=== PATIENT | female | born 1975 | race Caucasian/White ===

== ENCOUNTER 2020-05-23 08:23 | Outpatient (REF) | payer OTHER, SELFPAY ==
[2020-05-23 09:24] LABS: Alanine Aminotransferase 55 U/L (0-31); Alkaline Phosphatase 83 U/L (39-117); Anion Gap 11 (12-20); Aspartate Amino Transferase 35 U/L (5-31); Bilirubin Total 0.9 mg/dL (0.0-1.0); Blood Urea Nitrogen 16 mg/dL (9-16); Calcium 8.7 mg/dL (8.4-10.2); Carbon Dioxide 28 mmol/L (22-29); Chloride 103 mmol/L (96-108); Cholesterol 160 mg/dL; Estimated Glomerular Filt Rate > 60; Glucose Fasting 135 mg/dL (60-99); HDL Cholesterol 38 mg/dL; LDL Cholesterol Calculated 58 mg/dl; Potassium 4.8 mmol/l (3.3-5.1); Sodium 137 mmol/L (135-145); Total Protein 6.7 g/dL (6.5-8.0); Triglycerides 320 mg/dL
[2020-05-23 09:47] LABS: TSH reflex Free T4 1.92 mIU/mL (0.32-4.0)
[2020-05-23 09:58] LABS: Creatinine Urine 109.71 mg/dL; Microalbum/Creatinine Ratio Ur 4.5 ug/mg cr
== END 2020-05-23 08:24 | disposition home or self-care (01) ==
LOC: HO.LAB 08:23
PROVIDERS: PCP Internal Medicine; Visit Provider Internal Medicine
DX: E78.00 Pure hypercholesterolemia, unspecified (principal); E03.9 Hypothyroidism, unspecified; E11.9 Type 2 diabetes mellitus without complications
CPT/HCPCS: 80053; 80061; 82043; 84443

== ENCOUNTER → 2020-07-03 09:28 | Outpatient (BNVA) | payer OTHER, SELFPAY | PROVIDERS: PCP Internal Medicine; Visit Provider Advanced Practice Midwife | DX: Z76.89 Persons encountering health services in other specified circumstances (principal) ==

== ENCOUNTER 2020-08-26 09:48 | Outpatient (REF) | payer OTHER, SELFPAY ==
[2020-08-26 10:34] LABS: Alanine Aminotransferase 32 U/L (0-31); Albumin Level 4.2 g/dL (3.5-5.0); Alkaline Phosphatase 77 U/L (39-117); Anion Gap 15 (12-20); Aspartate Amino Transferase 16 U/L (5-31); Bilirubin Total 0.6 mg/dL (0.0-1.0); Blood Urea Nitrogen 13 mg/dL (9-16); Calcium 9.2 mg/dL (8.4-10.2); Carbon Dioxide 24 mmol/L (22-29); Chloride 104 mmol/L (96-108); Cholesterol 172 mg/dL; Estimated Glomerular Filt Rate > 60; Glucose Fasting 124 mg/dL (60-99); HDL Cholesterol 40 mg/dL; LDL Cholesterol Calculated 89 mg/dl; Potassium 4.6 mmol/l (3.3-5.1); Sodium 138 mmol/L (135-145); Total Protein 6.9 g/dL (6.5-8.0); Triglycerides 217 mg/dL
[2020-08-26 10:54] LABS: TSH reflex Free T4 2.34 mIU/mL (0.32-4.0)
== END 2020-08-26 09:49 | disposition home or self-care (01) ==
LOC: HO.LAB 09:48
PROVIDERS: Visit Provider Internal Medicine
DX: E11.9 Type 2 diabetes mellitus without complications (principal); E78.1 Pure hyperglyceridemia; E03.9 Hypothyroidism, unspecified
CPT/HCPCS: 36415; 80053; 80061; 84443

== ENCOUNTER 2020-08-30 16:15 | Outpatient (REF) | payer OTHER, SELFPAY ==
--- NOTE | 2020-08-30 16:19 | MM_ITS ---
EXAMINATION: MM SCREENING DIGITAL BREAST TOMOSYNTHESIS, BILATERAL CLINICAL INFORMATION: Screening. Asymptomatic. The lifetime risk of breast cancer based on the Tyrer-Cuzick Model is 12.1%. COMPARISON: Mammography: August 25, 2019 and studies dating back to August 17, 2017 TECHNIQUE: Digital breast tomosynthesis is performed in both the craniocaudal and mediolateral oblique views along with computer-aided detection (CAD). Synthesized 2D images are generated from the tomosynthesis. FINDINGS: The breasts are almost entirely fatty (ACR BI-RADS breast composition Category a). There are no significant masses, abnormal calcifications, or other abnormalities. MM/MM tomosynthesis screening BI IMPRESSION: There are no significant changes from prior study. ASSESSMENT: BI-RADS 1: Negative RECOMMENDATION: Routine annual mammography screening. This patient's information was entered into a reminder system with a target due date for their next mammogram.
== END 2020-08-30 16:16 | disposition home or self-care (01) ==
LOC: HO.MAMMO 16:15
PROVIDERS: PCP Internal Medicine; Visit Provider Internal Medicine
DX: Z12.31 Encounter for screening mammogram for malignant neoplasm of breast (principal)
CPT/HCPCS: 77063; 77067

== ENCOUNTER 2020-12-26 08:58 | Outpatient (REF) | payer OTHER, SELFPAY ==
[2020-12-26 10:00] LABS: Estimated Average Glucose 137 mg/dL; Hemoglobin A1c % 6.4 %
[2020-12-26 10:18] LABS: Alanine Aminotransferase 25 U/L (0-31); Alkaline Phosphatase 79 U/L (39-117); Anion Gap 14 (12-20); Aspartate Amino Transferase 16 U/L (5-31); Bilirubin Total 1.1 mg/dL (0.0-1.0); Blood Urea Nitrogen 16 mg/dL (9-16); Calcium 9.1 mg/dL (8.4-10.2); Carbon Dioxide 26 mmol/L (22-29); Chloride 103 mmol/L (96-108); Cholesterol 159 mg/dL; Estimated Glomerular Filt Rate > 60; Glucose Fasting 141 mg/dL (60-99); HDL Cholesterol 39 mg/dL; LDL Cholesterol Calculated 66 mg/dl; Potassium 4.6 mmol/L (3.3-5.1); Sodium 138 mmol/L (135-145); Total Protein 6.5 g/dL (6.5-8.0); Triglycerides 271 mg/dL
[2020-12-26 10:38] LABS: TSH reflex Free T4 2.05 uIU/mL (0.32-4.0)
[2020-12-26 11:22] LABS: Creatinine Urine 159.12 mg/dL; Microalbum/Creatinine Ratio Ur 12.5 ug/mg cr
== END 2020-12-26 08:59 | disposition home or self-care (01) ==
LOC: HO.LAB 08:58
PROVIDERS: PCP Internal Medicine; Visit Provider Internal Medicine
DX: E11.9 Type 2 diabetes mellitus without complications (principal); E78.5 Hyperlipidemia, unspecified; E03.9 Hypothyroidism, unspecified
CPT/HCPCS: 36415; 80053; 80061; 82043; 83036; 84443

== ENCOUNTER 2021-01-24 06:43 | Emergency (ER) | payer OTHER, SELFPAY ==
--- NOTE | ~2021-01-24 | XR_ITS ---
EXAMINATION: XR FOOT, LEFT CLINICAL INFORMATION: Pain COMPARISON: None TECHNIQUE: AP, lateral, and oblique views of the left foot. FINDINGS: There is a small retrocalcaneal enthesophyte. The ankle mortise and subtalar joints are normal. No acute fracture or dislocation. No soft tissue abnormality seen XR/XR foot LT min 3V IMPRESSION: No acute fracture or dislocation. Small retrocalcaneal enthesophyte.
[2021-01-24 07:09] VITALS: BP 153/88; PULSE 83; RESP 18; TEMP 36.7; O2SAT 99; BMI 43.9
--- NOTE | 2021-01-24 07:09 | ED_ITS ---
HPI - Extremity Problem General Chief complaint: Extremity Problem Stated complaint: left leg pain, can barely walk Time Seen by Provider: 01/24/21 07:08 Source: patient and certified court interpreter Mode of arrival: ambulatory Limitations: no limitations History of Present Illness HPI Narrative: 45 yo female with hx of HTN, HLD, DM not on AC therapy here with 5 days of L buttock pain into leg since Father's Day no numbness weakness, no trauma, has had sciatica in the past MD Complaint: other (L buttock pain into left leg) Onset (ago): day(s) (5) Pain Consistency: constant Location: left and lower extremity Quality: stabbing Radiation: distal Relieving factors: nothing Exacerbating factors: weight bearing, walking and palpation Associated symptoms: other (dropped a heavy box on her left toe at work) Context: other (started after swimming) Related Data Home Medications Medication Instructions Recorded Confirmed albuterol sulfate mg INHALATION PRN 05/27/20 12/31/20 buspirone 5 mg tablet mg PO 05/27/20 12/31/20 escitalopram oxalate 20 mg tablet 20 mg PO DAILY 05/27/20 12/31/20 lancets 28 gauge #100 ea 05/27/20 12/31/20 trazodone 100 mg tablet mg PO 05/27/20 12/31/20 Previous Rx's Medication Instructions Recorded fenofibrate 54 mg tablet 54 mg PO DAILY 90 Days #90 tab 05/27/20 losartan 25 mg tablet 25 mg PO DAILY 90 Days #90 tab 05/27/20 albuterol sulfate 90 mcg/actuation 2 puff INHALATION Q6H PRN 30 Days 08/29/20 aerosol inhaler #8.5 g fluticasone propionate 110 2 puff INHALATION BID 30 Days #12 g 08/29/20 mcg/actuation HFA aerosol inhaler levothyroxine 25 mcg tablet 25 mcg PO QAM #90 tab 09/18/20 metformin 500 mg tablet 500 mg PO BID #180 tab 09/18/20 ibuprofen 600 mg tablet 600 mg PO Q8H PRN 10 Days #20 tab 10/04/20 blood sugar diagnostic #10 ea 10/14/20 lactulose 10 gram/15 mL oral 10 g PO BEDTIME PRN 30 Days #237 ml 12/31/20 solution cyclobenzaprine 10 mg PO TID PRN #14 tab 01/24/21 hydrocodone-acetaminophen 1 tab PO Q6H PRN #12 tab 01/24/21 lidocaine 1 patch TOPICAL DAILY PRN #10 ea 01/24/21 Allergies Allergy/AdvReac Type Severity Reaction Status Date / Time morphine [MORPHINE] Allergy Severe facial Verified 12/31/20 15:09 droop, numbness, lip deviation Review of Systems Review of Systems: Constitutional : No Weight loss, No Fever, No Chills, ENT/Mouth : No Hearing loss, No Ear Pain, No Nasal Congestion, No Sinus Pain, No Hoarseness, No sore throat, No Rhinorrhea, No Swallowing Difficulty Cardiovascular : No Chest Pain, No SOB Respiratory : No Cough, No Dyspnea Gastrointestinal : No Nausea, No Vomiting, No Diarrhea, No abdominal Pain, No Hematochezia, No Melena Genitourinary : No Dysuria, No Urinary Frequency, No Hematuria, No Urinary Incontinence, Musculoskeletal : positive back pain, pos buttock pain Skin : No Skin Lesions, No rash Neuro : No Weakness, No Numbness, No Paresthesias, no loss of bowel or bladder incontinence, no saddle anesthesia PMFSH Past Medical History Attestation statement: The following information was validated with the patient. Medical History Depression with anxiety Diabetes mellitus Essential hypertension Hypertriglyceridemia Hypothyroidism Insomnia Otitis externa Surgical History History of section History of foot surgery Family History Family History Father Emphysema lung Mother Myocardial infarction Sister Chronic mental illness Family/Other FH: mental illness Social History Social History Alcohol intake: never Patient Tobacco Use Status: Former Tobacco user Tobacco use type: Cigarette Second Hand Smoke Exposure: No Use of substances other than those prescribed or required for medical reasons: No Physical Exam Vital Signs: Vital Signs: Last Vital Signs Temp 98.1 F 01/24/21 07:09 Pulse 83 01/24/21 07:09 Resp 18 01/24/21 07:09 BP 153/88 H 01/24/21 07:09 Pulse Ox 99 01/24/21 07:09 Body Mass Index 43.9 Appearance: Alert. Oriented X3. No acute distress. Eyes: Pupils equal, round and reactive to light. ENT: Pharynx normal. Neck: Normal inspection. Neck supple. CVS: Normal heart rate and rhythm. Pulses normal. Respiratory: No respiratory distress. Breath sounds normal. Abdomen: Soft and nontender. Back: ttp in left buttock reproduces pain distal NV intact Skin: Skin warm and dry. Normal skin color. Normal skin turgor. Extremities: No lower extremity edema. No calf ttp L great toe ecchymosis at tip Neuro: Oriented X 3. No motor deficit. No sensory deficit. SILT inner thigh, L5 5/5 bilaterally, 2+ L patella reflex MDM - Extremity (Nontraumatic) MDM Narrative Medical decision making narrative: 45 yo female with hx of HTN, HLD, DM not on AC therapy here with 5 days of L buttock pain into leg since Father's Day no numbness weakness, no trauma, has had sciatica in the past the patient has no CE symptoms, no red flags, exam and hx consistent with sciatica will start on pain medications and refer to PCP, xray of L great toe for fracture ordered Discharge Plan Discharge Clinical Impression: Sciatica Patient Disposition: Home, Self-Care Instructions: Sciatica (ED), Lumbar Radiculopathy (ED) Additional Instructions: return to ED for any worsening symptoms or concerns Prescriptions: New lidocaine 4 % adhesive patch,medicated 1 patch topical DAILY PRN (Reason: pain) Qty: 10 RF: 0 cyclobenzaprine 10 mg tablet 10 mg PO TID PRN (Reason: muscle spasm) Qty: 14 RF: 0 hydrocodone-acetaminophen 5-325 mg tablet 1 tab PO Q6H PRN (Reason: pain) Qty: 12 RF: 0 No Action albuterol sulfate 90 mcg/actuation HFA aerosol inhaler 2 puff inhalation Q6H PRN (Reason: bronchospasm) 30 Days Qty: 8.5 RF: 6 fluticasone propionate 110 mcg/actuation HFA aerosol inhaler 2 puff inhalation BID 30 Days Qty: 12 RF: 11 metformin 500 mg tablet 500 mg PO BID Qty: 180 RF: 3 levothyroxine 25 mcg tablet 25 mcg PO QAM Qty: 90 RF: 0 (DME) blood sugar diagnostic Strip See Rx Instructions strip Not Applicable BID Qty: 10 RF: 11 trazodone 100 mg tablet PO RF: 0 escitalopram oxalate 20 mg tablet 20 mg PO DAILY RF: 0 buspirone 5 mg tablet PO RF: 0 albuterol sulfate 2.5 mg /3 mL (0.083 %) solution for nebulization inhalation PRNRF: 0 (DME) lancets [FreeStyle Lancets] 28 gauge misc See Rx Instructions .ROUTE .MEDSUPPLY Qty: 100 RF: 0 losartan 25 mg tablet 25 mg PO DAILY 90 Days Qty: 90 RF: 3 fenofibrate 54 mg tablet 54 mg PO DAILY 90 Days Qty: 90 RF: 3 lactulose 10 gram/15 mL solution 10 g PO BEDTIME PRN (Reason: constipation) 30 Days Qty: 237 RF: 1 ibuprofen 600 mg tablet 600 mg PO Q8H PRN (Reason: pain) 10 Days Qty: 20 RF: 0 Referrals: Rupal Duke MD [Primary Care Provider] - 5 days (if not better) Stand Alone Forms: Work/School Release Print Language: Luxembourgish
[2021-01-24] MEDS: HYDROcodone Bit/Acetam 5/325 TABLET 1 TAB PO (08:06)
[2021-01-24] MEDS: Cyclobenzaprine HCl 10 MG TABLET PO (08:06)
== END 2021-01-24 08:37 | disposition home or self-care (01) ==
LOC: HO.ED 07:42
PROVIDERS: Emergency Provider Emergency Medicine; PCP Internal Medicine
DX: M54.30 Sciatica, unspecified side (principal); I10 Essential (primary) hypertension; E11.9 Type 2 diabetes mellitus without complications; Z79.84 Long term (current) use of oral hypoglycemic drugs; Z79.899 Other long term (current) drug therapy
CPT/HCPCS: 73630; 99283; 99284

== ENCOUNTER 2021-01-26 08:14 | Emergency (ER) | payer OTHER, SELFPAY ==
--- NOTE | ~2021-01-26 | CT_ITS ---
EXAMINATION: CT ABDOMEN AND PELVIS WITHOUT CONTRAST CLINICAL INFORMATION: Left flank pain with hematuria. COMPARISON: Ultrasound abdomen 06/09/2019. TECHNIQUE: Multidetector volumetric imaging was performed from the superior aspect of the liver through the pubic symphysis. Sagittal and coronal reformatted images were obtained on the technologist's workstation. This CT examination was performed using dose optimization techniques as appropriate, variously including the following: *Automated exposure control *Adjustment of mA and/or kV according to patient size (this includes techniques or standardized protocols for targeted exams where dose is matched to indication/reason for exam; i.e. extremities or head) *Use of iterative reconstruction technique DLP: 1241 mGy-cm FINDINGS: LUNG BASES: The visualized lung bases are unremarkable. LIVER, GALLBLADDER, AND BILIARY TREE: The liver is normal in size, shape, and attenuation. No focal hepatic lesion or biliary ductal dilatation is present. The gallbladder is unremarkable with no evidence of radiopaque gallstones, gallbladder wall thickening, or obvious pericholecystic inflammatory changes. PANCREAS: Unremarkable. SPLEEN: Unremarkable. ADRENAL GLANDS: Unremarkable. KIDNEYS AND URETERS: The kidneys are normal in size, shape, and attenuation. No hydronephrosis, hydroureter, or calculi seen. No perinephric stranding. BLADDER: Unremarkable. GASTROINTESTINAL TRACT: There is scattered stool and gas seen throughout the colon without significant distention. The small bowel loops are normal caliber. Appendix is normal caliber with a 2 mm appendicolith. No inflammatory process in the abdomen. ABDOMINAL WALL: No significant hernia is appreciated. LYMPH NODES: Small shotty lymph nodes are seen in the retroperitoneum measuring less than 5 mm. No retroperitoneal mass. VASCULAR: Unremarkable. PELVIC VISCERA: The uterus is anteverted with a slightly bulky appearing fundus. No free fluid. No abnormal pelvic lymph nodes. OSSEOUS STRUCTURES: There are degenerative disc changes L3-L4, L4-L5 and L5-S1 disc levels with ventral spondylosis. Hypodensity and calcification in the left gluteus medius muscle likely old injury or injection granuloma. CT/CT abdomen pelvis wo con IMPRESSION: No radiopaque urolith or hydroureteronephrosis. Slightly bulky fundus in anteverted uterus. No free fluid. Linear calcification the left gluteus medius muscle likely old injury or injection granuloma. Correlate clinically. Mild constipation.
[2021-01-26 08:23] VITALS: BP 132/63; PULSE 92; RESP 20; TEMP 36.8; O2SAT 99; BMI 40.3
--- NOTE | 2021-01-26 08:52 | ED_ITS ---
HPI - Abdominal Pain General Chief Complaint: Abdominal Pain Stated Complaint: hip pain Time Seen by Provider: 01/26/21 08:41 Source: patient and old records reviewed Mode of arrival: ambulatory Limitations: no limitations History of Present Illness HPI narrative: 45 yo female hx of HTN, HLD, depression, DM, hypothyroidism came in 01/24 with L buttock pain dx with sciatica returns today and c/o L flank pain abdominal pain and noted blood in her urine and she states her pain is still there MD elicited complaint: other (L lower abdomen, L buttock pain, hematuria) Pertinent past history: none Onset (ago): week(s) (1 but her hematuria started today and abdominal pain last couple of days) Pain Consistency: constant Location: LLQ and groin Severity: severe Quality: stabbing Radiation: LLQ and other (left leg) Migration to: no migration Exacerbating factors: movement Relieving factors: nothing Associated symptoms: hematuria Treatments prior to arrival: prescription analgesics Related Data Home Medications Medication Instructions Recorded Confirmed albuterol sulfate mg INHALATION PRN 05/27/20 12/31/20 buspirone 5 mg tablet mg PO 05/27/20 12/31/20 escitalopram oxalate 20 mg tablet 20 mg PO DAILY 05/27/20 12/31/20 lancets 28 gauge #100 ea 05/27/20 12/31/20 trazodone 100 mg tablet mg PO 05/27/20 12/31/20 Previous Rx's Medication Instructions Recorded fenofibrate 54 mg tablet 54 mg PO DAILY 90 Days #90 tab 05/27/20 losartan 25 mg tablet 25 mg PO DAILY 90 Days #90 tab 05/27/20 albuterol sulfate 90 mcg/actuation 2 puff INHALATION Q6H PRN 30 Days 08/29/20 aerosol inhaler #8.5 g fluticasone propionate 110 2 puff INHALATION BID 30 Days #12 g 08/29/20 mcg/actuation HFA aerosol inhaler levothyroxine 25 mcg tablet 25 mcg PO QAM #90 tab 09/18/20 metformin 500 mg tablet 500 mg PO BID #180 tab 09/18/20 ibuprofen 600 mg tablet 600 mg PO Q8H PRN 10 Days #20 tab 10/04/20 blood sugar diagnostic #10 ea 10/14/20 lactulose 10 gram/15 mL oral 10 g PO BEDTIME PRN 30 Days #237 ml 12/31/20 solution cyclobenzaprine 10 mg PO TID PRN #14 tab 01/24/21 hydrocodone-acetaminophen 1 tab PO Q6H PRN #12 tab 01/24/21 lidocaine 1 patch TOPICAL DAILY PRN #10 ea 01/24/21 diazepam [Valium] 5 mg PO TID PRN #10 tab 01/26/21 nitrofurantoin monohyd/m-cryst 100 mg PO BID 7 Days #14 cap 01/26/21 [Macrobid] Allergies Allergy/AdvReac Type Severity Reaction Status Date / Time morphine [MORPHINE] Allergy Severe facial Verified 12/31/20 15:09 droop, numbness, lip deviation Review of Systems Review of Systems Constitutional : No Weight loss, No Fever, No Chills ENT/Mouth : No sore throat, No Rhinorrhea Eyes: No Swelling, No Redness Cardiovascular : No Chest Pain, No SOB, NoEdema Respiratory : No Cough, No Sputum, No Wheezing Gastrointestinal : no Nausea, no Vomiting, no Diarrhea, positive abdominal Pain, No Hematochezia, No Melena Genitourinary : No Dysuria, No Urinary Frequency, pos Hematuria, No Urgency Musculoskeletal : No joint pain, No Myalgias, No Joint Swelling, pos back pain Skin : No Skin Lesions, No rash Neuro : No Weakness, No Numbness, No Dizziness, No Headache Psych : No Anxiety/Panic, No Depression Heme/Lymph: No Bruising, No Lymphadenopathy Endocrine : No Polyuria, No Polydipsia All other systems reviewed and are negative. Physical Exam Vital Signs: Vital Signs: Last Vital Signs Temp 98.2 F 01/26/21 08:23 Pulse 85 01/26/21 10:12 Resp 18 01/26/21 10:12 BP 131/71 01/26/21 10:12 Pulse Ox 100 01/26/21 10:12 Body Mass Index 40.3 Appearance: Alert. Oriented X3. No acute distress. Eyes: Pupils equal, round and reactive to light. ENT: Pharynx normal. Neck: Normal inspection. Neck supple. CVS: Normal heart rate and rhythm. Pulses normal. Respiratory: No respiratory distress. Breath sounds normal. Abdomen: Soft and ttp along L hip area and LLQ , pain in left buttock Skin: Skin warm and dry. Normal skin color. Normal skin turgor. Extremities: No lower extremity edema. No calf ttp Neuro: Oriented X 3. No motor deficit. No sensory deficit. Course Course Course Narrative: feels better, will start on macrobid and valium refer to PCP for PT MDM - Abdominal Pain MDM Narrative Medical decision making narrative: 45 yo female hx of HTN, HLD, depression, DM, hypothyroidism came in 01/24 with L buttock pain dx with sciatica returns today and c/o L flank pain abdominal pain and noted blood in her urine, at this time basic labs, UA and CT scan for renal colic ordered, PO valium, I did attempt to release her piriformis with some stretching and that did alleviate some of her pain Lab Data Result diagrams: 01/26/21 10:11 01/26/21 10:11 Labs: Lab Results 01/26/21 01/26/21 01/26/21 Range/Units 09:17 09:17 10:11 WBC 11.3 H (4.8-10.8) X10*3/uL RBC 4.34 (4.20-5.50) X10*6/uL Hgb 12.4 (12.0-16.0) g/dl Hct 38.6 (37-47) % MCV 88.9 (80-98) fL MCH 28.6 (27.0-33.0) pg MCHC 32.1 (31.0-35.0) g/dl RDW 12.5 (11.0-16.0) % Plt Count 345 (160-400) X10*3/uL MPV 9.7 (9.4-12.3) fL Immature Gran % (Auto) 0.4 (0.0-0.4) % Neut % (Auto) 70.7 (45-73) % Lymph % (Auto) 18.1 L (20-40) % [place] % (Auto) 8.8 (2-11) % Eos % (Auto) 1.6 (0-4) % Baso % (Auto) 0.4 (0-2) % Lymph # (Auto) 2.0 (1.2-4.9) X10*3/uL [place] # (Auto) 1.0 (0.1-1.2) X10*3/uL Eos # (Auto) 0.2 (0.0-0.4) X10*3/uL Baso # (Auto) 0.1 (0.0-0.2) X10*3/uL Abs Immat Gran (auto) 0.04 H (0.00-0.03) X10*3/uL Absolute Neuts (auto) 8.0 (2.0-8.3) X10*3/uL Absolute Nucleated RBC 0.000 (0.0-0.012) X10*3/uL Nucleated RBC % (auto) 0.0 (0.0-0.2) /100WBC Sodium (135-145) mmol/L Potassium (3.3-5.1) mmol/L Chloride (96-108) mmol/L Carbon Dioxide (22-29) mmol/L Anion Gap (12-20) BUN (9-16) mg/dL Creatinine (0.5-1.4) mg/dL Estim Creat Clear Calc Estimated GFR Random Glucose (60-115) mg/dL Calcium (8.4-10.2) mg/dL Urine Color YELLOW Urine Appearance HAZY Urine pH 5.5 (5.0-8.0) Ur Specific [place] 1.025 (1.005-1.025) Urine Protein NEG (NEG-TRACE) MG/DL Urine Glucose (UA) NEG (NEG) MG/DL Urine Ketones NEG (NEG) MG/DL Urine Blood 3+ H (NEG) Urine Nitrite NEG (NEG) Ur Leukocyte Esterase 1+ H (NEG) Urine RBC 0-2 (0) /HPF Urine WBC 5-9 H (0-4) /HPF Ur Squamous Epith Cells 2+ /LPF Urine Bacteria 1+ /LPF Urine Test NEGATIVE (NEGATIVE) 01/26/21 Range/Units 10:11 WBC (4.8-10.8) X10*3/uL RBC (4.20-5.50) X10*6/uL Hgb (12.0-16.0) g/dl Hct (37-47) % MCV (80-98) fL MCH (27.0-33.0) pg MCHC (31.0-35.0) g/dl RDW (11.0-16.0) % Plt Count (160-400) X10*3/uL MPV (9.4-12.3) fL Immature Gran % (Auto) (0.0-0.4) % Neut % (Auto) (45-73) % Lymph % (Auto) (20-40) % [place] % (Auto) (2-11) % Eos % (Auto) (0-4) % Baso % (Auto) (0-2) % Lymph # (Auto) (1.2-4.9) X10*3/uL [place] # (Auto) (0.1-1.2) X10*3/uL Eos # (Auto) (0.0-0.4) X10*3/uL Baso # (Auto) (0.0-0.2) X10*3/uL Abs Immat Gran (auto) (0.00-0.03) X10*3/uL Absolute Neuts (auto) (2.0-8.3) X10*3/uL Absolute Nucleated RBC (0.0-0.012) X10*3/uL Nucleated RBC % (auto) (0.0-0.2) /100WBC Sodium 139 (135-145) mmol/L Potassium 4.7 (3.3-5.1) mmol/L Chloride 104 (96-108) mmol/L Carbon Dioxide 29 (22-29) mmol/L Anion Gap 11 L (12-20) BUN 10 (9-16) mg/dL Creatinine 0.79 (0.5-1.4) mg/dL Estim Creat Clear Calc 109.3 Estimated GFR > 60 Random Glucose 122 H (60-115) mg/dL Calcium 8.7 (8.4-10.2) mg/dL Urine Color Urine Appearance Urine pH (5.0-8.0) Ur Specific [place] (1.005-1.025) Urine Protein (NEG-TRACE) MG/DL Urine Glucose (UA) (NEG) MG/DL Urine Ketones (NEG) MG/DL Urine Blood (NEG) Urine Nitrite (NEG) Ur Leukocyte Esterase (NEG) Urine RBC (0) /HPF Urine WBC (0-4) /HPF Ur Squamous Epith Cells /LPF Urine Bacteria /LPF Urine Test (NEGATIVE) Discharge Plan Discharge Clinical Impression: UTI (urinary tract infection), Sciatica Patient Disposition: Home, Self-Care Instructions: Urinary Tract Infection in Women (ED), Sciatica (ED) Additional Instructions: return to ED for any worsening symptoms or concerns Prescriptions: New diazepam [Valium] 5 mg tablet 5 mg PO TID PRN (Reason: muscle spasm) Qty: 10 RF: 0 nitrofurantoin monohyd/m-cryst [Macrobid] 100 mg capsule 100 mg PO BID 7 Days Qty: 14 RF: 0 No Action albuterol sulfate 90 mcg/actuation HFA aerosol inhaler 2 puff inhalation Q6H PRN (Reason: bronchospasm) 30 Days Qty: 8.5 RF: 6 fluticasone propionate 110 mcg/actuation HFA aerosol inhaler 2 puff inhalation BID 30 Days Qty: 12 RF: 11 metformin 500 mg tablet 500 mg PO BID Qty: 180 RF: 3 levothyroxine 25 mcg tablet 25 mcg PO QAM Qty: 90 RF: 0 (DME) blood sugar diagnostic Strip See Rx Instructions strip Not Applicable BID Qty: 10 RF: 11 lidocaine 4 % adhesive patch,medicated 1 patch topical DAILY PRN (Reason: pain) Qty: 10 RF: 0 cyclobenzaprine 10 mg tablet 10 mg PO TID PRN (Reason: muscle spasm) Qty: 14 RF: 0 hydrocodone-acetaminophen 5-325 mg tablet 1 tab PO Q6H PRN (Reason: pain) Qty: 12 RF: 0 trazodone 100 mg tablet PO RF: 0 escitalopram oxalate 20 mg tablet 20 mg PO DAILY RF: 0 buspirone 5 mg tablet PO RF: 0 albuterol sulfate 2.5 mg /3 mL (0.083 %) solution for nebulization inhalation PRNRF: 0 (DME) lancets [FreeStyle Lancets] 28 gauge misc See Rx Instructions .ROUTE .MEDSUPPLY Qty: 100 RF: 0 losartan 25 mg tablet 25 mg PO DAILY 90 Days Qty: 90 RF: 3 fenofibrate 54 mg tablet 54 mg PO DAILY 90 Days Qty: 90 RF: 3 lactulose 10 gram/15 mL solution 10 g PO BEDTIME PRN (Reason: constipation) 30 Days Qty: 237 RF: 1 ibuprofen 600 mg tablet 600 mg PO Q8H PRN (Reason: pain) 10 Days Qty: 20 RF: 0 Referrals: Rupal Duke MD [Primary Care Provider] - 2 days Stand Alone Forms: Work/School Release [facility] Past Medical History Attestation statement: The following information was validated with the patient. Medical History Depression with anxiety Diabetes mellitus Essential hypertension Hypertriglyceridemia Hypothyroidism Insomnia Otitis externa Surgical History History of section History of foot surgery Family History Family History Father Emphysema lung Mother Myocardial infarction Sister Chronic mental illness Family/Other FH: mental illness Social History Social History Alcohol intake: never Patient Tobacco Use Status: Former Tobacco user Tobacco use type: Cigarette Second Hand Smoke Exposure: No Advance Directives: Yes Advance Directives Information Provided: Yes Advance Directives on File: No Patient : No
[2021-01-26 09:10] VITALS: BP 138/97; PULSE 89; RESP 16; O2SAT 98
[2021-01-26 09:26] LABS: Glucose Urine UA NEG (NEG); Leukocyte Esterase Urine 1+ (NEG); Nitrite Urine NEG (NEG); PH 5.5 (5.0-8.0); Specific Gravity - Urine 1.025 (1.005-1.025); UACC Culture Trigger YES; Urine Blood 3+ (NEG); Urine Ketones NEG (NEG); Urine Protein NEG (NEG-TRACE)
[2021-01-26 09:36] LABS: Appearance Urine HAZY; Color Urine YELLOW
[2021-01-26 09:38] LABS: UPreg QC Valid YES; Urine Pregnancy NEGATIVE (NEGATIVE)
[2021-01-26 09:39] LABS: Bacteria Urine 1+ /LPF; RBC Urine 0-2 /HPF (0); Squamous Epithelial Cell Urine 2+ /LPF
[2021-01-26] MEDS: diazePAM 5 MG TABLET PO (10:06)
[2021-01-26 10:12] VITALS: BP 131/71; PULSE 85; RESP 18; O2SAT 100
[2021-01-26 10:17] LABS: MANUAL DIFF FLAG NO
[2021-01-26 10:18] LABS: Basophils Absolute Auto 0.1 X10*3/uL (0.0-0.2); Basophils Percent Auto 0.4 % (0-2); Eosinophils Absolute Auto 0.2 X10*3/uL (0.0-0.4); Eosinophils Percent Auto 1.6 % (0-4); Hematocrit 38.6 % (37-47); Hemoglobin 12.4 g/dl (12.0-16.0); Imm Gran Abs Auto 0.04 X10*3/uL (0.00-0.03); Imm Gran Pct Auto 0.4 % (0.0-0.4); Lymphocytes Percent Auto 18.1 % (20-40); Mean Corpuscular HGB Conc 32.1 g/dl (31.0-35.0); Mean Corpuscular Hemoglobin 28.6 pg (27.0-33.0); Mean Corpuscular Volume 88.9 fL (80-98); Mean Platelet Volume 9.7 fL (9.4-12.3); Monocytes Percent Auto 8.8 % (2-11); Neutrophils Percent Auto 70.7 % (45-73); Platelet Count 345 X10*3/uL (160-400); Red Blood Count 4.34 X10*6/uL (4.20-5.50); Red Cell Distribution Width 12.5 % (11.0-16.0); White Blood Count 11.3 X10*3/uL (4.8-10.8)
[2021-01-26 10:38] LABS: Anion Gap 11 (12-20); Blood Urea Nitrogen 10 mg/dL (9-16); Calcium 8.7 mg/dL (8.4-10.2); Carbon Dioxide 29 mmol/L (22-29); Chloride 104 mmol/L (96-108); Creatinine Clr Calc Pharmacy 109.3; Estimated Glomerular Filt Rate > 60; Glucose Random 122 mg/dL (60-115); Potassium 4.7 mmol/L (3.3-5.1); Sodium 139 mmol/L (135-145)
== END 2021-01-26 11:23 | disposition home or self-care (01) ==
PROVIDERS: Emergency Provider Emergency Medicine; PCP Internal Medicine
DX: N39.0 Urinary tract infection, site not specified (principal); M54.32 Sciatica, left side; I10 Essential (primary) hypertension; E78.5 Hyperlipidemia, unspecified; E11.9 Type 2 diabetes mellitus without complications; Z79.84 Long term (current) use of oral hypoglycemic drugs; Z79.899 Other long term (current) drug therapy
CPT/HCPCS: 36415; 74176; 80048; 81001; 81003; 81025; 85025; 87086; 99283; 99284

== ENCOUNTER 2021-03-18 08:00 | Outpatient (RCR) | payer OTHER, SELFPAY ==
--- NOTE | 2021-03-07 09:45 | MHC.PT.EP ---
[facility] [place] Office [place] [facility] [place] [facility] [address] Ramona Hurtado [address] [phone] F: [phone] F: [phone] F: [phone] F: [phone] Physical Therapy Plan of Care Date of Evaluation: Date of Surgery: N/A Diagnosis: sciatica, left side Assessment: pt's signs and symptoms consistent w/ lumbar radiculopathy. pt centralized w/ BRENDA position and REIL repeated movements. pt presents to physical therapy with pain, decreased range of motion, decreased strength, impaired functional mobility, impaired postural awareness, and gait deviations. pt is a excellent/good/fair/poor candidate for skilled PT due to age, potential remediation of impairments, typical disease/condition progression and prognosis, comorbidities, and motivation. pt would benefit from tailored strengthening and stretching exercise program, functional training, gait training, postural re-training, neuromuscular re-education, modalities as needed for pain, equipment safety demonstration. Frequency and Duration: The patient will be seen 2x/wk for 4 wks Short Term Goals: pt will be I w/ HEP to promote self-management of condition. pt will demo proper sitting posture w/ lumbar roll to promote neutral spine and manage radicular symptoms. Usp Goals: pt will report <2/10 low back pain for standing >30 min to promote pain-free return to self-care activities/ADLs. pt will demo proper lifting mechanics x3 reps from floor to chest height of 15# to protect spine w/ work-related tasks. Treatment Plan: Modalities to reduce pain, spasms and effusion. Manual therapy to restore motion and function. Therapeutic exercise to improve strength and flexibility. Neuromuscular re-education for posture and balance. Therapeutic activities to return to functional activities of daily living. Electronically signed by: Brenda Armstrong PT, DPT Please sign and return to therapist. Thank you for your referral.
--- NOTE | 2021-04-15 11:31 | MHC.PT.DC ---
[facility] [place] Office [place] Office [address] Ramona Hurtado [address] [phone] F: [phone] F: [phone] F: [phone] F: [phone] Physical Therapy Discharge Report Diagnosis: sciatica, left side Date of Surgery: N/A Date of Evaluation: 03/07/21 Date of Discharge: 04/15/21 Treatments to Date: 3 Cancellations to Date: 1 No Shows to Date: 3 Discharge Status: Visit Non-compliance Discharge Summary: The patient was reporting improved back pain with physical therapy intervention. She has only attended a total of three visits. She has had poor attendance. The patient is discharged for visit non-compliance. Electronically signed by: Brenda Armstrong PT, DPT Please sign and return to therapist. Thank you for your referral.
== END 2021-04-15 11:31 | disposition home or self-care (01) ==
LOC: HO.PT 08:00
PROVIDERS: PCP Internal Medicine; Visit Provider Internal Medicine
DX: M54.32 Sciatica, left side (principal)
CPT/HCPCS: 97110; 97112; 97161

== ENCOUNTER 2021-05-01 07:24 | Outpatient (REF) | payer OTHER, SELFPAY ==
[2021-05-01 08:00] LABS: Alanine Aminotransferase 22 U/L (0-31); Albumin Level 3.9 g/dL (3.5-5.0); Alkaline Phosphatase 77 U/L (39-117); Anion Gap 12 (12-20); Aspartate Amino Transferase 15 U/L (5-31); Bilirubin Total 0.7 mg/dL (0.0-1.0); Blood Urea Nitrogen 10 mg/dL (9-16); Calcium 9.2 mg/dL (8.4-10.2); Carbon Dioxide 26 mmol/L (22-29); Chloride 105 mmol/L (96-108); Cholesterol 157 mg/dL; Estimated Glomerular Filt Rate > 60; Glucose Fasting 136 mg/dL (60-99); HDL Cholesterol 46 mg/dL; LDL Cholesterol Calculated 66 mg/dl; Sodium 138 mmol/L (135-145); Total Protein 6.6 g/dL (6.5-8.0); Triglycerides 228 mg/dL
[2021-05-01 08:20] LABS: Thyroid Stimulating Hormone 2.14 uIU/mL (0.32-4.0)
== END 2021-05-01 07:25 | disposition home or self-care (01) ==
LOC: HO.LAB 07:24
PROVIDERS: PCP Internal Medicine; Visit Provider Internal Medicine
DX: I10 Essential (primary) hypertension (principal); E78.5 Hyperlipidemia, unspecified; E03.9 Hypothyroidism, unspecified
CPT/HCPCS: 36415; 80053; 80061; 84443

== ENCOUNTER 2021-07-01 13:27 | Emergency (ER) | payer OTHER, SELFPAY ==
[2021-07-01 14:25] VITALS: BP 154/86; PULSE 85; RESP 16; TEMP 36.6; O2SAT 100; BMI 39.4
--- NOTE | 2021-07-01 16:53 | ED_ITS ---
HPI - Headache General Chief Complaint: Headache Stated Complaint: Dizziness Source: patient Mode of arrival: ambulatory Limitations: no limitations History of Present Illness HPI Narrative: 46-year-old female presents with a migraine lasting several hours. Patient states that she is unable to take p.o. fluids because of nausea. She does have some photophobia, has a history of migraines in the past but does not have any medications to help control symptoms. MD elicited complaint: migraine Onset (ago): hour(s) Onset description: gradually Location: diffuse Severity: moderate Quality & Timing: throbbing, steady and constant Exacerbating factors: light and noise Relieving factors: nothing Context: occurred at rest Associated symptoms: nausea, photophobia and sensitivity to sound Treatments prior to arrival: none Related Data Home Medications Medication Instructions Recorded Confirmed albuterol sulfate mg INHALATION PRN 05/27/20 05/05/21 buspirone 5 mg tablet mg PO 05/27/20 05/05/21 escitalopram oxalate 20 mg tablet 20 mg PO DAILY 05/27/20 05/05/21 lancets 28 gauge (FreeStyle #100 ea 05/27/20 05/05/21 Lancets) trazodone 100 mg tablet mg PO 05/27/20 05/05/21 Previous Rx's Medication Instructions Recorded fenofibrate 54 mg tablet 54 mg PO DAILY 90 Days #90 tab 05/27/20 losartan 25 mg tablet 25 mg PO DAILY 90 Days #90 tab 05/27/20 albuterol sulfate 90 mcg/actuation 2 puff INHALATION Q6H PRN 30 Days 08/29/20 aerosol inhaler #8.5 g fluticasone propionate 110 2 puff INHALATION BID 30 Days #12 g 08/29/20 mcg/actuation HFA aerosol inhaler metformin 500 mg tablet 500 mg PO BID #180 tab 09/18/20 ibuprofen 600 mg tablet 600 mg PO Q8H PRN 10 Days #20 tab 10/04/20 blood sugar diagnostic #10 ea 10/14/20 lactulose 10 gram/15 mL oral 10 g (15 mL) PO BEDTIME PRN 30 12/31/20 solution Days #237 ml lidocaine 4 % topical patch 1 patch TOPICAL DAILY PRN #10 ea 01/24/21 levothyroxine 25 mcg tablet 25 mcg PO QAM #90 tab 02/10/21 alwnwjutur-sarldoplukfxh-fhnttxnb 1 tab PO Q4-6H PRN #20 tab 07/01/21 50 mg-325 mg-40 mg tablet Allergies Allergy/AdvReac Type Severity Reaction Status Date / Time morphine [MORPHINE] Allergy Severe facial Verified 05/05/21 15:25 droop, numbness, lip deviation Review of Systems Review of Systems: Constitutional: Positive migraine, No Fever, No Chills ENT/Mouth: Positive photosensitivity, No Ear Pain, No Hoarseness, No sore throat Eyes: No Eye Pain, No Swelling, No Redness, No Foreign Body Cardiovascular: No Chest Pain, No SOB Respiratory: No Cough, No Dyspnea Gastrointestinal: Positive Nausea, No Vomiting, No Diarrhea, No abdominal Pain Genitourinary: No Dysuria, No Hematuria Musculoskeletal: No joint pain, No Myalgias, No Joint Swelling Skin: No Skin lacerations, No rash Neuro: No Weakness, No Numbness, No Paresthesias, No Loss of Consciousness, No Dizziness, No Headache Psych: No Anxiety/Panic, No Depression Heme/Lymph: no easy bruising, no Lymphadenopathy Endocrine: No Polyuria, No Polydipsia Yes all other systems are reviewed and are negative [facility] Past Medical History Attestation statement: The following information was validated with the patient. Source: old records reviewed Medical History Depression with anxiety Diabetes mellitus Essential hypertension Hypertriglyceridemia Hypothyroidism Insomnia Left sided sciatica Mild recurrent major depression Otitis externa Surgical History History of section History of foot surgery Family History Family History Father Emphysema lung Mother Myocardial infarction Sister Chronic mental illness Family/Other FH: mental illness Social History Social History Housing: Apartment Alcohol intake: never Patient Tobacco Use Status: Former Tobacco user Tobacco use type: Cigarette e-Cigarette/Vaping Use: Never Used Second Hand Smoke Exposure: No Advance Directives: No Advance Directives Information Provided: Yes Patient : No service: No Current occupational status: employed Current occupational exposures/hazards: No Physical Exam Vital Signs: Vital Signs: Last Vital Signs Temp 97.8 F 07/01/21 14:25 Pulse 85 07/01/21 14:25 Resp 16 07/01/21 14:25 BP 154/86 H 07/01/21 14:25 Pulse Ox 100 07/01/21 14:25 Body Mass Index 39.4 Appearance: Alert. Oriented X3. Moderate distress. Eyes: Pupils equal, round and reactive to light. EOMI. No nystagmus. ENT: Pharynx normal. Neck: Normal inspection. Neck supple. No nuchal rigidity. CVS: Normal heart rate and rhythm. Pulses normal. Respiratory: No respiratory distress. Breath sounds normal. Abdomen: Soft and nontender. Skin: Skin warm and dry. Normal skin color. Normal skin turgor. Extremities: Gait well balanced well coordinated. Neuro: No motor deficit. No sensory deficit. Cranial nerves 2-12 intact. Course Course Course Narrative: 46-year-old female presents with migraine. Has history migraines and was evaluated by Neurology but does not have any medications to alleviate symptoms. Will give Toradol, Reglan, saline, Zofran and Fioricet and re-evaluate. 6:06 p.m. patient states the feel much better. Will prescribe Fioricet for home use. Patient was advised to follow-up with primary care physician. Patient verbalized understanding of and agrees to plan of care discharge home. 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 Google translate utilized for discharge instructions. MDM - Headache Differential Diagnosis Differential diagnosis: Likely migraine, tension headache and headache Medical Records Attestation: I reviewed the patient's medical records. Lab Data Attestation: I reviewed the patient's lab results. Labs: Lab Results 07/01/21 Range/Units 17:01 Urine Test NEGATIVE (NEGATIVE) Discharge Plan Discharge Clinical Impression: Migraine Patient Disposition: Home, Self-Care Instructions: Migraine Headache (ED) Additional Instructions: Fue evaluado por migra?a. Ponder Fioricet seg?n lo prescrito. Seguimiento con neurolog?a y m?dico de atenci?n primaria seg?n lo programado. [place] por elegir john departamento de emergencias para west evaluaci?n. Iraj un seguimiento con west m?dico de atenci?n primaria seg?n sea necesario. Regrese al departamento de emergencias por cualquier s?ntoma nuevo, preocupante o que empeore. \You were evaluated for migraine headache. Please take Fioricet as prescribed. Follow-up with Neurology and primary care physician as scheduled. Thank you for choosing this emergency department for evaluation. Please follow-up with primary care physician as needed. Return to the emergency department for any new, concerning, or worsening symptoms. Prescriptions: New nliiecopwk-jwtxucqtjyjlg-mxay 50-325-40 mg tablet 1 tab PO Q4-6H PRN (Reason: Migraine) Qty: 20 RF: 0 No Action albuterol sulfate 90 mcg/actuation HFA aerosol inhaler 2 puff inhalation Q6H PRN (Reason: bronchospasm) 30 Days Qty: 8.5 RF: 6 fluticasone propionate 110 mcg/actuation HFA aerosol inhaler 2 puff inhalation BID 30 Days Qty: 12 RF: 11 metformin 500 mg tablet 500 mg PO BID Qty: 180 RF: 3 (DME) blood sugar diagnostic Strip See Rx Instructions strip Not Applicable BID Qty: 10 RF: 11 levothyroxine 25 mcg tablet 25 mcg PO QAM Qty: 90 RF: 2 lidocaine 4 % adhesive patch,medicated 1 patch topical DAILY PRN (Reason: pain) Qty: 10 RF: 0 trazodone 100 mg tablet PO RF: 0 escitalopram oxalate 20 mg tablet 20 mg PO DAILY RF: 0 buspirone 5 mg tablet PO RF: 0 albuterol sulfate 2.5 mg /3 mL (0.083 %) solution for nebulization inhalation PRNRF: 0 (DME) lancets [FreeStyle Lancets] 28 gauge misc See Rx Instructions .ROUTE .MEDSUPPLY Qty: 100 RF: 0 losartan 25 mg tablet 25 mg PO DAILY 90 Days Qty: 90 RF: 3 fenofibrate 54 mg tablet 54 mg PO DAILY 90 Days Qty: 90 RF: 3 lactulose 10 gram/15 mL solution 10 g PO BEDTIME PRN (Reason: constipation) 30 Days Qty: 237 RF: 1 ibuprofen 600 mg tablet 600 mg PO Q8H PRN (Reason: pain) 10 Days Qty: 20 RF: 0 Referrals: Yenifer Correa MD [Physician] - 2 days (Recurrent migraines) Interventions: ED Discharge Assessment Last Done: 07/01/21 18:27 Discharge Date/Time: 07/01/21 18:29
[2021-07-01 17:09] LABS: UPreg QC Valid YES; Urine Pregnancy NEGATIVE (NEGATIVE)
[2021-07-01] MEDS: Butalb/Acetamin/Caff 50/325/40 TABLET 1 TAB PO (17:20)
[2021-07-01] MEDS: 0.9 % Sodium Chloride 1,000 ML 999 ML IVCONT (17:26)
[2021-07-01] MEDS: Ketorolac Tromethamine 30 MG/ML VIAL IVPUSH (17:27)
[2021-07-01] MEDS: diphenhydrAMINE HCL 50 MG/ML VIAL 25 MG IVPUSH (17:29)
[2021-07-01] MEDS: Metoclopramide HCl 10 MG/2 ML VIAL IVPUSH (17:29)
== END 2021-07-01 18:29 | disposition home or self-care (01) ==
PROVIDERS: Nurse Practitioner Family; Emergency Provider Emergency Medicine Emergency Medical Services; PCP Internal Medicine
DX: G43.909 Migraine, unspecified, not intractable, without status migrainosus (principal); E11.9 Type 2 diabetes mellitus without complications; I10 Essential (primary) hypertension
CPT/HCPCS: 81025; 96361; 96374; 96375; 99284; J1200; J1885; J2765

== ENCOUNTER 2021-09-08 13:24 | Outpatient (REF) | payer OTHER, SELFPAY ==
--- NOTE | ~2021-09-08 | MM_ITS ---
EXAMINATION: MM SCREENING DIGITAL BREAST TOMOSYNTHESIS, BILATERAL CLINICAL INFORMATION: Screening. Asymptomatic. The lifetime risk of breast cancer based on the Tyrer-Cuzick Model is 12%. COMPARISON: Mammography: 08/30/2020, 08/25/2019, 08/23/2018 TECHNIQUE: Digital breast tomosynthesis is performed in both the craniocaudal and mediolateral oblique views along with computer-aided detection (CAD). Synthesized 2D images are generated from the tomosynthesis. Additional bilateral CC and additional bilateral MLO views are provided. FINDINGS: There are scattered areas of fibroglandular density (ACR BI-RADS breast composition Category b). There are no significant masses, abnormal calcifications, or other abnormalities. Breast tissue composition borders on predominantly fatty. Background stromal and fibroglandular densities are stable. No developing density or architectural abnormality. No significant change from prior exams. MM/MM tomosynthesis screening BI IMPRESSION: No mammographic evidence of malignancy. ASSESSMENT: BI-RADS 1: Negative RECOMMENDATION: Routine annual mammography screening. This patient's information was entered into a reminder system with a target due date for their next mammogram.
== END 2021-09-08 13:25 | disposition home or self-care (01) ==
LOC: HO.MAMMO 13:24
PROVIDERS: PCP Internal Medicine; Visit Provider Internal Medicine
DX: Z12.31 Encounter for screening mammogram for malignant neoplasm of breast (principal)
CPT/HCPCS: 77063; 77067

== ENCOUNTER 2021-09-12 07:49 | Outpatient (REF) | payer OTHER, SELFPAY ==
[2021-09-12 08:57] LABS: Alanine Aminotransferase 18 U/L (0-31); Alkaline Phosphatase 76 U/L (39-117); Anion Gap 11 (12-20); Aspartate Amino Transferase 13 U/L (5-31); Blood Urea Nitrogen 11 mg/dL (9-16); Calcium 9.4 mg/dL (8.4-10.2); Carbon Dioxide 27 mmol/L (22-29); Chloride 104 mmol/L (96-108); Cholesterol 180 mg/dL; Estimated Glomerular Filt Rate > 60; Glucose Fasting 136 mg/dL (60-99); HDL Cholesterol 45 mg/dL; LDL Cholesterol Calculated 99 mg/dl; Potassium 5.1 mmol/L (3.3-5.1); Sodium 137 mmol/L (135-145); Total Protein 6.9 g/dL (6.5-8.0); Triglycerides 182 mg/dL
[2021-09-12 09:15] LABS: Creatinine Urine 115.22 mg/dL; Microalbum/Creatinine Ratio Ur 6.9 ug/mg cr
[2021-09-12 09:30] LABS: Thyroid Stimulating Hormone 1.89 uIU/mL (0.32-4.0)
[2021-09-17 14:21] LABS: Vitamin D 25-OH, D2 <4 ng/mL; Vitamin D 25-OH, D3 20 ng/mL; Vitamin D 25-OH, Total 20 ng/mL (30-100)
== END 2021-09-12 07:50 | disposition home or self-care (01) ==
LOC: HO.LAB 07:49
PROVIDERS: PCP Internal Medicine; Visit Provider Internal Medicine
DX: E11.9 Type 2 diabetes mellitus without complications (principal); E78.5 Hyperlipidemia, unspecified; E03.9 Hypothyroidism, unspecified; E55.9 Vitamin D deficiency, unspecified
CPT/HCPCS: 36415; 80053; 80061; 82043; 82306; 84443

== ENCOUNTER 2021-10-07 09:04 | Outpatient (REF) | payer OTHER, SELFPAY ==
[2021-10-08 09:26] LABS: CT PCR NOT DETECTED (Not Detect.); NG PCR NOT DETECTED (Not Detect.)
[2021-10-08 10:07] LABS: BV Int Neg Control Negative (Negative); BV Int Pos Control Positive (Positive)
[2021-10-11 09:52] LABS: HPV mRNA E6/E7 rflx Not Detected (Not Detected)
== END 2021-10-07 09:05 | disposition home or self-care (01) ==
LOC: HO.LAB 09:04
PROVIDERS: Visit Provider Advanced Practice Midwife
DX: Z12.4 Encounter for screening for malignant neoplasm of cervix (principal); Z11.51 Encounter for screening for human papillomavirus (HPV); E66.01 Morbid (severe) obesity due to excess calories; E11.9 Type 2 diabetes mellitus without complications; Z20.2 Contact with and (suspected) exposure to infections with a predominantly sexual mode of transmission
CPT/HCPCS: 87480; 87491; 87510; 87591; 87624; 87660; 88142

== ENCOUNTER → 2021-10-29 08:04 | Outpatient (BNVA) | payer OTHER, SELFPAY | PROVIDERS: PCP Internal Medicine; Referring Provider Internal Medicine; Visit Provider Physician Assistant Surgical | DX: Z13.89 Encounter for screening for other disorder (principal) ==

== ENCOUNTER → 2021-11-04 12:30 | Outpatient (BNVA) | payer OTHER, SELFPAY | PROVIDERS: PCP Internal Medicine; Referring Provider Internal Medicine; Visit Provider Physician Assistant Surgical | DX: E66.01 Morbid (severe) obesity due to excess calories (principal); Z68.41 Body mass index [BMI] 40.0-44.9, adult | CPT/HCPCS: 99202 ==

== ENCOUNTER 2022-01-31 07:41 | Outpatient (REF) | payer OTHER, SELFPAY ==
[2022-01-31 08:50] LABS: Alanine Aminotransferase 25 U/L (0-31); Albumin Level 4.2 g/dL (3.5-5.0); Alkaline Phosphatase 88 U/L (39-117); Anion Gap 13 (12-20); Aspartate Amino Transferase 17 U/L (5-31); Blood Urea Nitrogen 16 mg/dL (9-16); Calcium 9.4 mg/dL (8.4-10.2); Carbon Dioxide 26 mmol/L (22-29); Chloride 104 mmol/L (96-108); Cholesterol 184 mg/dL; Estimated Glomerular Filt Rate > 60; Glucose Fasting 124 mg/dL (60-99); HDL Cholesterol 45 mg/dL; LDL Cholesterol Calculated 98 mg/dl; Potassium 4.8 mmol/L (3.3-5.1); Sodium 138 mmol/L (135-145); Triglycerides 205 mg/dL
[2022-01-31 09:02] LABS: Thyroid Stimulating Hormone 2.21 uIU/mL (0.32-4.0)
[2022-01-31 09:21] LABS: Creatinine Urine 162.65 mg/dL; Microalbum/Creatinine Ratio Ur 7.3 ug/mg cr
[2022-02-05 16:22] LABS: Vitamin D 25-OH, D2 <4 ng/mL; Vitamin D 25-OH, D3 27 ng/mL; Vitamin D 25-OH, Total 27 ng/mL (30-100)
== END 2022-01-31 07:42 | disposition home or self-care (01) ==
LOC: HO.LAB 07:41
PROVIDERS: PCP Internal Medicine; Visit Provider Internal Medicine
DX: E11.9 Type 2 diabetes mellitus without complications (principal); E78.5 Hyperlipidemia, unspecified; E03.9 Hypothyroidism, unspecified; E55.9 Vitamin D deficiency, unspecified
CPT/HCPCS: 36415; 80053; 80061; 82043; 82306; 84443

== ENCOUNTER 2022-05-08 07:24 | Outpatient (REF) | payer OTHER, SELFPAY ==
[2022-05-08 08:13] LABS: Alanine Aminotransferase 28 U/L (0-31); Albumin Level 4.1 g/dL (3.5-5.0); Alkaline Phosphatase 78 U/L (39-117); Anion Gap 14 (12-20); Aspartate Amino Transferase 17 U/L (5-31); Bilirubin Total 0.7 mg/dL (0.0-1.0); Blood Urea Nitrogen 15 mg/dL (9-16); Calcium 9.1 mg/dL (8.4-10.2); Carbon Dioxide 26 mmol/L (22-29); Chloride 104 mmol/L (96-108); Cholesterol 184 mg/dL; Estimated Glomerular Filt Rate > 60; Glucose Fasting 151 mg/dL (60-99); HDL Cholesterol 46 mg/dL; LDL Cholesterol Calculated 99 mg/dl; Potassium 4.8 mmol/L (3.3-5.1); Sodium 139 mmol/L (135-145); Total Protein 6.8 g/dL (6.5-8.0); Triglycerides 196 mg/dL
[2022-05-08 08:34] LABS: Thyroid Stimulating Hormone 2.33 uIU/mL (0.32-4.0)
[2022-05-08 09:56] LABS: Creatinine Urine 154.09 mg/dL; Microalbum/Creatinine Ratio Ur 5.8 ug/mg cr
== END 2022-05-08 07:25 | disposition home or self-care (01) ==
LOC: HO.LAB 07:24
PROVIDERS: PCP Internal Medicine; Visit Provider Internal Medicine
DX: E11.9 Type 2 diabetes mellitus without complications (principal); E03.9 Hypothyroidism, unspecified; E78.5 Hyperlipidemia, unspecified; I10 Essential (primary) hypertension
CPT/HCPCS: 36415; 80053; 80061; 82043; 84443

== ENCOUNTER 2022-05-13 08:08 | Outpatient (REF) | payer OTHER, SELFPAY ==
--- NOTE | ~2022-05-13 | XR_ITS ---
EXAMINATION: LEFT ELBOW, RIGHT HAND AND CHEST. CLINICAL INFORMATION: Pain. COMPARISON: None TECHNIQUE: Left elbow 4 views. Right and 3 views. Chest 2 views. FINDINGS: Right hand: There is no visible acute fracture, dislocation or subluxation. The joint space is maintained normal. The soft tissues are normal. Right elbow: The joint space is maintained normal. There is no visible fracture, dislocation or subluxation. The joint space is maintained normal. The soft tissues are normal. CHEST: The lungs are well-expanded and clear of acute process. The heart size and pulmonary vascularity is normal. No gross bony abnormality seen. XR/XR chest 2V IMPRESSION: Unremarkable chest exam. Unremarkable right hand exam. Unremarkable right elbow exam.
--- NOTE | ~2022-05-13 | XR_ITS ---
EXAMINATION: LEFT ELBOW, RIGHT HAND AND CHEST. CLINICAL INFORMATION: Pain. COMPARISON: None TECHNIQUE: Left elbow 4 views. Right and 3 views. Chest 2 views. FINDINGS: Right hand: There is no visible acute fracture, dislocation or subluxation. The joint space is maintained normal. The soft tissues are normal. Right elbow: The joint space is maintained normal. There is no visible fracture, dislocation or subluxation. The joint space is maintained normal. The soft tissues are normal. CHEST: The lungs are well-expanded and clear of acute process. The heart size and pulmonary vascularity is normal. No gross bony abnormality seen. XR/XR hand RT 2V IMPRESSION: Unremarkable chest exam. Unremarkable right hand exam. Unremarkable right elbow exam.
--- NOTE | ~2022-05-13 | XR_ITS ---
EXAMINATION: LEFT ELBOW, RIGHT HAND AND CHEST. CLINICAL INFORMATION: Pain. COMPARISON: None TECHNIQUE: Left elbow 4 views. Right and 3 views. Chest 2 views. FINDINGS: Right hand: There is no visible acute fracture, dislocation or subluxation. The joint space is maintained normal. The soft tissues are normal. Right elbow: The joint space is maintained normal. There is no visible fracture, dislocation or subluxation. The joint space is maintained normal. The soft tissues are normal. CHEST: The lungs are well-expanded and clear of acute process. The heart size and pulmonary vascularity is normal. No gross bony abnormality seen. XR/XR elbow LT 2V IMPRESSION: Unremarkable chest exam. Unremarkable right hand exam. Unremarkable right elbow exam.
== END 2022-05-13 08:09 | disposition home or self-care (01) ==
LOC: HO.XRAY 08:08
PROVIDERS: PCP Internal Medicine; Visit Provider Internal Medicine
DX: E66.01 Morbid (severe) obesity due to excess calories (principal); M79.641 Pain in right hand; M25.522 Pain in left elbow; Z68.41 Body mass index [BMI] 40.0-44.9, adult
CPT/HCPCS: 71046; 73070; 73120

== ENCOUNTER 2022-07-05 08:40 | Emergency (ER) | payer OTHER, SELFPAY ==
--- NOTE | ~2022-07-05 | XR_ITS ---
EXAMINATION: XR CHEST CLINICAL INFORMATION: Cough with shortness of breath COMPARISON: May 13, 2022 TECHNIQUE: 2 views of the chest were obtained. FINDINGS: No significant abnormality is noted involving the heart, lungs, mediastinum, bony thorax or soft tissues. There is some mildly increased markings about the left perihilar region but which are felt to represent superimposition of vascular structures and ribs. XR/XR chest 2V IMPRESSION: No acute disease.
[2022-07-05 08:44] VITALS: BP 144/77; PULSE 97; RESP 16; TEMP 35.8; O2SAT 98
[2022-07-05 08:55] VITALS: BP 139/87; PULSE 94; RESP 16; TEMP 37.1; O2SAT 98; BMI 43.0
--- NOTE | 2022-07-05 09:13 | ED_ITS ---
HPI - Asthma General Chief Complaint: Upper Respiratory Symptoms Stated Complaint: Cough/Asthma Time Seen by Provider: 07/05/22 08:55 Source: patient Mode of arrival: ambulatory Limitations: language barrier (Citizen [place]-speaking) History of Present Illness HPI Narrative: 47yoF c PMHx of HTN, HLD, DM, Depression, hypothyroidism and asthma presenting to the ER with complaints of acute exacerbation of her asthma since . She reports increased cough with yellow/green color sputum production along with wheezing/shortness of breath that is now worsened. She reports she had at home COVID testing was negative. She reports she has been using her albuterol inhaler, nebulizers and no symptomatic relief. She reports she is traveling to [place] this week. She denies any recent travel. She denies any measured fevers, dizziness, neck pain/stiffness, sore throat, nasal congestion/rhinorrhea, ear pain, chest pain, dyspnea on exertion, orthopnea, palpitations, paresthesias, nausea/vomiting/diarrhea constipation, black or bloody stools, abdominal pain, back pain, flank pain, dysuria, hematuria, abnormal vaginal discharge, lower extremity edema or calf tenderness, sick contacts or any other symptoms c omplaints or concerns at this time. MD complaint: asthma attack , shortness of breath and wheezing Onset (ago): day(s) (3) Severity: moderate Context: none known Associated symptoms: productive cough Asthma History: childhood onset, history of frequent attacks, history of prior ED visit and followed by specialist Treatments Prior to Arrival: inhaled bronchodilator Related Data Current Asthma Therapy: inhaled bronchodilator Home Medications Medication Instructions Recorded Confirmed buspirone 5 mg tablet mg PO 05/27/20 05/11/22 escitalopram oxalate 20 mg tablet 20 mg PO DAILY 05/27/20 05/11/22 lancets 28 gauge (FreeStyle #100 ea 05/27/20 05/11/22 Lancets) trazodone 100 mg tablet mg PO 05/27/20 05/11/22 Previous Rx's Medication Instructions Recorded blood sugar diagnostic #10 ea 10/14/20 metformin 500 mg tablet 500 mg PO BID #180 tabs 08/26/21 fluticasone propionate 110 2 puff inhalation BID #36 grams 10/30/21 mcg/actuation HFA aerosol inhaler (Flovent HFA) levothyroxine 25 mcg tablet 25 mcg PO QAM #90 tabs 10/30/21 acetaminophen 500 mg tablet 500 mg PO Q6H PRN fever 30 days 03/02/22 (Acetaminophen Extra Strength) #120 tabs albuterol sulfate 90 mcg/actuation 2 puff inhalation Q6H PRN 03/02/22 aerosol inhaler bronchospasm 30 days #8.5 grams albuterol sulfate 2.5 mg/3 mL 2.5 mg (3 mL) inhalation Q6H 30 05/11/22 (0.083 %) solution for nebulization days #360 mL nebulizers (Aeroneb Go Nebulizer) #1 ea 05/11/22 rosuvastatin 20 mg tablet 20 mg PO DAILY 90 days #90 tabs 05/11/22 albuterol sulfate 0.63 mg/3 mL 0.63 mg (3 mL) inhalation QID PRN 07/05/22 solution for nebulization shortness of breath or wheezing #75 mL albuterol sulfate 90 mcg/actuation 1 inh inhalation QID PRN shortness 07/05/22 aerosol inhaler of breath or wheezing #8.5 grams azithromycin 250 mg tablet See Rx Instructions PO .COMPLEX #6 07/05/22 tabs codeine 10 mg-guaifenesin 100 mg/5 5 ml PO Q6H PRN cold symptoms #120 07/05/22 mL oral liquid (Guaifenesin AC) mL prednisone 20 mg tablet 40 mg PO DAILY 5 days #10 tabs 07/05/22 Allergies Allergy/AdvReac Type Severity Reaction Status Date / Time morphine [MORPHINE] Allergy Severe facial Verified 05/11/22 08:35 droop, numbness, lip deviation Review of Systems Review of Systems: Constitutional : denies med noncompliance, no history of PE or DVT, denies recent travel, No Fever, No Chills ENT/Mouth : No Hoarseness, No sore throat, No Rhinorrhea, No Nasal congestion, No Sinus Pressure, No Ear Pain, No stridor, Eyes: No Redness, No Discharge, No Vision Changes Cardiovascular : No Chest Pain, + SOB, No Dyspnea on Exertion, No Edema, no pleurisy, Respiratory : + Cough, + wheezing, + Sputum, no stridor, no hemoptysis, Gastrointestinal : No Nausea, No Vomiting, No Diarrhea, No abdominal Pain Genitourinary : No Dysuria, No Hematuria Musculoskeletal : No joint pain/swelling, No Myalgias Extremities: no extremity swelling /pain Skin : No rash, no itching, no swelling Neuro : No Weakness, No Numbness, No Headache, No Dizziness, No Paresthesias Psych : No anxiety, depression Heme/Lymph: No Bruising, No Bleeding Endocrine : No Polyuria, No Polydipsia Yes all other systems are reviewed and are negative [facility] Past Medical History Attestation statement: The following information was validated with the patient. Source: old records reviewed and nursing notes reviewed Medical History Depression with anxiety Diabetes mellitus Essential hypertension Hypertriglyceridemia Hypothyroidism Insomnia Left sided sciatica Mild recurrent major depression Morbid obesity with BMI of 40.0-44.9, adult Otitis externa Surgical History History of section History of foot surgery Family History Family History Father Emphysema lung Mother Myocardial infarction Sister Chronic mental illness Family/Other FH: mental illness Sister Diabetes Sister Cancer, Onset Age: 57 Diabetes Sister Diabetes Sister Diabetes Son No problems noted. Unknown Cancer, Onset Age: 24 Social History Social History Housing: Apartment Alcohol intake: current Alcohol intake frequency: holidays/special occasions only Alcohol type: beer, wine and hard liquor Patient Tobacco Use Status: Former Tobacco user Tobacco use type: Cigarette e-Cigarette/Vaping Use: Never Used Second Hand Smoke Exposure: No Advance Directives: No Advance Directives Information Provided: Yes service: No Current occupational status: employed Current occupational exposures/hazards: No Cognitive needs: No Hearing needs: No Vision needs: No Physical Exam Vital Signs: Vital Signs: Last Vital Signs Temp 98.7 F 07/05/22 08:55 Pulse 86 07/05/22 09:33 Resp 18 07/05/22 09:33 BP 139/87 07/05/22 08:55 Pulse Ox 98 07/05/22 08:55 O2 Del Method 07/05/22 08:55 BMI result Body Mass Index 43.0 vital signs have been reviewed as normal and appeared to be correct. Blood pressure 144/77. Heart rate normal. Respiration rate normal. Temperature normal. Oxygen saturation normal. Appearance: Alert. Oriented X3. In mild respiratory distress. Head: Normal external exam. Normocephalic. Atraumatic. Eyes: PERRLA. EOMI. Conjunctiva and sclera normal. Eyelids normal. ENT: EAC normal. TM's Normal. No septal hematoma noted. No hemotympanum noted. Pharynx normal. Uvula midline. Moist mucous membranes. No lesions/ulcerations or masses noted on the tongue. Normal voice. No trismus noted. No drooling noted. No muffled voice noted. Neck: Normal inspection. Neck supple. FROM. No adenopathy. Thyroid Normal. No tracheal deviation noted. No crepitus is noted. No meningeal signs. No neck mass noted. No signs of trauma noted. CVS: Normal heart rate and rhythm. Heart sound normal. Pulses normal throughout. No murmurs/rales/gallops. Respiratory: In mild respiratory distress with decreased breath sounds and inspiratory and expiratory wheezing throughout. No rales/rhonchi noted. Chest nontender. No crepitus is noted. No accessory muscle usage noted. Back: Full range of motion noted. Skin: Skin warm and dry. Normal skin color. Normal skin turgor. No rashes/lesions/lacerations noted. Extremities: No lower extremity edema. No calf tenderness is noted. Extremities exhibit normal range of motion and nontender. Neuro: Oriented X 3. No motor deficit. No sensory deficit. Reflexes normal. Normal steady gait. No focal neuro deficits noted. CN's II-XII intact bilaterally? Vascular: + radial pulses/+ 2 distal pedal pulses/+2 dorsalis pedis b/l. Normal cap refill. No cyanosis noted to upper extremity nails and lower extremity toes nails. Course Course Course Narrative: 9:15am - 47yoF c PMHx of HTN, HLD, DM, Depression, hypothyroidism and asthma presenting to the ER with complaints of acute exacerbation of her asthma since . She reports increased cough with yellow/green color sputum production along with wheezing/shortness of breath that is now worsened. She reports she had at home COVID testing was negative. She reports she has been using her albuterol inhaler, nebulizers and no symptomatic relief. She reports she is traveling to [place] this week. Plan: COVID/RSV/flu swab along with chest x-ray. Provide breathing treatment 60 mg of p.o. prednisone and re-evaluate. Reevaluation(s) Reevaluation #1: - chest x-ray within normal limits no acute processes noted. Patient negative for COVID/RSV/flu. Therefore at this time will DC home with antibiotics and symptomatic treatment instructions return if any new or worsening symptoms and follow up with primary care provider. Patient understands agrees with this plan. Time: 10:57 Medications Administered Discontinued Medications Generic Name Dose Route Start Last Admin Trade Name Freq PRN Reason Stop Dose Admin Albuterol Sulfate 2.5 mg/ 0 mg 07/05/22 09:11 07/05/22 09:32 Albuterol/Ipratropium 3 ml INHALE 07/05/22 09:12 5 each ONCE ONE Administration Prednisone 60 mg 07/05/22 09:11 07/05/22 09:19 Prednisone 20 Mg Tablet PO 07/05/22 09:12 60 mg ONCE ONE Administration MDM - Asthma Differential Diagnosis Differential diagnosis: Likely Acute exacerbation, Status asthmaticus, Acute asthmatic bronchitis and Pneumonia Medical Records Attestation: I reviewed the patient's medical records. Lab Data Attestation: I reviewed the patient's lab results. Labs: Lab Results 07/05/22 Range/Units 09:11 Influenza Type A (PCR) NEGATIVE (Negative) Influenza Type B (PCR) NEGATIVE (Negative) RSV RNA Qual (PCR) NEGATIVE (Negative) SARS-CoV-2 RNA (RT-PCR) NEGATIVE (Negative) Imaging Data Chest x-ray: Attestation: I personally reviewed and interpreted this imaging study as follows: Radiologist's impression: FINDINGS: No significant abnormality is noted involving the heart, lungs, mediastinum, bony thorax or soft tissues. There is some mildly increased markings about the left perihilar region but which are felt to represent superimposition of vascular structures and ribs. XR/XR chest 2V IMPRESSION: No acute disease. Discharge Plan Discharge Clinical Impression: Asthma exacerbation, Acute bronchitis with bronchospasm Patient Disposition: Home, Self-Care Instructions: Asthma (ED), Acute Bronchitis (ED) Prescriptions: New albuterol sulfate 0.63 mg/3 mL solution for nebulization 0.63 mg inhalation QID PRN (Reason: shortness of breath or wheezing) Qty: 75 0RF azithromycin 250 mg tablet See Rx Instructions .ROUTE .COMPLEX Qty: 6 0RF Rx Instructions: take 500 mg today (day 1), then 250 mg for 4 days (days 2-5) codeine-guaifenesin [Guaifenesin AC] 10-100 mg/5 mL liquid 5 ml PO Q6H PRN (Reason: cold symptoms) Qty: 120 0RF albuterol sulfate 90 mcg/actuation HFA aerosol inhaler 1 inh inhalation QID PRN (Reason: shortness of breath or wheezing) Qty: 8.5 0RF prednisone 20 mg tablet 40 mg PO DAILY 5 Days Qty: 10 0RF No Action (DME) blood sugar diagnostic Strip See Rx Instructions Not Applicable BID Qty: 10 11RF Rx Instructions: As directed metformin 500 mg tablet 500 mg PO BID Qty: 180 3RF Flovent HFA 110 mcg/actuation HFA aerosol inhaler 2 puff inhalation BID Qty: 36 6RF levothyroxine 25 mcg tablet 25 mcg PO QAM Qty: 90 2RF acetaminophen [Acetaminophen Extra Strength] 500 mg tablet 500 mg PO Q6H PRN (Reason: fever) 30 Days Qty: 120 0RF albuterol sulfate 90 mcg/actuation HFA aerosol inhaler 2 puff inhalation Q6H PRN (Reason: bronchospasm) 30 Days Qty: 8.5 6RF trazodone 100 mg tablet PO escitalopram oxalate 20 mg tablet 20 mg PO DAILY buspirone 5 mg tablet PO (DME) lancets [FreeStyle Lancets] 28 gauge misc See Rx Instructions .ROUTE .MEDSUPPLY Qty: 100 Rx Instructions: As directed rosuvastatin 20 mg tablet 20 mg PO DAILY 90 Days Qty: 90 1RF (DME) nebulizers [Aeroneb Go Nebulizer] Misc See Rx Instructions .Route Qty: 1 0RF Rx Instructions: As directed albuterol sulfate 2.5 mg /3 mL (0.083 %) solution for nebulization 2.5 mg inhalation Q6H 30 Days Qty: 360 1RF Referrals: Rupal Duke MD [Primary Care Provider] - 2 days Stand Alone Forms: Work/School Release Print Language: Citizen [place]
[2022-07-05] MEDS: predniSONE 20 MG TABLET 60 MG PO (09:19)
[2022-07-05] MEDS: Albuterol Sulfate 2.5 MG, Albuterol/Iprat 2.5/0.5MG 3 ML 3 ML INHALE (09:32)
[2022-07-05 09:33] VITALS: PULSE 86; RESP 18; O2SAT 97
[2022-07-05 09:54] LABS: Influenza A PCR NEGATIVE (Negative); Influenza B PCR NEGATIVE (Negative); Resp Syncy Virus RNA Qual PCR NEGATIVE (Negative); SARS COV2 PCR INHOUSE NEGATIVE (Negative)
== END 2022-07-05 11:21 | disposition home or self-care (01) ==
PROVIDERS: Physician Assistant Medical; Emergency Provider Emergency Medicine; PCP Internal Medicine
DX: J45.901 Unspecified asthma with (acute) exacerbation (principal); J20.9 Acute bronchitis, unspecified; R05.9 Cough, unspecified; E11.9 Type 2 diabetes mellitus without complications; I10 Essential (primary) hypertension; Z20.822 Contact with and (suspected) exposure to COVID-19
CPT/HCPCS: 0241U; 71046; 94640; 99284

== ENCOUNTER 2022-07-24 19:32 | Emergency (ER) | payer OTHER, SELFPAY ==
--- NOTE | ~2022-07-24 | XR_ITS ---
XR/XR hand RT min 3V IMPRESSION: Normal right hand. EXAMINATION: XR HAND, RIGHT CLINICAL INFORMATION: Deep laceration to palm COMPARISON: Right hand 05/13/2022 TECHNIQUE: PA, lateral, and oblique views of the right hand. FINDINGS: The bones and soft tissues are normal. No fracture. Alignment is anatomic. Joint spaces are maintained. No erosions or soft tissue calcifications. No radiopaque foreign bodies
[2022-07-24 19:35] VITALS: BP 161/86; PULSE 91; RESP 16; TEMP 36.9; O2SAT 97; BMI 43.0
--- NOTE | 2022-07-24 20:15 | ED_ITS ---
HPI - Wound/Laceration General Chief Complaint: Wound/Laceration Stated Complaint: hand laceration Time Seen by Provider: 07/24/22 20:11 Source: patient Mode of arrival: ambulatory Limitations: language barrier HPI narrative: Medication Instructions Recorded Confirmed buspirone 5 mg tablet mg PO 05/27/20 05/11/22 Onset (ago): hour(s) (Within the hour of arrival) Place: home Patient tetanus UTD: No Context: accidental Associated symptoms: pain Treatments prior to arrival: bandage Related Data
--- NOTE | 2022-07-24 20:15 | ED.WOUNDLAC ---
HPI - Wound/Laceration General Chief Complaint: Wound/Laceration Stated Complaint: hand laceration Time Seen by Provider: 07/24/22 20:11 Source: patient Mode of arrival: ambulatory Limitations: language barrier History of Present Illness HPI narrative: 47-year-old female presents for laceration to the right hand. She was cutting [place] pork the knife slipped and palm of her hand. She applied pressure dressing to help control the bleeding. She does not know when her last Tdap vaccine was updated. She has full range of motion to her digits. Onset (ago): hour(s) (Within the hour of arrival) Extremity Location: right: hand Place: home Patient tetanus UTD: No Context: accidental Associated symptoms: pain Treatments prior to arrival: bandage Related Data Home Medications Medication Instructions Recorded Confirmed buspirone 5 mg tablet mg PO 05/27/20 05/11/22 escitalopram oxalate 20 mg tablet 20 mg PO DAILY 05/27/20 05/11/22 lancets 28 gauge (FreeStyle #100 ea 05/27/20 05/11/22 Lancets) trazodone 100 mg tablet mg PO 05/27/20 05/11/22 Previous Rx's Medication Instructions Recorded blood sugar diagnostic #10 ea 10/14/20 metformin 500 mg tablet 500 mg PO BID #180 tabs 08/26/21 fluticasone propionate 110 2 puff inhalation BID #36 grams 10/30/21 mcg/actuation HFA aerosol inhaler (Flovent HFA) acetaminophen 500 mg tablet 500 mg PO Q6H PRN fever 30 days 03/02/22 (Acetaminophen Extra Strength) #120 tabs albuterol sulfate 90 mcg/actuation 2 puff inhalation Q6H PRN 03/02/22 aerosol inhaler bronchospasm 30 days #8.5 grams albuterol sulfate 2.5 mg/3 mL 2.5 mg (3 mL) inhalation Q6H 30 05/11/22 (0.083 %) solution for nebulization days #360 mL nebulizers (Aeroneb Go Nebulizer) #1 ea 05/11/22 rosuvastatin 20 mg tablet 20 mg PO DAILY 90 days #90 tabs 05/11/22 albuterol sulfate 0.63 mg/3 mL 0.63 mg (3 mL) inhalation QID PRN 07/05/22 solution for nebulization shortness of breath or wheezing #75 mL albuterol sulfate 90 mcg/actuation 1 inh inhalation QID PRN shortness 07/05/22 aerosol inhaler of breath or wheezing #8.5 grams azithromycin 250 mg tablet See Rx Instructions PO .COMPLEX #6 07/05/22 tabs codeine 10 mg-guaifenesin 100 mg/5 5 ml PO Q6H PRN cold symptoms #120 07/05/22 mL oral liquid (Guaifenesin AC) mL prednisone 20 mg tablet 40 mg PO DAILY 5 days #10 tabs 07/05/22 levothyroxine 25 mcg tablet 25 mcg PO QAM #90 tabs 07/14/22 amoxicillin 875 mg-potassium 1 tab PO Q12H 7 days #14 tabs 07/24/22 clavulanate 125 mg tablet Allergies Allergy/AdvReac Type Severity Reaction Status Date / Time morphine [MORPHINE] Allergy Severe facial Verified 05/11/22 08:35 droop, numbness, lip deviation Review of Systems Review of Systems: Constitutional: No Fever, No Chills Musculoskeletal: positive right hand pain, No Myalgias, No Joint Swelling Skin: Positive right hand laceration Neuro: No Weakness, No Numbness, No Paresthesias Yes all other systems are reviewed and are negative [facility] Past Medical History Attestation statement: The following information was validated with the patient. Source: old records reviewed Medical History Depression with anxiety Diabetes mellitus Essential hypertension Hypertriglyceridemia Hypothyroidism Insomnia Left sided sciatica Mild recurrent major depression Morbid obesity with BMI of 40.0-44.9, adult Otitis externa Surgical History History of section History of foot surgery Family History Family History Father Emphysema lung Mother Myocardial infarction Sister Chronic mental illness Family/Other FH: mental illness Sister Diabetes Sister Cancer, Onset Age: 57 Diabetes Sister Diabetes Sister Diabetes Son No problems noted. Unknown Cancer, Onset Age: 24 Social History Social History Housing: Apartment Alcohol intake: current Alcohol intake frequency: holidays/special occasions only Alcohol type: beer, wine and hard liquor Patient Tobacco Use Status: Former Tobacco user Tobacco use type: Cigarette e-Cigarette/Vaping Use: Never Used Second Hand Smoke Exposure: No Advance Directives: No Advance Directives Information Provided: No service: No Current occupational status: employed Current occupational exposures/hazards: No Cognitive needs: No Hearing needs: No Vision needs: No Physical Exam Vital Signs: Vital Signs: Last Vital Signs Temp 98.4 F 07/24/22 19:35 Pulse 91 07/24/22 19:35 Resp 16 07/24/22 19:35 BP 161/86 H 07/24/22 19:35 Pulse Ox 97 07/24/22 19:35 O2 Del Method 07/24/22 19:35 BMI result Body Mass Index 43.0 Appearance: Alert. Oriented X3. No acute distress. CVS: Normal heart rate and rhythm. Pulses normal. Respiratory: No respiratory distress. Skin: 5 cm laceration to the palmar aspect of the right hand. Skin warm and dry. Normal skin color. Normal skin turgor. Extremities: Full range of motion to all digits. No indication of tendon deficit. Brisk capillary refill in equal pulses. Neuro: No motor deficit. No sensory deficit. Cranial nerves 2-12 intact. Extrem: Right upper extremity: full ROM and normal capillary refill Hand/finger images: 1. 5 cm laceration Course Course Course Narrative: 47-year-old female presents with a 5 cm laceration to the dorsal aspect of her right hand. Patient does have full range of motion to all digits, no indication of tendon deficit, I did not visualize any tendon lacerations during my physical exam. Unknown when last Tdap vaccine was updated. Will update Tdap vaccine today. X-ray completed while patient was in the emergency department waiting room with negative results, no indication of foreign body. Patient does have some vascular involvement. Dr Rebolledo at bedside to evaluate, plan is for suturing, no need for vascular ligation at this time. Bleeding will stop with wound approximation. I will treat this patient with antibiotics due to raw pork exposure. Prepped and draped in sterile fashion. Please refer to procedure note for full details. Patient tolerated procedure well. Patient continue with brisk capillary refill in full range of motion to all digits status post laceration repair. Patient understands that she must follow-up with primary care and our Hand surgery if symptoms worsen. She knows that she must return in 10-14 days for suture removal. Patient verbalized understanding of and agrees to plan of care discharge home. Verbalized understanding of signs and symptoms indicating need for emergent intervention. Medications Administered Discontinued Medications Generic Name Dose Route Start Last Admin Trade Name Radha PRN Reason Stop Dose Admin Amoxicillin/Clavulanate Potassium 875 mg 07/24/22 21:37 07/24/22 22:01 Amoxicillin/Potassium Clav 875 Mg Tablet PO 07/24/22 21:38 875 mg ONCE ONE Administration Diphtheria/Tetanus/Acell Pertussis 0.5 ml 07/24/22 19:34 07/24/22 21:26 Diphth,Pertus(Acell),Tet Adult 0.5 Ml Syringe IM 07/24/22 19:35 0.5 ml .ONCE ONE Administration Lidocaine HCl 30 ml 07/24/22 19:34 07/24/22 20:29 Lidocaine Hcl 1 % 20 Ml Vial INFILTRATI 07/24/22 19:35 Not Given ONCE ONE Lidocaine HCl 30 ml 07/24/22 20:30 07/24/22 21:30 Lidocaine Hcl 1 % Mpf 30 Ml Vial INTRAARTIC 07/24/22 20:31 30 ml ONCE ONE Administration Medical Decision Making Differential Diagnosis Differential Diagnoses: The differential diagnosis associated with the presentation includes Laceration, tendon and nerve laceration Admission/Observation Consideration of admission/observation: Escalation of care including admission/observation considered Admission not required for this patient Independent Interpretation I performed an independent interpretation of an: Plain X-Ray Radiology Impression Discussion of test interpretation with radiology: I have reviewed the radiologist's reading. Radiologist Impression: EXAMINATION: XR HAND, RIGHT CLINICAL INFORMATION: Deep laceration to palm? COMPARISON: Right hand 05/13/2022? TECHNIQUE: PA, lateral, and oblique views of the right hand. FINDINGS: The bones and soft tissues are normal. No fracture. Alignment is anatomic. Joint spaces are maintained. No erosions or soft tissue calcifications. No radiopaque foreign bodies XR/XR hand RT min 3V IMPRESSION: Normal right hand. Independent Historian Clinical information obtained from an independent historian. History obtained from or confirmed by: Spouse Prescription Management I considered prescription management with: Antibiotic Chronic Conditions Patient?s care impacted by: Diabetes and Hypertension Procedures Laceration Laceration 1: Site: hand Side (If applicable): right Size (cm): 5 Description: linear Depth: simple, single layer Local Anesthetic: lidocaine 1% Amount of anesthesia used (mL): 10 Pre-repair: wound explored and irrigated extensively Skin layer closed with: nylon Size (cm): 4-0 Number of sutures: 15 Technique: simple, interrupted Discharge Plan Discharge Clinical Impression: Laceration Patient Disposition: Home, Self-Care Instructions: Care For Your Stitches (ED), Laceration (ED) Additional Instructions: Fue evaluado por laceraci?n en west mano derecha. Colocamos 15 puntos de sutura. Regrese en 10 a 14 d?as para que le quiten las suturas. [place] Augmentin 875 mg dos veces al d?a stacie los pr?ximos 7 d?as. Si tiene dificultad para senior qa tester la mano o los dedos, puede considerar hacer un seguimiento con el cirujano de mano, el Dr. Holbrook, llame y solicite ania nell. Pueden pasar varias semanas antes de que west rango de movimiento sea normal. [place] por elegir john departamento de emergencias para west evaluaci?n. Por favor, musa un seguimiento con el m?dico de atenci?n primaria seg?n sea necesario. Regrese al departamento de emergencias por cualquier s?ntoma nuevo, preocupante o que empeore. You were evaluated for laceration to your right hand. We placed 15 sutures. Please return in 10-14 days to have sutures removed. Take Augmentin 875 mg twice a day for the next 7 days. Follow-up with primary care physician before calling the hand surgeon. Please follow-up with primary care as needed. If you have difficulty moving your hand or fingers, You may consider following up with hand surgeon, Dr. Holbrook, please call and request an appointment. It may take several weeks before your range of motion is normal. Thank you for choosing this emergency department for evaluation. Please follow-up with primary care physician as needed. Return to the emergency department for any new, concerning, or worsening symptoms. Prescriptions: New amoxicillin-pot clavulanate 875-125 mg tablet 1 tab PO Q12H 7 Days Qty: 14 0RF No Action (DME) blood sugar diagnostic Strip See Rx Instructions Not Applicable BID Qty: 10 11RF Rx Instructions: As directed metformin 500 mg tablet 500 mg PO BID Qty: 180 3RF Flovent HFA 110 mcg/actuation HFA aerosol inhaler 2 puff inhalation BID Qty: 36 6RF acetaminophen [Acetaminophen Extra Strength] 500 mg tablet 500 mg PO Q6H PRN (Reason: fever) 30 Days Qty: 120 0RF albuterol sulfate 90 mcg/actuation HFA aerosol inhaler 2 puff inhalation Q6H PRN (Reason: bronchospasm) 30 Days Qty: 8.5 6RF levothyroxine 25 mcg tablet 25 mcg PO QAM Qty: 90 2RF albuterol sulfate 0.63 mg/3 mL solution for nebulization 0.63 mg inhalation QID PRN (Reason: shortness of breath or wheezing) Qty: 75 0RF azithromycin 250 mg tablet See Rx Instructions .ROUTE .COMPLEX Qty: 6 0RF Rx Instructions: take 500 mg today (day 1), then 250 mg for 4 days (days 2-5) codeine-guaifenesin [Guaifenesin AC] 10-100 mg/5 mL liquid 5 ml PO Q6H PRN (Reason: cold symptoms) Qty: 120 0RF albuterol sulfate 90 mcg/actuation HFA aerosol inhaler 1 inh inhalation QID PRN (Reason: shortness of breath or wheezing) Qty: 8.5 0RF prednisone 20 mg tablet 40 mg PO DAILY 5 Days Qty: 10 0RF trazodone 100 mg tablet PO escitalopram oxalate 20 mg tablet 20 mg PO DAILY buspirone 5 mg tablet PO (DME) lancets [FreeStyle Lancets] 28 gauge misc See Rx Instructions .ROUTE .MEDSUPPLY Qty: 100 Rx Instructions: As directed rosuvastatin 20 mg tablet 20 mg PO DAILY 90 Days Qty: 90 1RF (DME) nebulizers [Aeroneb Go Nebulizer] Misc See Rx Instructions .Route Qty: 1 0RF Rx Instructions: As directed albuterol sulfate 2.5 mg /3 mL (0.083 %) solution for nebulization 2.5 mg inhalation Q6H 30 Days Qty: 360 1RF Referrals: Jeana Holbrook MD [Physician] - 1 week (Hand laceration) Rupal Duke MD [Primary Care Provider] - 3 days (Hand laceration) Stand Alone Forms: Work/School Release Interventions: ED Discharge Assessment Last Done: 07/24/22 22:06 Discharge Date/Time: 07/24/22 22:08
== END 2022-07-24 22:08 | disposition home or self-care (01) ==
PROVIDERS: Emergency Provider Emergency Medicine; PCP Internal Medicine
DX: S61.411A Laceration without foreign body of right hand, initial encounter (principal); S60.511A Abrasion of right hand, initial encounter; W26.9XXA Contact with unspecified sharp object(s), initial encounter; Y93.9 Activity, unspecified; Y92.9 Unspecified place or not applicable; Y99.9 Unspecified external cause status; Z87.891 Personal history of nicotine dependence; Z79.899 Other long term (current) drug therapy; Z23 Encounter for immunization
CPT/HCPCS: 12002; 73130; 90471; 90715; 99282; 99284

== ENCOUNTER 2022-08-08 08:38 | Emergency (ER) | payer OTHER, SELFPAY ==
[2022-08-08 08:39] VITALS: BP 148/90; PULSE 84; RESP 18; TEMP 36.1; O2SAT 98; BMI 43.0
--- NOTE | 2022-08-08 09:18 | ED_ITS ---
HPI - Wound/Laceration General Chief Complaint: Wound/Laceration Stated Complaint: suture removal Time Seen by Provider: 08/08/22 08:53 Source: patient Mode of arrival: ambulatory Limitations: no limitations History of Present Illness HPI narrative: 47-year-old [place]an-speaking p.m. male presents to the emergency department for removal of sutures on her right hand. She sustained a laceration on 07/24/2022 with a kitchen knife while cutting raw pork which was closed with sutures. She was discharged on a 7 day course of Augmentin which she completed. At this time she denies any warmth, drainage, swelling, red streaking of her right hand. She denies any fever or chills. Onset (ago): week(s) (2) Extremity Location: right: hand Place: home Patient tetanus UTD: Yes Context: accidental Related Data Home Medications Medication Instructions Recorded Confirmed buspirone 5 mg tablet mg PO 05/27/20 05/11/22 escitalopram oxalate 20 mg tablet 20 mg PO DAILY 05/27/20 05/11/22 lancets 28 gauge (FreeStyle #100 ea 05/27/20 05/11/22 Lancets) trazodone 100 mg tablet mg PO 05/27/20 05/11/22 Previous Rx's Medication Instructions Recorded blood sugar diagnostic #10 ea 10/14/20 fluticasone propionate 110 2 puff inhalation BID #36 grams 10/30/21 mcg/actuation HFA aerosol inhaler (Flovent HFA) albuterol sulfate 90 mcg/actuation 2 puff inhalation Q6H PRN 03/02/22 aerosol inhaler bronchospasm 30 days #8.5 grams albuterol sulfate 2.5 mg/3 mL 2.5 mg (3 mL) inhalation Q6H 30 05/11/22 (0.083 %) solution for nebulization days #360 mL nebulizers (Aeroneb Go Nebulizer) #1 ea 05/11/22 rosuvastatin 20 mg tablet 20 mg PO DAILY 90 days #90 tabs 05/11/22 albuterol sulfate 0.63 mg/3 mL 0.63 mg (3 mL) inhalation QID PRN 07/05/22 solution for nebulization shortness of breath or wheezing #75 mL albuterol sulfate 90 mcg/actuation 1 inh inhalation QID PRN shortness 07/05/22 aerosol inhaler of breath or wheezing #8.5 grams azithromycin 250 mg tablet See Rx Instructions PO .COMPLEX #6 07/05/22 tabs codeine 10 mg-guaifenesin 100 mg/5 5 ml PO Q6H PRN cold symptoms #120 07/05/22 mL oral liquid (Guaifenesin AC) mL prednisone 20 mg tablet 40 mg PO DAILY 5 days #10 tabs 07/05/22 levothyroxine 25 mcg tablet 25 mcg PO QAM #90 tabs 07/14/22 amoxicillin 875 mg-potassium 1 tab PO Q12H 7 days #14 tabs 07/24/22 clavulanate 125 mg tablet acetaminophen 500 mg tablet 500 mg PO Q6H PRN fever 30 days 07/29/22 (Acetaminophen Extra Strength) #120 tabs metformin 500 mg tablet 500 mg PO BID #180 tabs 08/04/22 Allergies Allergy/AdvReac Type Severity Reaction Status Date / Time morphine [MORPHINE] Allergy Severe facial Verified 08/08/22 08:42 droop, numbness, lip deviation Review of Systems Review of Systems: In addition to documented HPI above, the additional ROS was obtained: Cardiovascular: No Chest Pain, No SOB Respiratory: No Cough, No Sputum, No Wheezing Musculoskeletal: No joint pain, No Myalgias, No Joint Swelling Skin: No Skin Lesions, No rash Neuro: No Weakness, No Numbness, No Paresthesias Yes all other systems are reviewed and are negative [facility] Past Medical History Medical History Depression with anxiety Diabetes mellitus Essential hypertension Hypertriglyceridemia Hypothyroidism Insomnia Left sided sciatica Mild recurrent major depression Morbid obesity with BMI of 40.0-44.9, adult Otitis externa Surgical History History of section History of foot surgery Family History Family History Father Emphysema lung Mother Myocardial infarction Sister Chronic mental illness Family/Other FH: mental illness Sister Diabetes Sister Cancer, Onset Age: 57 Diabetes Sister Diabetes Sister Diabetes Son No problems noted. Unknown Cancer, Onset Age: 24 Social History Social History Housing: Apartment Alcohol intake: current Alcohol intake frequency: holidays/special occasions only Alcohol type: beer, wine and hard liquor Patient Tobacco Use Status: Former Tobacco user Tobacco use type: Cigarette e-Cigarette/Vaping Use: Never Used Second Hand Smoke Exposure: No Advance Directives: No Advance Directives Information Provided: No service: No Current occupational status: employed Current occupational exposures/hazards: No Cognitive needs: No Hearing needs: No Vision needs: No Physical Exam Vital Signs: Vital Signs: Last Vital Signs Temp 97.0 F 08/08/22 08:39 Pulse 84 08/08/22 08:39 Resp 18 08/08/22 08:39 BP 148/90 H 08/08/22 08:39 Pulse Ox 98 08/08/22 08:39 O2 Del Method 08/08/22 08:39 BMI result Body Mass Index 43.0 Const: General: cooperative, alert and awake Nutritional Appearance: well nourished Orientation/consciousness: patient oriented x3 Limitations: language barrier HEENT: Head: Yes normal to inspection and Yes atraumatic Ears: hearing grossly normal bilaterally and external ears normal General nose exam: Normal external nose present and Normal nares present Face and sinus: Yes normal facial exam and Yes face symmetric Eyes: General: appearance normal, both eyes and all related structures Visual Clay: normal visual clay by confrontation Alignment and Position: alignment normal Periorbital: periorbital findings normal Eyelids: Yes eyelids normal Conjunctivae: conjunctivae normal Sclerae: sclerae normal Corneas: corneas normal Pupils: Equal, round and reactive pupils present EOM: EOMs intact bilaterally Neck: Neck: Yes normal visual inspection and Yes full ROM Chest: Chest palpation & inspection: normal inspection of the chest Resp: Effort & Inspection: normal respiratory effort and not labored Auscultation: clear to auscultation bilaterally, no crackles, no rhonchi and no wheezes Cardio: Rate: regular rate Rhythm: regular rhythm Back/Spine/Pelvis: Cervical Spine: cervical ROM normal Thoracic/Lumbar Spine: thoraco-lumbar ROM normal Skin: General skin exam: no rashes or lesions noted Neuro: General: patient oriented x3, tone normal and moves all extremities Cranial nerves: Yes Equal, round and reactive pupils present Cognition (Neuro): normal cognition Gait exam (Neuro): Normal gait present Motor exam (neuro): 5/5 motor strength present throughout Extrem: General: Yes normal to inspection, Yes full ROM and Yes capillary refill normal Psych: Appearance: grossly normal Mental Status: mental status grossly normal Speech and movement: Normal speech and movement present Affect: normal affect Attitude: cooperative Thought process: Normal thought process present Thought content: Normal thought content present Insight: Good insight present (Psych) Judgement: Good judgement present (Psych) Medical Decision Making Medical Decision Making MDM Narrative: 47-year-old [place]an-speaking p.m. male presents to the emergency department for removal of sutures on her right hand. She sustained a laceration on 07/24/2022 with a kitchen knife while cutting raw pork which was closed with sutures. She was discharged on a 7 day course of Augmentin which she completed. Wound cleansed with alcohol and 15 sutures removed without issue. Wound approximated with the exception of a 0.5 cm superficial area. Skin adhesive applied. Patient tolerated without incident. Educated to return to the emergency department any emergent concerns. Recommended follow-up with her primary care provider for further treatment and management. Contact information for hand surgeon given as patient continues to complain of index finger discomfort without weakness or paresthesias. Discharge Plan Discharge Clinical Impression: Visit for suture removal Patient Disposition: Home, Self-Care Instructions: Skin Adhesive Care (ED), Stitches Removal (ED) Prescriptions: No Action (DME) blood sugar diagnostic Strip See Rx Instructions Not Applicable BID Qty: 10 11RF Rx Instructions: As directed Flovent HFA 110 mcg/actuation HFA aerosol inhaler 2 puff inhalation BID Qty: 36 6RF albuterol sulfate 90 mcg/actuation HFA aerosol inhaler 2 puff inhalation Q6H PRN (Reason: bronchospasm) 30 Days Qty: 8.5 6RF levothyroxine 25 mcg tablet 25 mcg PO QAM Qty: 90 2RF acetaminophen [Acetaminophen Extra Strength] 500 mg tablet 500 mg PO Q6H PRN (Reason: fever) 30 Days Qty: 120 0RF metformin 500 mg tablet 500 mg PO BID Qty: 180 3RF albuterol sulfate 0.63 mg/3 mL solution for nebulization 0.63 mg inhalation QID PRN (Reason: shortness of breath or wheezing) Qty: 75 0RF azithromycin 250 mg tablet See Rx Instructions .ROUTE .COMPLEX Qty: 6 0RF Rx Instructions: take 500 mg today (day 1), then 250 mg for 4 days (days 2-5) codeine-guaifenesin [Guaifenesin AC] 10-100 mg/5 mL liquid 5 ml PO Q6H PRN (Reason: cold symptoms) Qty: 120 0RF albuterol sulfate 90 mcg/actuation HFA aerosol inhaler 1 inh inhalation QID PRN (Reason: shortness of breath or wheezing) Qty: 8.5 0RF prednisone 20 mg tablet 40 mg PO DAILY 5 Days Qty: 10 0RF amoxicillin-pot clavulanate 875-125 mg tablet 1 tab PO Q12H 7 Days Qty: 14 0RF trazodone 100 mg tablet PO escitalopram oxalate 20 mg tablet 20 mg PO DAILY buspirone 5 mg tablet PO (DME) lancets [FreeStyle Lancets] 28 gauge misc See Rx Instructions .ROUTE .MEDSUPPLY Qty: 100 Rx Instructions: As directed rosuvastatin 20 mg tablet 20 mg PO DAILY 90 Days Qty: 90 1RF (DME) nebulizers [Aeroneb Go Nebulizer] Misc See Rx Instructions .Route Qty: 1 0RF Rx Instructions: As directed albuterol sulfate 2.5 mg /3 mL (0.083 %) solution for nebulization 2.5 mg inhalation Q6H 30 Days Qty: 360 1RF Referrals: Jeana Holbrook MD [Physician] - Stand Alone Forms: Work/School Release Interventions: ED Discharge Assessment Last Done: 08/08/22 09:30 Discharge Date/Time: 08/08/22 09:31 Print Language: Bur[place]ian
== END 2022-08-08 09:31 | disposition home or self-care (01) ==
PROVIDERS: Emergency Provider Emergency Medicine Emergency Medical Services; PCP Internal Medicine
DX: Z48.02 Encounter for removal of sutures (principal); S61.411D Laceration without foreign body of right hand, subsequent encounter; W26.0XXD Contact with knife, subsequent encounter
CPT/HCPCS: 99282; 99283

== ENCOUNTER → 2022-08-11 12:11 | Outpatient (BNVA) | payer OTHER, SELFPAY | PROVIDERS: PCP Internal Medicine; Visit Provider Orthopaedic Surgery | DX: S61.411A Laceration without foreign body of right hand, initial encounter (principal); M65.351 Trigger finger, right little finger | CPT/HCPCS: 99202 ==

== ENCOUNTER 2022-09-09 | Outpatient (REF) | payer OTHER, SELFPAY | END 2022-09-09 00:01 | LOC: CF | PROVIDERS: PCP Internal Medicine; Visit Provider Orthopaedic Surgery | DX: M65.351 Trigger finger, right little finger (principal) | CPT/HCPCS: 20550; 99212; J1100 ==

== ENCOUNTER 2022-09-10 07:35 | Outpatient (REF) | payer OTHER, SELFPAY ==
[2022-09-10 09:24] LABS: Creatinine Urine 238.16 mg/dL; Microalbum/Creatinine Ratio Ur 57.9 ug/mg cr
[2022-09-10 09:48] LABS: Alanine Aminotransferase 25 U/L (0-31); Albumin Level 4.3 g/dL (3.5-5.0); Alkaline Phosphatase 80 U/L (39-117); Anion Gap 12 (12-20); Aspartate Amino Transferase 15 U/L (5-31); Bilirubin Total 1.2 mg/dL (0.0-1.0); Blood Urea Nitrogen 13 mg/dL (9-16); Calcium 9.6 mg/dL (8.4-10.2); Carbon Dioxide 24 mmol/L (22-29); Chloride 110 mmol/L (96-108); Cholesterol 119 mg/dL; Estimated Glomerular Filt Rate > 60; Glucose Fasting 137 mg/dL (60-99); HDL Cholesterol 48 mg/dL; LDL Cholesterol Calculated 56 mg/dl; Potassium 5.4 mmol/L (3.3-5.1); Sodium 141 mmol/L (135-145); Total Protein 6.9 g/dL (6.5-8.0); Triglycerides 77 mg/dL
[2022-09-10 09:52] LABS: Thyroid Stimulating Hormone 1.64 uIU/mL (0.32-4.0); Vitamin D 25-OH Total 14.4 ng/mL (>30)
== END 2022-09-10 07:36 | disposition home or self-care (01) ==
LOC: HO.LAB 07:35
PROVIDERS: PCP Internal Medicine; Visit Provider Internal Medicine
DX: E78.5 Hyperlipidemia, unspecified (principal); E55.9 Vitamin D deficiency, unspecified; E03.9 Hypothyroidism, unspecified; E11.9 Type 2 diabetes mellitus without complications
CPT/HCPCS: 36415; 80053; 80061; 82043; 82306; 84443

== ENCOUNTER 2022-09-25 08:30 | Emergency (ER) | payer OTHER, SELFPAY ==
[2022-09-25 08:32] VITALS: BP 145/86; PULSE 103; RESP 16; TEMP 36.8; O2SAT 97; BMI 43.0
[2022-09-25 08:52] VITALS: O2SAT 97
[2022-09-25 09:32] LABS: Influenza A PCR NEGATIVE (Negative); Influenza B PCR NEGATIVE (Negative); Resp Syncy Virus RNA Qual PCR NEGATIVE (Negative); SARS COV2 PCR INHOUSE NEGATIVE (Negative)
[2022-09-25] MEDS: Albuterol Sulfate (0.083%) 2.5 MG/3 ML VIAL.NEB 5 MG INHALE (09:41)
[2022-09-25 09:42] VITALS: PULSE 91; RESP 16; O2SAT 98
--- NOTE | 2022-09-25 09:51 | ED.URI ---
HPI - URI/Sore Throat General Chief Complaint: Upper Respiratory Symptoms Stated Complaint: asthma, headache, chills Time Seen by Provider: 09/25/22 09:19 Source: patient, RN notes reviewed and translator/interpreter Mode of arrival: ambulatory Limitations: no limitations and language barrier (translator/interpreter used) History of Present Illness HPI Narrative: This is a 47-year-old female, with a past medical history of asthma, diabetes, hyperlipidemia, hypothyroidism, mild recurrence of major depressive disorder, and morbid obesity, who presents to the emergency department today with shortness of breath, cough, and headache since yesterday. Patient reports she history has been she using her inhalers at home without any relief. She denies any fevers, chills, nausea, vomiting, or diarrhea. Denies any nasal congestion or runny nose. MD elicited complaint: cough Pertinent past history: asthma Onset (ago): day(s) Consistency: constant and progressively worsening Severity: moderate Able to tolerate fluids by mouth: Yes Exacerbating factors: nothing Relieving factors: nothing Associated symptoms: denies other symptoms Treatments prior to arrival: none Related Data Home Medications Medication Instructions Recorded Confirmed buspirone 5 mg tablet mg PO 05/27/20 09/14/22 escitalopram oxalate 20 mg tablet 20 mg PO DAILY 05/27/20 09/14/22 lancets 28 gauge (FreeStyle #100 ea 05/27/20 09/14/22 Lancets) trazodone 100 mg tablet mg PO 05/27/20 09/14/22 Previous Rx's Medication Instructions Recorded blood sugar diagnostic #10 ea 10/14/20 fluticasone propionate 110 2 puff inhalation BID #36 grams 10/30/21 mcg/actuation HFA aerosol inhaler (Flovent HFA) albuterol sulfate 2.5 mg/3 mL 2.5 mg (3 mL) inhalation Q6H 30 05/11/22 (0.083 %) solution for nebulization days #360 mL nebulizers (Aeroneb Go Nebulizer) #1 ea 05/11/22 rosuvastatin 20 mg tablet 20 mg PO DAILY 90 days #90 tabs 05/11/22 albuterol sulfate 0.63 mg/3 mL 0.63 mg (3 mL) inhalation QID PRN 07/05/22 solution for nebulization shortness of breath or wheezing #75 mL albuterol sulfate 90 mcg/actuation 1 inh inhalation QID PRN shortness 07/05/22 aerosol inhaler of breath or wheezing #8.5 grams levothyroxine 25 mcg tablet 25 mcg PO QAM #90 tabs 07/14/22 acetaminophen 500 mg tablet 500 mg PO Q6H PRN fever 30 days 07/29/22 (Acetaminophen Extra Strength) #120 tabs metformin 500 mg tablet 500 mg PO BID #180 tabs 08/04/22 cholecalciferol (vitamin D3) 125 125 mcg PO DAILY 90 days #90 caps 09/14/22 mcg (5,000 unit) capsule azithromycin 250 mg tablet See Rx Instructions PO .COMPLEX #6 09/25/22 (Zithromax Z-Sebastien) tabs benzonatate 200 mg capsule 200 mg PO BID PRN cough #30 caps 09/25/22 prednisone 20 mg tablet 40 mg PO DAILY #10 tabs 09/25/22 Allergies Allergy/AdvReac Type Severity Reaction Status Date / Time morphine [MORPHINE] Allergy Severe facial Verified 09/25/22 08:32 droop, numbness, lip deviation Review of Systems Review of Systems: Yes all other systems are reviewed and are negative [facility] Past Medical History Medical History Depression with anxiety Diabetes mellitus Essential hypertension Hypertriglyceridemia Hypothyroidism Insomnia Left sided sciatica Mild recurrent major depression Morbid obesity with BMI of 40.0-44.9, adult Otitis externa Surgical History History of section History of foot surgery Family History Family History Father Emphysema lung Mother Myocardial infarction Sister Chronic mental illness Family/Other FH: mental illness Sister Diabetes Sister Cancer, Onset Age: 57 Diabetes Sister Diabetes Sister Diabetes Son No problems noted. Unknown Cancer, Onset Age: 24 Social History Social History Housing: Apartment Alcohol intake: former Patient Tobacco Use Status: Former Tobacco user Tobacco use type: Cigarette Smoked in Last 30 Days: No e-Cigarette/Vaping Use: Never Used Second Hand Smoke Exposure: No Use of substances other than those prescribed or required for medical reasons: No Advance Directives: No Advance Directives Information Provided: Yes service: No Current occupational status: employed Current occupational exposures/hazards: No Cognitive needs: No Hearing needs: No Vision needs: No Physical Exam Vital Signs: Vital Signs: Last Vital Signs Temp 99.1 F 09/25/22 11:39 Pulse 98 09/25/22 11:39 Resp 14 09/25/22 11:39 BP 137/69 09/25/22 11:39 Pulse Ox 98 09/25/22 11:39 O2 Del Method 09/25/22 11:39 BMI result Body Mass Index 43.0 Appearance: Alert. Oriented X3. No acute distress. Eyes: Pupils equal, round and reactive to light. ENT: Pharynx normal. Neck: Normal inspection. Neck supple. CVS: Normal heart rate and rhythm. Pulses normal. Respiratory: Coarse lung sounds throughout all lung clay, decreased air flow throughout. Abdomen: Soft and nontender. Skin: Skin warm and dry. Normal skin color. Normal skin turgor. No rashes. Extremities: No lower extremity edema. Neuro: Oriented X 3. No motor deficit. No sensory deficit. Course Course Course Narrative: This is a 47-year-old female, with a past medical history of asthma, diabetes type 2, hyperlipidemia, hypothyroidism and the flu morbid obesity presents to the emergency department today with shortness of breath. On initial evaluation, patient receiving albuterol updraft. Lung sounds coarse. No wheezing. O2 saturation 97% on room air, vital signs stable at this time. Plan: Prednisone 50mg, albuterol updraft, COVID/Flu/RSV swabs. Reevaluation(s) Reevaluation #1: Patient's lung sounds and symptoms improved after updraft. Patient feeling better. Discharged patient on z-sebastien, 5 day course of prednisone and tessalon. Advised to follow up with PCP. Patient understands and agrees with plan. Time: 12:00 Medications Administered Discontinued Medications Generic Name Dose Route Start Last Admin Trade Name Freq PRN Reason Stop Dose Admin Albuterol Sulfate 5 mg 09/25/22 09:19 09/25/22 09:41 Albuterol Sulfate (0.083%) 2.5 Mg/3 Ml Vial.Neb INHALE 09/25/22 09:20 5 mg ONCE ONE Administration Prednisone 50 mg 09/25/22 09:57 09/25/22 10:25 Prednisone 10 Mg Tablet PO 09/25/22 09:58 50 mg ONCE ONE Administration Medical Decision Making Medical Decision Making [facility] Narrative: [id number] presenting with asthma exacerbation. Differential Diagnosis Differential Diagnoses: The differential diagnosis associated with the presentation includes asthma exacerbation, URI, covid, influenza, pneumonia less likely Lab Data [facility] Lab Attestation statement: I reviewed the patient's lab results. Labs: Lab Results 09/25/22 Range/Units 08:41 Influenza Type A (PCR) NEGATIVE (Negative) Influenza Type B (PCR) NEGATIVE (Negative) RSV RNA Qual (PCR) NEGATIVE (Negative) SARS-CoV-2 RNA (RT-PCR) NEGATIVE (Negative) External Record Review External record reviewed: Prior outpatient labs Prescription Management I considered prescription management with: Antibiotic Chronic Conditions Patient?s care impacted by: Diabetes and Other (asthma) Critical Care Time Critical Care Time Critical Care Time: No Discharge Plan Discharge Clinical Impression: Asthma exacerbation Patient Disposition: Home, Self-Care Instructions: Asthma (ED) Additional Instructions: Your symptoms are likely due to an exacerbation of your asthma. You were given steroids in the emergency department today, please start the prescribed prednisone tomorrow (09/26/22). Take all prescribed medications as directed. You tested negative for COVID, RSV and flu today. Use albuterol updrafts as needed for shortness of breath. If you develop new or worsening symptoms call 911 or come back to the ER for further evaluation. Es probable que terrell s?ntomas se deban a ania exacerbaci?n de west asma. Le dieron esteroides en el departamento de emergencias hoy, por favor comience con la prednisona recetada ma?rupal (26/09/22). Zac negativo para COVID, RSV y gripe hoy. Use corrientes ascendentes de albuterol seg?n sea necesario para la dificultad para respirar. Si desarrolla s?ntomas nuevos o que empeoran, llame al 911 o regrese a la jose de emergencias para ania evaluaci?n adicional. Prescriptions: New prednisone 20 mg tablet 40 mg PO DAILY Qty: 10 0RF benzonatate 200 mg capsule 200 mg PO BID PRN (Reason: cough) Qty: 30 0RF azithromycin [Zithromax Z-Sebastien] 250 mg tablet See Rx Instructions .ROUTE .COMPLEX Qty: 6 0RF Rx Instructions: take 500 mg today (day 1), then 250 mg for 4 days (days 2-5) No Action (DME) blood sugar diagnostic Strip See Rx Instructions Not Applicable BID Qty: 10 11RF Rx Instructions: As directed Flovent HFA 110 mcg/actuation HFA aerosol inhaler 2 puff inhalation BID Qty: 36 6RF levothyroxine 25 mcg tablet 25 mcg PO QAM Qty: 90 2RF acetaminophen [Acetaminophen Extra Strength] 500 mg tablet 500 mg PO Q6H PRN (Reason: fever) 30 Days Qty: 120 0RF metformin 500 mg tablet 500 mg PO BID Qty: 180 3RF albuterol sulfate 0.63 mg/3 mL solution for nebulization 0.63 mg inhalation QID PRN (Reason: shortness of breath or wheezing) Qty: 75 0RF albuterol sulfate 90 mcg/actuation HFA aerosol inhaler 1 inh inhalation QID PRN (Reason: shortness of breath or wheezing) Qty: 8.5 0RF trazodone 100 mg tablet PO escitalopram oxalate 20 mg tablet 20 mg PO DAILY buspirone 5 mg tablet PO (DME) lancets [FreeStyle Lancets] 28 gauge misc See Rx Instructions .ROUTE .MEDSUPPLY Qty: 100 Rx Instructions: As directed rosuvastatin 20 mg tablet 20 mg PO DAILY 90 Days Qty: 90 1RF (DME) nebulizers [Aeroneb Go Nebulizer] Misc See Rx Instructions .Route Qty: 1 0RF Rx Instructions: As directed albuterol sulfate 2.5 mg /3 mL (0.083 %) solution for nebulization 2.5 mg inhalation Q6H 30 Days Qty: 360 1RF cholecalciferol (vitamin D3) 125 mcg (5,000 unit) capsule 125 mcg PO DAILY 90 Days Qty: 90 1RF Stand Alone Forms: Work/School Release Interventions: ED Discharge Assessment Last Done: 09/25/22 11:59 Discharge Date/Time: 09/25/22 12:09 Print Language: Micronesian
[2022-09-25] MEDS: predniSONE 10 MG TABLET 50 MG PO (10:25)
[2022-09-25 11:39] VITALS: BP 137/69; PULSE 98; RESP 14; TEMP 37.3; O2SAT 98
== END 2022-09-25 12:09 | disposition home or self-care (01) ==
PROVIDERS: Emergency Provider Student in an Organized Health Care Education/Training Program; PCP Internal Medicine
DX: J45.901 Unspecified asthma with (acute) exacerbation (principal); Z20.822 Contact with and (suspected) exposure to COVID-19; Z20.828 Contact with and (suspected) exposure to other viral communicable diseases; Z79.899 Other long term (current) drug therapy; Z87.891 Personal history of nicotine dependence
CPT/HCPCS: 0241U; 94640; 99284; 99285

== ENCOUNTER 2022-10-01 16:19 | Outpatient (REF) | payer OTHER, SELFPAY ==
--- NOTE | ~2022-10-01 | XR_ITS ---
EXAMINATION: XR CHEST CLINICAL INFORMATION: Reason for Exam J40 - Bronchitis, not specified as acute or chronic COMPARISON: Chest radiograph 07/05/2022 TECHNIQUE: 2 views of the chest FINDINGS: Clear lungs. No pneumothorax or pleural effusion. Normal cardiomediastinal silhouette. XR/XR chest 2V IMPRESSION: * Clear lungs.
== END 2022-10-01 16:20 | disposition home or self-care (01) ==
LOC: HO.XRAY 16:19
PROVIDERS: PCP Internal Medicine; Visit Provider Nurse Practitioner Family
DX: J40 Bronchitis, not specified as acute or chronic (principal)
CPT/HCPCS: 71046

== ENCOUNTER 2022-10-09 07:27 | Outpatient (REF) | payer OTHER, SELFPAY ==
--- NOTE | ~2022-10-09 | MM_ITS ---
EXAMINATION: MM SCREENING DIGITAL BREAST TOMOSYNTHESIS, BILATERAL CLINICAL INFORMATION: Screening. Asymptomatic. The lifetime risk of breast cancer based on the Tyrer-Cuzick Model is 11%. COMPARISON: Mammography: 09/08/2021, 08/30/2020, 08/25/2019 TECHNIQUE: Digital breast tomosynthesis is performed in both the craniocaudal and mediolateral oblique views along with computer-aided detection (CAD). Synthesized 2D images are generated from the tomosynthesis. Additional right MLO and left CC views are provided. FINDINGS: There are scattered areas of fibroglandular density (ACR BI-RADS breast composition Category b). There are no significant masses, abnormal calcifications, or other abnormalities. Parenchymal pattern is similar to prior studies. There is no developing density or architectural abnormality. The axilla and skin contours are unremarkable. No significant changes. MM/MM tomosynthesis screening BI IMPRESSION: No mammographic evidence of malignancy. ASSESSMENT: BI-RADS 1: Negative RECOMMENDATION: Routine annual mammography screening. This patient's information was entered into a reminder system with a target due date for their next mammogram.
== END 2022-10-09 07:28 | disposition home or self-care (01) ==
LOC: HO.MAMMO 07:27
PROVIDERS: PCP Internal Medicine; Visit Provider Internal Medicine
DX: Z12.31 Encounter for screening mammogram for malignant neoplasm of breast (principal)
CPT/HCPCS: 77063; 77067

== ENCOUNTER 2023-01-11 08:12 | Outpatient (REF) | payer OTHER, SELFPAY ==
[2023-01-11 09:46] LABS: Alanine Aminotransferase 31 U/L (0-31); Alkaline Phosphatase 79 U/L (39-117); Anion Gap 11 (12-20); Aspartate Amino Transferase 25 U/L (5-31); Bilirubin Total 1.6 mg/dL (0.0-1.0); Blood Urea Nitrogen 16 mg/dL (9-16); Calcium 9.3 mg/dL (8.4-10.2); Carbon Dioxide 27 mmol/L (22-29); Chloride 106 mmol/L (96-108); Cholesterol 144 mg/dL; Estimated Glomerular Filt Rate > 60; Glucose Fasting 166 mg/dL (60-99); HDL Cholesterol 39 mg/dL; LDL Cholesterol Calculated 78 mg/dl; Potassium 5.1 mmol/L (3.3-5.1); Sodium 139 mmol/L (135-145); Total Protein 6.5 g/dL (6.5-8.0); Triglycerides 139 mg/dL
[2023-01-11 09:47] LABS: Thyroid Stimulating Hormone 2.25 uIU/mL (0.32-4.0); Vitamin D 25-OH Total 26.5 ng/mL (>30)
[2023-01-11 10:26] LABS: Creatinine Urine 146.32 mg/dL; Microalbum/Creatinine Ratio Ur 9.5 ug/mg cr
== END 2023-01-11 08:13 | disposition home or self-care (01) ==
LOC: HO.LAB 08:12
PROVIDERS: PCP Internal Medicine; Visit Provider Internal Medicine
DX: E55.9 Vitamin D deficiency, unspecified (principal); E03.9 Hypothyroidism, unspecified; E78.5 Hyperlipidemia, unspecified; E11.9 Type 2 diabetes mellitus without complications
CPT/HCPCS: 36415; 80053; 80061; 82043; 82306; 84443

== ENCOUNTER → 2023-01-27 10:39 | Outpatient (BNVA) | payer OTHER, SELFPAY | PROVIDERS: PCP Internal Medicine; Visit Provider Registered Nurse Emergency | DX: M53.3 Sacrococcygeal disorders, not elsewhere classified (principal); M54.50 Low back pain, unspecified | CPT/HCPCS: 99202 ==

== ENCOUNTER 2023-02-03 08:54 | Outpatient (REF) | payer OTHER, SELFPAY ==
--- NOTE | ~2023-02-03 | XR_ITS ---
EXAMINATION: XR LUMBOSACRAL SPINE WITH OBLIQUES CLINICAL INFORMATION: Lower back pain. COMPARISON: None available. TECHNIQUE: AP, bilateral oblique and lateral views of the lumbar spine and lateral view of the lumbosacral junction. Lateral views were obtained in flexion and extension. FINDINGS: Vertebral body heights are normal. There is a slight lumbar levoscoliosis. There is marked disc space narrowing at L4-L5 and L5-S1, with accompanying spondylosis. The remaining disc spaces are relatively well-maintained. No acute fracture or spondylolisthesis is seen. There is no spondylolysis defect on the oblique views. There is no instability with flexion or extension. There is further mild anterior spondylosis at T12-L1, L2-L3 and L5-S1. The paravertebral soft tissues are unremarkable. XR/XR lumbar spine 6V w bending IMPRESSION: There is multi-level thoracolumbar degenerative disc disease, spondylosis and facet arthropathy. Degenerative disc disease is most pronounced at L3-L4 and L4-L5, where it is severe. There is no instability with flexion or extension.
== END 2023-02-03 08:55 | disposition home or self-care (01) ==
LOC: HO.XRAY 08:54
PROVIDERS: PCP Internal Medicine; Visit Provider Registered Nurse Emergency
DX: M54.50 Low back pain, unspecified (principal)
CPT/HCPCS: 72114

== ENCOUNTER 2023-03-08 15:30 | Emergency (ER) | payer OTHER, SELFPAY ==
[2023-03-08 16:27] VITALS: BP 145/68; PULSE 83; RESP 16; TEMP 36.8; O2SAT 98; BMI 40.7
--- NOTE | 2023-03-08 16:28 | ED_ITS ---
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 Patient states that she was at work and got a sudden headache, took her blood pressure, and it was elevated. Patient denies any dizziness, lightheadedness, abdominal pain, nausea, vomiting, fever, chills, blurry vision, double vision, loss of vision, chest pain, difficulty breathing, shortness of breath, back pain, night sweats, pain with urination, increased urinary frequency, increased urinary urgency, blood in her urine or stool, syncope or a near syncopal episode, recent trauma or falls, bowel incontinence, bladder incontinence, bowel retention, bladder retention, or any other complaint s at this time. Onset (ago): minute(s) Location: head Radiation: non-radiation Severity: mild Severity scale (1-10): 4 Quality: aching and dull Pain Consistency: constant Relieving factors: none Exacerbating factors: none Associated symptoms: denies other symptoms Treatments prior to arrival: none Related Data Home Medications Medication Instructions Recorded Confirmed buspirone 5 mg tablet mg PO 05/27/20 01/19/23 escitalopram oxalate 20 mg tablet 20 mg PO DAILY 05/27/20 01/19/23 lancets 28 gauge (FreeStyle #100 ea 05/27/20 01/19/23 Lancets) trazodone 100 mg tablet mg PO 05/27/20 01/19/23 Previous Rx's Medication Instructions Recorded blood sugar diagnostic #10 ea 10/14/20 nebulizers (Aeroneb Go Nebulizer) #1 ea 05/11/22 albuterol sulfate 0.63 mg/3 mL 0.63 mg (3 mL) inhalation QID PRN 07/05/22 solution for nebulization shortness of breath or wheezing #75 mL albuterol sulfate 90 mcg/actuation 1 inh inhalation QID PRN shortness 07/05/22 aerosol inhaler of breath or wheezing #8.5 grams levothyroxine 25 mcg tablet 25 mcg PO QAM #90 tabs 07/14/22 cholecalciferol (vitamin D3) 125 125 mcg PO DAILY 90 days #90 caps 09/14/22 mcg (5,000 unit) capsule rosuvastatin 20 mg tablet 20 mg PO DAILY 90 days #90 tabs 10/28/22 fluticasone propionate 110 2 puff inhalation BID #36 grams 12/26/22 mcg/actuation HFA aerosol inhaler (Flovent HFA) metformin 1,000 mg tablet 1,000 mg PO BID 90 days #180 tabs 01/19/23 tizanidine 2 mg tablet 2 mg PO BID PRN muscle spasticity 01/27/23 #60 tabs albuterol sulfate 2.5 mg/3 mL 2.5 mg (3 mL) inhalation Q6H 30 02/08/23 (0.083 %) solution for nebulization days #360 mL blood pressure monitor #1 ea 02/08/23 blood-glucose meter (FreeStyle #1 ea 02/08/23 Lite Meter kit) amlodipine 2.5 mg tablet 2.5 mg PO DAILY 90 days #90 tabs 02/11/23 Allergies Allergy/AdvReac Type Severity Reaction Status Date / Time morphine [MORPHINE] Allergy Severe facial Verified 03/08/23 16:32 droop, numbness, lip deviation Review of Systems Constitutional: Constitutional: Reports no additional constitutional complaints, Denies chills, Denies fever(s), Reports headache(s) and Denies night sweats Eyes: Eyes: Reports no additional eye complaints, Denies blurry vision, Denies change in vision, Denies diplopia, Denies eye discharge, Denies loss of vision and Denies eye pain ENT: Denies dizziness and Reports headache(s) Cardiovascular: Cardiovascular: Reports no additional cardiovascular complaints, Denies chest pain, Denies lightheadedness, Denies Loss of C onsciousness and Denies dyspnea Respiratory: Respiratory: Reports no additional respiratory complaints and Denies dyspnea Gastrointestinal: Gastrointestinal: Reports no additional gastrointestinal complaints, Denies abdominal pain, Denies melena, Denies hematochezia, Denies change in bowel habits and Denies change in stool character Genitourinary: Genitourinary: Denies hematuria, Denies urinary frequency, Denies dysuria, Denies urinary incontinence, Denies urinary hesitancy and Denies urinary urgency Musculoskeletal: Musculoskeletal: Reports no additional musculoskeletal compla ints, Denies numbness and Denies tingling Neurologic: Denies dizziness, Reports headache(s), Denies loss of vision, Denies numbness and Denies tingling Psychiatric: Psychiatric: Reports no additional psychiatric complaints Endocrine: Endocrine: Reports no additional endocrine complaints Hematologic/Lymphatic: Hematologic/Lymphatic: Reports no additional hematologic/lymphatic complaints Allergic/Immunologic: Allergic/Immunologic: Reports no additional allergic/immunologic complaints PMFSH Past Medical History Attestation statement: The following information was validated with the patient. Source: old records reviewed and nursing notes reviewed Medical History Bronchitis Cervical cancer screening Counseling for initiation of control method Depression with anxiety Diabetes mellitus Essential hypertension Hyperkalemia Hypertriglyceridemia Hypothyroidism Insomnia Laceration of right hand Left elbow pain Left sided sciatica Lower back pain Mild recurrent major depression Morbid obesity with BMI of 40.0-44.9, adult Otitis externa Physical exam Potential exposure to STD Right hand pain Surgical History History of section History of foot surgery Family History Family History Father Emphysema lung Mother Myocardial infarction Sister Chronic mental illness Family/Other FH: mental illness Sister Diabetes Sister Cancer, Onset Age: 57 Diabetes Sister Diabetes Sister Diabetes Son No problems noted. Unknown Cancer, Onset Age: 24 Social History Social History Housing: Apartment Alcohol intake: former Patient Tobacco Use Status: Former Tobacco user Tobacco use type: Cigarette e-Cigarette/Vaping Use: Never Used Second Hand Smoke Exposure: No service: No Current occupational status: employed Current occupational exposures/hazards: No Cognitive needs: No Hearing needs: No Vision needs: No Physical Exam ED Vital Signs: BMI result Body Mass Index 40.7 Const General: cooperative, no acute distress, alert and awake Nutritional Appearance: well nourished Orientation/consciousness: patient oriented x3 Limitations: no limitations HENMT Head: Yes normal to inspection and Yes atraumatic Ears: hearing grossly normal bilaterally and external ears normal General nose exam: Normal external nose present, no nasal discharge noted and no epistaxis Face and sinus: Yes normal facial exam, No abrasion and No laceration Mouth: Normal oral and palatal mucosa present, no drooling and no muffled voice Eyes General: appearance normal, both eyes and all related structures Periorbital: periorbital findings normal Eyelids: Yes eyelids normal Conjunctivae: conjunctivae normal Pupils: Equal, round and reactive pupils present EOM: EOMs intact bilaterally Neck Neck: Yes normal visual inspection, Yes full ROM and Yes no lymphadenopathy Chest Chest palpation & inspection: normal inspection of the chest Resp Effort & Inspection: normal respiratory effort and able to speak in complete sentences GI Inspection: Yes normal to inspection Neuro General: patient oriented x3 and moves all extremities Cranial nerves: Yes Equal, round and reactive pupils present Cognition (Neuro): normal cognition Motor exam (neuro): 5/5 motor strength present throughout Sensory Exam: Normal double simultaneous stimulation for sensation Coordination: [id number] test normal Extrem General: Yes normal to inspection, Yes full ROM and Yes capillary refill normal Psych Appearance: grossly normal Mental Status: mental status grossly normal Affect: normal affect Attitude: cooperative Thought process: Normal thought process present Thought content: Normal thought content present Insight: Good insight present (Psych) Course Course Course Narrative: RME performed by Nidia Garcia PA-C. Patient is a 47 year old assigned female at presenting to the emergency department with a headache and dizziness with an elevated blood pressure. Labs ordered. Patient placed back in the waiting room pending room availability and results. Medical Decision Making Medical Decision Making [facility] Narrative: Patient is a 47 year old assigned female at with a history of depression and DM presenting to the emergency department today with a headache and possible high blood pressure. Patient's limited physical exam performed in triage was unremarkable. Patient's blood work was unremarkable. Patient's EKG was unremarkable. Patient eloped from the department before myself or any of the other emergency department providers could perform a more thorough physical examination, discuss need or lack there of for further work up, review test results, or discuss treatment options / plans. Differential Diagnosis Differential Diagnoses: The differential diagnosis associated with the presentation includes Headache HTN Admission/Observation Consideration of admission/observation: Escalation of care including admission/observation considered Patient would have been admitted to the hospital had her work up had any findings where hospital admission was appropriate, her clinical presentation warranted hospital admission, and she had not eloped from from the department. Lab Data [facility] Lab Attestation statement: I reviewed the patient's lab results. My interpretation of these studies and their corresponding values is that they are grossly normal. 03/08/23 16:35 03/08/23 16:35 Labs: Lab Results 03/08/23 03/08/23 03/08/23 Range/Units 16:35 16:35 16:35 WBC 12.0 H (4.8-10.8) X10*3/uL RBC 4.43 (4.20-5.50) X10*6/uL Hgb 12.4 (12.0-16.0) g/dl Hct 38.4 (37.0-47.0) % MCV 86.7 (80.0-98.0) fL MCH 28.0 (27.0-33.0) pg MCHC 32.3 (31.0-35.0) g/dl RDW 12.4 (11.0-16.0) % Plt Count 311 (160-400) X10*3/uL MPV 10.5 (9.4-12.3) fL Immature Gran % (Auto) 0.3 (0.0-0.4) % Neut % (Auto) 70.8 (45-73) % Lymph % (Auto) 19.0 L (20-40) % Wilbarger % (Auto) 7.6 (2-11) % Eos % (Auto) 1.8 (0-4) % Baso % (Auto) 0.5 (0-2) % Lymph # (Auto) 2.3 (1.2-4.9) X10*3/uL Wilbarger # (Auto) 0.9 (0.1-1.2) X10*3/uL Eos # (Auto) 0.2 (0.0-0.4) X10*3/uL Baso # (Auto) 0.1 (0.0-0.2) X10*3/uL Abs Immat Gran (auto) 0.04 H (0.00-0.03) X10*3/uL Absolute Neuts (auto) 8.5 H (2.0-8.3) x10*3/uL Absolute Nucleated RBC 0.000 (0.0-0.012) X10*3/uL Nucleated RBC % (auto) 0.0 (0.0-0.2) /100WBC Sodium 138 (135-145) mmol/L Potassium 4.3 (3.3-5.1) mmol/L Chloride 104 (96-108) mmol/L Carbon Dioxide 27 (22-29) mmol/L Anion Gap 11 L (12-20) BUN 17 H (9-16) mg/dL Creatinine 0.99 (0.5-1.4) mg/dL Estim Creat Clear Calc 82.9 Estimated GFR > 60 Random Glucose 216 H (60-115) mg/dL Calcium 9.2 (8.4-10.2) mg/dL Magnesium 2.0 (1.6-2.6) mg/dL Total Bilirubin 1.1 H (0.0-1.0) mg/dL AST 18 (5-31) U/L ALT 28 (0-31) U/L Alkaline Phosphatase 78 (39-117) U/L Troponin I High Sens 4.4 (<3.5-17.0) ng/L Total Protein 6.6 (6.5-8.0) g/dL Albumin 3.9 (3.5-5.0) g/dL Beta HCG, Quant < 2 mIU/mL Independent Interpretation I performed an independent interpretation of an: EKG Interpretation: Vent. Rate: 082 BPM ? ? Atrial Rate: 082 BPM P-R Int: 166 ms? QRS Dur: 076 ms QT Int: 354 ms ? ? ? P-R-T Axes: 038 044 052 degrees QTc Int: 413 ms ? Normal sinus rhythm Normal ECG When compared with ECG of 28-APR-2019 09:17, No significant change was found ? Electronically Signed By:Santi Darnell Dictated By: Santi Darnell MD Signed By: Electronically signed by Santi Darnell MD 03/09/23 1453 Chronic Conditions Patient?s care impacted by: Diabetes Discharge Plan Discharge Clinical Impression: Headache Patient Disposition: Elopement Prescriptions: No Action (DME) blood sugar diagnostic Strip See Rx Instructions Not Applicable BID Qty: 10 11RF Rx Instructions: As directed levothyroxine 25 mcg tablet 25 mcg PO QAM Qty: 90 2RF rosuvastatin 20 mg tablet 20 mg PO DAILY 90 Days Qty: 90 1RF Flovent HFA 110 mcg/actuation HFA aerosol inhaler 2 puff inhalation BID Qty: 36 0RF albuterol sulfate 2.5 mg /3 mL (0.083 %) solution for nebulization 2.5 mg inhalation Q6H 30 Days Qty: 360 1RF (DME) blood-glucose meter [FreeStyle Lite Meter] Kit See Rx Instructions .Route Qty: 1 0RF Rx Instructions: As directed (DME) blood pressure monitor Kit See Rx Instructions .Route Qty: 1 0RF Rx Instructions: As directed amlodipine 2.5 mg tablet 2.5 mg PO DAILY 90 Days Qty: 90 1RF albuterol sulfate 0.63 mg/3 mL solution for nebulization 0.63 mg inhalation QID PRN (Reason: shortness of breath or wheezing) Qty: 75 0RF albuterol sulfate 90 mcg/actuation HFA aerosol inhaler 1 inh inhalation QID PRN (Reason: shortness of breath or wheezing) Qty: 8.5 0RF trazodone 100 mg tablet PO escitalopram oxalate 20 mg tablet 20 mg PO DAILY buspirone 5 mg tablet PO (DME) lancets [FreeStyle Lancets] 28 gauge misc See Rx Instructions .ROUTE .MEDSUPPLY Qty: 100 Rx Instructions: As directed (DME) nebulizers [Aeroneb Go Nebulizer] Misc See Rx Instructions .Route Qty: 1 0RF Rx Instructions: As directed cholecalciferol (vitamin D3) 125 mcg (5,000 unit) capsule 125 mcg PO DAILY 90 Days Qty: 90 1RF metformin 1,000 mg tablet 1,000 mg PO BID 90 Days Qty: 180 1RF tizanidine 2 mg tablet 2 mg PO BID PRN (Reason: muscle spasticity) Qty: 60 0RF Rx Instructions: No driving or drinking alcohol while taking this medication. May cause drowsiness. Discharge Date/Time: 03/08/23 22:41
--- NOTE | 2023-03-08 16:29 | ECG_ITS ---
Test Reason : HTN Blood Pressure : / mmHG Vent. Rate : 082 BPM Atrial Rate : 082 BPM P-R Int : 166 ms QRS Dur : 076 ms QT Int : 354 ms P-R-T Axes : 038 044 052 degrees QTc Int : 413 ms Normal sinus rhythm Normal ECG When compared with ECG of 28-APR-2019 09:17, No significant change was found Referred By: Nidia Garcia Electronically Signed By:Santi Darnell
--- NOTE | 2023-03-08 16:42 | MHC.EDTECH ---
Labs collected and sent
[2023-03-08 16:44] LABS: MANUAL DIFF FLAG NO
[2023-03-08 16:46] LABS: Basophils Absolute Auto 0.1 X10*3/uL (0.0-0.2); Basophils Percent Auto 0.5 % (0-2); Eosinophils Absolute Auto 0.2 X10*3/uL (0.0-0.4); Eosinophils Percent Auto 1.8 % (0-4); Hematocrit 38.4 % (37.0-47.0); Hemoglobin 12.4 g/dl (12.0-16.0); Imm Gran Abs Auto 0.04 X10*3/uL (0.00-0.03); Imm Gran Pct Auto 0.3 % (0.0-0.4); Lymphocytes Absolute Auto 2.3 X10*3/uL (1.2-4.9); Mean Corpuscular HGB Conc 32.3 g/dl (31.0-35.0); Mean Corpuscular Volume 86.7 fL (80.0-98.0); Mean Platelet Volume 10.5 fL (9.4-12.3); Monocytes Absolute Auto 0.9 X10*3/uL (0.1-1.2); Monocytes Percent Auto 7.6 % (2-11); Neutrophils Absolute Auto 8.5 x10*3/uL (2.0-8.3); Neutrophils Percent Auto 70.8 % (45-73); Platelet Count 311 X10*3/uL (160-400); Red Blood Count 4.43 X10*6/uL (4.20-5.50); Red Cell Distribution Width 12.4 % (11.0-16.0)
[2023-03-08 17:12] LABS: Alanine Aminotransferase 28 U/L (0-31); Albumin Level 3.9 g/dL (3.5-5.0); Alkaline Phosphatase 78 U/L (39-117); Anion Gap 11 (12-20); Aspartate Amino Transferase 18 U/L (5-31); Bilirubin Total 1.1 mg/dL (0.0-1.0); Blood Urea Nitrogen 17 mg/dL (9-16); Calcium 9.2 mg/dL (8.4-10.2); Carbon Dioxide 27 mmol/L (22-29); Chloride 104 mmol/L (96-108); Creatinine Clr Calc Pharmacy 82.9; Estimated Glomerular Filt Rate > 60; Glucose Random 216 mg/dL (60-115); Potassium 4.3 mmol/L (3.3-5.1); Sodium 138 mmol/L (135-145); Total Protein 6.6 g/dL (6.5-8.0)
[2023-03-08 17:13] LABS: Troponin-I High Sensitivity 4.4 ng/L (<3.5-17.0)
[2023-03-08 17:18] LABS: HCG Quantitative < 2 mIU/mL
== END 2023-03-08 22:41 | disposition left against medical advice (07) ==
LOC: HO.ED 22:40
PROVIDERS: Physician Assistant Medical; Emergency Provider Emergency Medicine
DX: R51.9 Headache, unspecified (principal); E11.9 Type 2 diabetes mellitus without complications; I10 Essential (primary) hypertension; E78.5 Hyperlipidemia, unspecified; E66.9 Obesity, unspecified; Z68.41 Body mass index [BMI] 40.0-44.9, adult; Z79.899 Other long term (current) drug therapy; Z79.84 Long term (current) use of oral hypoglycemic drugs
CPT/HCPCS: 36415; 80053; 83735; 84484; 84702; 85025; 93005; 99283

== ENCOUNTER → 2023-03-08 16:29 | Outpatient (BNV) | payer OTHER, SELFPAY | PROVIDERS: Emergency Provider Emergency Medicine; Visit Provider Internal Medicine Cardiovascular Disease | DX: I10 Essential (primary) hypertension (principal) | CPT/HCPCS: 93010 ==

== ENCOUNTER 2023-04-16 08:18 | Emergency (ER) | payer OTHER, SELFPAY ==
--- NOTE | ~2023-04-16 | XR_ITS ---
EXAMINATION: XR CHEST CLINICAL INFORMATION: Right lung pain COMPARISON: 10/01/2022 TECHNIQUE: Frontal view of the chest was obtained. FINDINGS: There is no acute finding. The lung clay are felt to be grossly clear. No infiltrate. No effusion. The cardiac silhouette is comparable. The hilar regions are comparable. XR/XR chest 1V IMPRESSION: No acute finding.
[2023-04-16 08:29] VITALS: BP 142/67; PULSE 81; RESP 17; TEMP 36.1; O2SAT 99; BMI 42.4
[2023-04-16 09:27] LABS: IDNOW Serial# 08D9AD1C; Strep A Nucleic Acid Negative (Negative)
[2023-04-16 09:42] LABS: COVID-19 Test Negative (Negative); IDNOW Serial# BCCEAD1C
[2023-04-16 09:43] LABS: IDNOW Serial# 9DB6401D; Influenza A Negative (Negative); Influenza B2 Negative (Negative)
--- NOTE | 2023-04-16 10:36 | ED_ITS ---
HPI - General Adult General Chief complaint: Upper Respiratory Symptoms Stated complaint: sore throat/ asthma Time Seen by Provider: 04/16/23 09:22 Source: patient Mode of arrival: ambulatory Limitations: no limitations History of Present Illness HPI narrative: 47-year-old female with a history of asthma presents to ED for sore throat, coughing up white phlegm, chills, body aches, night sweats, and right-sided chest pain only when she coughs. Patient denies any coughing up blood, recent long travel, recent surgery, pleurisy, leg swelling, calf pain, or coughing up blood. Related Data Home Medications Medication Instructions Recorded Confirmed buspirone 5 mg tablet mg PO 05/27/20 01/19/23 escitalopram oxalate 20 mg tablet 20 mg PO DAILY 05/27/20 01/19/23 lancets 28 gauge (FreeStyle #100 ea 05/27/20 01/19/23 Lancets) trazodone 100 mg tablet mg PO 05/27/20 01/19/23 Previous Rx's Medication Instructions Recorded blood sugar diagnostic #10 ea 10/14/20 nebulizers (Aeroneb Go Nebulizer) #1 ea 05/11/22 albuterol sulfate 0.63 mg/3 mL 0.63 mg (3 mL) inhalation QID PRN 07/05/22 solution for nebulization shortness of breath or wheezing #75 mL albuterol sulfate 90 mcg/actuation 1 inh inhalation QID PRN shortness 07/05/22 aerosol inhaler of breath or wheezing #8.5 grams cholecalciferol (vitamin D3) 125 125 mcg PO DAILY 90 days #90 caps 09/14/22 mcg (5,000 unit) capsule rosuvastatin 20 mg tablet 20 mg PO DAILY 90 days #90 tabs 10/28/22 metformin 1,000 mg tablet 1,000 mg PO BID 90 days #180 tabs 01/19/23 albuterol sulfate 2.5 mg/3 mL 2.5 mg (3 mL) inhalation Q6H 30 02/08/23 (0.083 %) solution for nebulization days #360 mL blood pressure monitor #1 ea 02/08/23 blood-glucose meter (FreeStyle #1 ea 02/08/23 Lite Meter kit) amlodipine 2.5 mg tablet 2.5 mg PO DAILY 90 days #90 tabs 02/11/23 fluticasone propionate 110 2 puff inhalation BID #36 grams 03/22/23 mcg/actuation HFA aerosol inhaler (Flovent HFA) tizanidine 2 mg tablet 2 mg PO BID PRN muscle spasticity 03/30/23 #60 tabs levothyroxine 25 mcg tablet 25 mcg PO QAM #90 tabs 04/02/23 benzonatate 150 mg capsule 150 mg PO TID PRN cough 5 days #15 04/16/23 caps prednisone 20 mg tablet 40 mg (2 x 20 mg) PO DAILY 5 days 04/16/23 #10 tabs Allergies Allergy/AdvReac Type Severity Reaction Status Date / Time morphine [MORPHINE] Allergy Severe facial Verified 03/08/23 16:32 droop, numbness, lip deviation Review of Systems Review of Systems: coughing, phlegm, night sweats, chills, Yes all other systems are reviewed and are negative PMFSH Past Medical History Medical History Bronchitis Cervical cancer screening Counseling for initiation of control method Depression with anxiety Diabetes mellitus Essential hypertension Hyperkalemia Hypertriglyceridemia Hypothyroidism Insomnia Laceration of right hand Left elbow pain Left sided sciatica Lower back pain Mild recurrent major depression Morbid obesity with BMI of 40.0-44.9, adult Otitis externa Physical exam Potential exposure to STD Right hand pain Surgical History History of section History of foot surgery Family History Family History Father Emphysema lung Mother Myocardial infarction Sister Chronic mental illness Family/Other FH: mental illness Sister Diabetes Sister Cancer, Onset Age: 57 Diabetes Sister Diabetes Sister Diabetes Son No problems noted. Unknown Cancer, Onset Age: 24 Social History Social History Housing: Apartment Alcohol intake: never Patient Tobacco Use Status: Former Tobacco user Tobacco use type: Cigarette Smoked in Last 30 Days: No e-Cigarette/Vaping Use: Never Used Second Hand Smoke Exposure: No Use of substances other than those prescribed or required for medical reasons: No Advance Directives: Yes Advance Directives Information Provided: Yes Advance Directives on File: No Patient : No service: No Current occupational status: employed Current occupational exposures/hazards: No Cognitive needs: No Hearing needs: No Vision needs: No Physical Exam ED Vital Signs: Vital Signs - 24 hr 04/16/23 08:29 Temperature 97.0 F Pulse Rate 81 Respiratory Rate 17 Blood Pressure 142/67 H Pulse Oximetry 99 Oxygen Delivery Method Room Air BMI result Body Mass Index 42.4 Const Orientation/consciousness: oriented to person, oriented to place, oriented to time and patient oriented x3 HENNJ Head: Yes normal to inspection, Yes No palpable skull fracture present, Yes normocephalic, Yes atraumatic and No abrasion Throat: Yes posterior oropharynx normal, Yes tonsils normal and Yes uvula midline Eyes General: appearance normal, both eyes and all related structures Neck Neck: Yes normal visual inspection, Yes full ROM, Yes no lymphadenopathy, Yes no meningeal signs, Yes trachea midline, Yes supple, No anterior neck swelling and No tender Chest Chest palpation & inspection: normal inspection of the chest and normal palpation of entire chest wall Resp Effort & Inspection: normal respiratory effort and able to speak in complete sentences Auscultation: clear to auscultation bilaterally Cardio Jugular venous distension: no JVD Heart sounds: S1 normal heart sound present and S2 normal heart sound present GI Inspection: Yes normal to inspection and No abdominal wall ecchymosis Palpation (GI): Soft to palpation, not firm, nontender, no guarding and not rigid General: No CVA tenderness and Yes no CVA tenderness Back/Spine/Pelvis Back: no CVA tenderness, No CVA tenderness and No back tenderness Skin General skin exam: no rashes or lesions noted, elasticity normal and turgor normal Neuro General: oriented to person, oriented to place, oriented to time, patient oriented x3, gait normal, tone normal, moves all extremities, Normal light touch and pain sensation, no meningeal signs, no focal motor deficits, CN's II-XI intact bilaterally and normal sensation to monofilament Extrem General: Yes normal to inspection and Yes full ROM Psych Appearance: grossly normal, well kempt and not disheveled Medical Decision Making Medical Decision Making [facility] Narrative: 47-year-old female with history of asthma presents to ED for coughing, sore throat, body aches, chills, night sweats. Patient denies any shortness of breath. Patient denies any leg swelling, calf pain, coughing up blood, pleurisy, recent long travel. Patient states right-sided chest pain only when she coughs. Not suspecting myocardial infarction, heart failure, or PE. Chest x-ray normal. Influenza COVID Differential Diagnosis Differential Diagnoses: The differential diagnosis associated with the presentation includes ( influenza, COVID, strep, pneumonia, PE, myocardial infarction, heart failure, myocarditis) Lab Data MDM Lab Attestation statement: I reviewed the patient's lab results. Labs: Lab Results 04/16/23 Range/Units 08:58 COVID-19 (GRIS) Negative (Negative) COVID-19 Clin Com See Note Influenza Type A ([facility]ASTA) Negative (Negative) Influenza Type B (SHASTA) Negative (Negative) Influenza A & B Note See Note S. pyogenes GrpA SHASTA Negative (Negative) Independent Interpretation I performed an independent interpretation of an: Plain X-Ray Radiology Impression Discussion of test interpretation with radiology: I have reviewed the radiologist's reading. Prescription Management I considered prescription management with: Other (prednisone) Discharge Plan Discharge Clinical Impression: Asthma, URI (upper respiratory infection) Patient Disposition: Home, Self-Care Instructions: Asthma (DC), Upper Respiratory Infection (ED) Additional Instructions: Contin?e usando west inhalador y nebulizador de albuterol en casa. Ser? dado de tiffanie con esteroides. Regrese al servicio de urgencias de inmediato si tiene dolor en el pecho, dificultad para respirar, pleures?a, tos con arely, hinchaz?n de las piernas, dolor en la pantorrilla, dolor en el pecho/dificultad para respirar al hacer ejercicio, fiebre intratable, debilidad, escalofr?os o cualquier otro s?ntoma preocupante. Iraj un seguimiento con el proveedor de atenci?n primaria. Prescriptions: New prednisone 20 mg tablet 40 mg PO DAILY 5 Days Qty: 10 0RF benzonatate 150 mg capsule 150 mg PO TID PRN (Reason: cough) 5 Days Qty: 15 0RF No Action (DME) blood sugar diagnostic Strip See Rx Instructions Not Applicable BID Qty: 10 11RF Rx Instructions: As directed rosuvastatin 20 mg tablet 20 mg PO DAILY 90 Days Qty: 90 1RF albuterol sulfate 2.5 mg /3 mL (0.083 %) solution for nebulization 2.5 mg inhalation Q6H 30 Days Qty: 360 1RF (DME) blood-glucose meter [FreeStyle Lite Meter] Kit See Rx Instructions .Route Qty: 1 0RF Rx Instructions: As directed (DME) blood pressure monitor Kit See Rx Instructions .Route Qty: 1 0RF Rx Instructions: As directed amlodipine 2.5 mg tablet 2.5 mg PO DAILY 90 Days Qty: 90 1RF Flovent HFA 110 mcg/actuation HFA aerosol inhaler 2 puff inhalation BID Qty: 36 0RF tizanidine 2 mg tablet 2 mg PO BID PRN (Reason: muscle spasticity) Qty: 60 0RF Rx Instructions: No driving or drinking alcohol while taking this medication. May cause drowsiness. levothyroxine 25 mcg tablet 25 mcg PO QAM Qty: 90 2RF albuterol sulfate 0.63 mg/3 mL solution for nebulization 0.63 mg inhalation QID PRN (Reason: shortness of breath or wheezing) Qty: 75 0RF albuterol sulfate 90 mcg/actuation HFA aerosol inhaler 1 inh inhalation QID PRN (Reason: shortness of breath or wheezing) Qty: 8.5 0RF trazodone 100 mg tablet PO escitalopram oxalate 20 mg tablet 20 mg PO DAILY buspirone 5 mg tablet PO (DME) lancets [FreeStyle Lancets] 28 gauge misc See Rx Instructions .ROUTE .MEDSUPPLY Qty: 100 Rx Instructions: As directed (DME) nebulizers [Aeroneb Go Nebulizer] Misc See Rx Instructions .Route Qty: 1 0RF Rx Instructions: As directed cholecalciferol (vitamin D3) 125 mcg (5,000 unit) capsule 125 mcg PO DAILY 90 Days Qty: 90 1RF metformin 1,000 mg tablet 1,000 mg PO BID 90 Days Qty: 180 1RF Stand Alone Forms: Work/School Release Interventions: ED Discharge Assessment Last Done: 04/16/23 11:00 Discharge Date/Time: 04/16/23 11:01 Print Language: French
[2023-04-16 10:50] VITALS: BP 151/83; PULSE 78; RESP 18; TEMP 36.9; O2SAT 100
== END 2023-04-16 11:01 | disposition home or self-care (01) ==
PROVIDERS: Emergency Provider Emergency Medicine Emergency Medical Services; PCP Internal Medicine
DX: J06.9 Acute upper respiratory infection, unspecified (principal); J45.909 Unspecified asthma, uncomplicated; J02.9 Acute pharyngitis, unspecified; Z20.822 Contact with and (suspected) exposure to COVID-19; E11.9 Type 2 diabetes mellitus without complications; I10 Essential (primary) hypertension; E66.9 Obesity, unspecified; Z68.41 Body mass index [BMI] 40.0-44.9, adult; Z87.891 Personal history of nicotine dependence; Z79.899 Other long term (current) drug therapy; Z79.84 Long term (current) use of oral hypoglycemic drugs
CPT/HCPCS: 71045; 87502; 87635; 87651; 99283; 99284

== ENCOUNTER 2023-05-07 10:00 | Outpatient (RCR) | payer OTHER, SELFPAY ==
--- NOTE | 2023-04-29 15:20 | MHC.PT.EP ---
[facility] [place] Office [place] Office [place] Office [address] Ramona Hurtado [address] [phone] F: [phone] F: [phone] F: [phone] F: [phone] Physical Therapy Plan of Care Date of Evaluation: 04/29/23 Date of Surgery: n/a Diagnosis: Sacrococcygeal disorders, not elsewhere classifed Sacroiliac dysfunction Assessment: Pt is a pleasant 47yo F who presents to PT with low back pain radiating into LLE. She presents to PT with current impairments in pain, decreased lumbar ROM, posterior chain tightness, soft tissue restrictions, decreased core stabilization, decreased hip/glute strength, and impaired gait. She is limited functionally by sitting to standing transitions, getting in/out of bed, prolonged standing, prolonged walking, and bending. She is an excellent candidate for skilled PT in order to address current impairments to facilitate return to PLOF. She is recommended to be seen 2x/week for 4 weeks and will be reassessed at that time. 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 Manual therapy to restore motion and function. Therapeutic exercise to improve strength and flexibility. Neuromuscular re-education for posture and balance. Therapeutic activities to return to functional activities of daily living. Electronically signed by: Kristine Bales, PT, DPT Please sign and return to therapist. Thank you for your referral.
--- NOTE | 2023-09-13 14:33 | MHC.PT.DC ---
[facility] [place] Office [place] Office [place] Office [address] Ramona Hurtado [address] [phone] F: [phone] F: [phone] F: [phone] F: [phone] Physical Therapy Discharge Report Diagnosis: Sacrococcygeal disorders, not elsewhere classifed Sacroiliac dysfunction Date of Surgery: n/a Date of Evaluation: 04/29/23 Date of Discharge: 09/13/23 Treatments to Date: 3 Cancellations to Date: 1 No Shows to Date: 3 Discharge Status: Visit Non-compliance Discharge Summary: Pt was seen for PT from 04/29/23-05/07/23. Her last attended PT session was 05/07/23. She has had 3 no-show appointments since [facility]. She is being D/C from skilled PT per [facility] attendance policy and visit non-compliance. Pt current level of function unknown at this time Electronically signed by: Kristine Bales, PT, DPT Please sign and return to therapist. Thank you for your referral.
== END 2023-09-13 14:33 | disposition home or self-care (01) ==
LOC: HO.PT 10:00
PROVIDERS: PCP Internal Medicine; Visit Provider Registered Nurse Emergency
DX: M53.3 Sacrococcygeal disorders, not elsewhere classified (principal)
CPT/HCPCS: 97110; 97140; 97162

== ENCOUNTER 2023-05-10 08:01 | Outpatient (REF) | payer OTHER, SELFPAY | END 2023-05-10 08:02 | disposition home or self-care (01) | LOC: HO.LAB 08:01 | PROVIDERS: PCP Internal Medicine; Visit Provider Internal Medicine | DX: E11.9 Type 2 diabetes mellitus without complications (principal); E78.5 Hyperlipidemia, unspecified; E55.9 Vitamin D deficiency, unspecified; E03.9 Hypothyroidism, unspecified | CPT/HCPCS: 36415; 80053; 80061; 82043; 82306; 82570; 84443 ==

== ENCOUNTER 2023-05-13 09:09 | Outpatient (AMB) | payer OTHER, SELFPAY ==
--- NOTE | 2023-05-13 09:18 | A.OFFPC_ITS ---
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: No Accompanied by: Self / Same As Patient Allergies morphine [MORPHINE] Allergy (Severe, Verified 05/13/23 09:32) facial droop, numbness, lip deviation Medication List - Last Reconciled 05/13/23 by Rupal Cox MD albuterol sulfate 90 mcg/actuation 1 inh inhalation QID PRN albuterol sulfate 0.63 mg (3 mL) inhalation QID PRN albuterol sulfate 2.5 mg (3 mL) inhalation Q6H 30 days amlodipine 2.5 mg PO DAILY 90 days benzonatate 150 mg PO TID PRN 5 days blood pressure monitor As directed blood sugar diagnostic As directed blood-glucose meter (FreeStyle Lite Meter kit) As directed buspirone mg PO cholecalciferol (vitamin D3) 125 mcg PO DAILY 90 days escitalopram oxalate 20 mg PO DAILY fluticasone propionate 110 mcg/actuation (Flovent HFA) 2 puffs inhalation BID lancets (FreeStyle Lancets) As directed levothyroxine 25 mcg PO QAM metformin 1,000 mg PO BID 90 days nebulizers (Aeroneb Go Nebulizer) As directed prednisone 40 mg (2 x 20 mg) PO DAILY 5 days rosuvastatin 20 mg PO DAILY 90 days tizanidine 2 mg PO BID PRN trazodone mg PO Tobacco use date assessed: 09/14/22 Dental Screening Dental Screen Date: 05/13/23 Did you have a dental visit in the last 12 months?: No Did you have a dental problem in the last 6 months where you did not have access to dental care?: No Was dental information given to patient?: Yes HPI HPI Comments History of Present Illness Details This is a 47-year-old female with morbid obesity, diabetes mellitus type 2 and mild recurrent major depression that comes for her physical exam. Last mammogram was September 2022 and was normal. Last Pap smear was 2021 and was normal with HPV negative. Has never had a colonoscopy and does prefer to do Cologuard. She is morbidly obese with a BMI of 41.5 and declines weight loss surgery due to fear of anesthesia. A1c within goal. Depression stable with medications. No chest pain or shortness of breath. [facility] Medical History (Updated 05/13/23 @ 09:46 by Rupal Cox MD) Physical exam Lower back pain Bronchitis Hyperkalemia Laceration of right hand Right hand pain Left elbow pain Potential exposure to STD Counseling for initiation of control method Cervical cancer screening Morbid obesity with BMI of 40.0-44.9, adult Mild recurrent major depression Left sided sciatica Otitis externa Essential hypertension Hypertriglyceridemia Insomnia Depression with anxiety Diabetes mellitus Hypothyroidism Surgical History History of foot surgery History of section Family History Father Emphysema lung Mother Myocardial infarction Sister Chronic mental illness Family/Other FH: mental illness Sister Diabetes Sister Cancer, Onset Age: 57 Diabetes Sister Diabetes Sister Diabetes Son No problems noted. Unknown Cancer, Onset Age: 24 Social History Housing: Apartment Alcohol intake: never Patient Tobacco Use Status: Former Tobacco user Tobacco use type: Cigarette e-Cigarette/Vaping Use: Never Used Second Hand Smoke Exposure: No service: No Current occupational status: employed Current occupational exposures/hazards: No Cognitive needs: No Hearing needs: No Vision needs: No Female Reproductive History Menstrual Age of Menarche: 13 Questionnaire Thrive Questionnaire Date Thrive assessed: 09/14/22 MELIZA-7 AMB Questionnaire MELIZA-7 Date MELIZA - 7 assessed: 09/14/22 Source: Developed by Drs. Atul Robert, Arianna Ventura, Dirk Cruz and colleagues, with an educational nam from [employer]. Review of Systems Const All systems reviewed & are unremarkable except as noted in HPI and below Eyes Reports no additional complaints, Denies change in vision and Denies other visual disturbances Card Denies chest pain at rest, Denies chest pain with activity, Denies edema, Denies irregular heart rhythm, Denies claudication, Denies dyspnea, Denies dyspnea on exertion, Denies orthopnea, Denies paroxysmal nocturnal dyspnea and Denies slow heart rate Resp Denies cough, Denies dyspnea and Denies dyspnea on exertion GI Denies abdominal pain, Denies change in bowel habits, Denies excessive flatus, Denies nausea and Denies vomiting Denies urinary incontinence, Denies urinary hesitancy and Denies urinary urgency Musc Denies abnormal gait, Denies atrophy, Denies deformity and Denies limited range of motion Skin/Breast Denies bleeding lesions, Denies changing lesions and Denies rash Neuro Denies abnormal gait, Denies confusion and Denies lack of coordination Psych Denies confusion Physical exam (Primary Care) Vital Signs: Last Vital Signs Pulse 76 05/13/23 09:19 BP 134/86 05/13/23 09:19 BMI result Body Mass Index 41.4 Tobacco/Smoking Status: Tobacco use Status Tobacco use date assessed 09/14/22 05/13/23 09:22 Patient Tobacco Use Status Former Tobacco user 05/13/23 09:22 Tobacco use type Cigarette 05/13/23 09:22 e-Cigarette/Vaping Use Never Used 05/13/23 09:22 Thrive Assessment: Date of Thrive Assessment Date Thrive assessed 09/14/22 05/13/23 09:22 Const General: No confusion Orientation/consciousness: patient oriented x3 and No confusion HENMT Head: Yes normal to inspection, Yes normocephalic and Yes atraumatic Ears: external ears normal Eyes General: appearance normal, both eyes and all related structures Eyelids: Yes eyelids normal Conjunctivae: conjunctivae normal Neck Neck: Yes normal visual inspection and Yes supple Resp Effort & Inspection: normal respiratory effort Auscultation: clear to auscultation bilaterally Cardio Jugular venous distension: no JVD Rate: regular rate Rhythm: regular rhythm Heart sounds: S1 normal heart sound present and S2 normal heart sound present GI Inspection: Yes normal to inspection Palpation (GI): Soft to palpation and nontender Auscultation: normal bowel sounds Skin General skin exam: no rashes or lesions noted Neuro General: patient oriented x3, no focal motor deficits and No confusion Extrem General: Yes full ROM Psych Appearance: grossly normal Office Procedures Flu Questionnaire Does the patient have a severe egg allergy?: No Does the patient have severe life threatening allergies?: No Does the patient have a fever or illness today?: No Has the patient ever had Guillain-Climax Syndrome?: No Has the patient ever had any past reaction to a flu shot?: No Results AMB Hemoglobin A1c AMB Hemoglobin A1c 7.0 % Last Edit by NINFA Guzmán on 05/13/23 09:3 5 Immunizations flu vacc [id number] 6mos up(PF) 60 mcg(15 mcgx4)/0.5 mL IM syringe Performing Provider: Rupal Cox MD [facility] Administered by: NINFA Guzmán on 05/13/23 09:50 Dose Route Admin Location Dispensed Lot Number Expiration Date NDC Block Breaker Operator 0.5 mL IM Left Deltoid 0.5 mL [id number] 01/30/24 62450-277-40 [employer] VIS Given Date VIS Provided VIS Publication Date 05/13/23 Single Vaccine 21 Eligibility Eligibility Date Funding Source Not [facility] Eligible 05/13/23 Private Results Reviewed Results Reviewed: Laboratory Last Values Hgb A1c (Clinic) 7.0 % (4.0-6.0) H 05/13/23 09:18 Assessment and Plan Assessment & Plan (1) Physical exam: Code(s): Z00.00 - Encounter for general adult medical examination without abnormal findings Plan: Repeat in a year. (2) Morbid obesity with BMI of 40.0-44.9, adult: Code(s): E66.01 - Morbid (severe) obesity due to excess calories; Z68.41 - Body mass index [BMI] 40.0-44.9, adult Plan: Start diet and exercise. BMI goal is less than 30. (3) Mild recurrent major depression: Code(s): F33.0 - Major depressive disorder, recurrent, mild Plan: Continue escitalopram. (4) Diabetes mellitus: Code(s): E11.9 - Type 2 diabetes mellitus without complications Qualifiers: Diabetes mellitus type: type 2 Diabetes mellitus watermaster insulin use: without fdc use Diabetes mellitus complication status: without complication Qualified Code(s): E11.9 - Type 2 diabetes mellitus without complications Plan: Continue metformin. A1c goal is equal or less than 7% Orders: Orders Influenza [id number] Immunization Today Z23 - Encounter for immunization Lipid Panel 4 Months E78.5 - Hyperlipidemia, unspecified Comprehensive [place]. Panel Fast 4 Months E11.9 - Type 2 diabetes mellitus without complications AMB Hemoglobin A1c Today E11.9 - Type 2 diabetes mellitus without complications Microalbumin, Random (w Creat) 4 Months E11.9 - Type 2 diabetes mellitus without complications Vitamin D 25-OH Total 4 Months E55.9 - Vitamin D deficiency, unspecified Thyroid Stimulating Hormone 4 Months E03.9 - Hypothyroidism, unspecified Referrals Cologuard Test Z12.11 - Encounter for screening for malignant neoplasm of colon, Z12.12 - Encounter for screening for malignant neoplasm of rectum Ophthalmology Referral E11.9 - Type 2 diabetes mellitus without complications Medications: New flu vacc [id number] 6mos up(PF) 0.5 mL IM ONCE 0.5 mL 0RF Z23 - Encounter for immunization rosuvastatin 40 mg PO DAILY 90 days 90 tabs 1RF Refilled prednisone 40 mg (2 x 20 mg) PO DAILY 5 days 10 tabs 0RF Discontinued rosuvastatin Discontinued Reason: Patient Completed Course 20 mg PO DAILY 90 days 90 t abs 1RF E78.5 - Hyperlipidemia, unspecified Coding Level of Care Code Est Pt Level 4 (99528) Est Pt Prev Care 40-64y(45983) Diagnoses Physical exam Z00.00 Morbid obesity with BMI of 40.0-44.9, adult E66.01; Z68.41 Mild recurrent major depression F33.0 Type 2 diabetes mellitus without complication, without long-term current use of insulin E11.9 Diabetes mellitus type: type 2 Diabetes mellitus fdc insulin use: without fdc use Diabetes mellitus complication status: without complication Time Spent (min) 33
[2023-05-13 09:19] VITALS: BP 134/86; PULSE 76; BMI 41.4
== END 2023-05-13 09:50 | disposition home or self-care (01) ==
PROVIDERS: PCP Internal Medicine; Visit Provider Internal Medicine
DX: Z00.00 Encounter for general adult medical examination without abnormal findings (principal); E66.01 Morbid (severe) obesity due to excess calories; Z68.41 Body mass index [BMI] 40.0-44.9, adult; F33.0 Major depressive disorder, recurrent, mild; E11.9 Type 2 diabetes mellitus without complications; Z23 Encounter for immunization
CPT/HCPCS: 83036; 90471; 90686; 99396

== ENCOUNTER → 2023-06-04 13:26 | Outpatient (BNVA) | payer OTHER, SELFPAY | PROVIDERS: PCP Internal Medicine; Visit Provider Physician Assistant ==

== ENCOUNTER 2023-07-13 09:11 | Outpatient (AMB) | payer OTHER, SELFPAY ==
--- NOTE | 2023-07-13 09:16 | A.OFFVIS_ITS ---
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 Name: office cmi Allergies morphine [MORPHINE] Allergy (Severe, Verified 05/13/23 09:32) facial droop, numbness, lip deviation Medication List - Last Reconciled 07/13/23 by ANTONY Montes albuterol sulfate 90 mcg/actuation 1 inh inhalation QID PRN albuterol sulfate 0.63 mg (3 mL) inhalation QID PRN albuterol sulfate 2.5 mg (3 mL) inhalation Q6H 30 days amlodipine 2.5 mg PO DAILY 90 days benzonatate 150 mg PO TID PRN 5 days blood pressure monitor As directed blood sugar diagnostic As directed blood-glucose meter (FreeStyle Lite Meter kit) As directed buspirone mg PO cholecalciferol (vitamin D3) 125 mcg PO DAILY 90 days escitalopram oxalate 20 mg PO DAILY fluticasone propionate 110 mcg/actuation (Flovent HFA) 2 puffs inhalation BID lancets (FreeStyle Lancets) As directed levothyroxine 25 mcg PO QAM metformin 1,000 mg PO BID 90 days nebulizers (Aeroneb Go Nebulizer) As directed rosuvastatin 40 mg PO DAILY 90 days tizanidine 2 mg PO BID PRN trazodone mg PO HPI HPI Comments History of Present Illness Details Pt is [place] [facility] [place] [facility] [place]. She presented once in 2021 but did not return as she got scared. She is no longer afraid. She heard about our program from her PCP and a friend. Her goal is to lose weight and achieve a healthy lifestyle as well as to improve, if not resolve, obesity related medical conditions, including HLD, HTN, DM. She reports first being concerned about her weight 10 years ago, highest weight to date was 260. Current weight is 230.4 pounds with a BMI of 45. She has tried multiple methods of weight loss including fad diets without permanent results. She lives with her spouse and son. 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 Checks her BS daily and runs 90-110 She wakes at:?530 am, and goes to bed at?10 pm. Dinner is at 4 pm. Breakfast: eggs or oatmeal, coffee w cream AM snack: skip or crackers or cake, banana Lunch: skip PM snack: nuts or granola bar, chips Dinner: rice, beans, meat, pasta, potato salad After dinner: skip Other snacks: as above Liquids: 96 oz water, no soda, no juice Alcohol/marijuana/tobacco intake: rare etoh, no cannabis or tobacco Exercise: sometimes walk, has treadmill at home GERD score: 0 BRANDI score: 2 ESS score: 5 QOL score: 81 PFSH Medical History Physical exam Lower back pain Bronchitis Hyperkalemia Laceration of right hand Right hand pain Left elbow pain Potential exposure to STD Counseling for initiation of control method Cervical cancer screening Morbid obesity with BMI of 40.0-44.9, adult Mild recurrent major depression Left sided sciatica Otitis externa Essential hypertension Hypertriglyceridemia Insomnia Depression with anxiety Diabetes mellitus Hypothyroidism Surgical History History of foot surgery History of section Family History Father Emphysema lung Mother Myocardial infarction Sister Chronic mental illness Family/Other FH: mental illness Sister Diabetes Sister Cancer, Onset Age: 57 Diabetes Sister Diabetes Sister Diabetes Son No problems noted. Unknown Cancer, Onset Age: 24 Social History Housing: Apartment Alcohol intake: never Patient Tobacco Use Status: Former Tobacco user Tobacco use type: Cigarette e-Cigarette/Vaping Use: Never Used Second Hand Smoke Exposure: No service: No Current occupational status: employed Current occupational exposures/hazards: No Cognitive needs: No Hearing needs: No Vision needs: No Female Reproductive History Menstrual Age of Menarche: 13 Review of Systems Const All systems reviewed & are unremarkable except as noted in HPI and below Physical Exam Const General: cooperative, healthy appearing and no acute distress Orientation/consciousness: patient oriented x3 HEENT Head: Yes normal to inspection Ears: hearing grossly normal bilaterally General nose exam: Normal external nose present Face and sinus: Yes normal facial exam Eyes General: appearance normal, both eyes and all related structures Resp Effort & Inspection: normal respiratory effort Auscultation: clear to auscultation bilaterally Cardio Rate: regular rate Rhythm: regular rhythm Heart sounds: S1 normal heart sound present and S2 normal heart sound present GI Inspection: Yes normal to inspection, No distended and Yes obesity Palpation (GI): Soft to palpation, nontender and no guarding Auscultation: normal bowel sounds Skin General skin exam: no rashes or lesions noted Neuro General: patient oriented x3 Extrem General: No edema Psych Appearance: grossly normal Mental Status: mental status grossly normal Speech and movement: Normal speech and movement present Affect: normal affect Attitude: cooperative Assessment & Plan Assessment & Plan (1) Morbid obesity: Code(s): E66.01 - Morbid (severe) obesity due to excess calories Plan: This is a?48 yo female who will re-start our SWL program to prepare for bariatric surgery.? Blood work, h pylori , CXR, ECG, Abd US and UGI have been ordered. She is being scheduled for RD and BH initial consultations. She will start SWL classes and watch the first three videos before her next appointment. ? Adequate sleep of 7-8 hours per night discussed, awakening at 530 am and going to bed around 10 pm ? Purchase body composition analyzer scale (Renpho recommended) and check weight weekly. The best time to do this is first thing in the morning after going to the bathroom. 1. Nutritional counseling: Be sure to careful read the number of scoops per shake Start with 2 Celebrate Rebuild shakes ([facility] uSpeak, [employer], Gather), First shake (1.5 scoops in 15 oz unsweetened almond milk) at 630am-830am, Second shake (2 scoops in 16 oz unsweetened almond milk) at 930am-1130am 2 protein bars per day (Celebrate bars at [facility] [employer], [employer], [employer] First bar at 1230pm-230pm. Dinner at 4pm (8 forks of protein and 8 forks of salad/vegetables). Meal to include lean meat (beef, fish, pork, turkey, chicken), cooked vegetables or a salad with olive oil and/or fruits (berries, pears, apples, kiwi). Avoid salt, breads, potatoes, rice, pasta, desserts. Second bar at 630pm-830pm. Try to drink 64 oz of water daily and avoid soda and juices. ?2. Each shake would be drunk slowly, like coffee in a period of 2 hours. ?3. Cut each bar in 4 pieces and eat each piece in 30 min ?to make each bar last 2 hours. ?4. I emphasized the importance of measuring accurately the food portion and measure it carefully when serving the food on the plate ?5. The meal portions include 8 full-size forks of meat and 8 full-size forks of salad. You always eat the meat portion but you can replace up to half of the forks of salad/vegetables with rice, potatoes or pasta, or a fruit ?if you like. The less you do it the better weight loss will be. ?6. One full-size fork is what can be scooped on the fork without falling aside and not what can be bit with the fork. Use regular forks like those you find in a typical restaurant. ?7.? Please send me weight measurements as soon as possible and then once a week. Always include your diet and exercise plan. Alternatively come weekly at the office for weight checks and send me the measurements. ?8. Exercise counseling: Begin by watching a stretching for beginners video. Start slowly and begin to stretch your muscles. You should do this before and after each exercise session to prevent injury. Please join [facility] gym near your home. Ask the remote encoding center manager or one of the trainers how to use the machines if you are unfamiliar with them. Start elliptical with a resistance of 2. Increase resistance by 1 every 3 min to your most comfortable resistance with a max resistance of 8. Reduce the resistance by 1 every 3 minutes back down to 2 and repeat cycles for 300 calories. Alternatively, start treadmill with a speed of 3.0 and incline of 0, increasing incline by 1 every 3 minutes to the highest comfortable level (max 6 for now) then decrease in the same fashion. Repeat process to a goal of 300 calories. Goal of 2000 calories burned or more weekly. You may also consider use of the stationary bike. The easiest would be to chose the fat-burn or interval training program on the machine and do this until you reach the 300 calorie goal. Alternatively, you can manually adjust the resistance in a similar fashion as mentioned above, (resistance of 2-8 with a goal speed of 12 mph). Tracking calories is essential. 9. Alternatively start walking outside daily, tracking calories with a goal of 300 calories per day, daily. You can download the allyson [employer] which can track your time, distance and calories while walking outside. You press start in the allyson when you start and then stop when you are finished. 10.? It is important to avoid for at least 18 months postoperatively and it has been discussed at the information session 11. Please get labs, EKG and chest X-Ray within 1 week. 12. Discussed and answered all questions regarding?obtained consent to participate in the [facility]?Registry. 13. Please follow the diet plan exactly, without any change. If you do not like something about the plan or you feel hungry, you need to communicate with me so I can help you revise the plan. You should not change the plan yourself. Text me at [phone] 14. Goal is to lose at least 12 pounds in the first month 15. Goal is to lose 10% of your weight before surgery, which is about 23 lbs. Ultimate weight goal: 207 lbs before surgery Patient is morbidly obese and is not considered stable at this time.?I spent a total of 70 minutes reviewing/updating records, examining the patient and counseling the patient on weight management as detailed above. Orders: Orders Insulin Today E03.9 - Hypothyroidism, unspecified, E11.9 - Type 2 diabetes mellitus without complications, E66.01 - Morbid (severe) obesity due to excess calories, E78.5 - Hyperlipidemia, unspecified, I10 - Essential (primary) hypertension Complete Blood Count Auto Diff Today E03.9 - Hypothyroidism, unspecified, E11.9 - Type 2 diabetes mellitus without complications, E66.01 - Morbid (severe) obesity due to excess calories, E78.5 - Hyperlipidemia, unspecified, I10 - Essential (primary) hypertension Lipid Panel Today E03.9 - Hypothyroidism, unspecified, E11.9 - Type 2 diabetes mellitus without complications, E66.01 - Morbid (severe) obesity due to excess calories, E78.5 - Hyperlipidemia, unspecified, I10 - Essential (primary) hypertension Comprehensive Met. Panel Today E03.9 - Hypothyroidism, unspecified, E11.9 - Type 2 diabetes mellitus without complications, E66.01 - Morbid (severe) obesity due to excess calories, E78.5 - Hyperlipidemia, unspecified, I10 - Essential (primary) hypertension Vitamin B12 and Folate Today E03.9 - Hypothyroidism, unspecified, E11.9 - Type 2 diabetes mellitus without complications, E66.01 - Morbid (severe) obesity due to excess calories, E78.5 - Hyperlipidemia, unspecified, I10 - Essential (primary) hypertension C Reactive Protein Today E03.9 - Hypothyroidism, unspecified, E11.9 - Type 2 diabetes mellitus without complications, E66.01 - Morbid (severe) obesity due to excess calories, E78.5 - Hyperlipidemia, unspecified, I10 - Essential (primary) hypertension Vitamin B1 Today E03.9 - Hypothyroidism, unspecified, E11.9 - Type 2 diabetes mellitus without complications, E66.01 - Morbid (severe) obesity due to excess calories, E78.5 - Hyperlipidemia, unspecified, I10 - Essential (primary) hypertension Vitamin A Today E03.9 - Hypothyroidism, unspecified, E11.9 - Type 2 diabetes mellitus without complications, E66.01 - Morbid (severe) obesity due to excess calories, E78.5 - Hyperlipidemia, unspecified, I10 - Essential (primary) hypertension TSH reflex Free T4 Today E03.9 - Hypothyroidism, unspecified, E11.9 - Type 2 diabetes mellitus without complications, E66.01 - Morbid (severe) obesity due to excess calories, E78.5 - Hyperlipidemia, unspecified, I10 - Essential (primary) hypertension Ferritin Today E03.9 - Hypothyroidism, unspecified, E11.9 - Type 2 diabetes mellitus without complications, E66.01 - Morbid (severe) obesity due to excess calories, E78.5 - Hyperlipidemia, unspecified, I10 - Essential (primary) hypertension Vitamin D 25-OH Total Today E03.9 - Hypothyroidism, unspecified, E11.9 - Type 2 diabetes mellitus without complications, E66.01 - Morbid (severe) obesity due to excess calories, E78.5 - Hyperlipidemia, unspecified, I10 - Essential (primary) hypertension XR chest 2V Today E03.9 - Hypothyroidism, unspecified, E11.9 - Type 2 diabetes mellitus without complications, E66.01 - Morbid (severe) obesity due to excess calories, E78.5 - Hyperlipidemia, unspecified, I10 - Essential (primary) hypertension Hemoglobin A1c Today E03.9 - Hypothyroidism, unspecified, E11.9 - Type 2 diabetes mellitus without complications, E66.01 - Morbid (severe) obesity due to excess calories, E78.5 - Hyperlipidemia, unspecified, I10 - Essential (primary) hypertension H Pylori Breath Test Today E03.9 - Hypothyroidism, unspecified, E11.9 - Type 2 diabetes mellitus without complications, E66.01 - Morbid (severe) obesity due to excess calories, E78.5 - Hyperlipidemia, unspecified, I10 - Essential (primary) hypertension IRON PROFILE Today E03.9 - Hypothyroidism, unspecified, E11.9 - Type 2 diabetes mellitus without complications, E66.01 - Morbid (severe) obesity due to excess calories, E78.5 - Hyperlipidemia, unspecified, I10 - Essential (primary) hypertension Zinc Today E03.9 - Hypothyroidism, unspecified, E11.9 - Type 2 diabetes mellitus without complications, E66.01 - Morbid (severe) obesity due to excess calories, E78.5 - Hyperlipidemia, unspecified, I10 - Essential (primary) hypertension US abdomen comp w elastography Today E03.9 - Hypothyroidism, unspecified, E11.9 - Type 2 diabetes mellitus without complications, E66.01 - Morbid (severe) obesity due to excess calories, E78.5 - Hyperlipidemia, unspecified, I10 - Essential (primary) hypertension ECG 12 lead EKG Today E03.9 - Hypothyroidism, unspecified, E11.9 - Type 2 diabetes mellitus without complications, E66.01 - Morbid (severe) obesity due to excess calories, E78.5 - Hyperlipidemia, unspecified, I10 - Essential (primary) hypertension FL upper GI w air Today E03.9 - Hypothyroidism, unspecified, E11.9 - Type 2 diabetes mellitus without complications, E66.01 - Morbid (severe) obesity due to excess calories, E78.5 - Hyperlipidemia, unspecified, I10 - Essential (primary) hypertension Referrals Nutrition/Dietitian Referral E03.9 - Hypothyroidism, unspecified, E11.9 - Type 2 diabetes mellitus without complications, E66.01 - Morbid (severe) obesity due to excess calories, E78.5 - Hyperlipidemia, unspecified, I10 - Essential (primary) hypertension Behavioral Health Referral E03.9 - Hypothyroidism, unspecified, E11.9 - Type 2 diabetes mellitus without complications, E66.01 - Morbid (severe) obesity due to excess calories, E78.5 - Hyperlipidemia, unspecified, I10 - Essential (primary) hypertension Coding Level of Care Code Est Pt Level 5 (92718) Diagnoses Morbid obesity E66.01 Time Spent (min) 70
[2023-07-13 09:22] VITALS: BP 134/60; PULSE 73; TEMP 36.2; O2SAT 97; BMI 45.0
== END 2023-07-13 10:24 | disposition home or self-care (01) ==
PROVIDERS: PCP Internal Medicine; Visit Provider Physician Assistant Surgical
DX: E66.01 Morbid (severe) obesity due to excess calories (principal); Z68.42 Body mass index [BMI] 45.0-49.9, adult
CPT/HCPCS: 99215

== ENCOUNTER → 2023-07-13 09:11 | Outpatient (BNVA) | payer OTHER, SELFPAY | PROVIDERS: PCP Internal Medicine; Visit Provider Physician Assistant Surgical | DX: E66.01 Morbid (severe) obesity due to excess calories (principal); Z68.42 Body mass index [BMI] 45.0-49.9, adult | CPT/HCPCS: 99212 ==

== ENCOUNTER 2023-07-23 07:14 | Outpatient (REF) | payer OTHER, SELFPAY ==
[2023-07-23 07:36] LABS: MANUAL DIFF FLAG NO
--- NOTE | 2023-07-23 07:37 | ECG_ITS ---
Test Reason : HYPERKALEMIA Blood Pressure : / mmHG Vent. Rate : 060 BPM Atrial Rate : 060 BPM P-R Int : 156 ms QRS Dur : 080 ms QT Int : 394 ms P-R-T Axes : 040 035 048 degrees QTc Int : 394 ms Normal sinus rhythm Normal ECG When compared with ECG of 08-MAR-2023 16:39, No significant change was found Referred By: Rupal Cox Electronically Signed By:COLLINS AVILA MD
[2023-07-23 07:43] LABS: Basophils Percent Auto 0.6 % (0-2); Eosinophils Absolute Auto 0.2 X10*3/uL (0.0-0.4); Eosinophils Percent Auto 2.7 % (0-4); Hematocrit 41.7 % (37.0-47.0); Hemoglobin 13.7 g/dl (12.0-16.0); Imm Gran Abs Auto 0.01 X10*3/uL (0.00-0.03); Imm Gran Pct Auto 0.1 % (0.0-0.4); Lymphocytes Absolute Auto 2.1 X10*3/uL (1.2-4.9); Lymphocytes Percent Auto 29.4 % (20-40); Mean Corpuscular HGB Conc 32.9 g/dl (31.0-35.0); Mean Corpuscular Volume 85.3 fL (80.0-98.0); Mean Platelet Volume 9.9 fL (9.4-12.3); Monocytes Absolute Auto 0.6 X10*3/uL (0.1-1.2); Neutrophils Absolute Auto 4.1 x10*3/uL (2.0-8.3); Neutrophils Percent Auto 58.2 % (45-73); Platelet Count 384 X10*3/uL (160-400); Red Blood Count 4.89 X10*6/uL (4.20-5.50)
[2023-07-23 07:55] LABS: Estimated Average Glucose 146 mg/dL; Hemoglobin A1c % 6.7 % (<6.0)
[2023-07-23 08:07] LABS: Alanine Aminotransferase 29 U/L (0-31); Albumin Level 4.1 g/dL (3.5-5.0); Alkaline Phosphatase 77 U/L (39-117); Anion Gap 13 (12-20); Aspartate Amino Transferase 22 U/L (5-31); Blood Urea Nitrogen 15 mg/dL (9-16); C Reactive Protein 0.61 mg/dL (< or = 0.50); Calcium 9.2 mg/dL (8.4-10.2); Carbon Dioxide 25 mmol/L (22-29); Chloride 107 mmol/L (96-108); Cholesterol 172 mg/dL (<200); Estimated Glomerular Filt Rate > 60; Glucose Random 128 mg/dL (60-115); HDL Cholesterol 39 mg/dL (>40); Iron 82 mcg/dL (30-160); LDL Cholesterol Calculated 105 mg/dL (<100); Percent Iron Saturation 26 % (15-50); Potassium 4.5 mmol/L (3.3-5.1); Sodium 140 mmol/L (135-145); Total Iron Binding Capacity 310 mcg/dL (228-428); Triglycerides 140 mg/dL (<150); Unsaturated Iron Binding 228 ug/dL
[2023-07-23 08:22] LABS: Ferritin 38 ng/mL (10-250); Insulin 10 uU/mL (2-29); TSH reflex Free T4 1.24 uIU/mL (0.32-4.0); Vitamin D 25-OH Total 25.1 ng/mL (>30)
[2023-07-23 08:36] LABS: Vitamin B12 461 pg/mL (200-900)
[2023-07-28 14:48] LABS: Zinc 82 mcg/dL (60-130)
[2023-07-30 06:18] LABS: Vitamin B1 <6 nmol/L (8-30)
[2023-07-30 16:17] LABS: Vitamin A 45 mcg/dL (38-98)
== END 2023-07-23 07:15 | disposition home or self-care (01) ==
LOC: HO.XRAY 07:14
PROVIDERS: PCP Internal Medicine; Visit Provider Physician Assistant Surgical
DX: E66.01 Morbid (severe) obesity due to excess calories (principal); E78.5 Hyperlipidemia, unspecified; E11.9 Type 2 diabetes mellitus without complications; E03.9 Hypothyroidism, unspecified; I10 Essential (primary) hypertension; E87.5 Hyperkalemia
CPT/HCPCS: 36415; 71046; 80053; 80061; 82306; 82607; 82728; 82746; 83036; 83525; 83540; 84425; 84443; 84590; 84630; 85025; 86140; 93005

== ENCOUNTER → 2023-07-23 07:37 | Outpatient (BNV) | payer OTHER, SELFPAY | PROVIDERS: PCP Internal Medicine; Visit Provider Internal Medicine Cardiovascular Disease | DX: I10 Essential (primary) hypertension (principal); E87.5 Hyperkalemia | CPT/HCPCS: 93010 ==

== ENCOUNTER 2023-07-27 10:17 | Outpatient (AMB) | payer OTHER, SELFPAY ==
--- NOTE | 2023-07-27 10:09 | MHC.AMNUTRGE ---
Intake Intake Visit Reasons: (TV) Initial Nutrition SWL Name Plate Stamper Required: Yes Name Plate Stamper Name: adria [id number] Information Interpreted: non-clinical & clinical Allergies morphine [MORPHINE] Allergy (Severe, Verified 05/13/23 09:32) facial droop, numbness, lip deviation HPI Nutrition Presentation Reason for consult elevated BMI Unstable SDH Reports use of SNAP (uses HIP) Diet Assmnt Details pt shares she wants to have surgery for her health but states she doesn't know anything about it. we began talking about her motivation for pursuing bariatric surgery but we were disconnected and unable to reconnect Dietary counseling reduction Who buys your food self Who prepares/cooks your food self Meal frequency regular: dinner and snacks (baked goods, chips cheetos, cookies, chocolate) and never: breakfast and lunch Lifestyle Eating out rarely or never Food frequency Dairy: daily, Fruit: never, Vegetables: never, Grains/pasta/breads/cereal (carbs): daily, Meats/poultry/fish (protein): daily, Meat substitutes/nuts/seeds/legumes: daily, Processed foods/meats: daily, Restaurants/fast foods: occasionally, Desserts/sweets: daily, Water: daily, Soda: never, Juice: never and Coffee: daily Diagnosis Nutrition problem #1 overweight/obesity As related to (etiology) #1 excess energy intake and physical inactivity As evidenced by (sign/symptom) #1 high BMI Monitoring/Goals Nutrition problem monitoring total energy intake, level of knowledge/skill, total PRO intake and weight Most Recent Diabetes Results: Microalb/Creat Ratio 13.2 ug/mg cr (<30) 05/10/23 Cholesterol 172 mg/dL (<200) 07/23/23 HDL Cholesterol 39 mg/dL (>40) L 07/23/23 Triglycerides 140 mg/dL (<150) 07/23/23 Creatinine 0.84 mg/dL (0.5-1.4) 07/23/23 Blood Urea Nitrogen 15 mg/dL (9-16) 07/23/23 Sodium 140 mmol/L (135-145) 07/23/23 Potassium 4.5 mmol/L (3.3-5.1) 07/23/23 Chloride 107 mmol/L (96-108) 07/23/23 Carbon Dioxide 25 mmol/L (22-29) 07/23/23 Calcium 9.2 mg/dL (8.4-10.2) 07/23/23 AST 22 U/L (5-31) 07/23/23 ALT 29 U/L (0-31) 07/23/23 Total Protein 7.0 g/dL (6.5-8.0) 07/23/23 Albumin 4.1 g/dL (3.5-5.0) 07/23/23 [facility] Medical History Physical exam Lower back pain Bronchitis Hyperkalemia Laceration of right hand Right hand pain Left elbow pain Potential exposure to STD Counseling for initiation of control method Cervical cancer screening Morbid obesity with BMI of 40.0-44.9, adult Mild recurrent major depression Left sided sciatica Otitis externa Essential hypertension Hypertriglyceridemia Insomnia Depression with anxiety Diabetes mellitus Hypothyroidism Surgical History History of foot surgery History of section Family History Father Emphysema lung Mother Myocardial infarction Sister Chronic mental illness Family/Other FH: mental illness Sister Diabetes Sister Cancer, Onset Age: 57 Diabetes Sister Diabetes Sister Diabetes Son No problems noted. Unknown Cancer, Onset Age: 24 Social History Housing: Apartment Alcohol intake: never Patient Tobacco Use Status: Former Tobacco user Tobacco use type: Cigarette e-Cigarette/Vaping Use: Never Used Second Hand Smoke Exposure: No service: No Current occupational status: employed Current occupational exposures/hazards: No Cognitive needs: No Hearing needs: No Vision needs: No Female Reproductive History Menstrual Age of Menarche: 13 Assessment & Plan Assessment & Plan (1) Morbid obesity: Code(s): E66.01 - Morbid (severe) obesity due to excess calories Plan we be seen again to finish nutrition assessment Telehealth Telehealth Location of provider rendering services: practice address Location of patient: address on file Patient Identification confirmed using: Name, : Yes Telehealth method: voice only Patient verbally consented to treatment: Yes Patient verbally consented to billing insurance company: Yes Patient informed of any privacy concerns related to visit: Yes Minutes spent on Phone/Video with Pt.: 30 Coding Level of Care Code Nutr Indiv Intake (77534) Diagnoses Morbid obesity E66.01 Time Spent (min) 30
== END 2023-07-27 10:33 | disposition home or self-care (01) ==
LOC: HO.HBS 10:17
PROVIDERS: PCP Internal Medicine; Visit Provider Dietitian, Registered
DX: E66.01 Morbid (severe) obesity due to excess calories (principal)

== ENCOUNTER → 2023-07-27 10:17 | Outpatient (BNVA) | payer OTHER, SELFPAY | PROVIDERS: PCP Internal Medicine; Visit Provider Dietitian, Registered | DX: E66.01 Morbid (severe) obesity due to excess calories (principal) | CPT/HCPCS: 97802 ==

== ENCOUNTER 2023-08-04 06:24 | Day surgery (SDC) | payer OTHER, SELFPAY ==
[2023-07-30 09:05] VITALS: BMI 44.9
--- NOTE | 2023-07-30 23:20 | MHC.SHP ---
Pre-Procedural Eval Section A Date of Service: 07/30/23 The patient is an INPATIENT: No The History & Physical has been completed within 30 days and I have reviewed it.: No Section B Chief Complaint: Morbid (severe) obesity due to excess calories Details of Present Illness: preprocedural exam Relevant Family History (Specify if Yes): No Relevant Social History: None Present Medications: None Medical History: No relevant PMH History of Previous Operations: No relevant previous surgery Allergies: Allergies Allergy/AdvReac Type Severity Reaction Status Date / Time morphine [MORPHINE] Allergy Severe facial Verified 05/13/23 09:32 droop, numbness, lip deviation Review of Systems Sugical H&P ROS: Negative: Constitution, Cardiovascular, Respiratory, Neurological, Psychiatric, Hem-Onc, Allergic/Immunologic, Gastrointestinal, Genitourinary, Musculoskeletal, Integumentary, Endocrine and Eyes/Ears/Nose/Throat Exam Surgical H&P Exam: Normal: HEENT, Normal: Heart, Normal: Lungs, Normal: Extremities, Normal: Abdomen, Normal: Skin and Normal: Neurological Plan Diagnosis/Plan: Unchanged (EGD to assess the stomach prior to bariatric surgery. Risks for perforation and bleeding were discussed with patient. She is in agreement with the plan) I have reviewed the history and physical and performed a pertinent physical examination on my patient. No changes have occurred unless specified. Time Spent With Patient Time: Total time managing care of this patient today ____ minutes.
--- NOTE | 2023-08-03 09:41 | HO.ANESPROP2 ---
HPI - Anesthesia Eval Consult details Narrative: 48yo F for Upper Endoscopy PMF Active Problems Active Problems: All Active Problems (Updated 07/13/23 @ 09:20 by ANTONY Montes) Morbid obesity (Acute) Physical exam (Acute) Sacroiliac dysfunction (Acute) Trigger finger, right little finger (Acute) Mild persistent asthma (Acute) Hyperlipidemia LDL goal <70 (Acute) Morbid obesity with BMI of 40.0-44.9, adult (Acute) Mild recurrent major depression (Acute) Left sided sciatica (Acute) Otitis externa (Acute) Essential hypertension (Acute) Hypertriglyceridemia (Acute) Insomnia (Acute) Depression with anxiety (Acute) Diabetes mellitus (Acute) Hypothyroidism (Acute) Past Medical History Medical History Physical exam Lower back pain Bronchitis Hyperkalemia Laceration of right hand Right hand pain Left elbow pain Potential exposure to STD Counseling for initiation of control method Cervical cancer screening Morbid obesity with BMI of 40.0-44.9, adult Mild recurrent major depression Left sided sciatica Otitis externa Essential hypertension Hypertriglyceridemia Insomnia Depression with anxiety Diabetes mellitus Hypothyroidism Family History Family History Father Emphysema lung Mother Myocardial infarction Sister Chronic mental illness Family/Other FH: mental illness Sister Diabetes Sister Cancer, Onset Age: 57 Diabetes Sister Diabetes Sister Diabetes Son No problems noted. Unknown Cancer, Onset Age: 24 Surgical History Surgical History History of foot surgery History of section Social History Social History Housing: Apartment Alcohol intake: never Patient Tobacco Use Status: Former Tobacco user Tobacco use type: Cigarette e-Cigarette/Vaping Use: Never Used Second Hand Smoke Exposure: No service: No Current occupational status: employed Current occupational exposures/hazards: No Cognitive needs: No Hearing needs: No Vision needs: No Meds Allergies Allergy/AdvReac Type Severity Reaction Status Date / Time morphine [MORPHINE] Allergy Severe facial Verified 05/13/23 09:32 droop, numbness, lip deviation Home Medications Medication Instructions Recorded Confirmed Last Taken Type buspirone 5 mg tablet 5 mg PO DAILY 05/27/20 08/04/23 Unknown History escitalopram oxalate 20 mg tablet 20 mg PO DAILY 05/27/20 08/04/23 Unknown History lancets 28 gauge (FreeStyle #100 ea 05/27/20 08/04/23 Unknown History Lancets) trazodone 100 mg tablet 100 mg PO BEDTIME 05/27/20 08/04/23 Unknown History Exam Height,Weight and Vital Signs: Height 5 ft Weight 104.326 kg Pertinent Lab Results Pertinent Lab Results: Laboratory Tests 07/23/23 07:30 WBC 7.0 Hgb 13.7 Hct 41.7 Plt Count 384 Sodium 140 Potassium 4.5 Chloride 107 Carbon Dioxide 25 BUN 15 Creatinine 0.84 Narrative Narrative: EKG 07/2023 Vent. Rate : 060 BPM Atrial Rate : 060 BPM P-R Int : 156 ms QRS Dur : 080 ms QT Int : 394 ms P-R-T Axes : 040 035 048 degrees QTc Int : 394 ms Normal sinus rhythm Normal ECG When compared with ECG of 08-MAR-2023 16:39, No significant change was found Assessment and Plan Assessment Anesthesia Assessment: Chart Reviewed
[2023-08-04 06:34] VITALS: BMI 44.2
[2023-08-04 06:44] VITALS: BP 129/81; PULSE 76; RESP 16; TEMP 36.7; O2SAT 98
[2023-08-04 06:54] LABS: UPreg QC Valid YES; Urine Pregnancy NEGATIVE (NEGATIVE)
[2023-08-04 06:56] LABS: Glucose, Whole Blood 138 mg/dL (60-115)
[2023-08-04] MEDS: Lactated Ringers 1,000 ML 80 ML IVCONT (07:01)
--- NOTE | 2023-08-04 07:23 | HO.ANESPROP2 ---
[facility] Active Problems Active Problems: All Active Problems (Updated 07/13/23 @ 09:20 by ANTONY Montes) Morbid obesity (Acute) Physical exam (Acute) Sacroiliac dysfunction (Acute) Trigger finger, right little finger (Acute) Mild persistent asthma (Acute) Hyperlipidemia LDL goal <70 (Acute) Morbid obesity with BMI of 40.0-44.9, adult (Acute) Mild recurrent major depression (Acute) Left sided sciatica (Acute) Otitis externa (Acute) Essential hypertension (Acute) Hypertriglyceridemia (Acute) Insomnia (Acute) Depression with anxiety (Acute) Diabetes mellitus (Acute) Hypothyroidism (Acute) Past Medical History Medical History Physical exam Lower back pain Bronchitis Hyperkalemia Laceration of right hand Right hand pain Left elbow pain Potential exposure to STD Counseling for initiation of control method Cervical cancer screening Morbid obesity with BMI of 40.0-44.9, adult Mild recurrent major depression Left sided sciatica Otitis externa Essential hypertension Hypertriglyceridemia Insomnia Depression with anxiety Diabetes mellitus Hypothyroidism Patient : No Family History Family History Father Emphysema lung Mother Myocardial infarction Sister Chronic mental illness Family/Other FH: mental illness Sister Diabetes Sister Cancer, Onset Age: 57 Diabetes Sister Diabetes Sister Diabetes Son No problems noted. Unknown Cancer, Onset Age: 24 Family history of problems with anesthesia: No Surgical History Surgical History History of foot surgery History of section Social History Social History Housing: Apartment Alcohol intake: never Patient Tobacco Use Status: Former Tobacco user Tobacco use type: Cigarette e-Cigarette/Vaping Use: Never Used Second Hand Smoke Exposure: No service: No Current occupational status: employed Current occupational exposures/hazards: No Cognitive needs: No Hearing needs: No Vision needs: No Meds Allergies Allergy/AdvReac Type Severity Reaction Status Date / Time morphine [MORPHINE] Allergy Severe facial Verified 05/13/23 09:32 droop, numbness, lip deviation Active Medications: Current Medications Lactated Ringer's (Lr) 1,000 mls @ 80 mls/hr IVCONT .[id number] Last Admin: 08/04/23 07:01 Dose: 80 mls/hr Lactated Ringer's (Lr) 1,000 mls @ 100 mls/hr IVCONT .Q10H [facility] Home Medications Medication Instructions Recorded Confirmed Last Taken Type buspirone 5 mg tablet 5 mg PO DAILY 05/27/20 08/04/23 Unknown History escitalopram oxalate 20 mg tablet 20 mg PO DAILY 05/27/20 08/04/23 Unknown History lancets 28 gauge (FreeStyle #100 ea 05/27/20 08/04/23 Unknown History Lancets) trazodone 100 mg tablet 100 mg PO BEDTIME 05/27/20 08/04/23 Unknown History Exam Height,Weight and Vital Signs: Height 5 ft Weight 102.625 kg Last Vital Signs Temp 98.0 F 08/04/23 06:44 Pulse 76 08/04/23 06:44 Resp 16 08/04/23 06:44 BP 129/81 08/04/23 06:44 Pulse Ox 98 08/04/23 06:44 O2 Del Method Room Air 08/04/23 06:44 Pertinent Lab Results Pertinent Lab Results: Laboratory Tests 08/04/23 08/04/23 06:40 06:53 POC Glucose 138 H Urine Test NEGATIVE Airway Mallampati Class: II Neck ROM: Full Loose/Missing/Broken Teeth: No Assessment and Plan Final Anesthetic Review Family History of Problems with Anesthesia: No
--- NOTE | 2023-08-04 07:30 | P.BOP_ITS ---
Brief Operative Note Date of Service: 08/04/23 Pre-op diagnosis: GERD Post-op diagnosis: same (Hiatal hernia) Procedure: PROCEDURE DATE: 08/04/2023 PREOPERATIVE DIAGNOSIS: GERD POSTOPERATIVE DIAGNOSIS: ?Same as above. 1) small hiatal hernia, 2) distal gastritis PROCEDURE: [id number] with biopsies Surgeon: ?Ephraim Gannon M.D.. Ph.D. Wharf Attendant: None ? Anesthesia: IV sedation Estimated blood loss: ?Minimal FINDINGS AND PROCEDURE: ? OPERATIVE INDICATIONS: ?The patient is a 48 year old female known to me who is interested in bariatric surgery. The patient has GERD. Based on this information I recommended an upper endoscopy to evaluate the patient's symptoms. Risks and complications of the surgery were discussed with the patient in advance particularly the possibility of perforation or bleeding that may require surgical intervention. The patient understood the risks and was in agreement with the plan. ? PROCEDURE: After informed consent was obtained by the patient, the patient was ?transferred to the Operating Room and was placed in the supine position.? After successful induction of IV sedation, a mouth block was inserted and the patient was placed in the left lateral decubitus position. An upper endoscopy was performed next, the oropharynx and esophagus appeared within the normal limits. There was a small 2cm hiatal hernia. The z-line was smooth. Two biopsies were obtained from the distal esophagus 2-3 cm proximal to the GE junction and two additional biopsies from the GE junction. The stomach was entered and it appeared to be of normal size. There was no gastritis. There was no stricture or ulcer. A biopsy was obtained from the distal antrum and proximal gastric fundus. No significant bleeding was noted from any of the biopsy sites. The scope was then advanced into the duodenum which appeared to be normal as well. At that point the duodenum ?and the stomach were decompressed and the scope was withdrawn from the patient's mouth. The patient extubated and was transferred in stable condition to the Recovery Room for further care. I was present and performed all steps of the procedure. There were no residents to assist with this case. Ephraim Gannon M.D., Ph.D. Surgeon: Norm Gannon MD Anesthesia: MAC Was an Wharf Attendant used for this Procedure?: No Estimated blood loss (mL): 0 IV fluids (mL): 400 Urine output (mL): 0 (No Quintero to record output) Pathology: other (1) Antrum, 2) Fundus, 3) GE junction x2, 4) distal esophagus x2) Condition: stable Disposition: PACU
--- NOTE | 2023-08-04 07:46 | P.CONAN_ITS ---
[facility] Active Problems Active Problems: All Active Problems (Updated 07/13/23 @ 09:20 by ANTONY Montes) Morbid obesity (Acute) Physical exam (Acute) Sacroiliac dysfunction (Acute) Trigger finger, right little finger (Acute) Mild persistent asthma (Acute) Hyperlipidemia LDL goal <70 (Acute) Morbid obesity with BMI of 40.0-44.9, adult (Acute) Mild recurrent major depression (Acute) Left sided sciatica (Acute) Otitis externa (Acute) Essential hypertension (Acute) Hypertriglyceridemia (Acute) Insomnia (Acute) Depression with anxiety (Acute) Diabetes mellitus (Acute) Hypothyroidism (Acute) Past Medical History Medical History Physical exam Lower back pain Bronchitis Hyperkalemia Laceration of right hand Right hand pain Left elbow pain Potential exposure to STD Counseling for initiation of control method Cervical cancer screening Morbid obesity with BMI of 40.0-44.9, adult Mild recurrent major depression Left sided sciatica Otitis externa Essential hypertension Hypertriglyceridemia Insomnia Depression with anxiety Diabetes mellitus Hypothyroidism Family History Family History Father Emphysema lung Mother Myocardial infarction Sister Chronic mental illness Family/Other FH: mental illness Sister Diabetes Sister Cancer, Onset Age: 57 Diabetes Sister Diabetes Sister Diabetes Son No problems noted. Unknown Cancer, Onset Age: 24 Family history of problems with anesthesia: No Surgical History Surgical History History of foot surgery History of section History of Problems with Anesthesia: No Social History Social History Housing: Apartment Alcohol intake: never Patient Tobacco Use Status: Former Tobacco user Tobacco use type: Cigarette e-Cigarette/Vaping Use: Never Used Second Hand Smoke Exposure: No Use of substances other than those prescribed or required for medical reasons: No Are you DNR?: No Advance Directives: No Advance Directives Information Provided: Yes Advance Directives on File: No Patient : No service: No Current occupational status: employed Current occupational exposures/hazards: No Cognitive needs: No Hearing needs: No Vision needs: No Meds Allergies Allergy/AdvReac Type Severity Reaction Status Date / Time morphine [MORPHINE] Allergy Severe facial Verified 05/13/23 09:32 droop, numbness, lip deviation Active Medications: Current Medications Lactated Ringer's (Lr) 1,000 mls @ 80 mls/hr IVCONT .[id number] [facility] Last Admin: 08/04/23 07:01 Dose: 80 mls/hr Lactated Ringer's (Lr) 1,000 mls @ 100 mls/hr IVCONT .Q10H [facility] Home Medications Medication Instructions Recorded Confirmed Last Taken Type buspirone 5 mg tablet 5 mg PO DAILY 05/27/20 08/04/23 Unknown History escitalopram oxalate 20 mg tablet 20 mg PO DAILY 05/27/20 08/04/23 Unknown History lancets 28 gauge (FreeStyle #100 ea 05/27/20 08/04/23 Unknown History Lancets) trazodone 100 mg tablet 100 mg PO BEDTIME 05/27/20 08/04/23 Unknown History Exam Height,Weight and Vital Signs: Height 5 ft Weight 102.625 kg Last Vital Signs Temp 98.0 F 08/04/23 06:44 Pulse 76 08/04/23 06:44 Resp 16 08/04/23 06:44 BP 129/81 08/04/23 06:44 Pulse Ox 98 08/04/23 06:44 O2 Del Method Room Air 08/04/23 06:44 Pertinent Lab Results Pertinent Lab Results: Laboratory Tests 08/04/23 08/04/23 06:40 06:53 POC Glucose 138 H Urine Test NEGATIVE Airway Mallampati Class: I TM Dist: >3cm Neck ROM: Full Loose/Missing/Broken Teeth: No Heart: rrr Lungs: clear Assessment and Plan Final Anesthetic Review Family History of Problems with Anesthesia: No History of Problems with Anesthesia: No NPO: Yes ASA Class: III Final Preanesthetic Review: No Changes in Pt Med Stat, Meds/Allgs Chart Reviewed, Consent Obtained/Reviewed and Anes Risks/Benef Reviewed Patient Risk: Intermediate Anesthetic Plan Anesthetic Plan: MAC: Disposition: Standard PACU
[2023-08-04 07:58] VITALS: BP 123/75; PULSE 80; RESP 18; TEMP 36.8; O2SAT 95
[2023-08-04 08:17] VITALS: BP 138/79; PULSE 73; RESP 18; TEMP 36.8; O2SAT 97
== END 2023-08-04 08:35 | disposition home or self-care (01) ==
PROVIDERS: Nurse Practitioner; PCP Internal Medicine; Visit Provider Surgery
PROC: 0DJ08ZZ Inspection of Upper Intestinal Tract, Via Natural or Artificial Opening Endoscopic (ICD-10-PCS; CPT 43235; principal; 2023-08-04 07:30)
DX: K21.9 Gastro-esophageal reflux disease without esophagitis (principal); E66.01 Morbid (severe) obesity due to excess calories; Z68.42 Body mass index [BMI] 45.0-49.9, adult; K29.50 Unspecified chronic gastritis without bleeding; B96.81 Helicobacter pylori [H. pylori] as the cause of diseases classified elsewhere; K44.9 Diaphragmatic hernia without obstruction or gangrene; I10 Essential (primary) hypertension; E78.5 Hyperlipidemia, unspecified; E11.9 Type 2 diabetes mellitus without complications; F41.8 Other specified anxiety disorders; E03.9 Hypothyroidism, unspecified; J40 Bronchitis, not specified as acute or chronic; Z79.51 Long term (current) use of inhaled steroids; Z79.84 Long term (current) use of oral hypoglycemic drugs; Z79.899 Other long term (current) drug therapy; Z88.5 Allergy status to narcotic agent; Z87.891 Personal history of nicotine dependence
CPT/HCPCS: 43239; 81025; 82947; 88305; 88342; J0330; J2704

== ENCOUNTER → 2023-08-04 06:24 | Outpatient (BNV) | payer OTHER, SELFPAY | PROVIDERS: PCP Internal Medicine; Visit Provider Surgery | DX: K44.9 Diaphragmatic hernia without obstruction or gangrene (principal) | CPT/HCPCS: 43239 ==

== ENCOUNTER 2023-08-11 09:00 | Outpatient (AMB) | payer OTHER, SELFPAY ==
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
== END 2023-08-25 10:04 | disposition home or self-care (01) ==
PROVIDERS: PCP Internal Medicine; Visit Provider Counselor Mental Health
DX: F32.A Depression, unspecified (principal); F41.9 Anxiety disorder, unspecified
CPT/HCPCS: 90791

== ENCOUNTER → 2023-08-11 09:00 | Outpatient (BNVA) | payer OTHER, SELFPAY | PROVIDERS: PCP Internal Medicine; Visit Provider Counselor Mental Health ==

== ENCOUNTER 2023-08-13 13:11 | Outpatient (AMB) | payer OTHER, SELFPAY ==
--- NOTE | 2023-08-13 13:14 | MHC.OFFVISWM ---
Intake VS Expanded 08/13/23 13:20 BP 125/66 Blood Pressure Location Rt brachial Blood Pressure Position Sitting Pulse 79 Pulse Source Pulse Oximeter Temp 96.2 F L Temperature Source Tympanic Pulse Oximetry 99 Oxygen Delivery Method Room Air Height 5 ft Weight 221 lb BMI 43.2 Body Fat % 40.8 Body Fat Mass 90.2 Fat Free Mass 130.8 Visceral Fat Rating 12.0 Body Water % 42.2 Body Water Mass 93.2 Muscle Mass/Score 124.2 Basal Metabolic Rate/Score 1,808 Intake Visit Reasons: (OV) F/U SWL Natural Resources Technician Required: Yes Natural Resources Technician Name: office cmi Allergies morphine [MORPHINE] Allergy (Severe, Verified 08/13/23 13:15) facial droop, numbness, lip deviation Medication List - Last Reconciled 08/13/23 by ANTONY Montes albuterol sulfate 90 mcg/actuation 1 inh inhalation QID PRN albuterol sulfate 0.63 mg (3 mL) inhalation QID PRN albuterol sulfate 2.5 mg (3 mL) inhalation Q6H 30 days amlodipine 2.5 mg PO DAILY 90 days amoxicillin 1,000 mg (2 x 500 mg) PO Q12H 14 days benzonatate 150 mg PO TID PRN 5 days blood pressure monitor As directed blood sugar diagnostic As directed blood-glucose meter (FreeStyle Lite Meter kit) As directed buspirone 5 mg PO DAILY cholecalciferol (vitamin D3) 125 mcg PO DAILY 90 days clarithromycin 500 mg PO Q12H 14 days escitalopram oxalate 20 mg PO DAILY fluticasone propionate 110 mcg/actuation (Flovent HFA) 2 puffs inhalation BID lancets (FreeStyle Lancets) As directed levothyroxine 25 mcg PO QAM metformin 1,000 mg PO BID 90 days nebulizers (Aeroneb Go Nebulizer) As directed omeprazole 20 mg PO BID 14 days rosuvastatin 40 mg PO DAILY 90 days thiamine HCl (vitamin B1) 100 mg PO DAILY 90 days tizanidine 2 mg PO BID PRN trazodone 100 mg PO BEDTIME vitamin B complex (B Complex-Vitamin B12 tablet) 1 tab PO DAILY HPI HPI Comments History of Present Illness Details The patient is a pleasant 48 year old female who returns to the clinic for pre-operative surgical weight loss management. They were last seen in the office on 07/13/23, recorded weight at that time was 225.2 pounds, with a BMI of 42.5. Today's weight is 221 pounds and BMI is 43.2. There has been a weight loss of 9.4 pounds since initiating the surgical weight loss program on 07/13/23 with a total body weight loss of 4 %. Pre op work up completed as follows: SWL classes:? []/8 BH appts: 08/11/23-cleared ? ? RD appts: needs f/u Labs: 07/23/23-A1c:6.7, low D, B1 H. pylori: 08/04/23 pos H Pylori, dx by EGD bx CXR: 07/23/23-nad EKG: not yet done ABD U/S: 08/19/23 UGI: 08/19/23 The patient reports she is doing well and has no complaints. The patient does have a body composition scale. They also have been communicating weekly. Current meal plan includes: 2 Celebrate Rebuild shakes ([facility] [employer], [employer], [employer]), First shake (1.5 scoops in 15 oz unsweetened almond milk) at 630am-830am, Second shake (2 scoops in 16 oz unsweetened almond milk) at 930am-1130am 2 protein bars per day (Celebrate bars at [facility] [employer], [employer], [employer]) First bar at 1230pm-230pm. Dinner at 4pm (8 forks of protein and 8 forks of salad/vegetables). Second bar at 630pm-830pm. Drinking 48-64 oz of water Current exercise plan includes: 3x per week treadmill, unable to track calories, 20 minutes, manual, not electronic. [facility] Medical History Physical exam Lower back pain Bronchitis Hyperkalemia Laceration of right hand Right hand pain Left elbow pain Potential exposure to STD Counseling for initiation of control method Cervical cancer screening Morbid obesity with BMI of 40.0-44.9, adult Mild recurrent major depression Left sided sciatica Otitis externa Essential hypertension Hypertriglyceridemia Insomnia Depression with anxiety Diabetes mellitus Hypothyroidism Surgical History History of foot surgery History of section Family History Father Emphysema lung Mother Myocardial infarction Sister Chronic mental illness Family/Other FH: mental illness Sister Diabetes Sister Cancer, Onset Age: 57 Diabetes Sister Diabetes Sister Diabetes Son No problems noted. Unknown Cancer, Onset Age: 24 Social History Housing: Apartment Alcohol intake: never Patient Tobacco Use Status: Former Tobacco user Tobacco use type: Cigarette e-Cigarette/Vaping Use: Never Used Second Hand Smoke Exposure: No service: No Current occupational status: employed Current occupational exposures/hazards: No Cognitive needs: No Hearing needs: No Vision needs: No Female Reproductive History Menstrual Age of Menarche: 13 Physical Exam Vital Signs: Last Vital Signs Temp 96.2 F L 08/13/23 13:20 Pulse 79 08/13/23 13:20 BP 125/66 08/13/23 13:20 Pulse Ox 99 08/13/23 13:20 Oxygen Delivery Method Room Air 08/13/23 13:20 BMI result Body Mass Index 43.2 Const General: healthy appearing and no acute distress Resp Effort & Inspection: normal respiratory effort Auscultation: clear to auscultation bilaterally Cardio Rate: regular rate Rhythm: regular rhythm GI Auscultation: normal bowel sounds Extrem General: Yes normal to inspection Assessment & Plan Assessment & Plan (1) H. pylori infection: Code(s): A04.8 - Other specified bacterial intestinal infections Plan: abx to treat bx pos on egd 08/04/23 (2) Morbid obesity: Code(s): E66.01 - Morbid (severe) obesity due to excess calories Plan: 2 [employer]brate [employer] shakes ([facility] [employer], [employer], [employer]), First shake (1.5 scoops in 15 oz unsweetened almond milk) at 630am-830am, Second shake (1.5 scoops in 16 oz unsweetened almond milk) at 930am-1130am 2 protein bars per day ([employer]elebrate bars at [facility] gift shop, [employer], [employer]) First bar at 1230pm-230pm. Dinner at 4pm (8 forks of protein and 8 forks of salad/vegetables). Second bar at 630pm-830pm. Increase exercise both in time and frequency. Return to clinic 1 month Medications: New omeprazole 20 mg PO BID 14 days 28 caps 0RF amoxicillin 1,000 mg (2 x 500 mg) PO Q12H 14 days 56 caps 0RF clarithromycin 500 mg PO Q12H 14 days 28 tabs 0RF Coding Level of Care Code Est Pt Level 4 (04132) Diagnoses H. pylori infection A04.8 Morbid obesity E66.01 Time Spent (min) 25
[2023-08-13 13:20] VITALS: BP 125/66; PULSE 79; TEMP 35.7; O2SAT 99; BMI 43.2
== END 2023-08-13 14:35 | disposition home or self-care (01) ==
PROVIDERS: PCP Internal Medicine; Visit Provider Physician Assistant Surgical
DX: E66.01 Morbid (severe) obesity due to excess calories (principal); Z68.41 Body mass index [BMI] 40.0-44.9, adult; A04.8 Other specified bacterial intestinal infections
CPT/HCPCS: 99214

== ENCOUNTER → 2023-08-13 13:11 | Outpatient (BNVA) | payer OTHER, SELFPAY | PROVIDERS: PCP Internal Medicine; Visit Provider Physician Assistant Surgical | DX: E66.01 Morbid (severe) obesity due to excess calories (principal); Z68.41 Body mass index [BMI] 40.0-44.9, adult; A04.8 Other specified bacterial intestinal infections | CPT/HCPCS: 99212 ==

== ENCOUNTER 2023-08-19 08:24 | Outpatient (REF) | payer OTHER, SELFPAY ==
--- NOTE | ~2023-08-19 | US_ITS ---
EXAMINATION: US COMPLETE ABDOMEN WITH LIVER ELASTOGRAPHY CLINICAL INFORMATION: Morbid/severe obesity due to excess calories COMPARISON: Ultrasound abdomen 06/09/2019. TECHNIQUE: Real-time imaging of the abdominal viscera. Noninvasive ultrasound liver fibrosis assessment is performed using Ayala ElastPQ point quantification shear wave elastography (2D-SWE) with a C5-2 MHz transducer. Multiple elastography samples are obtained. FINDINGS: PANCREAS: Normal. The visualized pancreatic head and body are normal in appearance. The remainder of the pancreas is obscured from visualization by the overlying bowel gas. ABDOMINAL AORTA: The proximal mid and middle aortic segments are normal in caliber. The distal segment is not visualized. INFERIOR VENA CAVA: Visualized portions are normal. LIVER: The liver demonstrates normal size, contour and increased echogenicity. No focal lesion or intrahepatic biliary duct dilatation. The right lobe measures 14.1 cm in length. The left lobe measures 8.4 cm in length. Portal flow is hepatopedal Shear wave liver elastography median stiffness is 1.80 m/s (reference: normal median stiffness is 1.3 m/s or less). IQR/median stiffness to assess sampling precision is 0.12 (reference: good quality data set is IQR/median stiffness of 0.15 or less). GALLBLADDER: There are small echogenic nonmobile polyp measuring 0.3 x 0.2 x 0.3 cm. Gallbladder wall thickness is 0.2 cm.. The gallbladder is physiologically distended without evidence of stones, sludge, wall thickening or pericholecystic fluid. COMMON BILE DUCT: Normal in caliber measuring 0.3 cm in diameter. RIGHT KIDNEY: Normal. No hydronephrosis. No renal calculi or focal parenchymal lesions. The kidney measures 10.6 cm in maximum dimension. LEFT KIDNEY: Normal. No hydronephrosis. No renal calculi or focal parenchymal lesions. The kidney measures 11.3 cm in maximum dimension. SPLEEN: Normal. The spleen measures 10.5 cm in maximum dimension. FREE FLUID: None. US/US abdomen comp w elastography IMPRESSION: 1. There is small echogenic gallbladder wall polyp measuring 0.3 cm. The liver is echogenic with no focal lesion seen. 2. Liver elastography: Median liver stiffness measures 1.8 and/S corresponding to cACD suggestive. REFERENCE: Society of Radiologists in Ultrasound Liver Stiffness Thresholds (2020): LIVER STIFFNESS THRESHOLDS: *Liver Stiffness equal or less than 1.3 m/s: High probability of being normal. *Liver Stiffness less than 1.7 m/s: In the absence of other known clinical signs, rules out compensated advanced chronic liver disease. *Liver Stiffness 1.7-2.1 m/s: Suggestive of compensated advanced chronic liver disease but need further test for confirmation. *Liver Stiffness over 2.1 m/s: Rules in compensated advanced chronic liver disease. *Liver Stiffness over 2.4 m/s: Suggestive of clinically significant portal hypertension. QUALITY OF DATA SET: *IQR/Median value equal or less than 0.15 implies a quality data set. *IQR/Median value over 0.15 implies a poor quality data set. SIGNIFICANT CHANGE FROM PRIOR EXAM: Significant change if liver stiffness measurement is 10% or greater from prior exam. OTHER CONSIDERATIONS: The stage of liver fibrosis may be overestimated in the setting of acute hepatitis, liver inflammation, elevated liver function tests, hepatic vascular congestion, obstructive cholestasis, non-fasting state, and infiltrative diseases such as amyloidosis and lymphoma. In some patients with NAFLD, the liver stiffness thresholds for compensated advanced chronic liver disease may be lower. In causes other than viral hepatitis and NAFLD, liver stiffness thresholds are not well established.
== END 2023-08-19 08:25 | disposition home or self-care (01) ==
LOC: HO.US 08:24
PROVIDERS: PCP Internal Medicine; Visit Provider Physician Assistant Surgical
DX: E66.01 Morbid (severe) obesity due to excess calories (principal); E78.5 Hyperlipidemia, unspecified; E11.9 Type 2 diabetes mellitus without complications; E03.9 Hypothyroidism, unspecified; I10 Essential (primary) hypertension
CPT/HCPCS: 76700; 76981

== ENCOUNTER 2023-09-10 08:01 | Outpatient (REF) | payer OTHER, SELFPAY ==
[2023-09-10 09:08] LABS: Creatinine Urine 144.07 mg/dL; Microalbum/Creatinine Ratio Ur 11.7 ug/mg cr (<30)
[2023-09-10 09:21] LABS: Alanine Aminotransferase 22 U/L (0-31); Albumin Level 4.1 g/dL (3.5-5.0); Alkaline Phosphatase 87 U/L (39-117); Anion Gap 13 (12-20); Aspartate Amino Transferase 17 U/L (5-31); Bilirubin Total 1.2 mg/dL (0.0-1.0); Blood Urea Nitrogen 16 mg/dL (9-16); Calcium 9.5 mg/dL (8.4-10.2); Carbon Dioxide 25 mmol/L (22-29); Chloride 104 mmol/L (96-108); Cholesterol 210 mg/dL (<200); Estimated Glomerular Filt Rate > 60; Glucose Fasting 135 mg/dL (60-99); HDL Cholesterol 44 mg/dL (>40); LDL Cholesterol Calculated 138 mg/dL (<100); Potassium 4.4 mmol/L (3.3-5.1); Sodium 138 mmol/L (135-145); Triglycerides 144 mg/dL (<150)
[2023-09-10 09:37] LABS: Thyroid Stimulating Hormone 2.58 uIU/mL (0.32-4.0); Vitamin D 25-OH Total 19.4 ng/mL (>30)
== END 2023-09-10 08:02 | disposition home or self-care (01) ==
LOC: HO.LAB 08:01
PROVIDERS: PCP Internal Medicine; Visit Provider Internal Medicine
DX: E66.01 Morbid (severe) obesity due to excess calories (principal); E55.9 Vitamin D deficiency, unspecified; E78.5 Hyperlipidemia, unspecified; E11.9 Type 2 diabetes mellitus without complications; E03.9 Hypothyroidism, unspecified
CPT/HCPCS: 36415; 80053; 80061; 82043; 82306; 82570; 84443; 99212

== ENCOUNTER 2023-09-10 08:20 | Outpatient (AMB) | payer OTHER, SELFPAY ==
--- NOTE | 2023-09-10 08:23 | A.OFFVIS_ITS ---
Intake VS Expanded 09/10/23 08:37 BP 117/60 Blood Pressure Location Rt brachial Blood Pressure Position Sitting Pulse 82 Pulse Source Pulse Oximeter Temp 96.6 F L Temperature Source Tympanic Pulse Oximetry 95 Oxygen Delivery Method Room Air Height 5 ft Weight 216 lb 3.2 oz BMI 42.2 Body Fat % 41.6 Body Fat Mass 90.0 Fat Free Mass 126.2 Visceral Fat Rating 12.0 Body Water % 41.6 Body Water Mass 90.0 Muscle Mass/Score 119.8 Basal Metabolic Rate/Score 1,749 Intake Visit Reasons: (OV) F/U SWL Safety Director Required: Yes Safety Director Name: office cmi Allergies morphine [MORPHINE] Allergy (Severe, Verified 08/13/23 13:15) facial droop, numbness, lip deviation Medication List - Last Reconciled 09/10/23 by ANTONY Montes albuterol sulfate 90 mcg/actuation 1 inh inhalation QID PRN albuterol sulfate 0.63 mg (3 mL) inhalation QID PRN albuterol sulfate 2.5 mg (3 mL) inhalation Q6H 30 days amlodipine 2.5 mg PO DAILY 90 days benzonatate 150 mg PO TID PRN 5 days blood pressure monitor As directed blood sugar diagnostic As directed blood-glucose meter (FreeStyle Lite Meter kit) As directed buspirone 5 mg PO DAILY cholecalciferol (vitamin D3) 125 mcg PO DAILY 90 days clarithromycin 500 mg PO Q12H 14 days escitalopram oxalate 20 mg PO DAILY fluticasone propionate 110 mcg/actuation (Flovent HFA) 2 puffs inhalation BID lancets (FreeStyle Lancets) As directed levothyroxine 25 mcg PO QAM metformin 1,000 mg PO BID 90 days nebulizers (Aeroneb Go Nebulizer) As directed omeprazole 20 mg PO BID 14 days rosuvastatin 40 mg PO DAILY 90 days thiamine HCl (vitamin B1) 100 mg PO DAILY 90 days tizanidine 2 mg PO BID PRN trazodone 100 mg PO BEDTIME vitamin B complex (B Complex-Vitamin B12 tablet) 1 tab PO DAILY HPI HPI Comments History of Present Illness Details The patient is a pleasant 48 year o ld female who retu rns to the clinic for pre-operative surgical weight lo ss management. Th ey were last seen in the office on , recorded w eight at that time was 221 pounds, w ith a BMI of 43.2. Today's weight i s 216.2 pounds and BMI is 42.2. The re has been a weig ht loss of 14.2 po unds since initiat ing the surgical w eight loss program on 07/13/23 with a total body weigh t loss of 6.1 %. Pre op work up com pleted as follows: SWL classes:? []/ 8 BH appts: 4-cleared ? ? RD a ppts: 09/21/23 Labs : 07/23/23-A1c:6.7 , low D, B1 H. pyl carlitos: 08/04/23 pos H Pylori, dx by EGD bx CXR: 07/23/23-n ad EKG: not yet do ne ABD U/S: 4-fatty liver, GB polyp UGI: 09/29/23 The patient repo rts she is doing w ell and has no com plaints. The tova ent does have a joseluis dy composition sca le. They also hav e been communicati ng weekly. Report s blood sugars hav e been 90-100. We will recommend th at she decrease he r metformin to 500 mg twice daily C urrent meal plan i ncludes: 2 Celebr ate Nay debbie ([facility] [employer], [employer]rip, a [employer]), First shake (1.5 scoops in 15 oz unsweete viviane almond milk) a t 630am-830am, Se cond shake (1.5 sc oops in 16 oz unsw eetened almond mil k) at 930am-1130am 2 protein bars p er day (Celebrate bars at [facility] [employer], [employer], Cl[employer]!) First bar at 1230p m-230pm. Dinner at 4pm (8 forks of p rotein and 8 forks of salad/vegetabl es). Second bar a t 630pm-830pm. Dri nking 64 oz of maddie er Current exerc ise plan includes: 3-4x per week tr radha, unable to track calories, 3 0 minutes, manual, also walking 30 m inutes outside ON LICENSE OF [facility] Medical History Physical exam Lower back pain Bronchitis Hyperkalemia Laceration of right hand Right hand pain Left elbow pain Potential exposure to STD Counseling for initiation of control method Cervical cancer screening Morbid obesity with BMI of 40.0-44.9, adult Mild recurrent major depression Left sided sciatica Otitis externa Essential hypertension Hypertriglyceridemia Insomnia Depression with anxiety Diabetes mellitus Hypothyroidism Surgical History History of foot surgery History of section Family History Father Emphysema lung Mother Myocardial infarction Sister Chronic mental illness Family/Other FH: mental illness Sister Diabetes Sister Cancer, Onset Age: 57 Diabetes Sister Diabetes Sister Diabetes Son No problems noted. Unknown Cancer, Onset Age: 24 Social History Housing: Apartment Alcohol intake: never Patient Tobacco Use Status: Former Tobacco user Tobacco use type: Cigarette e-Cigarette/Vaping Use: Never Used Second Hand Smoke Exposure: No service: No Current occupational status: employed Current occupational exposures/hazards: No Cognitive needs: No Hearing needs: No Vision needs: No Female Reproductive History Menstrual Age of Menarche: 13 Physical Exam Vital Signs: Last Vital Signs Temp 96.6 F L 09/10/23 08:37 Pulse 82 09/10/23 08:37 BP 117/60 09/10/23 08:37 Pulse Ox 95 09/10/23 08:37 Oxygen Delivery Method Room Air 09/10/23 08:37 BMI result Body Mass Index 42.2 Const General: healthy appearing and no acute distress Resp Effort & Inspection: normal respiratory effort Auscultation: clear to auscultation bilaterally Cardio Rate: regular rate Rhythm: regular rhythm GI Auscultation: normal bowel sounds Extrem General: Yes normal to inspection Assessment & Plan Assessment & Plan (1) Morbid obesity: Code(s): E66.01 - Morbid (severe) obesity due to excess calories Plan: Patient will continue current meal plan. She has been encouraged to increase her exercise from 30 minutes up to 45 minutes and 4 times a week increasing to 5 times a week. She additionally was reminded the goal of exercise is to burn 2000 calories per week and tracking calories is critical for understanding what she is doing. She has a follow-up appointment with Klaudia on 09/21/2023. We will retest her for H pylori at her next visit. Additionally, she reports blood sugars have been running 90-100 and will now decrease metformin from 1000 mg twice a day to 500 mg twice a day. Return to clinic in 3 weeks. Coding Level of Care Code Est Pt Level 4 (85667) Diagnoses Morbid obesity E66.01 Time Spent (min) 40
[2023-09-10 08:37] VITALS: BP 117/60; PULSE 82; TEMP 35.9; O2SAT 95; BMI 42.2
== END 2023-09-10 09:15 | disposition home or self-care (01) ==
PROVIDERS: PCP Internal Medicine; Visit Provider Physician Assistant Surgical
DX: E66.01 Morbid (severe) obesity due to excess calories (principal); Z68.41 Body mass index [BMI] 40.0-44.9, adult
CPT/HCPCS: 99214

== ENCOUNTER 2023-09-16 08:29 | Outpatient (REF) | payer OTHER, SELFPAY ==
[2023-09-17 10:35] LABS: H Pylori Breath Test Positive (Negative)
== END 2023-09-16 08:30 | disposition home or self-care (01) ==
LOC: HO.LNP 08:29
PROVIDERS: PCP Internal Medicine; Visit Provider Physician Assistant Surgical
DX: Z11.2 Encounter for screening for other bacterial diseases (principal); E66.01 Morbid (severe) obesity due to excess calories; E11.9 Type 2 diabetes mellitus without complications
CPT/HCPCS: 83013; 99211

== ENCOUNTER 2023-09-21 11:22 | Outpatient (AMB) | payer OTHER, SELFPAY ==
--- NOTE | 2023-09-21 11:19 | A.OFFVIS_ITS ---
Intake Intake Visit Reasons: (TV) F/U SWL Project Safety Manager Required: Yes Project Safety Manager Name: [id number] Information Interpreted: non-clinical & clinical Allergies morphine [MORPHINE] Allergy (Severe, Verified 09/22/23 08:21) facial droop, numbness, lip deviation HPI Nutrition Presentation Reason for consult elevated BMI Diet Assmnt Details Pt states she is doing well with the plan and likes the bars and shakes., 2 shakes protein bar 4-6pm salad with meat, cooks for her fam elisa too. makes separate meals for them including rice, beans, protein another shake Pt reports recent blood sugar 62 early AM fasting 7AM . Took her protein shake and brought back up WNL . this has only happened once but I encouraged she communicate if she experiences any future lows. Hasn't taken the online classes yet. was having issues getting into them. Dietary counseling reduction Diagnosis Nutrition problem #1 overweight/obesity As related to (etiology) #1 excess energy intake and physical inactivity As evidenced by (sign/symptom) #1 high BMI Monitoring/Goals Nutrition problem monitoring total energy intake, level of knowledge/skill, total PRO intake, total CHO intake, weight and oral fluids Outcome progress progressing Learning/Education Readiness to learn good Stages of change action Educational materials provided Yes Most Recent Diabetes Results: Microalb/Creat Ratio 11.7 ug/mg cr (<30) 09/10/23 Cholesterol 210 mg/dL (<200) H 09/10/23 HDL Cholesterol 44 mg/dL (>40) 09/10/23 Triglycerides 144 mg/dL (<150) 09/10/23 Creatinine 0.97 mg/dL (0.5-1.4) 09/10/23 Blood Urea Nitrogen 16 mg/dL (9-16) 09/10/23 Sodium 138 mmol/L (135-145) 09/10/23 Potassium 4.4 mmol/L (3.3-5.1) 09/10/23 Chloride 104 mmol/L (96-108) 09/10/23 Carbon Dioxide 25 mmol/L (22-29) 09/10/23 Calcium 9.5 mg/dL (8.4-10.2) 09/10/23 AST 17 U/L (5-31) 09/10/23 ALT 22 U/L (0-31) 09/10/23 Total Protein 7.0 g/dL (6.5-8.0) 09/10/23 Albumin 4.1 g/dL (3.5-5.0) 09/10/23 [facility] Medical History Physical exam Lower back pain Bronchitis Hyperkalemia Laceration of right hand Right hand pain Left elbow pain Potential exposure to STD Counseling for initiation of control method Cervical cancer screening Morbid obesity with BMI of 40.0-44.9, adult Mild recurrent major depression Left sided sciatica Otitis externa Essential hypertension Hypertriglyceridemia Insomnia Depression with anxiety Diabetes mellitus Hypothyroidism Surgical History History of foot surgery History of section Family History Father Emphysema lung Mother Myocardial infarction Sister Chronic mental illness Family/Other FH: mental illness Sister Diabetes Sister Cancer, Onset Age: 57 Diabetes Sister Diabetes Sister Diabetes Son No problems noted. Unknown Cancer, Onset Age: 24 Social History Housing: Apartment Alcohol intake: never Patient Tobacco Use Status: Former Tobacco user Tobacco use type: Cigarette e-Cigarette/Vaping Use: Never Used Second Hand Smoke Exposure: No service: No Current occupational status: employed Current occupational exposures/hazards: No Cognitive needs: No Hearing needs: No Vision needs: No Female Reproductive History Menstrual Age of Menarche: 13 Assessment & Plan Assessment & Plan (1) Morbid obesity: Code(s): E66.01 - Morbid (severe) obesity due to excess calories Plan Will be seen again once she completes her classes for review. she will communicate with office as needed in the meantime Telehealth Telehealth Location of provider rendering services: practice address Location of patient: address on file Patient Identification confirmed using: Name, : Yes Telehealth method: voice only Patient verbally consented to treatment: Yes Patient verbally consented to billing insurance company: Yes Patient informed of any privacy concerns related to visit: Yes Minutes spent on Phone/Video with Pt.: 20 Coding Level of Care Code Nutr Indiv Subseq (81602) Diagnoses Morbid obesity E66.01 Time Spent (min) 20
== END 2023-09-21 11:41 | disposition home or self-care (01) ==
LOC: HO.HBS 11:22
PROVIDERS: PCP Internal Medicine; Visit Provider Dietitian, Registered
DX: E66.01 Morbid (severe) obesity due to excess calories (principal)

== ENCOUNTER → 2023-09-21 11:22 | Outpatient (BNVA) | payer OTHER, SELFPAY | PROVIDERS: PCP Internal Medicine; Visit Provider Dietitian, Registered | DX: E66.01 Morbid (severe) obesity due to excess calories (principal) | CPT/HCPCS: 97803 ==

== ENCOUNTER 2023-09-22 07:43 | Outpatient (AMB) | payer OTHER, SELFPAY ==
--- NOTE | 2023-09-22 08:04 | MHC.PC.OV ---
Vital Signs 09/22/23 08:05 Height 5 ft Weight 219 lb BMI 42.8 BP 112/80 Blood Pressure Location Lt brachial Position Sitting Intake Visit Reasons: dm Intake Note: Patient here for a follow DM Molded Candles Wicker Required: No Accompanied by: Self / Same As Patient Allergies morphine [MORPHINE] Allergy (Severe, Verified 09/22/23 08:21) facial droop, numbness, lip deviation Medication List - Last Reconciled 09/22/23 by Rupal Cox MD albuterol sulfate 90 mcg/actuation 1 inh inhalation QID PRN albuterol sulfate 2.5 mg (3 mL) inhalation Q6H 30 days amlodipine 2.5 mg PO DAILY 90 days amoxicillin 500 mg PO TID 14 days blood pressure monitor As directed blood sugar diagnostic As directed blood-glucose meter (OpenSpaceStyle Lite Meter kit) As directed buspirone 5 mg PO DAILY cholecalciferol (vitamin D3) 50 mcg PO DAILY 90 days escitalopram oxalate 20 mg PO DAILY fluticasone propionate 110 mcg/actuation 2 puffs inhalation BID lancets (OpenSpaceStyle Lancets) As directed levothyroxine 25 mcg PO QAM metformin 1,000 mg PO BID 90 days nebulizers (Aeroneb Go Nebulizer) As directed rosuvastatin 40 mg PO DAILY 90 days thiamine HCl (vitamin B1) 100 mg PO DAILY 90 days tizanidine 2 mg PO BID PRN trazodone 100 mg PO BEDTIME vitamin B complex (B Complex-Vitamin B12 tablet) 1 tab PO DAILY Tobacco use date assessed: 09/22/23 Dental Screening Dental Screen Date: 09/22/23 Did you have a dental visit in the last 12 months?: No Did you have a dental problem in the last 6 months where you did not have access to dental care?: No Was dental information given to patient?: Patient has dentist HPI HPI Comments History of Present Illness Details This is a 48-year-old female with diabetes mellitus type 2, hyperlipidemia, hypothyroidism, mild recurrent major depression and morbid obesity that comes today for follow-up on her conditions. A1c within goal. LDL not on goal and I will add Zetia to her rosuvastatin. TSH normal. Depression well control with medications. She is morbidly obese with a BMI of 42.8 and is enroll in [facility] weight management planning bariatric surgery. Walks with a cane for gait stability due to knee pain. No chest pain or shortness of breath. [facility] Medical History Physical exam Lower back pain Bronchitis Hyperkalemia Laceration of right hand Right hand pain Left elbow pain Potential exposure to STD Counseling for initiation of control method Cervical cancer screening Morbid obesity with BMI of 40.0-44.9, adult Mild recurrent major depression Left sided sciatica Otitis externa Essential hypertension Hypertriglyceridemia Insomnia Depression with anxiety Diabetes mellitus Hypothyroidism Surgical History History of foot surgery History of section Family History Father Emphysema lung Mother Myocardial infarction Sister Chronic mental illness Family/Other FH: mental illness Sister Diabetes Sister Cancer, Onset Age: 57 Diabetes Sister Diabetes Sister Diabetes Son No problems noted. Unknown Cancer, Onset Age: 24 Social History Housing: Apartment Alcohol intake: never Patient Tobacco Use Status: Former Tobacco user Tobacco use type: Cigarette e-Cigarette/Vaping Use: Never Used Second Hand Smoke Exposure: No service: No Current occupational status: employed Current occupational exposures/hazards: No Cognitive needs: No Hearing needs: No Vision needs: No Female Reproductive History Menstrual Age of Menarche: 13 Questionnaire PHQ-9 Over the last 2 weeks, how often have you been bothered by any of the following problems? 1. Little interest or pleasure in doing things: several days 2. Feeling down, depressed, or hopeless: several days 3. Trouble falling or staying asleep, or sleeping too much: several days 4. Feeling tired or having little energy: several days 5. Poor appetite or overeating: not at all 6. Feeling bad about yourself - or that you are a failure or have let yourself or your family down: not at all 7. Trouble concentrating on things, such as reading the newspaper or watching television: not at all 8. Moving or speaking so slowly that other people could have noticed. Or the opposite - being so fidgety or restless that you have been moving around a lot more than usual: not at all 9. Thoughts that you would be better off or of hurting yourself in some way: not at all Total score: 4 Depression Screening Interpretation: Positive Depression Screening Follow-up: Existing condition and In treatment Depression Screening Done: Yes 22650 - PHQ-9 Billing: Yes Source: Developed by Drs. Atul Robert, Arianna Ventura, Dirk Cruz and colleagues, with an educational nam from [employer]. Thrive Questionnaire Date Thrive assessed: 09/22/23 I am a: Patient What is your living situation today?: I have a steady place to live Within the past 12 months, did the food you bought not last and you didn't have the money to get more?: Never true Within the past 12 months, did you worry whether your food would run out before you got money to buy more?: Never true Do you have trouble paying for medicines?: No Do you have trouble getting transportation to medical appointments?: No Do you have trouble paying your heating and electricity bill?: No Do you have trouble taking care of your child, family member or friend?: No Do you have trouble with day-to-day activities such as bathing, preparing meals, shopping, managing finances, etc.?: No Are you currently unemployed and looking for a job?: No Are you interested in more education?: No Please select the resources that you would like help with: None Currently or been in a relationship where the following occur: no concerns reported THRIVE Score: 0 AUDIT C Alcohol Use Questionnaire (AUDIT-C) 1. How often do you have a drink containing alcohol?: Never Total Score: 0 MELIZA-7 AMB Questionnaire MELIZA-7 Date MELIZA - 7 assessed: 09/22/23 Feeling nervous, anxious, or on edge: 2 = More than half the days Not being able to stop or control worryin = Not at all Worrying too much about different things: 1 = Several days Trouble relaxin = Not at all Being so restless that it is hard to sit still: 0 = Not at all Becoming easily annoyed or irritable: 2 = More than half the days Feeling afraid as if something awful might happen: 0 = Not at all Total MELIZA-7 score (0-4 normal; 5-9 mild; 10-14 moderate; 15-21 severe): 5 Source: Developed by Drs. Atul Robert, Arianna Ventura, Dirk Cruz and colleagues, with an educational nam from [employer]. MELIZA-7 Assessment Billing MELIZA-7 Assessment Tool: MELIZA-7 Assessment 31198 Review of Systems Const All systems reviewed & are unremarkable except as noted in HPI and below Eyes Reports no additional complaints, Denies change in vision and Denies other visual disturbances Card Denies chest pain at rest, Denies chest pain with activity, Denies edema, Denies irregular heart rhythm, Denies claudication, Denies dyspnea, Denies dyspnea on exertion, Denies orthopnea, Denies paroxysmal nocturnal dyspnea and Denies slow heart rate Resp Denies cough, Denies dyspnea and Denies dyspnea on exertion GI Denies abdominal pain, Denies change in bowel habits, Denies excessive flatus, Denies nausea and Denies vomiting Denies urinary incontinence, Denies urinary hesitancy and Denies urinary urgency Musc Denies abnormal gait, Denies atrophy, Denies deformity and Denies limited range of motion Skin/Breast Denies bleeding lesions, Denies changing lesions and Denies rash Neuro Denies abnormal gait and Denies lack of coordination Physical exam (Primary Care) Vital Signs: Last Vital Signs BP 112/80 09/22/23 08:05 BMI result Body Mass Index 42.8 Tobacco/Smoking Status: Tobacco use Status Tobacco use date assessed 09/22/23 09/22/23 08:11 Patient Tobacco Use Status Former Tobacco user 09/22/23 08:11 Tobacco use type Cigarette 09/22/23 08:11 e-Cigarette/Vaping Use Never Used 09/22/23 08:11 PHQ-9: PHQ-9 Score PHQ-9: Total score 4 09/22/23 08:24 Depression Screening Interpretation: Positive Depression Screening Follow-up: Existing condition and In treatment Thrive Assessment: Date of Thrive Assessment Date Thrive assessed 09/22/23 09/22/23 08:11 Currently or been in a relationship where the following occur: no concerns reported Const Limitations: ambulation with cane Eyes General: appearance normal, both eyes and all related structures Eyelids: Yes eyelids normal Conjunctivae: conjunctivae normal Neck Neck: Yes normal visual inspection and Yes supple Resp Effort & Inspection: normal respiratory effort Auscultation: clear to auscultation bilaterally Cardio Jugular venous distension: no JVD Rate: regular rate Rhythm: regular rhythm Heart sounds: S1 normal heart sound present and S2 normal heart sound present Extrem General: Yes full ROM Psych Appearance: grossly normal Results AMB Hemoglobin A1c AMB Hemoglobin A1c 6.4 % Last Edit by NINFA Guzmán on 09/22/23 08:12 Results Reviewed Results Reviewed: Laboratory Last Values Hgb A1c (Clinic) 6.4 % (4.0-6.0) H 09/22/23 08:04 Assessment and Plan Assessment & Plan (1) Diabetes mellitus: Code(s): E11.9 - Type 2 diabetes mellitus without complications Qualifiers: Diabetes mellitus type: type 2 Diabetes mellitus long term care social worker insulin use: without correction use Diabetes mellitus complication status: without complication Qualified Code(s): E11.9 - Type 2 diabetes mellitus without complications Plan: Continue metformin. A1c goal is equal or less than 7%. (2) Morbid obesity with BMI of 40.0-44.9, adult: Code(s): E66.01 - Morbid (severe) obesity due to excess calories; Z68.41 - Body mass index [BMI] 40.0-44.9, adult Plan: Follow-up with [facility] weight management for bariatric surgery. BMI goal is less than 30. (3) Mild recurrent major depression: Code(s): F33.0 - Major depressive disorder, recurrent, mild Plan: Continue escitalopram. (4) Hyperlipidemia LDL goal <70: Code(s): E78.5 - Hyperlipidemia, unspecified Plan: Continue rosuvastatin. Start Zetia. LDL goal is less than 70. (5) Hypothyroidism: Code(s): E03.9 - Hypothyroidism, unspecified Qualifiers: Hypothyroidism type: unspecified Qualified Code(s): E03.9 - Hypothyroidism, unspecified Plan: Continue levothyroxine. Orders: Orders AMB Hemoglobin A1c Today E11.9 - Type 2 diabetes mellitus without complications Lipid Panel 4 Months E78.5 - Hyperlipidemia, unspecified Microalbumin, Random (w Creat) 4 Months E11.9 - Type 2 diabetes mellitus without complications Thyroid Stimulating Hormone 4 Months E03.9 - Hypothyroidism, unspecified Comprehensive Balsam. Panel Fast 4 Months E11.9 - Type 2 diabetes mellitus without complications Medications: New ezetimibe 10 mg PO DAILY 90 days 90 tabs 0RF E78.5 - Hyperlipidemia, unspecified Coding Level of Care Code Est Pt Level 4 (43611) Diagnoses Type 2 diabetes mellitus without complication, without long-term current use of insulin E11.9 Diabetes mellitus type: type 2 Diabetes mellitus long term care social worker insulin use: without long term care social worker use Diabetes mellitus complication status: without complication Morbid obesity with BMI of 40.0-44.9, adult E66.01; Z68.41 Mild recurrent major depression F33.0 Hyperlipidemia LDL goal <70 E78.5 Hypothyroidism, unspecified type E03.9 Hypothyroidism type: unspecified Additional Codes MELIZA-7 Assessment Billing - MELIZA-7 Assessment Tool: MELIZA-7 Assessment 68090 ([id number]) Time Spent (min) 23
[2023-09-22 08:05] VITALS: BP 112/80; BMI 42.8
== END 2023-09-22 08:28 | disposition home or self-care (01) ==
PROVIDERS: PCP Internal Medicine; Visit Provider Internal Medicine
DX: E11.69 Type 2 diabetes mellitus with other specified complication (principal); E66.01 Morbid (severe) obesity due to excess calories; Z68.41 Body mass index [BMI] 40.0-44.9, adult; F33.0 Major depressive disorder, recurrent, mild; E78.5 Hyperlipidemia, unspecified; E03.9 Hypothyroidism, unspecified
CPT/HCPCS: 83036; 99214

== ENCOUNTER → 2023-09-29 09:11 | Outpatient (BNVA) | payer OTHER, SELFPAY | PROVIDERS: PCP Internal Medicine; Visit Provider Physician Assistant Surgical ==

== ENCOUNTER 2023-10-06 09:00 | Outpatient (AMB) | payer OTHER, SELFPAY ==
--- NOTE | 2023-10-06 09:02 | MHC.OFFVISWM ---
Intake VS Expanded 10/06/23 09:11 BP 153/66 H Blood Pressure Location Rt brachial Blood Pressure Position Sitting Pulse 72 Pulse Source Pulse Oximeter Temp 97.5 F Temperature Source Temporal Artery Scan Pulse Oximetry 97 Oxygen Delivery Method Room Air Height 5 ft Weight 215 lb 12.8 oz BMI 42.1 Body Fat % 41.0 Body Fat Mass 88.4 Fat Free Mass 127.2 Visceral Fat Rating 12.0 Body Water % 42.0 Body Water Mass 90.6 Muscle Mass/Score 120.8 Basal Metabolic Rate/Score 1,760 Intake Visit Reasons: (OV) F/U SWL Safety Scientist Required: No Allergies morphine [MORPHINE] Allergy (Severe, Verified 10/06/23 09:06) facial droop, numbness, lip deviation Medication List - Last Reconciled 10/06/23 by ANTONY Montes albuterol sulfate 90 mcg/actuation 1 inh inhalation QID PRN albuterol sulfate 2.5 mg (3 mL) inhalation Q6H 30 days amoxicillin 500 mg PO TID 14 days blood pressure monitor As directed blood sugar diagnostic As directed blood-glucose meter (FreeStyle Lite Meter kit) As directed buspirone 5 mg PO DAILY cholecalciferol (vitamin D3) 50 mcg PO DAILY 90 days escitalopram oxalate 20 mg PO DAILY ezetimibe 10 mg PO DAILY 90 days fluticasone propionate 110 mcg/actuation 2 puffs inhalation BID lancets (FreeStyle Lancets) As directed levothyroxine 25 mcg PO QAM metformin 500 mg PO BID nebulizers (Aeroneb Go Nebulizer) As directed rosuvastatin 40 mg PO DAILY 90 days thiamine HCl (vitamin B1) 100 mg PO DAILY 90 days tizanidine 2 mg PO BID PRN trazodone 100 mg PO BEDTIME vitamin B complex (B Complex-Vitamin B12 tablet) 1 tab PO DAILY HPI HPI Comments History of Present Illness Details The patient is a pleasant 48 year old female who returns to the clinic for pre-operative surgical weight loss management. They were last seen in the office on 09/10/23, recorded weight at that time was 216.2 pounds, with a BMI of 42.2. Today's weight is 215.8 pounds and BMI is 42.1. There has been a weight loss of 14.6 pounds since initiating the surgical weight loss program on 07/13/23 with a total body weight loss of 6.3 %. Pre op work up completed as follows: SWL classes:? 11/07 appts: 08/11/23-cleared ? ? RD appts: needs f/u Labs: 07/23/23-A1c:6.7, low D, B1 H. pylori: 08/04/23 pos H Pylori, dx by EGD bx, 09/16/23-pos CXR: 07/23/23-nad EKG: not yet done ABD U/S: 08/19/23-fatty liver, GB polyp UGI: 09/29/23,missed, re-leander 11/26/23 The patient reports she had COVID and influenza this past month. She additionally states that her children were sick at home. She has had difficulty exercising because of the significant fatigue from the COVID. Additionally she states that her blood pressure has been running slightly low although has stopped her amlodipine. Her blood sugars have been 80-100 taking 500 mg of metformin twice a day. Current meal plan includes: 2 Celebrate Rebuild shakes ([facility] [employer]!, [employer], [employer]), First shake (1.5 scoops in 15 oz unsweetened almond milk) at 630am-830am, Second shake (1.5 scoops in 16 oz unsweetened almond milk) at 930am-1130am 2 protein bars per day ([employer] bars at [facility] [employer], [employer]) First bar at 1230pm-230pm. Dinner at 4pm (8 forks of protein and 8 forks of salad/vegetables). Second bar at 630pm-830pm. Drinking 64-80 oz of water Current exercise plan includes: Previously, 3x per week treadmill, unable to track calories, 20 minutes, manual, not electronic. [facility] Medical History Physical exam Lower back pain Bronchitis Hyperkalemia Laceration of right hand Right hand pain Left elbow pain Potential exposure to STD Counseling for initiation of control method Cervical cancer screening Morbid obesity with BMI of 40.0-44.9, adult Mild recurrent major depression Left sided sciatica Otitis externa Essential hypertension Hypertriglyceridemia Insomnia Depression with anxiety Diabetes mellitus Hypothyroidism Surgical History History of foot surgery History of section Family History Father Emphysema lung Mother Myocardial infarction Sister Chronic mental illness Family/Other FH: mental illness Sister Diabetes Sister Cancer, Onset Age: 57 Diabetes Sister Diabetes Sister Diabetes Son No problems noted. Unknown Cancer, Onset Age: 24 Social History Housing: Apartment Alcohol intake: never Patient Tobacco Use Status: Former Tobacco user Tobacco use type: Cigarette e-Cigarette/Vaping Use: Never Used Second Hand Smoke Exposure: No service: No Current occupational status: employed Current occupational exposures/hazards: No Cognitive needs: No Hearing needs: No Vision needs: No Female Reproductive History Menstrual Age of Menarche: 13 Physical Exam Vital Signs: Last Vital Signs Temp 97.5 F 10/06/23 09:11 Pulse 72 10/06/23 09:11 BP 153/66 H 10/06/23 09:11 Pulse Ox 97 10/06/23 09:11 Oxygen Delivery Method Room Air 10/06/23 09:11 BMI result Body Mass Index 42.1 Const General: healthy appearing and no acute distress Resp Effort & Inspection: normal respiratory effort Auscultation: clear to auscultation bilaterally Cardio Rate: regular rate Rhythm: regular rhythm GI Auscultation: normal bowel sounds Extrem General: Yes normal to inspection Assessment & Plan Assessment & Plan (1) Morbid obesity: Code(s): E66.01 - Morbid (severe) obesity due to excess calories Plan: She will decrease the 2nd shake to 1 scoop. Stop metformin, continue to monitor blood sugars. Complete antibiotics for H pylori and retest at next visit. Reminded of upcoming upper GI in October. Resume exercise with goal of 8 lb weight loss by next month. Follow-up with Klaudia once classes are complete. Coding Level of Care Code Est Pt Level 3 (84972) Diagnoses Morbid obesity E66.01
[2023-10-06 09:11] VITALS: BP 153/66; PULSE 72; TEMP 36.4; O2SAT 97; BMI 42.1
== END 2023-10-06 09:27 | disposition home or self-care (01) ==
PROVIDERS: PCP Internal Medicine; Visit Provider Physician Assistant Surgical
DX: E66.01 Morbid (severe) obesity due to excess calories (principal); Z68.41 Body mass index [BMI] 40.0-44.9, adult
CPT/HCPCS: 99213

== ENCOUNTER → 2023-10-06 09:00 | Outpatient (BNVA) | payer OTHER, SELFPAY | PROVIDERS: PCP Internal Medicine; Visit Provider Physician Assistant Surgical | DX: E66.01 Morbid (severe) obesity due to excess calories (principal); Z68.41 Body mass index [BMI] 40.0-44.9, adult | CPT/HCPCS: 99212 ==

== ENCOUNTER 2023-10-13 10:39 | Outpatient (AMB) | payer OTHER, SELFPAY ==
--- NOTE | 2023-10-13 10:33 | MHC.AMNUTRGE ---
Intake Intake Visit Reasons: (TV) F/U SWL Operations Vocational Instructor Required: Yes Operations Vocational Instructor Name: adria [id number] Information Interpreted: non-clinical & clinical Allergies morphine [MORPHINE] Allergy (Severe, Verified 10/06/23 09:06) facial droop, numbness, lip deviation HPI Nutrition Presentation Reason for consult elevated BMI Diet Assmnt Details pt states follow Erick HARDY nutrition plan. she has no concerns , no questions. We reviewed all the online classes today, and pt states she understands anything and doesn't have any questions Dietary counseling reduction Diagnosis Nutrition problem #1 overweight/obesity As related to (etiology) #1 excess energy intake and physical inactivity As evidenced by (sign/symptom) #1 high BMI Monitoring/Goals Nutrition problem monitoring total energy intake, level of knowledge/skill, total PRO intake, total CHO intake, weight and oral fluids Outcome progress progressing Learning/Education Readiness to learn good Stages of change action Educational materials provided Yes Most Recent Diabetes Results: Microalb/Creat Ratio 11.7 ug/mg cr (<30) 09/10/23 Cholesterol 210 mg/dL (<200) H 09/10/23 HDL Cholesterol 44 mg/dL (>40) 09/10/23 Triglycerides 144 mg/dL (<150) 09/10/23 Creatinine 0.97 mg/dL (0.5-1.4) 09/10/23 Blood Urea Nitrogen 16 mg/dL (9-16) 09/10/23 Sodium 138 mmol/L (135-145) 09/10/23 Potassium 4.4 mmol/L (3.3-5.1) 09/10/23 Chloride 104 mmol/L (96-108) 09/10/23 Carbon Dioxide 25 mmol/L (22-29) 09/10/23 Calcium 9.5 mg/dL (8.4-10.2) 09/10/23 AST 17 U/L (5-31) 09/10/23 ALT 22 U/L (0-31) 09/10/23 Total Protein 7.0 g/dL (6.5-8.0) 09/10/23 Albumin 4.1 g/dL (3.5-5.0) 09/10/23 [facility] Medical History Physical exam Lower back pain Bronchitis Hyperkalemia Laceration of right hand Right hand pain Left elbow pain Potential exposure to STD Counseling for initiation of control method Cervical cancer screening Morbid obesity with BMI of 40.0-44.9, adult Mild recurrent major depression Left sided sciatica Otitis externa Essential hypertension Hypertriglyceridemia Insomnia Depression with anxiety Diabetes mellitus Hypothyroidism Surgical History History of foot surgery History of section Family History Father Emphysema lung Mother Myocardial infarction Sister Chronic mental illness Family/Other FH: mental illness Sister Diabetes Sister Cancer, Onset Age: 57 Diabetes Sister Diabetes Sister Diabetes Son No problems noted. Unknown Cancer, Onset Age: 24 Social History Housing: Apartment Alcohol intake: never Patient Tobacco Use Status: Former Tobacco user Tobacco use type: Cigarette e-Cigarette/Vaping Use: Never Used Second Hand Smoke Exposure: No service: No Current occupational status: employed Current occupational exposures/hazards: No Cognitive needs: No Hearing needs: No Vision needs: No Female Reproductive History Menstrual Age of Menarche: 13 Assessment & Plan Assessment & Plan (1) Morbid obesity with BMI of 40.0-44.9, adult: Code(s): E66.01 - Morbid (severe) obesity due to excess calories; Z68.41 - Body mass index [BMI] 40.0-44.9, adult Plan pt will continue to f/u with PA , she is cleared at this time. Telehealth Telehealth Location of provider rendering services: practice address Location of patient: address on file Patient Identification confirmed using: Name, : Yes Telehealth method: voice only Patient verbally consented to treatment: Yes Patient verbally consented to billing insurance company: Yes Patient informed of any privacy concerns related to visit: Yes Minutes spent on Phone/Video with Pt.: 20 Coding Level of Care Code Nutr Indiv Subseq (61375) Diagnoses Morbid obesity with BMI of 40.0-44.9, adult E66.01; Z68.41 Time Spent (min) 20
== END 2023-10-13 10:42 | disposition home or self-care (01) ==
LOC: HO.HBS 10:39
PROVIDERS: PCP Internal Medicine; Visit Provider Dietitian, Registered
DX: E66.01 Morbid (severe) obesity due to excess calories (principal); Z68.41 Body mass index [BMI] 40.0-44.9, adult

== ENCOUNTER → 2023-10-13 10:39 | Outpatient (BNVA) | payer OTHER, SELFPAY | PROVIDERS: PCP Internal Medicine; Visit Provider Dietitian, Registered | DX: E66.01 Morbid (severe) obesity due to excess calories (principal); Z68.41 Body mass index [BMI] 40.0-44.9, adult; E11.9 Type 2 diabetes mellitus without complications; Z71.3 Dietary counseling and surveillance | CPT/HCPCS: 97803 ==

== ENCOUNTER → 2023-10-18 08:37 | Outpatient (BNVA) | payer OTHER, SELFPAY | PROVIDERS: PCP Internal Medicine; Visit Provider Physician Assistant Surgical | DX: Z13.89 Encounter for screening for other disorder (principal) | CPT/HCPCS: 99211 ==

== ENCOUNTER 2023-10-18 08:58 | Outpatient (REF) | payer OTHER, SELFPAY ==
[2023-10-23 14:37] LABS: H Pylori Breath Test Positive (Negative)
== END 2023-10-18 08:59 | disposition home or self-care (01) ==
LOC: HO.LNP 08:58
PROVIDERS: Visit Provider Physician Assistant Surgical
DX: E66.01 Morbid (severe) obesity due to excess calories (principal); Z11.2 Encounter for screening for other bacterial diseases
CPT/HCPCS: 83013

== ENCOUNTER → 2023-10-22 07:30 | Outpatient (BNV) | payer OTHER, SELFPAY | PROVIDERS: PCP Internal Medicine; Visit Provider Radiology Diagnostic Radiology | DX: Z12.31 Encounter for screening mammogram for malignant neoplasm of breast (principal) | CPT/HCPCS: 77063; 77067 ==

== ENCOUNTER 2023-10-22 07:39 | Outpatient (REF) | payer OTHER, SELFPAY | END 2023-10-22 07:40 | disposition home or self-care (01) | LOC: HO.MAMMO 07:39 | PROVIDERS: PCP Internal Medicine; Visit Provider Internal Medicine | DX: Z12.31 Encounter for screening mammogram for malignant neoplasm of breast (principal) | CPT/HCPCS: 77063; 77067 ==

== ENCOUNTER 2023-10-28 06:48 | Emergency (ER) | payer OTHER, SELFPAY ==
--- NOTE | ~2023-10-28 | XR_ITS ---
EXAMINATION: XR CHEST CLINICAL INFORMATION: Cough, pain COMPARISON: 07/23/2023 TECHNIQUE: Frontal view of the chest was obtained. FINDINGS: No acute finding. Lung clay are felt to be grossly clear. The cardiac silhouette is within normal limits. There is no effusion. The hilar regions are felt to be comparable. XR/XR chest 1V IMPRESSION: No acute finding.
[2023-10-28 06:51] VITALS: BP 116/74; PULSE 79; RESP 18; TEMP 36.9; O2SAT 98; BMI 42.0
--- NOTE | 2023-10-28 06:57 | ECG_ITS ---
Test Reason : chest pain Blood Pressure : / mmHG Vent. Rate : 072 BPM Atrial Rate : 072 BPM P-R Int : 152 ms QRS Dur : 078 ms QT Int : 380 ms P-R-T Axes : 035 022 030 degrees QTc Int : 416 ms Normal sinus rhythm Normal ECG When compared with ECG of 23-JUL-2023 07:35, No significant change was found Referred By: Generic ED Physician Electronically Signed By:Santi Darnell
[2023-10-28 07:23] LABS: MANUAL DIFF FLAG NO
[2023-10-28 07:25] LABS: Basophils Percent Auto 0.4 % (0-2); Eosinophils Absolute Auto 0.2 X10*3/uL (0.0-0.4); Eosinophils Percent Auto 1.7 % (0-4); Hematocrit 38.9 % (37.0-47.0); Imm Gran Abs Auto 0.05 X10*3/uL (0.00-0.03); Imm Gran Pct Auto 0.5 % (0.0-0.4); Lymphocytes Percent Auto 18.1 % (20-40); Mean Corpuscular HGB Conc 33.4 g/dl (31.0-35.0); Mean Corpuscular Hemoglobin 28.4 pg (27.0-33.0); Mean Corpuscular Volume 85.1 fL (80.0-98.0); Mean Platelet Volume 9.8 fL (9.4-12.3); Monocytes Absolute Auto 0.8 X10*3/uL (0.1-1.2); Monocytes Percent Auto 7.6 % (2-11); Neutrophils Absolute Auto 7.8 x10*3/uL (2.0-8.3); Neutrophils Percent Auto 71.7 % (45-73); Platelet Count 301 X10*3/uL (160-400); Red Blood Count 4.57 X10*6/uL (4.20-5.50); Red Cell Distribution Width 13.3 % (11.0-16.0); White Blood Count 10.9 X10*3/uL (4.8-10.8)
[2023-10-28 07:41] LABS: Alanine Aminotransferase 15 U/L (0-31); Albumin Level 3.6 g/dL (3.5-5.0); Alkaline Phosphatase 81 U/L (39-117); Anion Gap 10 (12-20); Aspartate Amino Transferase 18 U/L (5-31); Bilirubin Total 1.2 mg/dL (0.0-1.0); Blood Urea Nitrogen 15 mg/dL (9-16); Calcium 8.7 mg/dL (8.4-10.2); Carbon Dioxide 25 mmol/L (22-29); Chloride 107 mmol/L (96-108); Creatinine Clr Calc Pharmacy 72.8; Estimated Glomerular Filt Rate 59; Glucose Random 146 mg/dL (60-115); Potassium 4.4 mmol/L (3.3-5.1); Sodium 138 mmol/L (135-145); Total Protein 6.4 g/dL (6.5-8.0)
[2023-10-28 07:54] LABS: Troponin-I High Sensitivity < 2.7 ng/L (<3.5-17.0)
[2023-10-28 08:48] LABS: Influenza A PCR NEGATIVE (Negative); Influenza B PCR NEGATIVE (Negative); Resp Syncy Virus RNA Qual PCR NEGATIVE (Negative); SARS COV2 PCR INHOUSE NEGATIVE (Negative)
--- NOTE | 2023-10-28 09:19 | ED.URI ---
HPI - URI/Sore Throat General Chief Complaint: Upper Respiratory Symptoms Stated Complaint: Asthma Time Seen by Provider: 10/28/23 08:58 Source: patient Mode of arrival: ambulatory Limitations: no limitations History of Present Illness HPI Narrative: Shikha is a 48 year old female with history of asthma, HTN, DMII, and hypothyroidism presents today for evaluation of cough for 5 days. She reports that the cough is productive with yellow mucus and has worsened since onset. Reports upper bilateral chest pain that is worse with inspiration and tight in nature. Also has bilateral back pain that occurs with it. She has albuterol and flovent for her asthma. Reports some relief with use of albuterol. Thinks that she had a fever yesterday but did not take temp. MD elicited complaint: fever and cough Pertinent past history: asthma Onset (ago): day(s) (5) Consistency: constant and progressively worsening Severity: moderate Pain scale (0-10): 7 Description of mucous: yellow Able to tolerate fluids by mouth: Yes Exacerbating factors: deep breaths Relieving factors: other (albuterol) Associated symptoms: fever and chest pain Related Data Home Medications Medication Instructions Recorded Confirmed buspirone 5 mg tablet 5 mg PO DAILY 05/27/20 10/06/23 escitalopram oxalate 20 mg tablet 20 mg PO DAILY 05/27/20 10/06/23 lancets 28 gauge (FreeStyle #100 ea 05/27/20 10/06/23 Lancets) trazodone 100 mg tablet 100 mg PO BEDTIME 05/27/20 10/06/23 vitamin B complex (B 1 tab PO DAILY 08/13/23 10/06/23 Complex-Vitamin B12 tablet) metformin 1,000 mg tablet 500 mg PO BID 10/06/23 Previous Rx's Medication Instructions Recorded blood sugar diagnostic #10 ea 10/14/20 nebulizers (Aeroneb Go Nebulizer) #1 ea 05/11/22 albuterol sulfate 90 mcg/actuation 1 inh inhalation QID PRN shortness 07/05/22 aerosol inhaler of breath or wheezing #8.5 grams albuterol sulfate 2.5 mg/3 mL 2.5 mg (3 mL) inhalation Q6H 30 02/08/23 (0.083 %) solution for nebulization days #360 mL blood pressure monitor #1 ea 07/10/23 blood-glucose meter (FreeStyle #1 ea 02/08/23 Lite Meter kit) levothyroxine 25 mcg tablet 25 mcg PO QAM #90 tabs 04/02/23 rosuvastatin 40 mg tablet 40 mg PO DAILY 90 days #90 tabs 05/13/23 tizanidine 2 mg tablet 2 mg PO BID PRN muscle spasticity 06/08/23 #60 tabs thiamine HCl (vitamin B1) 100 mg 100 mg PO DAILY 90 days #90 tabs 07/30/23 tablet cholecalciferol (vitamin D3) 50 50 mcg PO DAILY 90 days #90 caps 09/12/23 mcg (2,000 unit) capsule fluticasone propionate 110 2 puff inhalation BID #36 grams 09/13/23 mcg/actuation HFA aerosol inhaler ezetimibe 10 mg tablet 10 mg PO DAILY 90 days #90 tabs 09/22/23 bismuth subsalicylate 262 mg tablet 262 mg PO QID 14 days #56 tabs 10/25/23 metronidazole 500 mg tablet 500 mg PO TID 14 days #42 tabs 10/25/23 omeprazole 20 mg capsule,delayed 20 mg PO BID 14 days #28 caps 10/25/23 release tetracycline 500 mg capsule 500 mg PO QID 14 days #56 caps 10/25/23 azithromycin 250 mg tablet See Rx Instructions PO .COMPLEX #6 10/28/23 (Zithromax Z-Sebastien) tabs benzonatate 100 mg capsule 100 mg PO TID PRN cough #30 caps 10/28/23 prednisone 20 mg tablet 40 mg (2 x 20 mg) PO DAILY #10 tabs 10/28/23 Allergies Allergy/AdvReac Type Severity Reaction Status Date / Time morphine [MORPHINE] Allergy Severe facial Verified 10/28/23 06:50 droop, numbness, lip deviation Review of Systems Review of Systems: Yes all other systems are reviewed and are negative [facility] Past Medical History Medical History Physical exam Lower back pain Bronchitis Hyperkalemia Laceration of right hand Right hand pain Left elbow pain Potential exposure to STD Counseling for initiation of control method Cervical cancer screening Morbid obesity with BMI of 40.0-44.9, adult Mild recurrent major depression Left sided sciatica Otitis externa Essential hypertension Hypertriglyceridemia Insomnia Depression with anxiety Diabetes mellitus Hypothyroidism Surgical History History of foot surgery History of section Family History Family History Father Emphysema lung Mother Myocardial infarction Sister Chronic mental illness Family/Other FH: mental illness Sister Diabetes Sister Cancer, Onset Age: 57 Diabetes Sister Diabetes Sister Diabetes Son No problems noted. Unknown Cancer, Onset Age: 24 Social History Social History Housing: Apartment Alcohol intake: never Patient Tobacco Use Status: Former Tobacco user Tobacco use type: Cigarette e-Cigarette/Vaping Use: Never Used Second Hand Smoke Exposure: No Advance Directives: No Advance Directives Information Provided: No service: No Current occupational status: employed Current occupational exposures/hazards: No Cognitive needs: No Hearing needs: No Vision needs: No Physical Exam Vital Signs: Vital Signs: Last Vital Signs Temp 98.5 F 10/28/23 06:51 Pulse 79 10/28/23 06:51 Resp 18 10/28/23 06:51 BP 116/74 10/28/23 06:51 Pulse Ox 98 10/28/23 06:51 O2 Del Method Room Air 10/28/23 06:51 BMI result Body Mass Index 42.0 Const: General: cooperative, comfortable and no acute distress Orientation/consciousness: patient oriented x3 Limitations: no limitations HEENT: Head: Yes normal to inspection Eyes: General: appearance normal, both eyes and all related structures Neck: Neck: Yes normal visual inspection Chest: Chest palpation & inspection: normal inspection of the chest and normal palpation of entire chest wall Resp: Effort & Inspection: normal respiratory effort and able to speak in complete sentences Auscultation: clear to auscultation bilaterally Cardio: Jugular venous distension: no JVD Rate: regular rate Rhythm: regular rhythm Heart sounds: S1 normal heart sound present and S2 normal heart sound present Neuro: General: patient oriented x3 Medical Decision Making Medical Decision Making MDM Narrative: Shikha is a 48 year female with history of asthma, DM2, HTN, hypothyroidism, who presents today for evaluation of worsening cough for 5 days. She reports onset of cough to be Wednesday. Cough is productive with yellow phlegm and has worsened since onset. Reports bilateral chest pain and back pain with inspiration. Febrile episode yesterday at home. Denies sick contacts. Uses flovent and albuterol, reports some improvement with use of albuterol. Work-up including ECG, chest x-ray, labwork, and viral respiratory panel is negative. On exam, patient has bilateral clear lungs sounds with equal breaths. Has some nasal congestion with productive cough. Presentation is most likely due to acute bronchitis. Considering diagnosis of asthma, will treat with 5 day predinise taper and azithromycin. Differential Diagnosis Differential Diagnoses: The differential diagnosis associated with the presentation includes viral URI, pneumonia, bronchitis, pulmonary embolism, myocardial infarction, costochronditis, pleurisy Admission/Observation Consideration of admission/observation: Escalation of care including admission/observation considered 48 yo w/ chest pain, considered admit/obs however workup was reassuring and patient able to be discharged home Lab Data MDM Lab Attestation statement: I reviewed the patient's lab results. mild leukocytosis 10/28/23 07:19 10/28/23 07:19 Labs: Lab Results 10/28/23 10/28/23 Range/Units 07:19 08:02 WBC 10.9 H (4.8-10.8) X10*3/uL RBC 4.57 (4.20-5.50) X10*6/uL Hgb 13.0 (12.0-16.0) g/dl Hct 38.9 (37.0-47.0) % MCV 85.1 (80.0-98.0) fL MCH 28.4 (27.0-33.0) pg MCHC 33.4 (31.0-35.0) g/dl RDW 13.3 (11.0-16.0) % Plt Count 301 (160-400) X10*3/uL MPV 9.8 (9.4-12.3) fL Immature Gran % (Auto) 0.5 H (0.0-0.4) % Neut % (Auto) 71.7 (45-73) % Lymph % (Auto) 18.1 L (20-40) % Hudspeth % (Auto) 7.6 (2-11) % Eos % (Auto) 1.7 (0-4) % Baso % (Auto) 0.4 (0-2) % Lymph # (Auto) 2.0 (1.2-4.9) X10*3/uL [place]speth # (Auto) 0.8 (0.1-1.2) X10*3/uL Eos # (Auto) 0.2 (0.0-0.4) X10*3/uL Baso # (Auto) 0.0 (0.0-0.2) X10*3/uL Abs Immat Gran (auto) 0.05 H (0.00-0.03) X10*3/uL Absolute Neuts (auto) 7.8 (2.0-8.3) x10*3/uL Absolute Nucleated RBC 0.000 (0.0-0.012) X10*3/uL Nucleated RBC % (auto) 0.0 (0.0-0.2) /100WBC Sodium 138 (135-145) mmol/L Potassium 4.4 (3.3-5.1) mmol/L Chloride 107 (96-108) mmol/L Carbon Dioxide 25 (22-29) mmol/L Anion Gap 10 L (12-20) BUN 15 (9-16) mg/dL Creatinine 1.01 (0.5-1.4) mg/dL Estim Creat Clear Calc 72.8 Estimated GFR 59 Random Glucose 146 H (60-115) mg/dL Calcium 8.7 D (8.4-10.2) mg/dL Total Bilirubin 1.2 H (0.0-1.0) mg/dL AST 18 (5-31) U/L ALT 15 (0-31) U/L Alkaline Phosphatase 81 (39-117) U/L Troponin I High Sens < 2.7 (<3.5-17.0) ng/L Total Protein 6.4 L (6.5-8.0) g/dL Albumin 3.6 (3.5-5.0) g/dL Influenza Type A (PCR) NEGATIVE (Negative) Influenza Type B (PCR) NEGATIVE (Negative) RSV RNA Qual (PCR) NEGATIVE (Negative) SARS-CoV-2 RNA (RT-PCR) NEGATIVE (Negative) Independent Interpretation I performed an independent interpretation of an: EKG and Plain X-Ray Interpretation: normal sinus rhythm with ventricular rate of [address] segment elevation or depression. Clear lung clay with sharp costophrenic angles. No infiltrates or acute findings. Radiology Impression Discussion of test interpretation with radiology: I have reviewed the radiologist's reading. Radiologist Impression: EXAMINATION: XR CHEST CLINICAL INFORMATION: Cough, pain COMPARISON: 07/23/2023 TECHNIQUE: Frontal view of the chest was obtained. FINDINGS: No acute finding. Lung clay are felt to be grossly clear. The cardiac silhouette is within normal limits. There is no effusion. The hilar regions are felt to be comparable. XR/XR chest 1V IMPRESSION: No acute finding. External Record Review External record reviewed: Outpatient record, Prior outpatient labs and Prior outpatient radiology Prescription Management I considered prescription management with: Antibiotic Chronic Conditions Patient?s care impacted by: Diabetes, Hypertension and Other (asthma) Discharge Plan Discharge Clinical Impression: Bronchitis Patient Disposition: Home, Self-Care Instructions: Acute Bronchitis (ED) Additional Instructions: Your chest x-ray today did not show any evidence of pneumonia. You tested negative for COVID, flu, RSV. Take the prescribed antibiotic course to help with the inflammation in your lungs. Take the prescribed prednisone for 5 days as directed to help with the inflammation in your lungs. Continue your albuterol inhaler every 2-4 hours as needed for bronchospasm and wheezing. Take the prescribed cough medication as needed. Rest and drink plenty of fluids. Follow-up with your doctor. If you develop new or worsening symptoms call 911 or come back to the ER for further evaluation. Prescriptions: New prednisone 20 mg tablet 40 mg PO DAILY Qty: 10 0RF azithromycin [Zithromax Z-Sebastien] 250 mg tablet See Rx Instructions .ROUTE .COMPLEX Qty: 6 0RF Rx Instructions: take 500 mg today (day 1), then 250 mg for 4 days (days 2-5) benzonatate 100 mg capsule 100 mg PO TID PRN (Reason: cough) Qty: 30 0RF No Action (DME) blood sugar diagnostic Strip See Rx Instructions Not Applicable BID Qty: 10 11RF Rx Instructions: As directed albuterol sulfate 2.5 mg /3 mL (0.083 %) solution for nebulization 2.5 mg inhalation Q6H 30 Days Qty: 360 1RF (DME) blood-glucose meter [FreeStyle Lite Meter] Kit See Rx Instructions .Route Qty: 1 0RF Rx Instructions: As directed (DME) blood pressure monitor Kit See Rx Instructions .Route Qty: 1 0RF Rx Instructions: As directed levothyroxine 25 mcg tablet 25 mcg PO QAM Qty: 90 2RF tizanidine 2 mg tablet 2 mg PO BID PRN (Reason: muscle spasticity) Qty: 60 0RF Rx Instructions: No driving or drinking alcohol while taking this medication. May cause drowsiness. thiamine HCl (vitamin B1) 100 mg tablet 100 mg PO DAILY 90 Days Qty: 90 1RF cholecalciferol (vitamin D3) 50 mcg (2,000 unit) capsule 50 mcg PO DAILY 90 Days Qty: 90 1RF Flovent HFA 110 mcg/actuation HFA aerosol inhaler 2 puff inhalation BID Qty: 36 0RF bismuth subsalicylate 262 mg tablet 262 mg PO QID 14 Days Qty: 56 0RF omeprazole 20 mg capsule,delayed release(DR/EC) 20 mg PO BID 14 Days Qty: 28 0RF tetracycline 500 mg capsule 500 mg PO QID 14 Days Qty: 56 0RF metronidazole 500 mg tablet 500 mg PO TID 14 Days Qty: 42 0RF albuterol sulfate 90 mcg/actuation HFA aerosol inhaler 1 inh inhalation QID PRN (Reason: shortness of breath or wheezing) Qty: 8.5 0RF trazodone 100 mg tablet 100 mg PO BEDTIME escitalopram oxalate 20 mg tablet 20 mg PO DAILY buspirone 5 mg tablet 5 mg PO DAILY (DME) lancets [FreeStyle Lancets] 28 gauge misc See Rx Instructions .ROUTE .MEDSUPPLY Qty: 100 Rx Instructions: As directed (DME) nebulizers [Aeroneb Go Nebulizer] Misc See Rx Instructions .Route Qty: 1 0RF Rx Instructions: As directed rosuvastatin 40 mg tablet 40 mg PO DAILY 90 Days Qty: 90 1RF ezetimibe 10 mg tablet 10 mg PO DAILY 90 Days Qty: 90 0RF vitamin B complex [B Complex-Vitamin B12] Tablet 1 tab PO DAILY metformin 1,000 mg tablet 500 mg PO BID Referrals: Rupal Duke MD [Primary Care Provider] - Stand Alone Forms: Work/School Release
[2023-10-28 10:41] VITALS: BP 118/68; PULSE 72; RESP 18; TEMP 36.7; O2SAT 98
== END 2023-10-28 10:42 | disposition home or self-care (01) ==
PROVIDERS: Emergency Provider Emergency Medicine; PCP Internal Medicine
DX: J40 Bronchitis, not specified as acute or chronic (principal); I10 Essential (primary) hypertension; E11.9 Type 2 diabetes mellitus without complications; Z11.52 Encounter for screening for COVID-19; Z20.828 Contact with and (suspected) exposure to other viral communicable diseases
CPT/HCPCS: 0241U; 36415; 71045; 80053; 84484; 85025; 93005; 99283

== ENCOUNTER → 2023-10-28 06:57 | Outpatient (BNV) | payer OTHER, SELFPAY | PROVIDERS: Emergency Provider Emergency Medicine; PCP Internal Medicine; Visit Provider Internal Medicine Cardiovascular Disease | DX: R07.9 Chest pain, unspecified (principal) | CPT/HCPCS: 93010 ==

== ENCOUNTER 2023-10-29 08:12 | Outpatient (AMB) | payer OTHER, SELFPAY ==
--- NOTE | 2023-10-29 08:11 | A.OFFVIS_ITS ---
Intake VS Expanded 10/29/23 08:12 Height 5 ft Weight 219 lb 12.8 oz BMI 42.9 Body Fat % 57.5 Body Fat Mass 126.3 Fat Free Mass 93.4 Visceral Fat Rating 24 Body Water % 29.1 Body Water Mass 63.9 Muscle Mass/Score 88 Basal Metabolic Rate/Score 1,266 Intake Visit Reasons: (TV) F/U SWL Opto Mechanical Technician Required: Yes Opto Mechanical Technician Name: office cmi Allergies morphine [MORPHINE] Allergy (Severe, Verified 10/28/23 06:50) facial droop, numbness, lip deviation Medication List - Last Reconciled 10/29/23 by ANTONY Montes albuterol sulfate 90 mcg/actuation 1 inh inhalation QID PRN albuterol sulfate 2.5 mg (3 mL) inhalation Q6H 30 days azithromycin (Zithromax Z-Sebastien) take 500 mg today (day 1), then 250 mg for 4 days (days 2-5) benzonatate 100 mg PO TID PRN bismuth subsalicylate 262 mg PO QID 14 days blood pressure monitor As directed blood sugar diagnostic As directed blood-glucose meter (FreeStyle Lite Meter kit) As directed buspirone 5 mg PO DAILY cholecalciferol (vitamin D3) 50 mcg PO DAILY 90 days escitalopram oxalate 20 mg PO DAILY ezetimibe 10 mg PO DAILY 90 days fluticasone propionate 110 mcg/actuation 2 puffs inhalation BID lancets (FreeStyle Lancets) As directed levothyroxine 25 mcg PO QAM metronidazole 500 mg PO TID 14 days nebulizers (Aeroneb Go Nebulizer) As directed omeprazole 20 mg PO BID 14 days prednisone 40 mg (2 x 20 mg) PO DAILY rosuvastatin 40 mg PO DAILY 90 days tetracycline 500 mg PO QID 14 days thiamine HCl (vitamin B1) 100 mg PO DAILY 90 days tizanidine 2 mg PO BID PRN trazodone 100 mg PO BEDTIME vitamin B complex (B Complex-Vitamin B12 tablet) 1 tab PO DAILY HPI HPI Comments History of Present Illness Details The patient is a pleasant 48 year old female who returns to the clinic for pre-operative surgical weight loss management. They were last seen in the office on 10/06/23, recorded weight at that time was 215.8 pounds and BMI is 42.1. Today's weight is 219.8 pounds and BMI is 42.9. There has been a weight loss of 10.6 pounds since initiating the surgical weight loss program on 07/13/23 with a total body weight loss of 6.3 %. Pre op work up completed as follows: SWL classes:? 11/07 BH appts: 08/11/23-cleared ? ? RD appts: needs f/u Labs: 07/23/23-A1c:6.7, low D, B1 H. pylori: 08/04/23 pos H Pylori, dx by EGD bx, 09/16/23-pos CXR: 07/23/23-nad EKG: not yet done ABD U/S: 08/19/23-fatty liver, GB polyp UGI: 09/29/23,missed, re-leander 11/26/23 The patient reports she had COVID and influenza this past month. She additionally states that her children were sick at home. She has had difficulty exercising because of the significant fatigue from the COVID. Additionally she states that her blood pressure has been running slightly low although has stopped her amlodipine. Her blood sugars have been 80-100 off metformin Current meal plan includes: 2 Celebrate Rebuild shakes ([facility] gift [email or web address], [employer], [employer]), First shake (1.5 scoops in 15 oz unsweetened almond milk) at 630am-830am, Second shake (1 scoops in 16 oz unsweetened almond milk) at 930am-1130am 2 protein bars per day ([facility] bars a t [facility] [employer] shop, [employer], [employer]) First bar at 1230pm-230pm. Dinner at 4pm (8 forks of protein and 8 forks of salad/vegetables). Second bar at 630pm-830pm. Drinking 64-80 oz of water Current exercise plan includes: Previously, 3x per week treadmill, unable to track calories, 20 minutes, manual, not electronic. [facility] Medical History Physical exam Lower back pain Bronchitis Hyperkalemia Laceration of right hand Right hand pain Left elbow pain Potential exposure to STD Counseling for initiation of control method Cervical cancer screening Morbid obesity with BMI of 40.0-44.9, adult Mild recurrent major depression Left sided sciatica Otitis externa Essential hypertension Hypertriglyceridemia Insomnia Depression with anxiety Diabetes mellitus Hypothyroidism Surgical History History of foot surgery History of section Family History Father Emphysema lung Mother Myocardial infarction Sister Chronic mental illness Family/Other FH: mental illness Sister Diabetes Sister Cancer, Onset Age: 57 Diabetes Sister Diabetes Sister Diabetes Son No problems noted. Unknown Cancer, Onset Age: 24 Social History Housing: Apartment Alcohol intake: never Patient Tobacco Use Status: Former Tobacco user Tobacco use type: Cigarette e-Cigarette/Vaping Use: Never Used Second Hand Smoke Exposure: No service: No Current occupational status: employed Current occupational exposures/hazards: No Cognitive needs: No Hearing needs: No Vision needs: No Female Reproductive History Menstrual Age of Menarche: 13 Assessment & Plan Assessment & Plan (1) Morbid obesity: Code(s): E66.01 - Morbid (severe) obesity due to excess calories Plan: 2 Celebrate Rebuild shakes ([facility] [employer], [employer], [employer]), First shake (1.5 scoops in 15 oz unsweetened almond milk) at 630am-830am, Second shake (1 scoops in 16 oz unsweetened almond milk) at 930am-1130am 1 protein bar per day (Celebrate bars at [facility] [employer], [employer], [employer]) at 1230pm-230pm. Dinner at 4pm (8 forks of protein and 8 forks of salad/vegetables). Recently diagnosed with bronchitis. I advised her to not take the azithromycin as she is currently undergoing treatment for a 3rd course of antibiotics for H pylori. She is currently taking tetracycline and Flagyl. Adding the azithromycin while certainly covering some of the atypical pulmonary bacteria, may not be entirely necessary if she has a viral bronchitis. She was prescribed prednisone as well and is feeling slightly better. We will continue the meal plan as listed above by decreasing the last shake. Have her return to the office in 4 weeks. Encouraged her to purchase a new stationary bike or treadmill if possible to help with her exercise routine. She does not drive a car and therefore can not go to a gym readily. She is tried to have her family go with her and has been unsuccessful. (2) H. pylori infection: Code(s): A04.8 - Other specified bacterial intestinal infections Plan: Continue treatment plans Coding Level of Care Code Tele Est Pt Level 3 (12070) Diagnoses Morbid obesity E66.01 H. pylori infection A04.8 Time Spent (min) 20
[2023-10-29 08:12] VITALS: BMI 42.9
== END 2023-10-29 16:22 | disposition home or self-care (01) ==
LOC: HO.HBS 08:12
PROVIDERS: PCP Internal Medicine; Visit Provider Physician Assistant Surgical
DX: E66.01 Morbid (severe) obesity due to excess calories (principal); A04.8 Other specified bacterial intestinal infections
CPT/HCPCS: 99213

== ENCOUNTER → 2023-10-29 08:12 | Outpatient (BNVA) | payer OTHER, SELFPAY | PROVIDERS: PCP Internal Medicine; Visit Provider Physician Assistant Surgical ==

== ENCOUNTER 2023-11-26 09:22 | Outpatient (REF) | payer OTHER, SELFPAY ==
--- NOTE | ~2023-11-26 | FL_ITS ---
EXAMINATION: XR FLUOROSCOPY UPPER GI WITH AIR CLINICAL INFORMATION: Preop evaluation prior to bariatric surgery COMPARISON: None TECHNIQUE: Fluoroscopic air contrast upper GI examination was performed utilizing standard techniques with thin and thick barium and effervescent granules. Numerous spot images were obtained. FINDINGS: Dual and single contrast images of the esophagus demonstrate normal caliber, contour, and mucosal pattern. No evidence of stricture, mass, or ulcerations identified. Esophageal peristalsis was normal. A small type I hiatal hernia is present. No significant gastroesophageal reflux was seen during the course of the examination and on reflux views. Dual contrast and single contrast images of the stomach demonstrated mild limitation from suboptimal coating of the greater curvature. There is otherwise normal contour and mucosal pattern without evidence of mass, ulceration, or other abnormality. Contrast freely passed into the gastric antrum and duodenal bulb without delay. Single and air-contrast images of the duodenal bulb demonstrate no abnormality. The duodenal sweep has a normal appearance, course, and mucosal fold appearance. The imaged proximal jejunum has a normal fold pattern and caliber. FLUOROSCOPY TIME: 2 minutes 53 seconds Number of Spot Images: 12 Number of Cine: 8 DOSE AREA PRODUCT: [id number] uGy-m2 (microgray-meter squared) FL/FL upper GI w air IMPRESSION: Small type I hiatal hernia, otherwise unremarkable upper GI Series This procedure was performed by Calvin Hull PA-C, and supervised by Dr. Felton
== END 2023-11-26 09:23 | disposition home or self-care (01) ==
LOC: HO.XRAY 09:22
PROVIDERS: PCP Internal Medicine; Visit Provider Physician Assistant Surgical
DX: E66.01 Morbid (severe) obesity due to excess calories (principal); E78.5 Hyperlipidemia, unspecified; E11.9 Type 2 diabetes mellitus without complications; E03.9 Hypothyroidism, unspecified; I10 Essential (primary) hypertension
CPT/HCPCS: 74246

== ENCOUNTER → 2023-11-26 09:23 | Outpatient (BNV) | payer OTHER, SELFPAY | PROVIDERS: PCP Internal Medicine; Visit Provider Physician Assistant Surgical | DX: K44.9 Diaphragmatic hernia without obstruction or gangrene (principal) | CPT/HCPCS: 74246 ==

== ENCOUNTER 2023-11-29 08:41 | Outpatient (REF) | payer OTHER, SELFPAY ==
[2023-12-03 14:47] LABS: H Pylori Breath Test Negative (Negative)
== END 2023-11-29 08:42 | disposition home or self-care (01) ==
LOC: HO.LNP 08:41
PROVIDERS: PCP Internal Medicine; Visit Provider Physician Assistant Surgical
DX: Z11.0 Encounter for screening for intestinal infectious diseases (principal)
CPT/HCPCS: 83013; 99211

== ENCOUNTER 2023-12-17 08:20 | Outpatient (AMB) | payer OTHER, SELFPAY ==
--- NOTE | 2023-12-17 08:35 | A.OFFVIS_ITS ---
VS Expanded 12/17/23 08:47 BP 145/67 H Blood Pressure Location Rt brachial Blood Pressure Position Sitting Pulse 70 Pulse Source Pulse Oximeter Temp 97.8 F Temperature Source Temporal Artery Scan Pulse Oximetry 100 Oxygen Delivery Method Room Air Height 5 ft Weight 213 lb 3.2 oz BMI 41.6 Body Fat % 41.0 Body Fat Mass 87.4 Fat Free Mass 125.8 Visceral Fat Rating 12.0 Body Water % 42.1 Body Water Mass 89.8 Muscle Mass/Score 119.4 Basal Metabolic Rate/Score 1,742 Intake Visit Reasons: (OV) F/U SWL Sap Portal Architect Required: No Allergies morphine [MORPHINE] Allergy (Severe, Verified 12/17/23 08:43) facial droop, numbness, lip deviation Medication List - Last Reconciled 12/17/23 by ANTONY Montes albuterol sulfate 90 mcg/actuation 1 inh inhalation QID PRN albuterol sulfate 2.5 mg (3 mL) inhalation Q6H 30 days benzonatate 100 mg PO TID PRN blood pressure monitor As directed blood sugar diagnostic As directed blood-glucose meter (FreeStyle Lite Meter kit) As directed buspirone 5 mg PO DAILY cholecalciferol (vitamin D3) 50 mcg PO DAILY 90 days escitalopram oxalate 20 mg PO DAILY ezetimibe 10 mg PO DAILY 90 days fluticasone propionate 110 mcg/actuation 2 puffs inhalation BID lancets (FreeStyle Lancets) As directed levothyroxine 25 mcg PO QAM nebulizers (Aeroneb Go Nebulizer) As directed rosuvastatin 40 mg PO DAILY 90 days thiamine HCl (vitamin B1) 100 mg PO DAILY 90 days trazodone 100 mg PO BEDTIME vitamin B complex (B Complex-Vitamin B12 tablet) 1 tab PO DAILY HPI Comments Details: The patient is a pleasant 48 year old female who returns to the clinic for pre- operative surgical weight loss management. They were last seen in the office on 10/29/23, recorded weight at that time was 219.8 pounds and BMI is 42.9. Today's weight is 213.2 pounds and BMI is 41.6. There has been a weight loss of 17.2 pounds since initiating the surgical weight loss program on 07/13/23 with a total body weight loss of 7.4 %. Pre op work up completed as follows: SWL classes:? 4/8 appts: 08/11/23-cleared ? ? RD appts: needs f/u Labs: 07/23/23-A1c:6.7, low D, B1 H. pylori: 08/04/23 pos H Pylori, dx by EGD bx, 09/16/23-pos, 10/18/23-pos, 11/29/23- neg CXR: 07/23/23-nad EKG: not yet done ABD U/S: 08/19/23-fatty liver, GB polyp UGI: 09/29/23,missed, re-leander 11/26/23-small HH The patient reports that she is doing well and not having ny problems. Additionally she states that her blood pressure has been running slightly low although has stopped her amlodipine. Her blood sugars have been 80-100 off metformin Current meal plan includes: 2 Celebrate Rebuild shakes ([facility] [employer], [employer], [employer]), First shake (1.5 scoops in 15 oz unsweetened almond milk) at 630am-830am, Second shake (1 scoops in 16 oz unsweetened almond milk) at 930am-1130am 1 protein bar per day ([employer] bars at [facility] [employer], [employer], [employer]) at 1230pm-230pm. Dinner at 4pm (8 forks of protein and 8 forks of salad/vegetables). Drinking 64-80 oz of water Current exercise plan includes: treadmill at home, just got it 3 days ago, 300 [address] walking outside 4-5 days per week , 400-500 k[address]ina [facility] Medical History Physical exam Lower back pain Bronchitis Hyperkalemia Laceration of right hand Right hand pain Left elbow pain Potential exposure to STD Counseling for initiation of control method Cervical cancer screening Morbid obesity with BMI of 40.0-44.9, adult Mild recurrent major depression Left sided sciatica Otitis externa Essential hypertension Hypertriglyceridemia Insomnia Depression with anxiety Diabetes mellitus Hypothyroidism Surgical History History of foot surgery History of section Family History Father Emphysema lung Mother Myocardial infarction Sister Chronic mental illness Family/Other FH: mental illness Sister Diabetes Sister Cancer, Onset Age: 57 Diabetes Sister Diabetes Sister Diabetes Son No problems noted. Unknown Cancer, Onset Age: 24 Social History Housing: Apartment Alcohol intake: never Patient Tobacco Use Status: Former Tobacco user Tobacco use type: Cigarette e-Cigarette/Vaping Use: Never Used Second Hand Smoke Exposure: No service: No Current occupational status: employed Current occupational exposures/hazards: No Cognitive needs: No Hearing needs: No Vision needs: No Female Reproductive History Menstrual Age of Menarche: 13 Physical Exam Vital Signs: Last Vital Signs Temp 97.8 F 12/17/23 08:47 Pulse 70 12/17/23 08:47 BP 145/67 H 12/17/23 08:47 Pulse Ox 100 12/17/23 08:47 Oxygen Delivery Method Room Air 12/17/23 08:47 BMI result Body Mass Index 41.6 Const General: healthy appearing and no acute distress Resp Effort & Inspection: normal respiratory effort Auscultation: clear to auscultation bilaterally Cardio Rate: regular rate Rhythm: regular rhythm GI Auscultation: normal bowel sounds Extrem General: Yes normal to inspection Assessment & Plan Assessment & Plan (1) Morbid obesity: Code(s): E66.01 - Morbid (severe) obesity due to excess calories Category: Medical Plan: Patient has made progress. She has completed her preoperative testing. We will refer her to Dr. Gannon for continued preoperative surgical weight loss planning. She was reminded to text weekly with her weight from her scale and if any questions or concerns. Additionally, we will change her meal plans slightly: 2 Celebrate Rebuild shakes ([facility] [employer], [employer], [employer]), First shake (1 scoop in 12 oz unsweetened almond milk) at 630am-830am, Second shake (1 scoops in 12 oz unsweetened almond milk) at 930am-1130am 1 protein bar per day (Celebrate bars at [facility] [employer], [employer], [employer]) at 1230pm-230pm. Dinner at 4pm (8 forks of protein and 8 forks of salad/vegetables). She just bought a treadmill for at home and was encouraged to use it daily with a goal of 350-400 calories burned.
[2023-12-17 08:47] VITALS: BP 145/67; PULSE 70; TEMP 36.6; O2SAT 100; BMI 41.6
== END 2023-12-17 09:21 | disposition home or self-care (01) ==
PROVIDERS: PCP Internal Medicine; Visit Provider Physician Assistant Surgical
DX: E66.01 Morbid (severe) obesity due to excess calories (principal); Z68.41 Body mass index [BMI] 40.0-44.9, adult
CPT/HCPCS: 99213

== ENCOUNTER → 2023-12-17 08:20 | Outpatient (BNVA) | payer OTHER, SELFPAY | PROVIDERS: PCP Internal Medicine; Visit Provider Physician Assistant Surgical | DX: E66.01 Morbid (severe) obesity due to excess calories (principal); Z68.41 Body mass index [BMI] 40.0-44.9, adult | CPT/HCPCS: 99212 ==

== ENCOUNTER 2024-01-26 07:28 | Outpatient (REF) | payer OTHER, SELFPAY ==
[2024-01-26 08:53] LABS: Alanine Aminotransferase 17 U/L (0-31); Albumin Level 3.9 g/dL (3.5-5.0); Alkaline Phosphatase 72 U/L (39-117); Anion Gap 10 (12-20); Aspartate Amino Transferase 13 U/L (5-31); Bilirubin Total 0.7 mg/dL (0.0-1.0); Blood Urea Nitrogen 14 mg/dL (9-16); Carbon Dioxide 26 mmol/L (22-29); Chloride 109 mmol/L (96-108); Cholesterol 197 mg/dL (<200); Estimated Glomerular Filt Rate > 60; Glucose Fasting 123 mg/dL (60-99); HDL Cholesterol 44 mg/dL (>40); LDL Cholesterol Calculated 131 mg/dL (<100); Potassium 4.4 mmol/L (3.3-5.1); Sodium 141 mmol/L (135-145); Total Protein 6.6 g/dL (6.5-8.0); Triglycerides 112 mg/dL (<150)
[2024-01-26 09:10] LABS: Thyroid Stimulating Hormone 1.51 uIU/mL (0.32-4.0)
== END 2024-01-26 07:29 | disposition home or self-care (01) ==
LOC: HO.LAB 07:28
PROVIDERS: PCP Internal Medicine; Visit Provider Internal Medicine
DX: E78.5 Hyperlipidemia, unspecified (principal); E11.9 Type 2 diabetes mellitus without complications; E03.9 Hypothyroidism, unspecified
CPT/HCPCS: 36415; 80053; 80061; 84443

== ENCOUNTER 2024-01-31 07:51 | Outpatient (AMB) | payer OTHER, SELFPAY ==
[2024-01-31 08:09] VITALS: BP 124/72; PULSE 60; O2SAT 96; BMI 42.4
--- NOTE | 2024-01-31 08:09 | A.OFFPC_ITS ---
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: No Accompanied by: Self / Same As Patient Allergies morphine [MORPHINE] Allergy (Severe, Verified 01/31/24 08:22) facial droop, numbness, lip deviation Medication List - Last Reconciled 01/31/24 by Rupal Cox MD albuterol sulfate 90 mcg/actuation 1 inh inhalation QID PRN albuterol sulfate 2.5 mg (3 mL) inhalation Q6H 30 days blood pressure monitor As directed blood sugar diagnostic As directed blood-glucose meter (LoHariaStyle Lite Meter kit) As directed buspirone 5 mg PO DAILY cholecalciferol (vitamin D3) 50 mcg PO DAILY 90 days escitalopram oxalate 20 mg PO DAILY ezetimibe 10 mg PO DAILY 90 days fluticasone propionate 110 mcg/actuation 2 puffs inhalation BID lancets (LoHariaStyle Lancets) As directed levothyroxine 25 mcg PO QAM nebulizers (Aeroneb Go Nebulizer) As directed rosuvastatin 40 mg PO DAILY 90 days thiamine HCl (vitamin B1) 100 mg PO DAILY 90 days trazodone 100 mg PO BEDTIME vitamin B complex (B Complex-Vitamin B12 tablet) 1 tab PO DAILY Tobacco use date assessed: 09/22/23 Dental Screening Dental Screen Date: 09/22/23 HPI HPI Comments History of Present Illness Details This is a 48-year-old female with diabetes mellitus type 2, hypertension, hyperlipidemia, mild recurrent major depression and morbid obesity that comes today for follow-up on her conditions. A1c within goal. Blood pressure stable. LDL not on goal and I will add Repatha to reach LDL goal less than 70. Depression stable with medications. She is morbidly obese with a BMI of 42.4 and is enroll in weight management and weight loss surgery is pending for insurance approval. She also has hypothyroidism and her last TSH was normal. No chest pain or shortness on breath. Complains of a headache involving the right eye occasionally and I will give sumatriptan. [facility] Medical History (Updated 01/31/24 @ 09:36 by Rupal Cox MD) Morbid obesity Physical exam Lower back pain Bronchitis Hyperkalemia Laceration of right hand Right hand pain Left elbow pain Potential exposure to STD Counseling for initiation of control method Cervical cancer screening Morbid obesity with BMI of 40.0-44.9, adult Mild recurrent major depression Left sided sciatica Otitis externa Essential hypertension Hypertriglyceridemia Insomnia Depression with anxiety Diabetes mellitus Hypothyroidism Surgical History History of foot surgery History of section Family History Father Emphysema lung Mother Myocardial infarction Sister Chronic mental illness Family/Other FH: mental illness Sister Diabetes Sister Cancer, Onset Age: 57 Diabetes Sister Diabetes Sister Diabetes Son No problems noted. Unknown Cancer, Onset Age: 24 Social History Housing: Apartment Alcohol intake: never Patient Tobacco Use Status: Former Tobacco user Tobacco use type: Cigarette e-Cigarette/Vaping Use: Never Used Second Hand Smoke Exposure: No service: No Current occupational status: employed Current occupational exposures/hazards: No Cognitive needs: No Hearing needs: No Vision needs: Yes Female Reproductive History Menstrual Age of Menarche: 13 Questionnaire PHQ-9 Over the last 2 weeks, how often have you been bothered by any of the following problems? 1. Little interest or pleasure in doing things: several days 2. Feeling down, depressed, or hopeless: several days 3. Trouble falling or staying asleep, or sleeping too much: several days 4. Feeling tired or having little energy: several days 5. Poor appetite or overeating: not at all 6. Feeling bad about yourself - or that you are a failure or have let yourself or your family down: not at all 7. Trouble concentrating on things, such as reading the newspaper or watching television: not at all 8. Moving or speaking so slowly that other people could have noticed. Or the opposite - being so fidgety or restless that you have been moving around a lot more than usual: not at all 9. Thoughts that you would be better off or of hurting yourself in some way: not at all Total score: 4 Depression Screening Interpretation: Positive Depression Screening Follow-up: Existing condition, In treatment and Follow-up Visit Requested Depression Screening Done: Yes [id number] - PHQ-9 Billing: Yes Source: Developed by Drs. Atul Robert, Arainna Ventura, Dirk Cruz and colleagues, with an educational nam from [employer]. Thrive Questionnaire Date Thrive assessed: 09/22/23 AUDIT C Alcohol Use Questionnaire (AUDIT-C) 1. How often do you have a drink containing alcohol?: Never Total Score: 0 Score Reviewed/Action Taken: No MELIZA-7 AMB Questionnaire MELIZA-7 Date MELIZA - 7 assessed: 09/22/23 Source: Developed by Drs. Atul Robert, Arianna Ventura, Dirk Cruz and colleagues, with an educational nam from [employer]. Review of Systems Const All systems reviewed & are unremarkable except as noted in HPI and below Reports headache(s) ENT Reports headache(s) Card Denies chest pain at rest, Denies chest pain with activity, Denies edema, Denies irregular heart rhythm, Denies claudication, Denies dyspnea, Denies dyspnea on exertion, Denies orthopnea, Denies paroxysmal nocturnal dyspnea and Denies slow heart rate Resp Denies cough, Denies dyspnea and Denies dyspnea on exertion GI Denies abdominal pain, Denies change in bowel habits, Denies excessive flatus, Denies nausea and Denies vomiting Denies urinary incontinence, Denies urinary hesitancy and Denies urinary urgency Neuro Reports headache(s) Physical exam (Primary Care) Vital Signs: Last Vital Signs Pulse 60 01/31/24 08:09 BP 124/72 01/31/24 08:09 Pulse Ox 96 01/31/24 08:09 Oxygen Delivery Method Room Air 01/31/24 08:09 BMI result Body Mass Index 42.4 Tobacco/Smoking Status: Tobacco use Status Tobacco use date assessed 09/22/23 01/31/24 08:11 Patient Tobacco Use Status Former Tobacco user 01/31/24 08:11 Tobacco use type Cigarette 01/31/24 08:11 e-Cigarette/Vaping Use Never Used 01/31/24 08:11 PHQ-9: PHQ-9 Score PHQ-9: Total score 4 01/31/24 08:25 Depression Screening Interpretation: Positive Depression Screening Follow-up: Existing condition, In treatment and Follow-up Visit Requested Thrive Assessment: Date of Thrive Assessment Date Thrive assessed 09/22/23 01/31/24 08:11 Resp Effort & Inspection: normal respiratory effort Auscultation: clear to auscultation bilaterally Cardio Jugular venous distension: no JVD Rate: regular rate Rhythm: regular rhythm Heart sounds: S1 normal heart sound present and S2 normal heart sound present Extrem General: Yes full ROM Results AMB Hemoglobin A1c AMB Hemoglobin A1c 6.3 % Last Edit by Ruba Barnett CMA on 01/31/24 08 :26 Results Reviewed Results Reviewed: Laboratory Last Values Hgb A1c (Clinic) 6.3 % (4.0-6.0) H 01/31/24 08:11 Assessment and Plan Assessment & Plan (1) Morbid obesity with BMI of 40.0-44.9, adult: Code(s): E66.01 - Morbid (severe) obesity due to excess calories; Z68.41 - Body mass index [BMI] 40.0-44.9, adult Plan: Follow-up with weight management. Weight loss surgery pending for insurance allyson roval. BMI goal is less than 30. Continue diet and exercise. (2) Mild recurrent major depression: Code(s): F33.0 - Major depressive disorder, recurrent, mild Plan: Continue escitalopram. (3) Hyperlipidemia LDL goal <70: Code(s): E78.5 - Hyperlipidemia, unspecified Plan: Continue statins and Zetia. Start Repatha. LDL goal is less than 70. (4) Diabetes mellitus: Code(s): E11.9 - Type 2 diabetes mellitus without complications Qualifiers: Diabetes mellitus type: type 2 Diabetes mellitus usp insulin use: without long term care administrator use Diabetes mellitus complication status: without co mplication Qualified Code(s): E11.9 - Type 2 diabetes mellitus without complications Plan: Continue low-carbohydrate diet. A1c goal is equal or less than 7%. (5) Hypothyroidism: Code(s): E03.9 - Hypothyroidism, unspecified Qualifiers: Hypothyroidism type: unspecified Qualified Code(s): E03.9 - Hypothyroidism, unspecified Plan: Continue levothyroxine. Monitor TSH. Orders: Orders Lipid Panel 3 Months E78.5 - Hyperlipidemia, unspecified Microalbumin, Random (w Creat) 3 Months E11.9 - Type 2 diabetes mellitus without complications Comprehensive [place]. Panel Fast 3 Months E78.5 - Hyperlipidemia, unspecified AMB Hemoglobin A1c Today Z13.9 - Encounter for screening, unspecified Vitamin D 25-OH Total 3 Months E55.9 - Vitamin D deficiency, unspecified Thyroid Stimulating Hormone 3 Months E03.9 - Hypothyroidism, unspecified Apolipoprotein B 3 Months E78.5 - Hyperlipidemia, unspecified Lipoprotein Asso Phospholip A2 3 Months E78.5 - Hyperlipidemia, unspecified Lipoprotein A 3 Months E78.5 - Hyperlipidemia, unspecified Medications: New evolocumab (Repatha SureClick) 140 mg subcut Q2W 2 mL 0RF 4 weeks E78.49 - Other hyperlipidemia, E78.5 - Hyperlipidemia, unspecified sumatriptan succinate do not exceed 8 doses per 24 hrs 25 mg PO Q2-4H PRN 9 tabs 0RF migraine headache 30 days Coding Level of Care Code Est Pt Level 4 (93081) Complex EM visit Add On G2211 Diagnoses Morbid obesity with BMI of 40.0-44.9, adult E66.01; Z68.41 Mild recurrent major depression F33.0 Hyperlipidemia LDL goal <70 E78.5 Type 2 diabetes mellitus without complication, without long-term current use of insulin E11.9 Diabetes mellitus type: type 2 Diabetes mellitus usp insulin use: without long term care administrator use Diabetes mellitus complication status: without complication Hypothyroidism, unspecified type E03.9 Hypothyroidism type: unspecified Time Spent (min) 23
== END 2024-01-31 08:30 | disposition home or self-care (01) ==
PROVIDERS: PCP Internal Medicine; Visit Provider Internal Medicine
DX: E66.01 Morbid (severe) obesity due to excess calories (principal); Z68.41 Body mass index [BMI] 40.0-44.9, adult; F33.0 Major depressive disorder, recurrent, mild; E11.9 Type 2 diabetes mellitus without complications; E03.9 Hypothyroidism, unspecified
CPT/HCPCS: 83036; 99214; G2211

== ENCOUNTER 2024-02-07 08:03 | Outpatient (AMB) | payer OTHER, SELFPAY ==
--- NOTE | 2024-02-07 11:43 | A.OFFVIS_ITS ---
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* Allergies morphine [MORPHINE] Allergy (Severe, Verified 02/07/24 11:43) facial droop, numbness, lip deviation Medication List - Last Reconciled 02/07/24 by Norm Gannon MD albuterol sulfate 90 mcg/actuation 1 inh inhalation QID PRN albuterol sulfate 2.5 mg (3 mL) inhalation Q6H 30 days blood pressure monitor As directed blood sugar diagnostic As directed blood-glucose meter (Vill[employer]Style Lite Meter kit) As directed buspirone 5 mg PO DAILY cholecalciferol (vitamin D3) 50 mcg PO DAILY 90 days escitalopram oxalate 20 mg PO DAILY evolocumab (Repatha SureClick) 140 mg subcut Q2W 4 weeks ezetimibe 10 mg PO DAILY 90 days fluticasone propionate 110 mcg/actuation 2 puffs inhalation BID lancets (FreeStyle Lancets) As directed levothyroxine 25 mcg PO QAM nebulizers (Aeroneb Go Nebulizer) As directed rosuvastatin 40 mg PO DAILY 90 days sumatriptan succinate 25 mg PO Q2-4H PRN 30 days thiamine HCl (vitamin B1) 100 mg PO DAILY 90 days trazodone 100 mg PO BEDTIME vitamin B complex (B Complex-Vitamin B12 tablet) 1 tab PO DAILY HPI HPI TV Consult/Transfer Erick *INSURANCE UNDERWRITER*: Details: Start time: 11.26am, End time: 12.15pm ?I spent 44 minutes speaking with the patient on the phone plus an additional 5 minutes reviewing and updating records for a total of 49 minutes HPI Comments Details: Overall weight loss: 10lbs, or 4.35% TBWL Wakes up: 5.40am, Sleeps: 10.30pm Current meal plan includes: 2 Celebrate Rebuild shakes (1 scoop each in 16 oz unsweetened almond milk) at 930am-1130am 1 protein bar per day (Celebrate bars at [facility] [employer], [employer], [employer]) at 1230pm-230pm. Dinner at 4pm (8 forks of protein and 8 forks of salad/vegetables). Drinking 64-80 oz of water Current exercise plan includes: treadmill at home, just got x 3/week for 300 [address] walking outside 4-5 days per week , 400-500 katerina [facility] Medical History (Updated 02/07/24 @ 11:50 by Norm Gannon MD) Migraines Morbid obesity Physical exam Lower back pain Bronchitis Hyperkalemia Laceration of right hand Right hand pain Left elbow pain Potential exposure to STD Counseling for initiation of control method Cervical cancer screening Morbid obesity with BMI of 40.0-44.9, adult Mild recurrent major depression Left sided sciatica Otitis externa Essential hypertension Hypertriglyceridemia Insomnia Depression with anxiety Diabetes mellitus Hypothyroidism Surgical History History of foot surgery History of section Family History Father Emphysema lung Mother Myocardial infarction Sister Chronic mental illness Family/Other FH: mental illness Sister Diabetes Sister Cancer, Onset Age: 57 Diabetes Sister Diabetes Sister Diabetes Son No problems noted. Unknown Cancer, Onset Age: 24 Social History Housing: Apartment Alcohol intake: never Patient Tobacco Use Status: Former Tobacco user Tobacco use type: Cigarette e-Cigarette/Vaping Use: Never Used Second Hand Smoke Exposure: No service: No Current occupational status: employed Current occupational exposures/hazards: No Cognitive needs: No Hearing needs: No Vision needs: Yes Female Reproductive History Menstrual Age of Menarche: 13 Telehealth Telehealth Location of provider rendering services: practice address Location of patient: address on file Patient Identification confirmed using: Name, : Yes Telehealth method: voice only Patient verbally consented to treatment: Yes Patient verbally consented to billing insurance company: Yes Patient informed of any privacy concerns related to visit: Yes Minutes spent on Phone/Video with Pt.: 49 Assessment & Plan Assessment & Plan (1) Morbid obesity with BMI of 40.0-44.9, adult: Code(s): E66.01 - Morbid (severe) obesity due to excess calories; Z68.41 - Body mass index [BMI] 40.0-44.9, adult Category: Medical Plan: 1. Plan for lap sleeve gastrectomy. If diaphragmatic or ventral hernias are present at time of surgery, these will be repaired laparoscopically as well. Risks and complications were discussed in detail including possible conversion to an open procedure, anastomotic leak, bleeding requiring transfusion, small bowel obstruction, , DVT and pulmonary embolism, cardiac, or pulmonary complications, as long line teamster complications such as anastomotic ulcer, insufficient weight loss and vitamin deficiencies. I emphasized the importance of close follow-up, adherence to instructions and good communication. 2. Change nutritional plan to a Celebrate shake (ONE scoop in 8oz almond milk) at 7am-9am, Celebrate protein bar at 10am-12pm, Celebrate Rebuild shake (ONE scoop in 8oz almond milk) at 1pm-3pm, Celebrate protein bar at 4pm-6pm, dinner at 7pm (8 forks of protein and 8 forks of salad or vegetables) AND HALF protein bar at 9pm-10pm. 3. Change treadmill with an incline of 4.0 and speed of 3.0. Increase incline by 1 every 3 min to a max incline of 10.0, stay 3min at 10.0 and then return to 4.0 and repeat same steps until calorie goal is met. Goal is to burn 2000 calories per week on exercise, which means either 300 calories daily. Do not include walking outside as your exercise. Only the treadmill. 4. Send me weight measurements weekly on Mondays
[2024-02-07 12:12] VITALS: BMI 42.9
== END 2024-02-07 12:15 | disposition home or self-care (01) ==
LOC: HO.HBS 08:03
PROVIDERS: PCP Internal Medicine; Visit Provider Surgery
DX: E66.01 Morbid (severe) obesity due to excess calories (principal); Z68.41 Body mass index [BMI] 40.0-44.9, adult
CPT/HCPCS: 99215

== ENCOUNTER → 2024-02-07 08:03 | Outpatient (BNVA) | payer OTHER, SELFPAY | PROVIDERS: PCP Internal Medicine; Visit Provider Surgery ==

== ENCOUNTER 2024-03-16 09:19 | Outpatient (AMB) | payer OTHER, SELFPAY ==
--- NOTE | 2024-03-16 09:24 | MHC.OFFVISWM ---
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: No Allergies morphine [MORPHINE] Allergy (Severe, Verified 02/07/24 11:43) facial droop, numbness, lip deviation Medication List - Last Reconciled 03/16/24 by ANTONY Montes albuterol sulfate 90 mcg/actuation 1 inh inhalation QID PRN albuterol sulfate 2.5 mg (3 mL) inhalation Q6H 30 days blood pressure monitor As directed blood sugar diagnostic As directed blood-glucose meter (Vivint SolarStyle Lite Meter kit) As directed buspirone 5 mg PO DAILY cholecalciferol (vitamin D3) 50 mcg PO DAILY 90 days escitalopram oxalate 20 mg PO DAILY evolocumab (Repatha SureClick) 140 mg subcut Q2W 4 weeks ezetimibe 10 mg PO DAILY 90 days fluticasone propionate 110 mcg/actuation 2 puffs inhalation BID lancets (FreeStyle Lancets) As directed levothyroxine 25 mcg PO QAM nebulizers (Aeroneb Go Nebulizer) As directed rosuvastatin 40 mg PO DAILY 90 days sumatriptan succinate 25 mg PO Q2-4H PRN 30 days thiamine HCl (vitamin B1) 100 mg PO DAILY 90 days trazodone 100 mg PO BEDTIME vitamin B complex (B Complex-Vitamin B12 tablet) 1 tab PO DAILY HPI Comments Details: This is a preop appointment for a 48-year-old female. She is scheduled for laparoscopic sleeve gastrectomy on 03/28/2024. She started the program on 07/13/2023 with a weight of 230.4 lb and a BMI of 45. Weight today is 209.6 with a BMI of 40.9. She has lost 20.8 lb or 9% total body weight loss wakes 6 am bed at 10 pm 2 Celebrate Rebuild shakes (1 scoop each in 16 oz unsweetened almond milk) at 930am-1130am 1 protein bar per day (Celebrate bars at [facility] [employer], [email or web address], [employer]) at 1230pm-230pm. Dinner at 4pm (8 forks of protein and 8 forks of salad/vegetables). Drinking 64-80 oz of water Current exercise plan includes: treadmill at home, just got x 3/week for 300 [address] walking outside 4-5 days per week , 400-500 k[address]ina [facility] Medical History Migraines Morbid obesity Physical exam Lower back pain Bronchitis Hyperkalemia Laceration of right hand Right hand pain Left elbow pain Potential exposure to STD Counseling for initiation of control method Cervical cancer screening Morbid obesity with BMI of 40.0-44.9, adult Mild recurrent major depression Left sided sciatica Otitis externa Essential hypertension Hypertriglyceridemia Insomnia Depression with anxiety Diabetes mellitus Hypothyroidism Surgical History History of foot surgery History of section Family History Father Emphysema lung Mother Myocardial infarction Sister Chronic mental illness Family/Other FH: mental illness Sister Diabetes Sister Cancer, Onset Age: 57 Diabetes Sister Diabetes Sister Diabetes Son No problems noted. Unknown Cancer, Onset Age: 24 Social History Housing: Apartment Alcohol intake: never Patient Tobacco Use Status: Former Tobacco user Tobacco use type: Cigarette e-Cigarette/Vaping Use: Never Used Second Hand Smoke Exposure: No service: No Current occupational status: employed Current occupational exposures/hazards: No Cognitive needs: No Hearing needs: No Vision needs: Yes Female Reproductive History Menstrual Age of Menarche: 13 Physical Exam Vital Signs: Last Vital Signs Temp 96.8 F 03/16/24 09:32 Pulse 63 03/16/24 09:32 BP 138/67 03/16/24 09:32 Pulse Ox 100 03/16/24 09:32 Oxygen Delivery Method Room Air 03/16/24 09:32 BMI result Body Mass Index 40.9 Const General: healthy appearing and no acute distress Resp Effort & Inspection: normal respiratory effort Auscultation: clear to auscultation bilaterally Cardio Rate: regular rate Rhythm: regular rhythm GI Auscultation: normal bowel sounds Extrem General: Yes normal to inspection Assessment & Plan Assessment & Plan (1) Pre-op evaluation: Code(s): Z01.818 - Encounter for other preprocedural examination Category: Medical Plan: The patient participated in a structured preoperative lifestyle intervention program supervised by a physician the 8 months preceding the surgical procedure. The lifestyle intervention included a structured nutritional plan with a specific daily protein intake goal, an exercise plan with a 2000 calorie burn weekly goal, weekly behavior modification guidance and completion of eight 1-hour online nutritional classes and passing successfully the corresponding quizzes. Adherence to preoperative care plan was demonstrated by completing an extensive preoperative work-up. Program participation was demonstrated by completing multiple visits with our medical team and by sharing weekly weight measurements weekly for 4 consecutive months via an approved body composition scale. Compliance to the lifestyle intervention was demonstrated by achieving a 20.8 lbs weight-loss or 9% total body weight loss (TBWL). No medications were used to achieve this weight loss. In our published experience an over 7% preoperative TBWL, achieved by meeting the diet and exercise goals of our program improves surgical outcomes, reduces the potential for surgical complications, and predicts a statistically significant higher weight loss up to 6 years postoperatively. 1. Plan for lap sleeve gastrectomy including upper GI endoscopy . If diaphragmatic or ventral hernias are present at time of surgery, these will be repaired laparoscopically as well. Risks and complications were discussed in detail including possible conversion to an open procedure, anastomotic leak, bleeding requiring transfusion, small bowel obstruction, , DVT and pulmonary embolism, cardiac, or pulmonary complications, as fpc complications such as anastomotic ulcer, insufficient weight loss and vitamin deficiencies. I emphasized the importance of close follow-up, adherence to instructions and good communication. So far she has proven to be an excellent communicator and very compliant with all our directions accomplishing a great weight loss. I believe that she is an excellent candidate and she is ready. 2. Preop prescriptions were provided and explained the purpose of each one. Need to be purchased preop. Start Pantoprazole now as you get it from the pharmacy, 1 pill per day. Sucralfate and Zofran are for after surgery. 3. Bowel prep: please do 7 packets ?of Miralax mixing each one with an 8oz glass of water on 03/26/24 and the same amount on 03/27/24 4. Needs to purchase 1oz medicine cups . 5. Needs to purchase Children's liquid Tylenol for postop pain control. 6. Stop all the vitamins on 03/17/24. Avoid aspirin, motrin, Advil, Aleve, Ibuprofen, Naproxyn. Tylenol is OK. 7. Purchase the Celebrate 4:1 protein shakes from the hospital's gift shop. 8. Will do basic preop blood work-up on 03/24/24 fasting for 12 hours and is scheduled to see the Anesthesiologist prior to the day of surgery. 9. You must do the labs as scheduled 10. Importance of adherence to postop follow-up and recommendations was underscored and she understands that. 11. Stop food and bars as of 03/17/24 and continue with 5 celebrate rebuild shakes (2 scoops in 8oz almond milk) at 7am-9am, 10am-12pm, (the just 1 scoop in 8 oz of almond milk) at 1pm-3pm, 4pm-6pm and 7pm-9pm 12. No soups, broths or V8 13. Please take at the day of surgery the following medications:?levothyroxine and inhalers 14. Be sure to continue to send your weight measurements to Dr Gannon weekly, and the most important weight measurement to send him is the day of surgery. 15. Stop any control pills and don't use them for one month after surgery 16. Absolutely no smoking or vaping, or marijuana until the surgery and for at least the first 4 weeks. Only nicotine patches are allowed. 17. The patient's?medical?history has been reviewed and they are considered low risk for post op DVT and therefore DVT prophylaxis is not considered necessary. Travel after surgery was reviewed. The patient has not disclosed any travel plans during the first 30 days after surgery and they have been advised that within the first 30 days after surgery any bus, plane, train or car travel over 2 hours in duration is contraindicated due to the possibility of developing blood clots from immobility. Any travel, needs to include periods of ambulation of 10 minutes in duration every 2 hours.? Patient was instructed to discuss any plans for travel during this period with their bariatric surgeon.? Orders: Orders Comprehensive Met. Panel 03/24/24 Z01.818 - Encounter for other preprocedural examination TSH reflex Free T4 03/24/24 Z01.818 - Encounter for other preprocedural examination Vitamin A 03/24/24 Z01.818 - Encounter for other preprocedural examination Hemoglobin A1c 03/24/24 Z01.818 - Encounter for other preprocedural examination Type and Screen 03/24/24 Z01.818 - Encounter for other preprocedural examination Vitamin B12 03/24/24 Z01.818 - Encounter for other preprocedural examination C Reactive Protein 03/24/24 Z01.818 - Encounter for other preprocedural examination Vitamin D 25-OH Total 03/24/24 Z01.818 - Encounter for other preprocedural examination Complete Blood Count Auto Diff 03/24/24 Z01.818 - Encounter for other preprocedural examination Ferritin 03/24/24 Z01.818 - Encounter for other preprocedural examination Prothrombin Time INR 03/24/24 Z01.818 - Encounter for other preprocedural examination Vitamin B1 03/24/24 Z01.818 - Encounter for other preprocedural examination Lipid Panel 03/24/24 Z01.818 - Encounter for other preprocedural examination Partial Thromboplastin Time 03/24/24 Z01.818 - Encounter for other preprocedural examination Zinc 03/24/24 Z01.818 - Encounter for other preprocedural examination IRON PROFILE 03/24/24 Z01.818 - Encounter for other preprocedural examination
[2024-03-16 09:32] VITALS: BP 138/67; PULSE 63; TEMP 36; O2SAT 100; BMI 40.9
== END 2024-03-16 10:07 | disposition home or self-care (01) ==
PROVIDERS: PCP Internal Medicine; Visit Provider Physician Assistant Surgical
DX: E66.01 Morbid (severe) obesity due to excess calories (principal); Z68.41 Body mass index [BMI] 40.0-44.9, adult
CPT/HCPCS: 99499

== ENCOUNTER → 2024-03-16 09:19 | Outpatient (BNVA) | payer OTHER, SELFPAY | PROVIDERS: PCP Internal Medicine; Visit Provider Physician Assistant Surgical ==

== ENCOUNTER → 2024-03-24 07:31 | Outpatient (BNVA) | payer OTHER, SELFPAY | PROVIDERS: PCP Internal Medicine; Visit Provider Physician Assistant Surgical ==

== ENCOUNTER 2024-03-29 08:04 | Inpatient (IN) | payer OTHER, SELFPAY ==
[2024-03-21 08:57] VITALS: BMI 40.8
[2024-03-24 07:30] LABS: MANUAL DIFF FLAG NO
[2024-03-24 07:41] LABS: Basophils Percent Auto 0.6 % (0-2); Eosinophils Absolute Auto 0.2 X10*3/uL (0.0-0.4); Eosinophils Percent Auto 2.5 % (0-4); Hemoglobin 13.7 g/dl (12.0-16.0); Imm Gran Abs Auto 0.01 X10*3/uL (0.00-0.03); Imm Gran Pct Auto 0.2 % (0.0-0.4); Lymphocytes Absolute Auto 1.8 X10*3/uL (1.2-4.9); Lymphocytes Percent Auto 28.1 % (20-40); Mean Corpuscular HGB Conc 34.3 g/dl (31.0-35.0); Mean Corpuscular Hemoglobin 29.7 pg (27.0-33.0); Mean Corpuscular Volume 86.8 fL (80.0-98.0); Mean Platelet Volume 10.5 fL (9.4-12.3); Monocytes Absolute Auto 0.6 X10*3/uL (0.1-1.2); Monocytes Percent Auto 8.9 % (2-11); Neutrophils Absolute Auto 3.9 x10*3/uL (2.0-8.3); Neutrophils Percent Auto 59.7 % (45-73); Platelet Count 271 X10*3/uL (160-400); Red Blood Count 4.61 X10*6/uL (4.20-5.50); Red Cell Distribution Width 12.6 % (11.0-16.0); White Blood Count 6.5 X10*3/uL (4.8-10.8)
[2024-03-24 08:08] LABS: Estimated Average Glucose 134 mg/dL; Hemoglobin A1c % 6.3 % (<6.0)
[2024-03-24 08:09] LABS: Alanine Aminotransferase 22 U/L (0-31); Albumin Level 4.3 g/dL (3.5-5.0); Alkaline Phosphatase 73 U/L (39-117); Anion Gap 12 (12-20); Aspartate Amino Transferase 20 U/L (5-31); Bilirubin Total 1.8 mg/dL (0.0-1.0); Blood Urea Nitrogen 12 mg/dL (9-16); C Reactive Protein 0.15 mg/dL (< or = 0.50); Calcium 9.9 mg/dL (8.4-10.2); Carbon Dioxide 29 mmol/L (22-29); Chloride 106 mmol/L (96-108); Cholesterol 119 mg/dL (<200); Creatinine Clr Calc Pharmacy 73.1; Estimated Glomerular Filt Rate > 60; Glucose Random 117 mg/dL (60-115); HDL Cholesterol 44 mg/dL (>40); Iron 58 mcg/dL (30-160); LDL Cholesterol Calculated 56 mg/dL (<100); Percent Iron Saturation 18 % (15-50); Potassium 4.3 mmol/L (3.3-5.1); Sodium 143 mmol/L (135-145); Total Iron Binding Capacity 326 mcg/dL (228-428); Total Protein 7.1 g/dL (6.5-8.0); Triglycerides 95 mg/dL (<150); Unsaturated Iron Binding 268 ug/dL
[2024-03-24 08:24] LABS: Ferritin 28 ng/mL (10-250); TSH reflex Free T4 2.14 uIU/mL (0.32-4.0); Vitamin D 25-OH Total 27.5 ng/mL (>30)
[2024-03-24 08:26] LABS: Vitamin B12 589 pg/mL (200-900)
[2024-03-28 00:53] LABS: Zinc 94 mcg/dL (60-130)
--- NOTE | 2024-03-28 08:38 | P.CONAN_ITS ---
Documented by User: Beverly Goss NP 03/28/24 08:39 HPI - Anesthesia Eval Consult details Narrative: 48yo F for Gastrectomy Sleeve- EGD, possible diaphragmatic hernia, possible ventral hernia, possible open PMFSH Active Problems Active Problems: All Active Problems Pre-op evaluation (Acute) Familial hyperlipidemia (Acute) H. pylori infection (Acute) Sacroiliac dysfunction (Acute) Trigger finger, right little finger (Acute) Mild persistent asthma (Acute) Physical exam (Acute) Hyperlipidemia LDL goal <70 (Acute) Otitis externa (Acute) Migraines (Acute) Morbid obesity with BMI of 40.0-44.9, adult (Acute) Mild recurrent major depression (Acute) Left sided sciatica (Acute) Essential hypertension (Acute) Hypertriglyceridemia (Acute) Insomnia (Acute) Depression with anxiety (Acute) Diabetes mellitus (Acute) Hypothyroidism (Acute) Past Medical History Medical History Asthma Migraines Lower back pain Bronchitis Hyperkalemia Morbid obesity with BMI of 40.0-44.9, adult Mild recurrent major depression Left sided sciatica Essential hypertension Hypertriglyceridemia Insomnia Depression with anxiety Diabetes mellitus Hypothyroidism Family History Family History Father Emphysema lung Mother Myocardial infarction Sister Chronic mental illness Family/Other FH: mental illness Sister Diabetes Sister Cancer, Onset Age: 57 Diabetes Sister Diabetes Sister Diabetes Son No problems noted. Unknown Cancer, Onset Age: 24 Family history of problems with anesthesia: No Surgical History Surgical History History of foot surgery History of section History of Problems with Anesthesia: No Social History Social History Housing: Apartment Are you a primary skin care specialist to a significant other at home: No Do you presently have visiting nurse or other home services: No Alcohol intake: never Patient Tobacco Use Status: Former Tobacco user Tobacco use type: Cigarette e-Cigarette/Vaping Use: Never Used Second Hand Smoke Exposure: No Use of substances other than those prescribed or required for medical reasons: No Have you been hit, kicked, punched, or otherwise hurt by someone within the past year? If so, by whom?: No Are you DNR?: No Advance Directives: No ( is primary contct) Advance Directives Information Provided: Yes (as above noted) Advance Directives on File: No Recently lost weight without trying: No Eating poorly because of decreased appetite: No Nutrition Risks: No Nutritional Risk Patient : No FDLMP: 02/26/24 : No Poor oral hygiene: No service: No Current occupational status: employed Current occupational exposures/hazards: No Cognitive needs: No Hearing needs: No Vision needs: Yes Meds Allergies Allergy/AdvReac Type Severity Reaction Status Date / Time morphine [MORPHINE] Allergy Severe facial Verified 02/07/24 11:43 droop, numbness, lip deviation Home Medications ?Medication ?Instructions ?Recorded ?Confirmed ?Last Taken ?Type buspirone 5 mg tablet 5 mg PO QAM 05/27/20 03/21/24 Unknown History escitalopram oxalate 20 mg tablet 20 mg PO QAM 05/27/20 03/21/24 Unknown History lancets 28 gauge (FreeStyle #100 ea 05/27/20 03/16/24 Unknown History Lancets) trazodone 100 mg tablet 100 mg PO BEDTIME 05/27/20 03/21/24 Unknown History vitamin B complex (B 1 tab PO QAM 08/13/23 03/21/24 Unknown History Complex-Vitamin B12 tablet) cholecalciferol (vitamin D3) 50 50 mcg PO QAM 03/21/24 03/21/24 Unknown History mcg (2,000 unit) capsule ezetimibe 10 mg tablet 10 mg PO QAM 03/21/24 03/21/24 Unknown History pantoprazole 40 mg tablet,delayed 40 mg PO QAM 03/21/24 03/21/24 Unknown History release rosuvastatin 40 mg tablet 40 mg PO BEDTIME 03/21/24 03/21/24 Unknown History thiamine HCl (vitamin B1) 100 mg 100 mg PO QAM 03/21/24 03/21/24 Unknown History tablet Exam Height,Weight and Vital Signs: Height 5 ft Weight 94.801 kg Pertinent Lab Results Pertinent Lab Results: Laboratory Tests 03/24/24 03/24/24 07:20 07:29 WBC 6.5 RBC 4.61 Hgb 13.7 Hct 40.0 MCV 86.8 MCH 29.7 MCHC 34.3 RDW 12.6 Plt Count 271 MPV 10.5 Immature Gran % (Auto) 0.2 Neut % (Auto) 59.7 Lymph % (Auto) 28.1 Traill % (Auto) 8.9 Eos % (Auto) 2.5 Baso % (Auto) 0.6 Lymph # (Auto) 1.8 Traill # (Auto) 0.6 Eos # (Auto) 0.2 Baso # (Auto) 0.0 Abs Immat Gran (auto) 0.01 Absolute Neuts (auto) 3.9 Absolute Nucleated RBC 0.000 Nucleated RBC % (auto) 0.0 PT 12.0 INR 1.0 APTT 32.0 Sodium 143 Potassium 4.3 Chloride 106 Carbon Dioxide 29 Anion Gap 12 BUN 12 Creatinine 0.99 Estim Creat Clear Calc 73.1 Estimated GFR > 60 Random Glucose 117 H Estimat Average Glucose 134 Hemoglobin A1c % 6.3 H Calcium 9.9 D Iron 58 TIBC 326 % Saturation 18 Unsat Iron Binding 268 Ferritin 28 Total Bilirubin 1.8 H AST 20 ALT 22 Alkaline Phosphatase 73 C-Reactive Protein 0.15 Total Protein 7.1 Albumin 4.3 Triglycerides 95 Cholesterol 119 LDL Cholesterol, Calc 56 HDL Cholesterol 44 Vitamin B12 589 25-OH Vitamin D Total 27.5 L TSH 2.14 Zinc 94 Blood Type A Positive Antibody Screen NEGATIVE Narrative Narrative: EKG 10/2023 Vent. Rate : 072 BPM Atrial Rate : 072 BPM P-R Int : 152 ms QRS Dur : 078 ms QT Int : 380 ms P-R-T Axes : 035 022 030 degrees QTc Int : 416 ms Normal sinus rhythm Normal ECG When compared with ECG of 23-JUL-2023 07:35, No significant change was found Assessment and Plan Assessment Anesthesia Assessment: Chart Reviewed Final Anesthetic Review Family History of Problems with Anesthesia: No History of Problems with Anesthesia: No Documented by User: Kerry Wilson MD 03/29/24 10:00 HPI - Anesthesia Eval Consult details Narrative: 48yo F for EGD, Laparoscopic Sleeve Gastrectomy, possible diaphragmatic hernia repair, possible ventral hernia repair, possible open PMFSH Active Problems Active Problems: All Active Problems Pre-op evaluation (Acute) Familial hyperlipidemia (Acute) H. pylori infection (Acute) Sacroiliac dysfunction (Acute) Trigger finger, right little finger (Acute) Mild persistent asthma (Acute)- controlled Physical exam (Acute) Hyperlipidemia LDL goal <70 (Acute) Otitis externa (Acute) Migraines (Acute) Morbid obesity with BMI of 39.8 Mild recurrent major depression (Acute) Left sided sciatica (Acute) Essential hypertension (Acute). Off meds since weight loss Hypertriglyceridemia (Acute) Insomnia (Acute) Depression with anxiety (Acute) Diabetes mellitus (Acute)- medications d/adalberto since weight loss Hypothyroidism (Acute) Past Medical History Medical History Asthma Migraines Lower back pain Bronchitis Hyperkalemia Morbid obesity with BMI of 40.0-44.9, adult Mild recurrent major depression Left sided sciatica Essential hypertension Hypertriglyceridemia Insomnia Depression with anxiety Diabetes mellitus Hypothyroidism Family History Family History Father Emphysema lung Mother Myocardial infarction Sister Chronic mental illness Family/Other FH: mental illness Sister Diabetes Sister Cancer, Onset Age: 57 Diabetes Sister Diabetes Sister Diabetes Son No problems noted. Unknown Cancer, Onset Age: 24 Family history of problems with anesthesia: No Surgical History Surgical History History of foot surgery History of section History of Problems with Anesthesia: No Social History Social History Housing: Apartment Are you a primary skin care specialist to a significant other at home: No Do you presently have visiting nurse or other home services: No Alcohol intake: never Patient Tobacco Use Status: Former Tobacco user Tobacco use type: Cigarette e-Cigarette/Vaping Use: Never Used Second Hand Smoke Exposure: No Use of substances other than those prescribed or required for medical reasons: No Have you been hit, kicked, punched, or otherwise hurt by someone within the past year? If so, by whom?: No Are you DNR?: No Advance Directives: No ( is primary contct) Advance Directives Information Provided: Yes (as above noted) Advance Directives on File: No Recently lost weight without trying: No Eating poorly because of decreased appetite: No Nutrition Risks: No Nutritional Risk Patient : No FDLMP: 02/26/24 : No Poor oral hygiene: No service: No Current occupational status: employed Current occupational exposures/hazards: No Cognitive needs: No Hearing needs: No Vision needs: Yes Meds Allergies Allergy/AdvReac Type Severity Reaction Status Date / Time morphine [MORPHINE] Allergy Severe facial Verified 02/07/24 11:43 droop, numbness, lip deviation Home Medications ?Medication ?Instructions ?Recorded ?Confirmed ?Last Taken ?Type buspirone 5 mg tablet 5 mg PO QAM 05/27/20 03/21/24 Unknown History escitalopram oxalate 20 mg tablet 20 mg PO QAM 05/27/20 03/21/24 Unknown History lancets 28 gauge (FreeStyle #100 ea 05/27/20 03/16/24 Unknown History Lancets) trazodone 100 mg tablet 100 mg PO BEDTIME 05/27/20 03/21/24 Unknown History vitamin B complex (B 1 tab PO QAM 08/13/23 03/21/24 Unknown History Complex-Vitamin B12 tablet) cholecalciferol (vitamin D3) 50 50 mcg PO QAM 03/21/24 03/21/24 Unknown History mcg (2,000 unit) capsule ezetimibe 10 mg tablet 10 mg PO QAM 03/21/24 03/21/24 Unknown History pantoprazole 40 mg tablet,delayed 40 mg PO QAM 03/21/24 03/21/24 Unknown History release rosuvastatin 40 mg tablet 40 mg PO BEDTIME 03/21/24 03/21/24 Unknown History thiamine HCl (vitamin B1) 100 mg 100 mg PO QAM 03/21/24 03/21/24 Unknown History tablet Exam Height,Weight and Vital Signs: Height 5 ft Weight 94.801 kg Vital Signs Temp Pulse Resp BP Pulse Ox O2 Del Method 03/29/24 08:37 97.8 F 82 16 127/61 100 Room Air Pertinent Lab Results Pertinent Lab Results: Laboratory Tests 03/24/24 03/24/24 07:20 07:29 WBC 6.5 RBC 4.61 Hgb 13.7 Hct 40.0 MCV 86.8 MCH 29.7 MCHC 34.3 RDW 12.6 Plt Count 271 MPV 10.5 Immature Gran % (Auto) 0.2 Neut % (Auto) 59.7 Lymph % (Auto) 28.1 Traill % (Auto) 8.9 Eos % (Auto) 2.5 Baso % (Auto) 0.6 Lymph # (Auto) 1.8 Traill # (Auto) 0.6 Eos # (Auto) 0.2 Baso # (Auto) 0.0 Abs Immat Gran (auto) 0.01 Absolute Neuts (auto) 3.9 Absolute Nucleated RBC 0.000 Nucleated RBC % (auto) 0.0 PT 12.0 INR 1.0 APTT 32.0 Sodium 143 Potassium 4.3 Chloride 106 Carbon Dioxide 29 Anion Gap 12 BUN 12 Creatinine 0.99 Estim Creat Clear Calc 73.1 Estimated GFR > 60 Random Glucose 117 H Estimat Average Glucose 134 Hemoglobin A1c % 6.3 H Calcium 9.9 D Iron 58 TIBC 326 % Saturation 18 Unsat Iron Binding 268 Ferritin 28 Total Bilirubin 1.8 H AST 20 ALT 22 Alkaline Phosphatase 73 C-Reactive Protein 0.15 Total Protein 7.1 Albumin 4.3 Triglycerides 95 Cholesterol 119 LDL Cholesterol, Calc 56 HDL Cholesterol 44 Vitamin B12 589 25-OH Vitamin D Total 27.5 L TSH 2.14 Zinc 94 Blood Type A Positive Antibody Screen NEGATIVE Laboratory Results - last 24 hr 03/29/24 03/29/24 08:08 08:52 Urine Test NEGATIVE Blood Type A Positive Antibody Screen NEGATIVE Airway Mallampati Class: II TM Dist: >3cm Neck ROM: Full Loose/Missing/Broken Teeth: Yes (Missing molars. Denies broken or loose teeth) Heart: RRR Lungs: CTAB Assessment and Plan Assessment Anesthesia Assessment: Anesthesia Plan Discussed and Chart Reviewed Final Anesthetic Review Family History of Problems with Anesthesia: No History of Problems with Anesthesia: No NPO: Yes ASA Class: III Final Preanesthetic Review: No Changes in Pt Med Stat, Meds/Allgs Chart Reviewed, Consent Obtained/Reviewed and Anes Risks/Benef Reviewed Patient Risk: Intermediate Procedure Risk: Intermediate Assessment/Block/Sedation in SS: Assess/Block/Sedation-SS Anesthetic Plan Anesthetic Plan: GA Disposition: Standard PACU and Inp. Admit - Standard Bed
[2024-03-29] VITALS (13 sets, daily range): BP systolic 113–141; BP diastolic 61–80; PULSE 73–92; RESP 16–20; TEMP 36–36.8; O2SAT 94–100; BMI 39.8
[2024-03-29 08:20] LABS: UPreg QC Valid YES; Urine Pregnancy NEGATIVE (NEGATIVE)
--- NOTE | 2024-03-29 08:51 | MHC.SHP ---
Pre-Procedural Eval Section A - 24 Hr Update-Section A only Date of Service: 03/29/24 The patient is an INPATIENT: No The patient has been examined within 24 hours of the surgical procedure. The History & Physical has been completed within 30 days and I have reviewed it.: Yes Section B - Complete if H&P > 30 days Chief Complaint: Morbid obesity Relevant Family History (Specify if Yes): No Relevant Social History: None Present Medications: None Medical History: No relevant PMH History of Previous Operations: No relevant previous surgery Allergies: Allergies Allergy/AdvReac Type Severity Reaction Status Date / Time morphine [MORPHINE] Allergy Severe facial Verified 02/07/24 11:43 droop, numbness, lip deviation Review of Systems Sugical H&P ROS: Negative: Constitution, Cardiovascular, Respiratory, Neurological, Psychiatric, Hem-Onc, Allergic/Immunologic, Gastrointestinal, Genitourinary, Musculoskeletal, Integumentary, Endocrine and Eyes/Ears/Nose/Throat Exam Surgical H&P Exam: Normal: HEENT, Normal: Heart, Normal: Lungs, Normal: Extremities, Normal: Abdomen, Normal: Skin and Normal: Neurological Plan Diagnosis/Plan: Unchanged I have reviewed the history and physical and performed a pertinent physical examination on my patient. No changes have occurred unless specified. Time Spent With Patient Time: Total time managing care of this patient today ____ minutes.
[2024-03-29] MEDS: Lactated Ringers 1,000 ML 999 ML IV ×2 (09:07→10:04)
[2024-03-29] MEDS: Aprepitant 32 MG/4.4 ML VIAL IVPUSH (09:07)
--- NOTE | 2024-03-29 10:44 | PM.OP ---
Brief Operative Note Date of Service: 03/29/24 Pre-op diagnosis: Morbid obesity with comorbidities (see below) Post-op diagnosis: same Procedure: INITIAL PATIENT BMI ON PRESENTATION AT OUR OFFICE: 45 kg/m2 LAST BMI BEFORE SURGERY: 41.3 kg/m2 COMORBIDITIES: hypothyroidism, asthma, hyperlipidemia, migraines, insomnia, liver steatosis, liver fibrosis, liver steatosis ?The patient presented to the Weight Management Program with significant obesity that was negatively impacting the patient's comorbidities as listed above.? The program is a phased program with a special focus on preoperative medical weight management to promote substantial weight loss and prepare the patients for the second phase of the program: bariatric surgery. The patient participated in an intensive weekly lifestyle ?intervention and exercise program during which the patient ?has lost between the initial office visit and the last preoperative visit 23.6 lbs, or 10.27% of initial actual body weight. It was deemed appropriate for the patient to now have bariatric surgery. In light of the current Covid-19 pandemic and the well documented strong association of obesity and increased risk of worse outcomes if infected with Covid-19 (REFERENCES:https://pubmed.ncbi.nlm.nih.gov/90036909/,?https://pubmed.ncbi.nlm.nih.gov/18977918/), any delay in undergoing bariatric surgery may lead to the patient's worsening health condition and increased?risk of more severe Covid-19 disease if infected. In addition a recent?study from [facility] published in [facility] on 07/28/2021 ([email or web address]) found that, among patients with obesity, substantial weight loss achieved with surgery was associated with improved outcomes of COVID-19 infection. The findings suggest that obesity can be a modifiable risk factor for the severity of COVID-19 infection. In addition, the patient met the BMI-criteria for bariatric surgery based on the BMI on initial presentation. The patient should not be penalized for achieving such weight loss because ?it is not sustainable long-term without surgical intervention and it was achieved in preparation for bariatric surgery ?under my direction and based on my published research ([email or web address]).[email or web address] and?[email or web address].soard.org/article/[email or web address])14830-X/pdf) ?that a 10% preoperative weight loss improves long-term weight loss after surgery and reduces perioperative complications.? Insurance carriers such as [facility] have endorsed my recommendations ?and have included in their policies criteria to include a 10% preoperative weight loss requirement. PROCEDURE: Esophago-gastroscopy, laparoscopic sleeve gastrectomy and laparoscopic gastropexy INDICATIONS: This is a 48 year-old female who was electively scheduled for laparoscopic, possibly open sleeve gastrectomy. The risks and complications of the procedure were discussed with the patient in advance, particularly the possibility of ; pulmonary embolism; staple line leak; bleeding; GERD; cardiac, pulmonary, or renal complications; as well as long-term problems such as insufficient weight loss, vitamin deficiency, strictures, or ulcers. The patient understood all the risks, and was in agreement to proceed with surgery. DESCRIPTION OF PROCEDURE: After informed consent was obtained from the patient, the patient was given preoperative antibiotics, and was transferred to the operating room. After successful induction of general anesthesia, pneumatic compression devices were placed on both lower extremities. An upper endoscopy was performed next. The oropharynx and esophagus appeared to be within normal limits. There was no significant diaphragmatic hernia present. The stomach was entered. Then after all fluid and air were suctioned and the stomach was fully decompressed, the scope was withdrawn and secured in the mid esophagus. The patient was then prepped and draped in the usual sterile manner, and abdominal access was established at the right upper quadrant with the Ani technique. A 12 mm blunt port was inserted, and the abdomen was insufflated with CO2 to a pressure of 15 mmHg. Under direct visualization, additional ports were placed, specifically two 5 mm Versi-step ports to the left upper quadrant, and a 5 mm Versi-Step port to the right upper quadrant. 1% lidocaine plain was used to infiltrate all port sites as well as all fascia defects. Following that, the patient was placed in a steep reverse Trendelenburg position. An additional 5 mm port was placed to the right flank for the Mediflex retractor that was used to retract the left lobe of the liver. The gastro-esophageal fat pad was opened with the ultrasonic device (Thunderbeat, Olympus) and the anterior esophagus and hiatus were exposed. The angle of His was opened with the ultrasonic device the fundus of the stomach from any diaphragmatic and splenic attachments. I then opened the gastrocolic ligament between the transverse colon and the greater curvature of the stomach with the ultrasonic device to enter the lesser sac and facilitate the ligation of the short gastric vessels. I started at a mid-point along the greater curvature and using the Thunderbeat, all short gastric vessels were divided all the way to the angle of His until the left hakeem was completely dissected at its entirety. I then divided the gastro-colic ligament distally to a distance of about 3-4 cm proximal to the pylorus. The stomach was then divided transversely with two Endo PATTIE-45 purple and four PATTIE-60 articulating purple loads using the [employer] [facility] stapler and loads. Every effort was made that the gastric sleeve had a tubular shape and an even caliber throughout. Once the sleeve resection was completed, the staple line of the gastric sleeve was reinforced with Hemoclips. The resected stomach was retrieved without difficulty from the Ani port. A gastropexy was then performed in order to prevent postoperative GERD and partial gastric volvulus. Several interrupted 2.0 Surgidac sutures were placed between the sleeve's staple line and the previously divided greater omentum and gastro-colic ligament using the Endo-Stitch device. ?An upper endoscopy was performed. There was no narrowing at the GE junction. The scope was easily advanced all the way to the pylorus which was clearly visualized. There was no narrowing anywhere and the sleeve's caliber was even throughout. The sleeve's staple line was inspected and there was no evidence of ischemia, bleeding or dehiscence. At that point the gastroscope was withdrawn from the patient?s mouth while we were decompressing the bowel and the stomach from any remaining air. I looked into the lesser sac to see how the sleeve was situating and it was situating well. There was no bleeding from the staple line, spleen, or short gastric vessels. The Mediflex retractor was removed, and the undersurface of the liver was inspected and there was no bleeding. The patient was placed in supine position. I closed the fascial defect of the 12 mm port site with a figure of eight #1 Polysorb suture. Then 30cc Ropivacaine plain with 10 mg of Dexamethasone were used to infiltrate the fascial closure as well as all skin incisions. At this point, the abdomen was deflated, all ports were removed under direct vision, and no bleeding was noted from any of the port sites. The skin incisions were irrigated with saline and were closed with 4-0 absorbable monofilament sutures. Steri-Strips and OpSites were used to cover all incisions. The patient was extubated and was transferred in stable condition to the recovery room for further care. I was present and performed all laurent parts of the procedure. Mr. Gonzalez was the assistant manager retail. There were no residents to assist with this case. Ephraim Gannon MD, PhD, FACS Surgeon: Norm Gannon MD Anesthesia: GETA, local and other (TAP block) Was an Contracts Director used for this Procedure?: No Contracts Director: Erick Gonzalez Estimated blood loss (mL): 10 IV fluids (mL): 2,000 Urine output (mL): 0 (No Quintero to record output) Pathology: other (Stomach) Condition: stable Disposition: PACU
--- NOTE | 2024-03-29 10:51 | P.PNGS_ITS ---
Subjective Subjective Date of Service: 03/30/24 Interval history: Feels well. Mild incisional pain. She is tolerating phase 1 bariatric diet Physical Exam 2 Vital Signs: Vital Signs: Last Vital Signs Temp 97.8 F 03/29/24 08:37 Pulse 82 03/29/24 08:37 Resp 16 03/29/24 08:37 BP 127/61 03/29/24 08:37 Pulse Ox 100 03/29/24 08:37 O2 Del Method Room Air 03/29/24 08:37 BMI result Body Mass Index 39.8 GI: Inspection: Yes normal to inspection, Yes incision (clean, dry and intact) and Yes obesity Palpation (GI): Soft to palpation Extrem: Right lower extremity: normal to inspection (no calf tenderness) L eft lower extremity: normal to inspection (no calf tenderness) Objective Data Active Medications Albuterol Sulfate (Albuterol Sulfate (0.083%) 2.5 Mg/3 Ml Vial.Neb) 2.5 mg INHALE ONCE PRN PRN Reason: Shortness of Breath/Wheezing Droperidol (Droperidol 5 Mg/2 Ml Vial) 0.625 mg IVPUSH ONCE PRN PRN Reason: intractable nausea Stop: 03/29/24 16:02 Fentanyl (Fentanyl Citrate/Pf 100 Mcg/2 Ml Vial) 25 mcg IVPUSH Q5M PRN PRN Reason: Pain, Moderate(Pain Scale 4-6) Stop: 03/29/24 16:01 Hydromorphone HCl (Hydromorphone Hcl 0.5 Mg/0.5 Ml Syringe) 0.25 mg IVPUSH Q5M PRN PRN Reason: Pain, Severe (Pain Scale 7-10) Stop: 03/29/24 16:01 Lactated Ringer's (Lr) 1,000 mls @ 100 mls/hr IVCONT .Q10H WILFRIDO Labs 03/30/24 05:04 03/30/24 05:04 Labs: Laboratory Results - last 24 hr 03/29/24 03/29/24 08:08 08:52 Urine Test NEGATIVE Blood Type A Positive Antibody Screen NEGATIVE Procedures Date of Service Date of Service: 03/30/24 Progress Note: A&P Assessment and plan (1) Morbid obesity with BMI of 40.0-44.9, adult: Status: Acute Assessment and Plan: s/p laparoscopic sleeve gastrectomy and gastropexy Doing well Will check am labs and if OK the patient will be discharged home (2) Hypothyroidism: Status: Acute (3) Depression with anxiety: Status: Acute (4) Insomnia: Status: Acute (5) Hypertriglyceridemia: Status: Acute (6) Migraines: Status: Acute (7) Mild persistent asthma: Status: Acute (8) Hyperlipidemia LDL goal <70: Status: Acute (9) Liver fibrosis: Status: Acute (10) Steatosis, liver: Status: Acute (11) S/P laparoscopic sleeve gastrectomy: Status: Acute Time Spent With Patient Time: Total time managing care of this patient today ____ minutes. Quality Stroke Does the patient have a stroke diagnosis?: No VTE Prior VTE?: No VTE Risk Level:: Surgical - moderate VTE Device Contraindication: N/A - Device Ordered VTE Drug Contraindication: Treatment Not Indicated
--- NOTE | 2024-03-29 13:26 | PM.DS ---
DS: Providers Provider Date of Service: 03/30/24 Date of admission: 03/29/24 08:04 Primary care physician: Rupal Cox MD DS: Diagnosis Discharge Diagnosis (1) Morbid obesity with BMI of 40.0-44.9, adult: Status: Acute (2) Hypothyroidism: Status: Acute (3) Depression with anxiety: Status: Acute (4) Insomnia: Status: Acute (5) Hypertriglyceridemia: Status: Acute (6) Migraines: Status: Acute (7) Mild persistent asthma: Status: Acute (8) Hyperlipidemia LDL goal <70: Status: Acute (9) Liver fibrosis: Status: Acute (10) Steatosis, liver: Status: Acute DS: Summary Hospital Course Hospital Course: ADMITTING DIAGNOSIS: obesity, hld, depression, htn, dm. hypothyroid ? DISCHARGE DIAGNOSIS: same, s/p laparoscopic sleeve gastrectomy ? PAST SURGICAL HISTORY: cesarian section, right foot surgery ? PROCEDURE: upper endoscopy, laparoscopic sleeve gastrectomy ? DISCHARGE SUMMARY: ? History of Present Illness: ? The patient is a?48 year-old woman with a BMI of?45 kg/m2 and associated co-morbidities as described above. The patient had extensive work-up,lost?21.9 lbs preoperatively and was electively scheduled for laparoscopic, possible open sleeve gastrectomy and gastropexy. Risks and complications of the surgery were discussed with the patient in advance, particularly the possibility of , pulmonary embolism, anastomotic leak, bleeding, bowel injury, GERD, cardiac, renal or pulmonary complications. The patient understood all the risks and was in agreement with the surgical plan. ? Hospital Course: ? The patient underwent an uneventful laparoscopic sleeve gastrectomy with gastropexy on the day of admission. Postoperatively, the patient was transferred to the surgical floor. The patient received IV Acetaminophen and IV dilaudid for pain control. Patient was started on bariatric phase 1 diet POD #0. On postoperative day one, the patient was feeling well without nausea, vomiting, fevers, or tachycardia. The patient had some mild incisional pain and the abdomen was soft. ? On the morning of postoperative day one, the patient was continued on 1 ounce of water or ice every half hour. During the day, the patient did fairly well, having some incisional pain, but able to ambulate adequately and to tolerate liquids well. ? Since the patient is doing well, we decided that the patient was ready to be discharged. The patient was given instructions to follow-up with me next week and to call my office for any fever over 101, persistent abdominal pain, nausea, vomiting, GERD, symptoms of DVT such as calf tenderness, or leg swelling, or pulmonary embolism such as chest pain or shortness of breath. The patient was also instructed to drink 40-60 ounces of liquids per day using the 1-ounce cups. The patient had been given prescriptions for Tylenol for pain, Zofran prn for nausea, and pantoprazole and carafate previously. The patient was encouraged to ambulate and use the incentive spirometer. The patient was allowed to shower, but no baths, and encouraged to stay active at home. All of these instructions were given to the patient personally. All questions were answered and the patient understood all instructions, the instructions were also given to the patient in print. Time Attestation Total time managing care of this patient today: 25 mintues. Discharge Coordination Time (in mins): 25 Quality: Safe Use of Opioids Does Pt have an Active Cancer Diagnosis on the Problem List?: No Quality: Stroke Does the patient have a stroke diagnosis?: No Physical Exam Vital Signs: Vital Signs: Last Vital Signs Temp 97.8 F 03/29/24 08:37 Pulse 82 03/29/24 08:37 Resp 16 03/29/24 08:37 BP 127/61 03/29/24 08:37 Pulse Ox 100 03/29/24 08:37 O2 Del Method Room Air 03/29/24 08:37 BMI result Body Mass Index 39.8 DS: Data Data Completed and Pending Pending studies at discharge: Pending at discharge 03/29/24 12:48 Surgical [PTH] Routine Labs on day of discharge: Laboratory Results - last 24 hr 03/29/24 03/29/24 08:08 08:52 Urine Test NEGATIVE Blood Type A Positive Antibody Screen NEGATIVE Discharge Plan Discharge Anticipated Discharge Date/Time: 03/30/24 10:00 Patient Disposition: Home, Self-Care Discharge Diagnosis: s/p laparoscopic sleeve gastrectomy Referrals: Rupal Duke MD [Primary Care Provider] - 1 Week Discharge Medications: Continued (DME) blood sugar diagnostic Strip See Rx Instructions Not Applicable BID Qty: 10 11RF Rx Instructions: As directed (DME) blood-glucose meter [FreeStyle Lite Meter] Kit See Rx Instructions .Route Qty: 1 0RF Rx Instructions: As directed (DME) blood pressure monitor Kit See Rx Instructions .Route Qty: 1 0RF Rx Instructions: As directed fluticasone propionate 110 mcg/actuation HFA aerosol inhaler 2 puff inhalation BID Qty: 36 0RF sumatriptan succinate 25 mg tablet 25 mg PO Q2-4H PRN (Reason: migraine headache) 30 Days Qty: 9 0RF Rx Instructions: do not exceed 8 doses per 24 hrs albuterol sulfate 90 mcg/actuation HFA aerosol inhaler 1 inh inhalation QID PRN (Reason: shortness of breath or wheezing) Qty: 8.5 0RF pantoprazole 40 mg tablet,delayed release (DR/EC) 40 mg PO DAILY@0630 ezetimibe 10 mg tablet 10 mg PO DAILY rosuvastatin 40 mg tablet 40 mg PO BEDTIME albuterol sulfate 2.5 mg /3 mL (0.083 %) Solution For Nebulization 2.5 mg INHALATION Q6H PRN (Reason: SOB/Wheezing) levothyroxine 25 mcg tablet 25 mcg PO DAILY@0600 trazodone 100 mg tablet 100 mg PO BEDTIME PRN (Reason: Sleep) escitalopram oxalate 20 mg tablet 20 mg PO DAILY PRN (Reason: DEPRESSION) buspirone 5 mg tablet 5 mg PO DAILY PRN (Reason: Anxiety) (DME) lancets [FreeStyle Lancets] 28 gauge misc See Rx Instructions .ROUTE .MEDSUPPLY Qty: 100 Rx Instructions: As directed (DME) nebulizers [Aeroneb Go Nebulizer] Misc See Rx Instructions .Route Qty: 1 0RF Rx Instructions: As directed Discontinued acetaminophen 500 mg Tablet 500 mg PO DAILY PRN (Reason: Headache/Pain) Discharge Orders: Discharge Order (Routine); Ordered 03/30/24 Ordered By: Norm Gannon Activity on Discharge: No heavy lifting Stand Alone Forms: Patient Portal Discharge page Print Language: Romansh Care Plan Goals: weight loss Health Concerns: obesity Plan of Treatment: No tub baths, sex or returning to work until discussed at first post op appointment. No exercise, alcohol, tobacco or illegal drug use. Continue to use incentive spirometer hourly while awake. Walk in home for 5- 10 minutes every 2 hours during the first week. Follow all instructions in the bariatric handbook and call with any questions.Discharge Instructions 1. Please call your doctor or come back to the emergency room should any new symptoms arise. 2. You will receive a courtesy call from [facility] 24-48 hours after discharge. 3. Activity: abstain from alcohol, practice limited stair climbing, no bending, no driving, no exercise, no illicit substances, no lifting, no sex, no tub bath, no work. 4. Diet: continue as discussed with Dr. Gannon. 5. Dressing Change/Wound Care: Your incision is covered by clear bandages and guaze underneath. If the area is tender, you may apply an ice pack for short intervals (no more than 20 minutes on, followed by at least 20 minutes off). Do not apply heat. Do not use creams, lotions, or topical antibiotics unless instructed to do so by your surgeon. These can cause infection or allergic reaction. 6. Call your doctor if: - Your temperature exceeds 101.5 F - You experience excessive pain or swelling - You have an unexpected reaction to medication - You have excessive bleeding - You experience continued vomiting/nausea - Your incision begins to separate - Your incision shows signs of infection such as increased redness, swelling, excessive pain, heat, or drainage (light blood or clear fluid is normal) 7. General instructions: No lifting greater than 5 lbs for 1 week and not more than 20lbs the next 3?weeks. No driving until seen at the office in 5-7 days after surgery. If you do not move your bowels in the next 2 days, please tell?Dr. Gannon. Please walk around your home every hour or two to prevent blood clots from forming in your legs. You do not need to wake from sleeping to walk. Please sleep in a bed or couch to prevent kinking at the hips and knees. Please take your incentive spirometer (your lung semiconductor wafers saw operator) home with you and use it for the next few days to prevent pneumonia. You may shower, no hot tubs, baths or swimming pools.?Please follow the post op diet instructions you are?given by Dr Gannon? and text me daily at 5-6pm for an update.?If you have any issues or concerns or questions please communicate this to him via text.? The Celebrate shakes have all of the bariatric vitamins you need if you consume these shakes. If you are drinking other protein shakes, you will need to purchase the Celebrate multivitamins and calcium that are available in the hospital gift shop on the first floor of the main hospital.??Do not take anything without first discussing with Dr Gannon. Please make sure you are consuming at least 40 ounces of fluids per day starting the?day AFTER your discharge from the hospital. Always drink 1-2 ml per minute using the 5ml?syringe. If you drink faster you may experience?bloating,?gas pain, burping, nausea or heartburn. In that case please slow down your pace and use the syringe to?understand better the?proper?pace and volume of drinking. Do not hesitate to contact the office with any questions at . The patient's medical history has been reviewed and they are considered low risk for post op DVT and therefore DVT prophylaxis is not considered necessary. Travel after surgery was reviewed. The patient has not disclosed any travel plans during the first 30 days after surgery and they have been advised that within the first 30 days after surgery any bus, plane, train or car travel over 2 hours in duration is contraindicated due to the possibility of developing blood clots from immobility. Any travel, needs to include periods of ambulation of 10 minutes in duration every 2 hours.? The patient was instructed to discuss any plans for travel during this period with their bariatric surgeon. Assessment: stable s/p laparoscopic sleeve gastrectomy Discharge Date/Time: 03/30/24 09:07
[2024-03-29 14:15] LABS: Hematocrit 38.4 % (37.0-47.0)
[2024-03-29 14:26] LABS: Anion Gap 13 (12-20); Blood Urea Nitrogen 9 mg/dL (9-16); Calcium 9.1 mg/dL (8.4-10.2); Carbon Dioxide 23 mmol/L (22-29); Chloride 107 mmol/L (96-108); Creatinine Clr Calc Pharmacy 84.9; Estimated Glomerular Filt Rate > 60; Glucose Random 131 mg/dL (60-115); Potassium 3.7 mmol/L (3.3-5.1); Sodium 139 mmol/L (135-145)
[2024-03-29] MEDS: Lactated Ringers 1,000 ML 100 ML IVCONT ×2 (14:58→22:15)
[2024-03-29] MEDS: Metoclopramide HCl 10 MG/2 ML VIAL IVPUSH (15:13)
[2024-03-29] MEDS: ceFAZolin Sodium/Dextrose,Iso 2 GM/50 ML PIGGYBACK IV (16:56)
[2024-03-29] MEDS: Acetaminophen 1,000 MG/100 ML PIGGYBACK 16.7 MG IV ×2 (17:44→22:01)
[2024-03-29] MEDS: Albuterol Sulfate (0.083%) 2.5 MG/3 ML VIAL.NEB INHALE (18:57)
--- NOTE | 2024-03-29 19:04 | PHA.MEDREC ---
Addendum entered by Liliya Rey RPh 03/29/24 19:16: Med rec reviewed by [facility]. Patient said that she takes buspirone 5 mg qam PRN anxiety, escitalopram 20 mg qam PRN mood and trazodone 100 mg at bedtime PRN sleep. Original Note: Pharmacy Consult ? Medication Reconciliation Pharmacy has completed the medication reconciliation. Confirmed medications with patient and help of interpreter deaf. Patient states she never was able to hot die picker her Sucralfate suspenstion at the pharmacy due to insurance not covering it. I called and confirmed with patient pharmacy [facility] on [address] and they state they have a Carafate suspension on hold which is the name brand for Sucralfate and patient never picked it up. The patient confirmed she took her medications last yesterday.
[2024-03-29] MEDS: Famotidine/PF 20 MG/2 ML VIAL IVPUSH (20:36)
[2024-03-30 02:14] LABS: Vitamin A 43 mcg/dL (38-98)
[2024-03-30 03:07] VITALS: BP 134/79; PULSE 91; RESP 16; TEMP 36.1; O2SAT 96
[2024-03-30] MEDS: Acetaminophen 1,000 MG/100 ML PIGGYBACK 16.7 MG IV (03:17)
[2024-03-30] MEDS: Levothyroxine Sodium 25 MCG TABLET PO (05:07)
[2024-03-30 06:17] LABS: MANUAL DIFF FLAG NO
[2024-03-30 06:27] LABS: Basophils Percent Auto 0.1 % (0-2); Hematocrit 37.8 % (37.0-47.0); Hemoglobin 12.9 g/dl (12.0-16.0); Imm Gran Abs Auto 0.07 X10*3/uL (0.00-0.03); Imm Gran Pct Auto 0.5 % (0.0-0.4); Lymphocytes Absolute Auto 0.9 X10*3/uL (1.2-4.9); Lymphocytes Percent Auto 6.4 % (20-40); Mean Corpuscular HGB Conc 34.1 g/dl (31.0-35.0); Mean Corpuscular Hemoglobin 29.4 pg (27.0-33.0); Mean Corpuscular Volume 86.1 fL (80.0-98.0); Monocytes Absolute Auto 0.5 X10*3/uL (0.1-1.2); Monocytes Percent Auto 3.6 % (2-11); Neutrophils Absolute Auto 12.5 x10*3/uL (2.0-8.3); Neutrophils Percent Auto 89.4 % (45-73); Platelet Count 274 X10*3/uL (160-400); Red Blood Count 4.39 X10*6/uL (4.20-5.50); Red Cell Distribution Width 12.4 % (11.0-16.0)
[2024-03-30 06:41] LABS: Anion Gap 14 (12-20); Blood Urea Nitrogen 8 mg/dL (9-16); Calcium 9.3 mg/dL (8.4-10.2); Carbon Dioxide 21 mmol/L (22-29); Chloride 106 mmol/L (96-108); Creatinine Clr Calc Pharmacy 92.7; Estimated Glomerular Filt Rate > 60; Glucose Random 164 mg/dL (60-115); Potassium 4.2 mmol/L (3.3-5.1); Sodium 137 mmol/L (135-145)
[2024-03-30 07:02] VITALS: BP 137/67; PULSE 77; RESP 16; TEMP 36.2; O2SAT 99
--- NOTE | 2024-03-30 07:37 | HO.POSTANES ---
Post Anesthesia Evaluation Post Anesthesia Evaluation Date of Service: 03/30/24 Vital Signs: Vital Signs Temp Pulse Resp BP Pulse Ox O2 Del Method 03/30/24 07:02 97.1 F 77 16 137/67 99 Room Air 03/30/24 03:07 96.9 F 91 16 134/79 96 Room Air 03/29/24 23:32 98.2 F 88 16 141/76 H 98 Room Air 03/29/24 19:41 98.1 F 92 20 132/80 99 Room Air Anesthesia: General Endotracheal-GETA Mental Status: Awake Pain Control: Satisfactory Nausea/Vomiting: None Hydration: Adequate Anesthesia-Related Issues: No Anes. Related Issues
[2024-03-30 07:38] VITALS: PULSE 93; RESP 16; O2SAT 99
[2024-03-30] MEDS: Albuterol Sulfate (0.083%) 2.5 MG/3 ML VIAL.NEB INHALE (07:38)
[2024-03-30] MEDS: Famotidine/PF 20 MG/2 ML VIAL IVPUSH (08:30)
[2024-03-30] MEDS: 0.9 % Sodium Chloride Flush 3 ML SYRINGE IVFLUSH (08:32)
--- NOTE | 2024-03-30 09:21 | MHC.CM.PN ---
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
[2024-03-31 06:28] LABS: Vitamin B1 21 nmol/L (8-30)
== END 2024-03-30 09:07 | disposition home or self-care (01) | DRG 403 ==
LOC: HO.SSSA 08:07 → HO.S3 13:30
PROVIDERS: Nurse Practitioner; Physician Assistant Surgical; Admitting Provider Surgery; PCP Internal Medicine; Visit Provider Surgery
PROC: 0DB64Z3 Excision of Stomach, Percutaneous Endoscopic Approach, Vertical (ICD-10-PCS; CPT 43845; principal; 2024-03-29 10:30)
DX: E66.01 Morbid (severe) obesity due to excess calories (principal); K74.00 Hepatic fibrosis, unspecified; E03.9 Hypothyroidism, unspecified; F41.9 Anxiety disorder, unspecified; F32.A Depression, unspecified; J45.30 Mild persistent asthma, uncomplicated; E78.5 Hyperlipidemia, unspecified; G43.909 Migraine, unspecified, not intractable, without status migrainosus; K76.0 Fatty (change of) liver, not elsewhere classified; Z68.41 Body mass index [BMI] 40.0-44.9, adult; Z79.51 Long term (current) use of inhaled steroids; Z79.890 Hormone replacement therapy; Z79.899 Other long term (current) drug therapy
CPT/HCPCS: 36415; 80048; 80053; 80061; 81025; 82306; 82607; 82728; 83036; 83540; 84425; 84443; 84590; 84630; 85014; 85018; 85025; 85610; 85730; 86140; 86850; 86900; 86901; 88304; 88305; 88307; 88342; 94640; A4649; C9088; C9145; J0131; J0690; J1100; J1170; J2250; J2405; J2704; J2765; J2795; J3010; J7120

== ENCOUNTER → 2024-03-29 08:04 | Outpatient (BNV) | payer OTHER, SELFPAY | PROVIDERS: Admitting Provider Surgery; PCP Internal Medicine; Visit Provider Surgery | DX: E66.01 Morbid (severe) obesity due to excess calories (principal); Z68.41 Body mass index [BMI] 40.0-44.9, adult; Z98.84 Bariatric surgery status | CPT/HCPCS: 43659; 43775; 99024; 99499 ==

== ENCOUNTER 2024-04-06 14:09 | Outpatient (AMB) | payer OTHER, SELFPAY ==
--- NOTE | 2024-04-06 14:11 | MHC.OFFVISWM ---
VS Expanded 04/06/24 14:33 BP 134/64 Blood Pressure Location Rt brachial Blood Pressure Position Sitting Pulse 65 Pulse Source Pulse Oximeter Temp 97.4 F Temperature Source Temporal Artery Scan Pulse Oximetry 100 Oxygen Delivery Method Room Air Height 5 ft Weight 193 lb 6.4 oz BMI 37.8 Body Fat % 39.3 Body Fat Mass 76.0 Fat Free Mass 117.2 Visceral Fat Rating 10.0 Body Water % 43.3 Body Water Mass 83.8 Muscle Mass/Score 111.4 Basal Metabolic Rate/Score 1,615 Intake Visit Reasons: (OV) PO LSG 03/29/24 Allergies morphine [MORPHINE] Allergy (Severe, Verified 04/06/24 14:28) facial droop, numbness, lip deviation HPI Comments Details: 48-year-old female returns to the office today in follow-up. She is 8 days status post sleeve gastrectomy performed on 03/29/[address] Gannon. Tolerating 2 celebrate 4 in 1 shakes with 2 scoops each and 1 celebrate rebuild with 1 scoop and approximately 40-50 oz of fluids. She moved her bowels. Has no complaints of pain. [facility] Medical History (Updated 04/01/24 @ 00:02 by Peggy Bloom) Pre-op evaluation H. pylori infection Sacroiliac dysfunction Trigger finger, right little finger Physical exam Otitis externa Asthma Migraines Lower back pain Bronchitis Hyperkalemia Morbid obesity with BMI of 40.0-44.9, adult Mild recurrent major depression Left sided sciatica Essential hypertension Hypertriglyceridemia Insomnia Depression with anxiety Diabetes mellitus Hypothyroidism Surgical History (Updated 04/06/24 @ 14:28 by Deepa Crespo CMA) S/P laparoscopic sleeve gastrectomy History of foot surgery History of section Family History Father Emphysema lung Mother Myocardial infarction Sister Chronic mental illness Family/Other FH: mental illness Sister Diabetes Sister Cancer, Onset Age: 57 Diabetes Sister Diabetes Sister Diabetes Son No problems noted. Unknown Cancer, Onset Age: 24 Social History Household Members: None Housing: Apartment Are you a primary healthcare customer service to a significant other at home: No Do you presently have visiting nurse or other home services: No Alcohol intake: never Patient Tobacco Use Status: Former Tobacco user Tobacco use type: Cigarette e-Cigarette/Vaping Use: Never Used Second Hand Smoke Exposure: No service: No Current occupational status: employed Current occupational exposures/hazards: No Cognitive needs: No Hearing needs: No Vision needs: Yes Female Reproductive History Menstrual Age of Menarche: 13 Physical Exam GI Inspection: Yes incision (Clean, dry, intact with mild bruising) Assessment & Plan Assessment & Plan (1) S/P laparoscopic sleeve gastrectomy: Code(s): Z98.84 - Bariatric surgery status Category: Surgical Plan: POD 8 s/p LSG on 03/29/[address] Gannon Weight loss prior to surgery was 21.9 pounds or 9.5 % TBWL. Original weight on 07/13/2023 was 230.4 pounds and op weight was 208.5 pounds. Be sure to text Dr Gannon exactly 1 week after surgery your weight from your home scale so he can adjust your meal plan. Continue meal plan until f/u nga Suarez in 2 weeks May shower, no submersion in bath for another week Continue abdominal binder with activity and exercise for the next 2 weeks. Exercise prior to surgery was treadmill and may resume No abdominal exercises for 6 weeks post operatively Will be emailed link to post op video for review Reminded of the pace of drinking, 2 mL per minute, 1 oz/15 min.
[2024-04-06 14:33] VITALS: BP 134/64; PULSE 65; TEMP 36.3; O2SAT 100; BMI 37.8
== END 2024-04-06 15:02 | disposition home or self-care (01) ==
PROVIDERS: PCP Internal Medicine; Visit Provider Physician Assistant Surgical
DX: Z98.84 Bariatric surgery status (principal)
CPT/HCPCS: 99024

== ENCOUNTER → 2024-04-06 14:09 | Outpatient (BNVA) | payer OTHER, SELFPAY | PROVIDERS: PCP Internal Medicine; Visit Provider Physician Assistant Surgical | DX: Z90.3 Acquired absence of stomach [part of] (principal) | CPT/HCPCS: 99212 ==

== ENCOUNTER 2024-04-27 08:48 | Outpatient (AMB) | payer OTHER, SELFPAY ==
[2024-04-24 13:03] VITALS: BP 136/63; PULSE 63; TEMP 36.2; O2SAT 99; BMI 36.0
--- NOTE | 2024-04-24 13:03 | MHC.OFFVISWM ---
VS Expanded 04/24/24 13:03 Height 5 ft Intake Visit Reasons: (TV) PO LSG 03/29/24 Allergies morphine [MORPHINE] Allergy (Severe, Verified 04/06/24 14:28) facial droop, numbness, lip deviation HPI Comments Details: This?a?48?yo female who is s/p LSG without hiatal hernia repair on?03/29/2024. Presents for 1 month post op visit. Weight today is [] pounds, with a BMI of []. There has been a [] pound weight loss,(initial weight [] pounds) since starting the program on [] reflecting a []% total body weight loss and a weight loss of [] pounds since surgery (operative weight [] pounds) reflecting a []% TBWL since surgery. No complaints of nausea, emesis, abdominal pain or reflux. Reports infrequent but normal bowel movements every [] days and uses stool softeners regularly. Present meal plan includes: 10am - 30 gram protein shake 2pm- 30 gram protein shake 6-7 pm - dinner of 3 oz lean protein and 3 oz vegetables She will occasionally have a protein bar or yogurt in the evening. ? All meals last 20 - 30 minutes and does not drink and eat at the same time. ? Exercise routine includes: Cardio - 4d/ week at the gym on the treadmill with speed of 3.5 and incline of 5-11. she pa 425 calories on most days. Weights - 3 d/ week, 20/20/60 lbs, 15 reps and 3 sets each. Heartburn symptoms? [] Score 0-5: 0=no symptoms, 1=noticeable but not bothersome (slight or occasional), 2=noticeable, bothersome but not daily, 3=bothersome and daily, 4=affects daily activities, 5=incapacitating, unable to do daily activities How bad is the heartburn: [] Heartburn when lying down: [] Heartburn when standing up: [] Heartburn after meals: [] Does heartburn change your diet: [] Does heartburn wake you up from sleep: [] Do you have difficulty swallowing: [] Do you have pain with swallowing: [] If you take medication for reflux, does this affect your daily life: [] Total score: [] [facility] Medical History (Updated 04/01/24 @ 00:02 by Peggy Bloom) Pre-op evaluation H. pylori infection Sacroiliac dysfunction Trigger finger, right little finger Physical exam Otitis externa Asthma Migraines Lower back pain Bronchitis Hyperkalemia Morbid obesity with BMI of 40.0-44.9, adult Mild recurrent major depression Left sided sciatica Essential hypertension Hypertriglyceridemia Insomnia Depression with anxiety Diabetes mellitus Hypothyroidism Surgical History (Updated 04/06/24 @ 14:28 by Deepa Crespo CMA) S/P laparoscopic sleeve gastrectomy History of foot surgery History of section Family History Father Emphysema lung Mother Myocardial infarction Sister Chronic mental illness Family/Other FH: mental illness Sister Diabetes Sister Cancer, Onset Age: 57 Diabetes Sister Diabetes Sister Diabetes Son No problems noted. Unknown Cancer, Onset Age: 24 Social History Household Members: None Housing: Apartment Are you a primary career center advisor to a significant other at home: No Do you presently have visiting nurse or other home services: No Alcohol intake: never Patient Tobacco Use Status: Former Tobacco user Tobacco use type: Cigarette e-Cigarette/Vaping Use: Never Used Second Hand Smoke Exposure: No service: No Current occupational status: employed Current occupational exposures/hazards: No Cognitive needs: No Hearing needs: No Vision needs: Yes Female Reproductive History Menstrual Age of Menarche: 13
--- NOTE | 2024-04-27 08:52 | A.OFFVIS_ITS ---
VS Expanded 04/24/24 13:03 BP 136/63 Blood Pressure Location Rt brachial Blood Pressure Position Sitting Pulse 63 Pulse Source Pulse Oximeter Temp 97.2 F Temperature Source Temporal Artery Scan Pulse Oximetry 99 Oxygen Delivery Method Room Air Height 5 ft Weight 184 lb 6.4 oz BMI 36.0 Body Fat % 37.6 Body Fat Mass 69.2 Fat Free Mass 115.0 Visceral Fat Rating 10.0 Body Water % 44.5 Body Water Mass 82.0 Muscle Mass/Score 109.4 Basal Metabolic Rate/Score 1,577 Intake Visit Reasons: (OV) PO LSG 03/29/24 Sumatra Opener Required: Yes Sumatra Opener Services: Sumatra Opener Present Sumatra Opener Name: [id number] Allergies morphine [MORPHINE] Allergy (Severe, Verified 04/27/24 08:56) facial droop, numbness, lip deviation Medication List - Last Reconciled 04/27/24 by ANTONY Montes albuterol sulfate 90 mcg/actuation 1 inh inhalation QID PRN albuterol sulfate 2.5 mg inhalation Q6H PRN blood pressure monitor As directed blood sugar diagnostic As directed blood-glucose meter (FreeStyle Lite Meter kit) As directed buspirone 5 mg PO DAILY PRN escitalopram oxalate 20 mg PO DAILY PRN ezetimibe 10 mg PO DAILY fluticasone propionate 110 mcg/actuation 2 puffs inhalation BID lancets (FreeStyle Lancets) As directed levothyroxine 25 mcg PO DAILY@0600 nebulizers (Aeroneb Go Nebulizer) As directed pantoprazole 40 mg PO DAILY@0630 rosuvastatin 40 mg PO BEDTIME sumatriptan succinate 25 mg PO Q2-4H PRN 30 days trazodone 100 mg PO BEDTIME PRN HPI Comments Details: This?a?48?yo female who is s/p LSG without hiatal hernia repair on?03/29/2024. Presents for 1 month post op visit. Weight today is 184.4 pounds, with a BMI of 36. There has been a 46.4 pound weight loss,(initial weight 230.4 pounds) since starting the program on 07/13/23 reflecting a 20.1 % total body weight loss and a weight loss of 24.1 pounds since surgery (operative weight 208.5 pounds) reflecting a 11.5 % TBWL since surgery. No complaints of nausea, emesis, abdominal pain or reflux. Reports infrequent but normal bowel movements every [] days and uses stool softeners regularly. Present meal plan includes: 2 celebrate 4 in 1 shakes 2 scoops each, 8-10, 11-1 celebrate rebuild, 1/2 scoop, 2-4 w redbull celebrate bar 5-8 drinkn ing 32-40 oz water daily ? Exercise routine includes: treadmill 4 days per week, 300 calories [facility] Medical History Pre-op evaluation H. pylori infection Sacroiliac dysfunction Trigger finger, right little finger Physical exam Otitis externa Asthma Migraines Lower back pain Bronchitis Hyperkalemia Morbid obesity with BMI of 40.0-44.9, adult Mild recurrent major depression Left sided sciatica Essential hypertension Hypertriglyceridemia Insomnia Depression with anxiety Diabetes mellitus Hypothyroidism Surgical History S/P laparoscopic sleeve gastrectomy History of foot surgery History of section Family History Father Emphysema lung Mother Myocardial infarction Sister Chronic mental illness Family/Other FH: mental illness Sister Diabetes Sister Cancer, Onset Age: 57 Diabetes Sister Diabetes Sister Diabetes Son No problems noted. Unknown Cancer, Onset Age: 24 Social History Household Members: None Housing: Apartment Are you a primary memory care program director to a significant other at home: No Do you presently have visiting nurse or other home services: No Alcohol intake: never Patient Tobacco Use Status: Former Tobacco user Tobacco use type: Cigarette e-Cigarette/Vaping Use: Never Used Second Hand Smoke Exposure: No service: No Current occupational status: employed Current occupational exposures/hazards: No Cognitive needs: No Hearing needs: No Vision needs: Yes Female Reproductive History Menstrual Age of Menarche: 13 Physical Exam Vital Signs: Last Vital Signs Temp 97.2 F 04/24/24 13:03 Pulse 63 04/24/24 13:03 BP 136/63 04/24/24 13:03 Pulse Ox 99 04/24/24 13:03 Oxygen Delivery Method Room Air 04/24/24 13:03 BMI result Body Mass Index 36.0 Const General: healthy appearing and no acute distress Resp Effort & Inspection: normal respiratory effort Auscultation: clear to auscultation bilaterally Cardio Rate: regular rate Rhythm: regular rhythm GI Inspection: Yes incision (Clean, dry, intact.) Auscultation: normal bowel sounds Extrem General: Yes normal to inspection Assessment & Plan Assessment & Plan (1) S/P laparoscopic sleeve gastrectomy: Code(s): Z98.84 - Bariatric surgery status Category: Surgical Plan: Patient was encouraged to continue to follow meal plan. She was encouraged to increase her exercise to 5 days a week and increase calories burned to 400 per session or more. She was encouraged to text with any questions or concerns and text weekly her weight is. She will return to the office as scheduled.
== END 2024-04-27 09:24 | disposition home or self-care (01) ==
PROVIDERS: PCP Internal Medicine; Visit Provider Physician Assistant Surgical
DX: Z98.84 Bariatric surgery status (principal)
CPT/HCPCS: 99024

== ENCOUNTER → 2024-04-27 08:48 | Outpatient (BNVA) | payer OTHER, SELFPAY | PROVIDERS: PCP Internal Medicine; Visit Provider Physician Assistant Surgical | DX: Z48.815 Encounter for surgical aftercare following surgery on the digestive system (principal); Z98.84 Bariatric surgery status | CPT/HCPCS: 99212 ==

== ENCOUNTER 2024-05-09 08:14 | Outpatient (REF) | payer OTHER, SELFPAY ==
[2024-05-09 09:47] LABS: Creatinine Urine 465.89 mg/dL
[2024-05-09 09:50] LABS: Alanine Aminotransferase 38 U/L (0-31); Albumin Level 4.1 g/dL (3.5-5.0); Alkaline Phosphatase 57 U/L (39-117); Anion Gap 12 (12-20); Aspartate Amino Transferase 28 U/L (5-31); Bilirubin Total 1.7 mg/dL (0.0-1.0); Blood Urea Nitrogen 12 mg/dL (9-16); Calcium 9.9 mg/dL (8.4-10.2); Carbon Dioxide 28 mmol/L (22-29); Chloride 107 mmol/L (96-108); Cholesterol 156 mg/dL (<200); Estimated Glomerular Filt Rate > 60; Glucose Fasting 96 mg/dL (60-99); HDL Cholesterol 40 mg/dL (>40); LDL Cholesterol Calculated 102 mg/dL (<100); Potassium 4.4 mmol/L (3.3-5.1); Sodium 143 mmol/L (135-145); Total Protein 6.5 g/dL (6.5-8.0); Triglycerides 73 mg/dL (<150)
[2024-05-09 10:06] LABS: Thyroid Stimulating Hormone 2.15 uIU/mL (0.32-4.0); Vitamin D 25-OH Total 44.1 ng/mL (>30)
[2024-05-13 16:24] LABS: Lipoprotein Asso Phospholip A2 92 (<124)
[2024-05-14 06:53] LABS: Lipoprotein A 37 nmol/L (<75)
[2024-05-16 07:48] LABS: Apolipoprotein B 98 mg/dL (<90)
== END 2024-05-09 08:15 | disposition home or self-care (01) ==
LOC: HO.LAB 08:14
PROVIDERS: PCP Internal Medicine; Visit Provider Internal Medicine
DX: E11.9 Type 2 diabetes mellitus without complications (principal); E55.9 Vitamin D deficiency, unspecified; E78.5 Hyperlipidemia, unspecified; E03.9 Hypothyroidism, unspecified
CPT/HCPCS: 36415; 80053; 80061; 82043; 82172; 82306; 82570; 83695; 83698; 84443

== ENCOUNTER 2024-05-18 09:08 | Outpatient (AMB) | payer OTHER, SELFPAY ==
--- NOTE | 2024-05-18 09:11 | A.OFFPC_ITS ---
Vital Signs 05/18/24 09:13 Height 5 ft Weight 178 lb BMI 34.8 BP 120/80 Blood Pressure Location Lt brachial Position Sitting Intake Visit Reasons: annual exam Intake Note: Patient here for a physical exam Mirror Installer Required: No Accompanied by: Self / Same As Patient Allergies morphine [MORPHINE] Allergy (Severe, Verified 05/18/24 09:34) facial droop, numbness, lip deviation Medication List - Last Reconciled 05/18/24 by Rupal Cox MD albuterol sulfate 90 mcg/actuation 1 inh inhalation QID PRN albuterol sulfate 2.5 mg inhalation Q6H PRN blood pressure monitor As directed blood sugar diagnostic As directed blood-glucose meter (Lemon CurveStyle Lite Meter kit) As directed buspirone 5 mg PO DAILY PRN escitalopram oxalate 20 mg PO DAILY PRN fluticasone propionate 110 mcg/actuation 2 puffs inhalation BID lancets (FreeStyle Lancets) As directed levothyroxine 25 mcg PO DAILY@0600 nebulizers (Aeroneb Go Nebulizer) As directed pantoprazole 40 mg PO DAILY@0630 trazodone 100 mg PO BEDTIME PRN Tobacco use date assessed: 09/22/23 Dental Screening Dental Screen Date: 05/18/24 Did you have a dental visit in the last 12 months?: Yes Did you have a dental problem in the last 6 months where you did not have access to dental care?: No Was dental information given to patient?: Patient has dentist HPI HPI Comments History of Present Illness Details This is a 48-year-old female with mild recurrent major depression and diabetes mellitus type 2 that comes for her physical exam. Depression is follow by Psychiatry. Last A1c was normal and after gastrectomy she has not use anything for her sugar. Mammogram done 2023. Pap smear done 2021. She will be referred for colonoscopy. No chest pain or shortness on breath. [facility], [facility] Medical History (Updated 05/18/24 @ 11:45 by Rupal Cox MD) Physical exam Pre-op evaluation H. pylori infection Sacroiliac dysfunction Trigger finger, right little finger Otitis externa Asthma Migraines Lower back pain Bronchitis Hyperkalemia Morbid obesity with BMI of 40.0-44.9, adult Mild recurrent major depression Left sided sciatica Essential hypertension Hypertriglyceridemia Insomnia Depression with anxiety Diabetes mellitus Hypothyroidism Surgical History S/P laparoscopic sleeve gastrectomy History of foot surgery History of section Family History Father Emphysema lung Mother Myocardial infarction Sister Chronic mental illness Family/Other FH: mental illness Sister Diabetes Sister Cancer, Onset Age: 57 Diabetes Sister Diabetes Sister Diabetes Son No problems noted. Unknown Cancer, Onset Age: 24 Social History (Updated 05/18/24 @ 09:37 by Rupal Cox MD) Household Members: None Housing: Apartment Are you a primary daytime caregiver to a significant other at home: No Do you presently have visiting nurse or other home services: No Alcohol intake: current Alcohol intake frequency: holidays/special occasions only Alcohol type: hard liquor Patient Tobacco Use Status: Former Tobacco user Tobacco use type: Cigarette e-Cigarette/Vaping Use: Never Used Second Hand Smoke Exposure: No service: No Current occupational status: employed Current occupational exposures/hazards: No Cognitive needs: No Hearing needs: No Vision needs: Yes Female Reproductive History Menstrual Age of Menarche: 13 Questionnaire PHQ-9 Over the last 2 weeks, how often have you been bothered by any of the following problems? 1. Little interest or pleasure in doing things: not at all 2. Feeling down, depressed, or hopeless: several days 3. Trouble falling or staying asleep, or sleeping too much: several days 4. Feeling tired or having little energy: several days 5. Poor appetite or overeating: not at all 6. Feeling bad about yourself - or that you are a failure or have let yourself or your family down: not at all 7. Trouble concentrating on things, such as reading the newspaper or watching television: several days 8. Moving or speaking so slowly that other people could have noticed. Or the opposite - being so fidgety or restless that you have been moving around a lot more than usual: not at all 9. Thoughts that you would be better off or of hurting yourself in some way: not at all Total score: 4 Depression Screening Interpretation: Positive Depression Screening Follow-up: Existing condition, In treatment, Community Mental Health Worker F/U and Follow- up Visit Requested Depression Screening Done: Yes 20134 - PHQ-9 Billing: Yes Source: Developed by Drs. Atul Robert, Arianna Ventura, Dirk Cruz and colleagues, with an educational nam from [employer]. Thrive Questionnaire Date Thrive assessed: 05/18/24 I am a: Patient What is your living situation today?: I have a steady place to live Within the past 12 months, did the food you bought not last and you didn't have the money to get more?: Sometimes True Within the past 12 months, did you worry whether your food would run out before you got money to buy more?: Sometimes True Do you have trouble paying for medicines?: No Do you have trouble getting transportation to medical appointments?: No Do you have trouble paying your heating and electricity bill?: Yes Do you have trouble taking care of your child, family member or friend?: No Do you have trouble with day-to-day activities such as bathing, preparing meals, shopping, managing finances, etc.?: No Are you currently unemployed and looking for a job?: No Are you interested in more education?: No Please select the resources that you would like help with: Utilities Currently or been in a relationship where the following occur: No concerns reported THRIVE Score: 3 AUDIT C Alcohol Use Questionnaire (AUDIT-C) 1. How often do you have a drink containing alcohol?: Monthly or less 2. How many drinks containing alcohol do you have on a typical day when you are drinking?: 1 or 2 3. How often do you have six or more drinks on one occasion?: Never Total Score: 1 Score Reviewed/Action Taken: No MELIZA-7 AMB Questionnaire MELIZA-7 Date MELIZA - 7 assessed: 05/18/24 Feeling nervous, anxious, or on edge: 1 = Several days Not being able to stop or control worryin = Several days Worrying too much about different things: 1 = Several days Trouble relaxin = Several days Being so restless that it is hard to sit still: 1 = Several days Becoming easily annoyed or irritable: 1 = Several days Feeling afraid as if something awful might happen: 0 = Not at all Total MELIZA-7 score (0-4 normal; 5-9 mild; 10-14 moderate; 15-21 severe): 6 Source: Developed by Drs. Atul Robert, Arianna Ventura, Dirk Cruz and colleagues, with an educational nam from [employer]. MELIZA-7 Assessment Billing MELIZA-7 Assessment Tool: MELIZA-7 Assessment 05689 Review of Systems Const All systems reviewed & are unremarkable except as noted in HPI and below Card Denies chest pain at rest, Denies chest pain with activity, Denies edema, Denies irregular heart rhythm, Denies claudication, Denies dyspnea, Denies dyspnea on exertion, Denies orthopnea, Denies paroxysmal nocturnal dyspnea and Denies slow heart rate Resp Denies cough, Denies dyspnea and Denies dyspnea on exertion Physical exam (Primary Care) Vital Signs: Last Vital Signs BP 120/80 05/18/24 09:13 BMI result Body Mass Index 34.8 BMI Assessment/Plan discussion: High BMI High, discussed plan: lifestyle, weight reduction, dietary and physical activity Tobacco/Smoking Status: Tobacco use Status Tobacco use date assessed 09/22/23 05/18/24 09:22 Patient Tobacco Use Status Former Tobacco user 05/18/24 09:37 Tobacco use type Cigarette 05/18/24 09:37 e-Cigarette/Vaping Use Never Used 05/18/24 09:37 PHQ-9: PHQ-9 Score PHQ-9: Total score 4 05/18/24 09:46 Depression Screening Interpretation: Positive Depression Screening Follow-up: Existing condition, In treatment, Community Mental Health Worker F/U and Follow- up Visit Requested Thrive Assessment: Date of Thrive Assessment Date Thrive assessed 05/18/24 05/18/24 09:22 Currently or been in a relationship where the following occur: No concerns reported [facility] Head: Yes normal to inspection, Yes normocephalic and Yes atraumatic Ears: external ears normal Eyes General: appearance normal, both eyes and all related structures Eyelids: Yes eyelids normal Conjunctivae: conjunctivae normal Neck Neck: Yes normal visual inspection and Yes supple Resp Effort & Inspection: normal respiratory effort Auscultation: clear to auscultation bilaterally Cardio Jugular venous distension: no JVD Rate: regular rate Rhythm: regular rhythm Heart sounds: S1 normal heart sound present and S2 normal heart sound present GI Inspection: Yes normal to inspection Palpation (GI): Soft to palpation and nontender Auscultation: normal bowel sounds Skin General skin exam: no rashes or lesions noted Neuro General: no focal motor deficits Extrem General: Yes full ROM Psych Appearance: grossly normal Office Procedures Flu Questionnaire Does the patient have a severe egg allergy?: No Does the patient have severe life threatening allergies?: No Does the patient have a fever or illness today?: No Has the patient ever had Guillain-Gadsden Syndrome?: No Has the patient ever had any past reaction to a flu shot?: No Immunizations Fluarix Triv [id number] (PF) 45 mcg (15 mcg x 3)/0.5 mL IM syringe Performing Provider: Rupal Cox MD [facility] Administered by: NINFA Guzmán on 05/18/24 09:44 Dose Route Admin Location Dispensed Lot Number Expiration Date NDC Threshing Machine Operator 0.5 mL IM Left Deltoid 0.5 mL [id number] 01/29/25 [id number] Cover Lockscreen VIS Given Date VIS Provided VIS Publication Date 05/18/24 Single Vaccine 21 Eligibility Eligibility Date Funding Source Not [facility] Eligible 05/18/24 Private Coding Level of Care Code Est Pt Prev Care 40-64y(20059) Diagnoses Physical exam Z00.00 Mild recurrent major depression F33.0 Type 2 diabetes mellitus without complication, without long-term current use of insulin E11.9 Diabetes mellitus type: type 2 Diabetes mellitus penitentiary insulin use: without penitentiary use Diabetes mellitus complication status: without complication Additional Codes MELIZA-7 Assessment Billing - MELIZA-7 Assessment Tool: MELIZA-7 Assessment 40712 ([id number]) Time Spent (min) 32 Assessment & Plan Assessment & Plan (1) Physical exam: Code(s): Z00.00 - Encounter for general adult medical examination without abnormal findings Category: Medical Plan: Repeat in a year. (2) Mild recurrent major depression: Comment: She follows with psychiatry Code(s): F33.0 - Major depressive disorder, recurrent, mild Category: Medical Plan: Continue escitalopram. Follow-up with psychiatry. (3) Diabetes mellitus: Comment: dx~age 38-prior Rx for metformin, since d/c due to weight loss-glucose usually~90-100 Code(s): E11.9 - Type 2 diabetes mellitus without complications Category: Medical Qualifiers: Diabetes mellitus type: type 2 Diabetes mellitus terminal press operator insulin use: without terminal press operator use Diabetes mellitus complication status: without complication Qualified Code(s): E11.9 - Type 2 diabetes mellitus without complications Plan: A1c goal is equal or less than 7%. Monitor blood glucose at home. Orders: Orders Influenza [id number] Immunization Today Z23 - Encounter for immunization Vitamin D 25-OH Total 4 Months E55.9 - Vitamin D deficiency, unspecified Thyroid Stimulating Hormone 4 Months E03.9 - Hypothyroidism, unspecified Lipid Panel 4 Months E78.5 - Hyperlipidemia, unspecified Microalbumin, Random (w Creat) 4 Months R80.9 - Proteinuria, unspecified Comprehensive [place]. Panel Fast 4 Months E11.9 - Type 2 diabetes mellitus without complications Referrals Open Access Screening Colonoscopy Referral Z12.12 - Encounter for screening for malignant neoplasm of rectum Medications: New rosuvastatin 5 mg PO BEDTIME 90 days 90 tabs 0RF sennosides (senna) 8.6 mg PO BEDTIME 90 days PRN 90 tabs 0RF constipation
[2024-05-18 09:13] VITALS: BP 120/80; BMI 34.8
== END 2024-05-18 09:50 | disposition home or self-care (01) ==
PROVIDERS: PCP Internal Medicine; Visit Provider Internal Medicine
DX: Z00.00 Encounter for general adult medical examination without abnormal findings (principal); F33.0 Major depressive disorder, recurrent, mild; E11.9 Type 2 diabetes mellitus without complications; Z23 Encounter for immunization

== ENCOUNTER → 2024-05-18 09:08 | Outpatient (BNVA) | payer OTHER, SELFPAY | PROVIDERS: PCP Internal Medicine; Visit Provider Internal Medicine | DX: Z00.00 Encounter for general adult medical examination without abnormal findings (principal); F33.0 Major depressive disorder, recurrent, mild; E11.9 Type 2 diabetes mellitus without complications; Z79.899 Other long term (current) drug therapy; Z23 Encounter for immunization | CPT/HCPCS: 90471; 90656; 96127; 99396 ==

== ENCOUNTER 2024-06-09 08:11 | Outpatient (AMB) | payer OTHER, SELFPAY ==
--- NOTE | 2024-06-09 08:49 | A.OFFVIS_ITS ---
VS Expanded 06/09/24 09:07 BP 135/64 Blood Pressure Location Rt brachial Blood Pressure Position Sitting Pulse 61 Pulse Source Pulse Oximeter Temp 96.4 F L Temperature Source Temporal Artery Scan Pulse Oximetry 100 Oxygen Delivery Method Room Air Height 5 ft Weight 171 lb 12.8 oz BMI 33.5 Body Fat % 33.6 Body Fat Mass 57.8 Fat Free Mass 114.0 Visceral Fat Rating 8.0 Body Water % 47.2 Body Water Mass 81.2 Muscle Mass/Score 108.2 Basal Metabolic Rate/Score 1,543 Intake Visit Reasons: (OV) PO LSG 03/29/24 Meat And Poultry Inspector Required: Yes Meat And Poultry Inspector Services: Meat And Poultry Inspector Present Meat And Poultry Inspector Name: [facility] Allergies morphine [MORPHINE] Allergy (Severe, Verified 06/09/24 09:08) facial droop, numbness, lip deviation Medication List - Last Reconciled 06/09/24 by ANTONY Montes albuterol sulfate 90 mcg/actuation 1 inh inhalation QID PRN albuterol sulfate 2.5 mg inhalation Q6H PRN amoxicillin 500 mg PO Q12H 7 days blood pressure monitor As directed blood sugar diagnostic As directed blood-glucose meter (FreeStyle Lite Meter kit) As directed buspirone 5 mg PO DAILY PRN escitalopram oxalate 20 mg PO DAILY PRN fluticasone propionate 110 mcg/actuation 2 puffs inhalation BID lancets (FreeStyle Lancets) As directed levothyroxine 25 mcg PO DAILY@0600 nebulizers (Aeroneb Go Nebulizer) As directed rosuvastatin 5 mg PO BEDTIME 90 days sennosides (senna) 8.6 mg PO BEDTIME PRN 90 days trazodone 100 mg PO BEDTIME PRN HPI Comments Details: This?a?48?yo female who is s/p LSG without hiatal hernia repair on?03/29/2024. Presents for 2.5 month post op visit. Weight today is 171.8 pounds, with a BMI of 33.5 There has been a 58.6 pound weight loss,(initial weight 230.4 pounds) since starting the program on 07/13/23 reflecting a 25.4 % total body weight loss and a weight loss of 36.7 pounds since surgery (operative weight 208.5 pounds) reflecting a 17.6 % TBWL since surgery. No complaints of nausea, emesis, abdominal pain or reflux. Reports infrequent but normal bowel movements every 2 days and uses stool softeners regularly. Wants to start food Present meal plan includes: 2 celebrate 4 in 1 shakes 2 scoops each, 8-10, 11-1 celebrate rebuild, 1/2 scoop, 2-4 w redbull celebrate bar 5-8 drinking 48 oz water daily ? Exercise routine includes: treadmill 3 days per week, 200-300 calorie [facility] Medical History Physical exam Pre-op evaluation H. pylori infection Sacroiliac dysfunction Trigger finger, right little finger Otitis externa Asthma Migraines Lower back pain Bronchitis Hyperkalemia Morbid obesity with BMI of 40.0-44.9, adult Mild recurrent major depression Left sided sciatica Essential hypertension Hypertriglyceridemia Insomnia Depression with anxiety Diabetes mellitus Hypothyroidism Surgical History S/P laparoscopic sleeve gastrectomy History of foot surgery History of section Family History Father Emphysema lung Mother Myocardial infarction Sister Chronic mental illness Family/Other FH: mental illness Sister Diabetes Sister Cancer, Onset Age: 57 Diabetes Sister Diabetes Sister Diabetes Son No problems noted. Unknown Cancer, Onset Age: 24 Social History Household Members: None Housing: Apartment Are you a primary acute care clinical nurse specialist to a significant other at home: No Do you presently have visiting nurse or other home services: No Alcohol intake: current Alcohol intake frequency: holidays/special occasions only Alcohol type: hard liquor Patient Tobacco Use Status: Former Tobacco user Tobacco use type: Cigarette e-Cigarette/Vaping Use: Never Used Second Hand Smoke Exposure: No service: No Current occupational status: employed Current occupational exposures/hazards: No Cognitive needs: No Hearing needs: No Vision needs: Yes Female Reproductive History Menstrual Age of Menarche: 13 Physical Exam Const General: healthy appearing and no acute distress Resp Effort & Inspection: normal respiratory effort Auscultation: clear to auscultation bilaterally Cardio Rate: regular rate Rhythm: regular rhythm GI Auscultation: normal bowel sounds Extrem General: Yes normal to inspection Assessment & Plan Assessment & Plan (1) S/P laparoscopic sleeve gastrectomy: Code(s): Z98.84 - Bariatric surgery status Category: Surgical Plan: Overall, doing well. She is making progress although is not consistently exercising as much as she needs to. She does want to change her meal plan to incorporate food. 2 celebrate 4 in 1 shakes 2 scoops each, 8-10, 11-1 Meal with 4 forks of protein and 4 forks of vegetables. Recommend increasing exercise to 400-500 calories per session as she states she is only able to do 3 or 4 days per week. On the days when she is not able to do as much, certainly doing something is better than nothing. We will have her return to the office in approximately 6 weeks.
[2024-06-09 09:07] VITALS: BP 135/64; PULSE 61; TEMP 35.8; O2SAT 100; BMI 33.5
== END 2024-06-09 09:56 | disposition home or self-care (01) ==
LOC: HO.HBS 08:11
PROVIDERS: PCP Internal Medicine; Visit Provider Physician Assistant Surgical
DX: Z98.84 Bariatric surgery status (principal)
CPT/HCPCS: 99024

== ENCOUNTER → 2024-06-09 08:11 | Outpatient (BNVA) | payer OTHER, SELFPAY | PROVIDERS: PCP Internal Medicine; Visit Provider Physician Assistant Surgical | DX: Z98.84 Bariatric surgery status (principal) | CPT/HCPCS: 99212 ==

== ENCOUNTER 2024-06-21 07:31 | Emergency (ER) | payer OTHER, SELFPAY ==
--- NOTE | ~2024-06-21 | XR_ITS ---
EXAMINATION: XR CHEST CLINICAL INFORMATION: cough COMPARISON: 07/23/2023 and 10/28/2023 TECHNIQUE: Frontal and lateral views of the chest were obtained. FINDINGS: No significant abnormality is noted involving the heart, lungs, mediastinum, bony thorax or soft tissues. XR/XR chest 2V IMPRESSION: No acute cardiopulmonary disease. Electronically signed by: Chase Hutson MD 06/21/2024 08:03 AM [facility] [place]
[2024-06-21 07:34] VITALS: BP 127/61; PULSE 70; RESP 18; TEMP 36.8; O2SAT 100; BMI 32.8
--- NOTE | 2024-06-21 07:59 | ED.URI ---
HPI - URI/Sore Throat General Chief Complaint: Upper Respiratory Symptoms Stated Complaint: SOB, asthma Time Seen by Provider: 06/21/24 07:46 Source: patient and old records reviewed Mode of arrival: ambulatory Limitations: no limitations History of Present Illness ED Provider: KIMBERLEY DEJESUS Narrative: 49 yo female with PMH of HLD, asthma, migraines, HTN, DM, hypothyroidism 2 months s/p lap sleeve gastrectomy here with c/o 24 hours of cough, wheezing, chills, sinus congestion. No travel or sick contacts, no fevers, drinking well. No vomiting. MD elicited complaint: cough and rhinorrhea Pertinent past history: asthma Onset (ago): hour(s) (24) Consistency: constant Severity: moderate Description of mucous: clear Able to tolerate fluids by mouth: Yes Exacerbating factors: swallowing and other (coughing) Relieving factors: nothing Associated symptoms: rhinorrhea, nasal congestion, sore throat, cough and shortness of breath Treatments prior to arrival: none Related Data Home Medications ?Medication ?Instructions ?Recorded ?Confirmed buspirone 5 mg tablet 5 mg PO DAILY PRN Anxiety 05/27/20 06/09/24 escitalopram oxalate 20 mg tablet 20 mg PO DAILY PRN DEPRESSION 05/27/20 06/09/24 lancets 28 gauge (FreeStyle #100 ea 05/27/20 06/09/24 Lancets) trazodone 100 mg tablet 100 mg PO BEDTIME PRN Sleep 05/27/20 06/09/24 albuterol sulfate 2.5 mg/3 mL 2.5 mg inhalation Q6H PRN 03/29/24 06/09/24 (0.083 %) solution for nebulization SOB/Wheezing Previous Rx's ?Medication ?Instructions ?Recorded blood sugar diagnostic #10 ea 10/14/20 nebulizers (Aeroneb Go Nebulizer) #1 ea 05/11/22 albuterol sulfate 90 mcg/actuation 1 inh inhalation QID PRN shortness 07/05/22 aerosol inhaler of breath or wheezing #8.5 grams blood pressure monitor #1 ea 02/08/23 blood-glucose meter (FreeStyle #1 ea 02/08/23 Lite Meter kit) fluticasone propionate 110 2 puff inhalation BID #36 grams 04/11/24 mcg/actuation HFA aerosol inhaler rosuvastatin 5 mg tablet 5 mg PO BEDTIME 90 days #90 tabs 05/18/24 sennosides 8.6 mg tablet (senna) 8.6 mg PO BEDTIME PRN constipation 05/18/24 90 days #90 tabs amoxicillin 500 mg tablet 500 mg PO Q12H 7 days #14 tabs 06/01/24 levothyroxine 25 mcg tablet 25 mcg PO DAILY@0600 90 days #90 06/12/24 tabs azithromycin 200 mg/5 mL oral See Rx Instructions PO .COMPLEX 06/21/24 suspension #40 mL Allergies Allergy/AdvReac Type Severity Reaction Status Date / Time morphine [MORPHINE] Allergy Severe facial Verified 06/21/24 07:35 droop, numbness, lip deviation Review of Systems Review of Systems: Constitutional : No Fever, pos Chills ENT/Mouth : No Hoarseness, pos sore throat, No Rhinorrhea Eyes: No Redness, No Discharge, No Vision Changes Cardiovascular : No Chest Pain, positive SOB Respiratory : positive Cough, No Sputum, positive Wheezing, Gastrointestinal : No Nausea, No Vomiting, No Diarrhea, No abdominal Pain Genitourinary : No Dysuria, No Hematuria Musculoskeletal : No joint pain, No Myalgias Skin : No rash Neuro : No Weakness, No Numbness, No Headache All other systems reviewed and are negative PMFSH Past Medical History Attestation statement: The following information was validated with the patient. Source: old records reviewed Medical History Physical exam Pre-op evaluation H. pylori infection Sacroiliac dysfunction Trigger finger, right little finger Otitis externa Asthma Migraines Lower back pain Bronchitis Hyperkalemia Morbid obesity with BMI of 40.0-44.9, adult Mild recurrent major depression Left sided sciatica Essential hypertension Hypertriglyceridemia Insomnia Depression with anxiety Diabetes mellitus Hypothyroidism Surgical History S/P laparoscopic sleeve gastrectomy History of foot surgery History of section Family History Family History Father Emphysema lung Mother Myocardial infarction Sister Chronic mental illness Family/Other FH: mental illness Sister Diabetes Sister Cancer, Onset Age: 57 Diabetes Sister Diabetes Sister Diabetes Son No problems noted. Unknown Cancer, Onset Age: 24 Social History Social History Household Members: None Housing: Apartment Are you a primary health care administrator to a significant other at home: No Do you presently have visiting nurse or other home services: No Alcohol intake: current Alcohol intake frequency: holidays/special occasions only Alcohol type: hard liquor Patient Tobacco Use Status: Former Tobacco user Tobacco use type: Cigarette Smoked in Last 30 Days: No e-Cigarette/Vaping Use: Never Used Second Hand Smoke Exposure: No Use of substances other than those prescribed or required for medical reasons: No Advance Directives: No Advance Directives Information Provided: Yes Patient : No service: No Current occupational status: employed Current occupational exposures/hazards: No Cognitive needs: No Hearing needs: No Vision needs: Yes Physical Exam Vital Signs: Vital Signs: Last Vital Signs Temp 98.6 F 06/21/24 08:01 Pulse 60 06/21/24 08:30 Resp 16 06/21/24 08:30 BP 123/76 06/21/24 08:01 Pulse Ox 98 06/21/24 08:01 O2 Del Method Room Air 06/21/24 08:01 BMI result Body Mass Index 32.8 Appearance: Alert. Oriented X3. No acute distress. Eyes: Pupils equal, round and reactive to light. ENT: Pharynx mild erythema no exudates Neck: Normal inspection. Neck supple. CVS: Normal heart rate and rhythm. Pulses normal. Respiratory: No respiratory distress. Breath sounds slightly diminished with no wheezes rhonchi noted Abdomen: Soft and nontender. Skin: Skin warm and dry. Normal skin color. Extremities: No lower extremity edema. No calf ttp Neuro: Oriented X 3. No motor deficit. No sensory deficit. Medications Administered Discontinued Medications Generic Name Dose Route Start Last Admin Trade Name Freq PRN Reason Stop Dose Admin Albuterol Sulfate 2.5 mg/ 0 mg 06/21/24 08:26 06/21/24 08:29 Albuterol/Ipratropium 3 ml INHALE 06/21/24 08:27 5 dose ONCE ONE Administration Dexamethasone Sodium Phosphate 8 mg 06/21/24 08:15 06/21/24 08:36 Dexamethasone Sod Phosphate 4 Mg/Ml Vial PO 06/21/24 08:16 8 mg ONCE ONE Administration Medical Decision Making Medical Decision Making MDM Narrative: 49 yo female with PMH of HLD, asthma, migraines, HTN, DM, hypothyroidism here with c/o 24 hours of cough symptoms at this time will give dexamethasone one time dose given sleeve status - neb therapy and obtain viral panel and CXR for pneumonia - at this time not toxic no hypoxia and no increased work of breathing. Differential Diagnosis Differential Diagnoses: The differential diagnosis associated with the presentation includes viral syndrome, bronchitis, asthma Admission/Observation Consideration of admission/observation: Escalation of care including admission/observation considered not toxic no hypoxia can be managed as outpatient Lab Data MDM Lab Attestation statement: I reviewed the patient's lab results. Labs: Lab Results 06/21/24 Range/Units 08:12 Influenza Type A (PCR) NEGATIVE (Negative) Influenza Type B (PCR) NEGATIVE (Negative) RSV RNA Qual (PCR) NEGATIVE (Negative) SARS-CoV-2 RNA (RT-PCR) NEGATIVE (Negative) S. pyogenes GrpA SHASTA Negative (Negative) Independent Interpretation I performed an independent interpretation of an: Plain X-Ray (no consolidation) Radiology Impression Discussion of test interpretation with radiology: I have reviewed the radiologist's reading. External Record Review External record reviewed: Outpatient record Prescription Management I considered prescription management with: Antibiotic and Other Discharge Plan Discharge Clinical Impression: Bronchitis Patient Disposition: Home, Self-Care Instructions: Acute Bronchitis (ED) Additional Instructions: return for any worsening symptoms or concerns chest xray negative no pneumonia swabs negative for flu, covid, rsv, strep continue your inhalers return for any worsening symptoms or concerns. give lose dose steroid in ED will last 3 to 5 days Prescriptions: New azithromycin 200 mg/5 mL suspension for reconstitution See Rx Instructions .ROUTE .COMPLEX Qty: 40 0RF Rx Instructions: take 12.5 mL (500 mg) by mouth today (day 1), then 6.25 mL (250 mg) daily for 4 days (days 2-5) No Action (DME) blood sugar diagnostic Strip See Rx Instructions Not Applicable BID Qty: 10 11RF Rx Instructions: As directed (DME) blood-glucose meter [FreeStyle Lite Meter] Kit See Rx Instructions .Route Qty: 1 0RF Rx Instructions: As directed (DME) blood pressure monitor Kit See Rx Instructions .Route Qty: 1 0RF Rx Instructions: As directed fluticasone propionate 110 mcg/actuation HFA aerosol inhaler 2 puff inhalation BID Qty: 36 0RF amoxicillin 500 mg tablet 500 mg PO Q12H 7 Days Qty: 14 0RF levothyroxine 25 mcg tablet 25 mcg PO DAILY@0600 90 Days Qty: 90 1RF albuterol sulfate 90 mcg/actuation HFA aerosol inhaler 1 inh inhalation QID PRN (Reason: shortness of breath or wheezing) Qty: 8.5 0RF albuterol sulfate 2.5 mg /3 mL (0.083 %) Solution For Nebulization 2.5 mg INHALATION Q6H PRN (Reason: SOB/Wheezing) trazodone 100 mg tablet 100 mg PO BEDTIME PRN (Reason: Sleep) escitalopram oxalate 20 mg tablet 20 mg PO DAILY PRN (Reason: DEPRESSION) buspirone 5 mg tablet 5 mg PO DAILY PRN (Reason: Anxiety) (DME) lancets [FreeStyle Lancets] 28 gauge misc See Rx Instructions .ROUTE .MEDSUPPLY Qty: 100 Rx Instructions: As directed (DME) nebulizers [Aeroneb Go Nebulizer] Misc See Rx Instructions .Route Qty: 1 0RF Rx Instructions: As directed rosuvastatin 5 mg tablet 5 mg PO BEDTIME 90 Days Qty: 90 0RF sennosides [senna] 8.6 mg tablet 8.6 mg PO BEDTIME PRN (Reason: constipation) 90 Days Qty: 90 0RF Print Language: Portuguese
[2024-06-21 08:01] VITALS: BP 123/76; PULSE 61; RESP 12; TEMP 37; O2SAT 98
[2024-06-21] MEDS: Albuterol Sulfate 2.5 MG, Albuterol/Iprat 2.5/0.5MG 3 ML 3 ML INHALE (08:29)
[2024-06-21 08:30] VITALS: PULSE 60; RESP 16; O2SAT 100
--- NOTE | 2024-06-21 08:32 | PC.NURSE ---
RT to bedside for eval/treatment.
[2024-06-21] MEDS: dexAMETHasone sod phosphate 4 MG/ML VIAL 8 MG PO (08:36)
[2024-06-21 09:00] LABS: IDNOW Serial# 08D9AD1C; Strep A Nucleic Acid Negative (Negative)
[2024-06-21 09:02] LABS: Influenza A PCR NEGATIVE (Negative); Influenza B PCR NEGATIVE (Negative); Resp Syncy Virus RNA Qual PCR NEGATIVE (Negative); SARS COV2 PCR INHOUSE NEGATIVE (Negative)
[2024-06-21 09:39] VITALS: BP 141/96; PULSE 78; RESP 13; TEMP 36.6; O2SAT 97
== END 2024-06-21 09:45 | disposition home or self-care (01) ==
PROVIDERS: Emergency Provider Emergency Medicine; PCP Internal Medicine
DX: J40 Bronchitis, not specified as acute or chronic (principal); Z03.818 Encounter for observation for suspected exposure to other biological agents ruled out; R06.02 Shortness of breath; R05.9 Cough, unspecified; Z79.899 Other long term (current) drug therapy
CPT/HCPCS: 0241U; 71046; 87651; 94640; 99284; 99285; J1100

== ENCOUNTER 2024-07-13 08:11 | Outpatient (AMB) | payer OTHER, SELFPAY ==
--- NOTE | 2024-07-13 08:13 | MHC.OFFVISWM ---
VS Expanded 07/13/24 08:23 BP 134/69 Blood Pressure Location Rt brachial Blood Pressure Position Sitting Pulse 62 Pulse Source Pulse Oximeter Temp 97.1 F Temperature Source Temporal Artery Scan Pulse Oximetry 100 Oxygen Delivery Method Room Air Height 5 ft Weight 168 lb 6.4 oz BMI 32.9 Body Fat % 32.0 Body Fat Mass 53.8 Fat Free Mass 114.4 Visceral Fat Rating 8.0 Body Water % 48.5 Body Water Mass 81.6 Muscle Mass/Score 108.6 Basal Metabolic Rate/Score 1,541 Intake Visit Reasons: (OV) PO LSG 03/29/24 Supervisor Pipe Joints Required: Yes Supervisor Pipe Joints Services: Supervisor Pipe Joints Present Supervisor Pipe Joints Name: hospital cmi Allergies morphine [MORPHINE] Allergy (Severe, Verified 07/13/24 08:24) facial droop, numbness, lip deviation Medication List - Last Reconciled 07/13/24 by ANTONY Montes albuterol sulfate 90 mcg/actuation 1 inh inhalation QID PRN albuterol sulfate 2.5 mg inhalation Q6H PRN amoxicillin 500 mg PO Q12H 7 days azithromycin take 12.5 mL (500 mg) by mouth today (day 1), then 6.25 mL (250 mg) daily for 4 days (days 2-5) blood pressure monitor As directed blood sugar diagnostic As directed blood-glucose meter (FreeStyle Lite Meter kit) As directed buspirone 5 mg PO DAILY PRN escitalopram oxalate 20 mg PO DAILY PRN fluticasone propionate 110 mcg/actuation 2 puffs inhalation BID lancets (FreeStyle Lancets) As directed levothyroxine 25 mcg PO DAILY@0600 90 days nebulizers (Aeroneb Go Nebulizer) As directed rosuvastatin 5 mg PO BEDTIME 90 days sennosides (senna) 8.6 mg PO BEDTIME PRN 90 days trazodone 100 mg PO BEDTIME PRN HPI Comments Details: This?a?49?yo female who is s/p LSG without hiatal hernia repair on?03/29/2024. Presents for 3.5 month post op visit. Weight today is 168.4 pounds, with a BMI of 32.9 There has been a 62 pound weight loss,(initial weight 230.4 pounds) since starting the program on 07/13/23 reflecting a 26.9 % total body weight loss and a weight loss of 40.1 pounds since surgery (operative weight 208.5 pounds) reflecting a 19.2 % TBWL since surgery. No complaints of nausea, emesis, abdominal pain or reflux. Reports difficulty with constipation, stools are hard. Bowel movements every 3 days. At her last visit, proximally a month ago, she wanted to incorporate food. Since her last visit, she has lost 3.4 lb. She states that additionally since last being seen, she has had difficulty with constipation. She has had a flare of asthma for which she was seen in the emergency department. She is also discuss this with her primary care physician. She also reports amenorrhea since surgery. She has discussed this with her primary care physician who has not yet referred her to gynecology. Wants to change to Premier protein Present meal plan includes: 2 celebrate 4 in 1 shakes 2 scoops each, 8-10, 11-1 Meal with 4 forks of protein and 4 forks of vegetables. drinking 64 oz water daily ? Exercise routine includes: treadmill 3 days per week, 400 calorie PFSH Medical History Physical exam Pre-op evaluation H. pylori infection Sacroiliac dysfunction Trigger finger, right little finger Otitis externa Asthma Migraines Lower back pain Bronchitis Hyperkalemia Morbid obesity with BMI of 40.0-44.9, adult Mild recurrent major depression Left sided sciatica Essential hypertension Hypertriglyceridemia Insomnia Depression with anxiety Diabetes mellitus Hypothyroidism Surgical History S/P laparoscopic sleeve gastrectomy History of foot surgery History of section Family History Father Emphysema lung Mother Myocardial infarction Sister Chronic mental illness Family/Other FH: mental illness Sister Diabetes Sister Cancer, Onset Age: 57 Diabetes Sister Diabetes Sister Diabetes Son No problems noted. Unknown Cancer, Onset Age: 24 Social History Household Members: None Housing: Apartment Are you a primary client care coordinator to a significant other at home: No Do you presently have visiting nurse or other home services: No Alcohol intake: current Alcohol intake frequency: holidays/special occasions only Alcohol type: hard liquor Patient Tobacco Use Status: Former Tobacco user Tobacco use type: Cigarette e-Cigarette/Vaping Use: Never Used Second Hand Smoke Exposure: No service: No Current occupational status: employed Current occupational exposures/hazards: No Cognitive needs: No Hearing needs: No Vision needs: Yes Female Reproductive History Menstrual Age of Menarche: 13 Physical Exam Vital Signs: Last Vital Signs Temp 97.1 F 07/13/24 08:23 Pulse 62 07/13/24 08:23 BP 134/69 07/13/24 08:23 Pulse Ox 100 07/13/24 08:23 Oxygen Delivery Method Room Air 07/13/24 08:23 BMI result Body Mass Index 32.9 Const General: healthy appearing and no acute distress Resp Effort & Inspection: normal respiratory effort Auscultation: clear to auscultation bilaterally Cardio Rate: regular rate Rhythm: regular rhythm GI Auscultation: normal bowel sounds Extrem General: Yes normal to inspection Assessment & Plan Assessment & Plan (1) S/P laparoscopic sleeve gastrectomy: Code(s): Z98.84 - Bariatric surgery status Category: Surgical Plan: Change meal plan to utilize Premier protein: Premier protein ready to drink shake, 8-10 Half cartons mixed with 6 oz of unsweetened almond milk, 12-2 Continue her meal with 4 forks of protein and for forks of vegetables Start celebrate multivitamin once nightly. Discussed the importance of exercise. Increasing as she is able, she is limited by working 2 jobs. (2) Constipation: Code(s): K59.00 - Constipation, unspecified Category: Medical Plan: Add fiber gummy daily Add MiraLax daily Add Dulcolax suppository daily p.r.n. Medications: New polyethylene glycol 3350 (Miralax) 17 grams PO DAILY 238 grams 2RF bisacodyl (Dulcolax (bisacodyl)) 10 mg CA DAILY PRN 12 ea 0RF constipation
[2024-07-13 08:23] VITALS: BP 134/69; PULSE 62; TEMP 36.2; O2SAT 100; BMI 32.9
== END 2024-07-13 08:55 | disposition home or self-care (01) ==
PROVIDERS: PCP Internal Medicine; Visit Provider Physician Assistant Surgical
DX: K59.00 Constipation, unspecified (principal); Z98.84 Bariatric surgery status
CPT/HCPCS: 99214; G2211

== ENCOUNTER → 2024-07-13 08:11 | Outpatient (BNVA) | payer OTHER, SELFPAY | PROVIDERS: PCP Internal Medicine; Visit Provider Physician Assistant Surgical | DX: Z98.84 Bariatric surgery status (principal) | CPT/HCPCS: 99212 ==

== ENCOUNTER 2024-10-03 07:17 | Emergency (ER) | payer OTHER, SELFPAY ==
--- NOTE | ~2024-10-03 | XR_ITS ---
EXAMINATION: XR CHEST CLINICAL INFORMATION: COUGH COMPARISON: June 21, 2024. TECHNIQUE: 2 views of the chest were obtained. FINDINGS: Patchy prominence of the inferior right pulmonary hilum. No pleural effusion. No pneumothorax. Cardiomediastinal silhouette size is normal. Multilevel thoracic spondylosis. S-shaped curvature of the thoracolumbar spine. XR/XR chest 2V IMPRESSION: Questionable lymphadenopathy inferior right pulmonary hilum. Electronically signed by: Santana Mcintosh MD 10/03/2024 08:47 AM DARLINE
--- NOTE | 2024-10-03 07:25 | ECG_ITS ---
Test Reason : chest pain, cough Blood Pressure : */* mmHG Vent. Rate : 70 BPM Atrial Rate : 70 BPM P-R Int : 164 ms QRS Dur : 76 ms QT Int : 368 ms P-R-T Axes : 39 18 40 degrees QTcB Int : 397 ms Normal sinus rhythm Normal ECG When compared with ECG of 28-Oct-2023 07:13, No significant change was found Referred By: Generic ED Physician Electronically Signed By: COLLINS AVILA MD
[2024-10-03 07:36] VITALS: BP 112/59; PULSE 74; RESP 16; TEMP 36.6; O2SAT 98; BMI 31.7
--- OUTSIDE RECORDS SUMMARY | 2024-10-03 07:44 | XMS_ITS | Encounter Summary ---
Author Organization [facility] Address [address] [place] [address] [address] [place] [address] Care Team Providers Care Senior Logistics Manager Name Role Phone Unavailable Primary Care Provider Unavailabl e Encounter Details Date Type Department Care Team (Latest Contact Info) Description 06/08/2019 Abstract [facility] CONVERSIONS Dental, Provider, DDS Social History Tobacco Use Types Packs/Day Years Used Date Smoking Tobacco: Never Assessed Comments Unknown Sex and Gender Information Value Date Recorded Sex Assigned at Female 06/01/2022 10:35 AM EDT Legal Sex Female 10:35 AM EDT Gender Identity Female 06/01/2022 10:35 AM EDT Sexual Orientation Straight 06/01/2022 10 :35 AM EDT documented as of this encounter Plan of Treatment Not on file documented as of this encounter Visit Diagnoses Not on filedocumented in this encounter
--- OUTSIDE RECORDS SUMMARY | 2024-10-03 07:44 | XMS_ITS | Clinical Summary ---
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 Name Role Phone Unavailable Primary Care Provider Unavailabl e Social History Tobacco Use Types Packs/Day Years Used Date Smoking Tobacco: Never Assessed Comments Unknown Sex and Gender Information Value Date Recorded Sex Assigned at Female 06/01/2022 10:35 AM EDT Legal Sex Female 10:35 AM EDT Gender Identity Female 06/01/2022 10:35 AM EDT Sexual Orientation Straight 06/01/2022 10 :35 AM EDT Plan of Treatment Health Maintenance Due Date Last Done Comments CT Colonography 1977 Colonoscopy 1977 Colorectal Cancer Screening 1977 Depression Screening 1977 FIT DNA/Cologuard 1977 FIT 1977 FOBT 1977 HIV Screening 1977 SDOH Screening 1977 Sigmoidoscopy 1977 Alcohol/Substance Use Screening 1989 Tobacco Screening 1989 Family Planning (PISQ) 1992 Hepatitis C Screening 1995 Hepatitis B Vaccines (1 of 3 - 19+ 3-dose series) 1996 Pap Smear 1998 Cervical Cancer Screening 2007 HPV/Cotest 2007 Mammogram 2017 COVID-19 Vaccine ( season) 2024 09/16/2021, 10/09/2020, 09/18/2020 Influenza Vaccine (#1) 2024 , 05/05/2021, 05/15/2019, Additional history exists Zoster Vaccines (1 of 2) 2027 DTaP/Tdap/Td Vaccines (2 - Td or Tdap) 07/24/2032 07/24/2022 RSV Patients and Patients Aged 60 years or older (1 - 1-dose 75+ series) 2052 Pneumococcal Vaccine: Pediatrics (0 to 5 Years) and At-Risk Patients (6 to 49) Years) Aged Out 07/01/2017 No longer eligible based on patient's age to complete this topic HIB Vaccines Aged Out No longer eligi ble based on patient's age to complete this topic HPV Vaccines Aged Out No longer eligi ble based on patient's age to complete this topic Hepatitis A Vaccines Aged Out No long er eligible based on patient's age to complete this topic IPV Vaccines Aged Out No longer eligi ble based on patient's age to complete this topic Meningococcal Vaccine Aged Out No samuel sarkis eligible based on patient's age to complete this topic RSV under 20 months Aged Out No longe r eligible based on patient's age to complete this topic Rotavirus Vaccines Aged Out No longer eligible based on patient's age to complete this topic Insurance [facility]
[2024-10-03 08:08] LABS: MANUAL DIFF FLAG NO
[2024-10-03 08:09] LABS: Basophils Absolute Auto 0.1 X10*3/uL (0.0-0.2); Basophils Percent Auto 0.7 % (0-2); Eosinophils Absolute Auto 0.2 X10*3/uL (0.0-0.4); Eosinophils Percent Auto 3.1 % (0-4); Hematocrit 37.7 % (37.0-47.0); Hemoglobin 12.9 g/dl (12.0-16.0); Imm Gran Abs Auto 0.02 X10*3/uL (0.00-0.03); Imm Gran Pct Auto 0.3 % (0.0-0.4); Lymphocytes Absolute Auto 2.3 X10*3/uL (1.2-4.9); Lymphocytes Percent Auto 30.6 % (20-40); Mean Corpuscular HGB Conc 34.2 g/dl (31.0-35.0); Mean Corpuscular Hemoglobin 30.4 pg (27.0-33.0); Mean Corpuscular Volume 88.7 fL (80.0-98.0); Mean Platelet Volume 9.9 fL (9.4-12.3); Monocytes Absolute Auto 0.6 X10*3/uL (0.1-1.2); Monocytes Percent Auto 8.3 % (2-11); Neutrophils Absolute Auto 4.2 x10*3/uL (2.0-8.3); Platelet Count 279 X10*3/uL (160-400); Red Blood Count 4.25 X10*6/uL (4.20-5.50); Red Cell Distribution Width 13.1 % (11.0-16.0); White Blood Count 7.4 X10*3/uL (4.8-10.8)
[2024-10-03 08:26] LABS: Alanine Aminotransferase 28 U/L (0-31); Albumin Level 3.8 g/dL (3.5-5.0); Alkaline Phosphatase 79 U/L (39-117); Anion Gap 11 (12-20); Aspartate Amino Transferase 17 U/L (5-31); Bilirubin Total 1.4 mg/dL (0.0-1.0); Blood Urea Nitrogen 17 mg/dL (9-16); Calcium 8.8 mg/dL (8.4-10.2); Carbon Dioxide 23 mmol/L (22-29); Chloride 110 mmol/L (96-108); Creatinine Clr Calc Pharmacy 77.3; Estimated Glomerular Filt Rate > 60; Glucose Random 88 mg/dL (60-115); Potassium 4.6 mmol/L (3.3-5.1); Sodium 139 mmol/L (135-145); Total Protein 6.7 g/dL (6.5-8.0)
--- NOTE | 2024-10-03 11:39 | ED_ITS ---
HPI - URI/Sore Throat General Chief Complaint: Upper Respiratory Symptoms Stated Complaint: Chest pain, sore throat Time Seen by Provider: 10/03/24 11:55 Source: patient, RN notes reviewed and old records reviewed Mode of arrival: ambulatory History of Present Illness ED Provider: Liz Lazo PA-C HPI Narrative: 49-year-old female with a past medical history of asthma, migraines, obesity s/p sleeve gastrectomy, diabetes, HTN, HLD, presenting to the ED complaining of dry cough, chest discomfort/back pain with cough, SOB, chills x 1 week. Denies fever, travel, sick contacts, pedal edema Related Data Home Medications ?Medication ?Instructions ?Recorded ?Confirmed buspirone 5 mg tablet 5 mg PO DAILY PRN Anxiety 05/27/20 07/13/24 escitalopram oxalate 20 mg tablet 20 mg PO DAILY PRN DEPRESSION 05/27/20 07/13/24 lancets 28 gauge (FreeStyle #100 ea 05/27/20 07/13/24 Lancets) trazodone 100 mg tablet 100 mg PO BEDTIME PRN Sleep 05/27/20 07/13/24 albuterol sulfate 2.5 mg/3 mL 2.5 mg inhalation Q6H PRN 03/29/24 07/13/24 (0.083 %) solution for nebulization SOB/Wheezing Previous Rx's ?Medication ?Instructions ?Recorded blood sugar diagnostic #10 ea 10/14/20 nebulizers (Aeroneb Go Nebulizer) #1 ea 05/11/22 albuterol sulfate 90 mcg/actuation 1 inh inhalation QID PRN shortness 07/05/22 aerosol inhaler of breath or wheezing #8.5 grams blood pressure monitor #1 ea 02/08/23 blood-glucose meter (FreeStyle #1 ea 02/08/23 Lite Meter kit) fluticasone propionate 110 2 puff inhalation BID #36 grams 04/11/24 mcg/actuation HFA aerosol inhaler sennosides 8.6 mg tablet (senna) 8.6 mg PO BEDTIME PRN constipation 05/18/24 90 days #90 tabs amoxicillin 500 mg tablet 500 mg PO Q12H 7 days #14 tabs 06/01/24 levothyroxine 25 mcg tablet 25 mcg PO DAILY@0600 90 days #90 06/12/24 tabs azithromycin 200 mg/5 mL oral See Rx Instructions PO .COMPLEX 06/21/24 suspension #40 mL bisacodyl 10 mg rectal suppository 10 mg MT DAILY PRN constipation 07/13/24 (Dulcolax (bisacodyl)) #12 ea polyethylene glycol 3350 17 17 g PO DAILY #238 grams 07/13/24 gram/dose oral powder (Miralax) rosuvastatin 5 mg tablet 5 mg PO BEDTIME 90 days #90 tabs 08/13/24 umeclidinium 62.5 mcg-vilanterol 1 inh inhalation DAILY 60 days #60 09/06/24 25 mcg/actuation powdr for ea inhalation (Anoro Ellipta) Allergies Allergy/AdvReac Type Severity Reaction Status Date / Time morphine [MORPHINE] Allergy Severe facial Verified 10/03/24 07:37 droop, numbness, lip deviation Review of Systems 2 Review of Systems: Yes all other systems are reviewed and are negative Constitutional: Constitutional: Reports as per [facility] Past Medical History Attestation statement: The following information was validated with the patient. Source: old records reviewed Medical History Physical exam Pre-op evaluation H. pylori infection Sacroiliac dysfunction Trigger finger, right little finger Otitis externa Asthma Migraines Lower back pain Bronchitis Hyperkalemia Morbid obesity with BMI of 40.0-44.9, adult Mild recurrent major depression Left sided sciatica Essential hypertension Hypertriglyceridemia Insomnia Depression with anxiety Diabetes mellitus Hypothyroidism Surgical History S/P laparoscopic sleeve gastrectomy History of foot surgery History of section Family History Family History Father Emphysema lung Mother Myocardial infarction Sister Chronic mental illness Family/Other FH: mental illness Sister Diabetes Sister Cancer, Onset Age: 57 Diabetes Sister Diabetes Sister Diabetes Son No problems noted. Unknown Cancer, Onset Age: 24 Social History Social History Household Members: None Housing: Apartment Are you a primary infant caregiver to a significant other at home: No Do you presently have visiting nurse or other home services: No Alcohol intake: current Alcohol intake frequency: holidays/special occasions only Alcohol type: hard liquor Patient Tobacco Use Status: Former Tobacco user Tobacco use type: Cigarette e-Cigarette/Vaping Use: Never Used Second Hand Smoke Exposure: No Advance Directives: Yes Advance Directives Information Provided: Yes Advance Directives on File: No service: No Current occupational status: employed Current occupational exposures/hazards: No Cognitive needs: No Hearing needs: No Vision needs: Yes Physical Exam 2 Vital Signs: Vital Signs: Last Vital Signs Temp 98.8 F 10/03/24 12:00 Pulse 80 10/03/24 12:23 Resp 18 10/03/24 12:23 BP 112/62 10/03/24 12:00 Pulse Ox 100 10/03/24 12:00 O2 Del Method Room Air 10/03/24 12:00 BMI result Body Mass Index 31.7 Const: General: cooperative, healthy appearing and no acute distress O rientation/consciousness: patient oriented x3 Limitations: no limitations HEENT: Head: Yes normal to inspection and Yes atraumatic Ears: hearing grossly normal bilaterally General nose exam: Normal external nose present Face and sinus: Yes normal facial exam Eyes: General: appearance normal, both eyes and all related structures EOM: EOMs intact bilaterally Neck: Neck: Yes normal visual inspection and Yes no meningeal signs Resp: Effort & Inspection: normal respiratory effort, Actively coughing Quality: dry, no respiratory distress and no stridor Auscultation: clear to auscultation bilaterally, no crackles, no rales, no rhonchi and no wheezes Cardio: Rate: regular rate Heart sounds: S1 normal heart sound present and S2 normal heart sound present GI: Inspection: Yes normal to inspection Palpation (GI): Soft to palpation, nontender, no guarding and not rigid Skin: Rashes: no rashes Wounds: no wounds Neuro: General: patient oriented x3, tone normal and no meningeal signs C ranial nerves: Yes CN's II-XII intact bilaterally Gait exam (Neuro): Normal gait present Extrem: General: Yes normal to inspection, Yes no pedal edema and Yes no calf tenderness Course Course Course Narrative: This is an RME: Additional HPI, ROS, PE not included below will be deferred to primary provider. RME assessment and note performed by: Kiersten Kline PA-C This is a 65-mfgh-[id number]-female, with a hx of asthma, HLD, thyroid disease, who presents to the ER with complaint of cough, chest pain with cough only x 1 week. No fevers. Some shortness of breath. Lung CTAB. Plan: Labs. xr chest, viral swabs -labs reassuring XR chest 2V IMPRESSION: Questionable lymphadenopathy inferior right pulmonary hilum. -1249--troponin negative. viral testing negative Results discussed with patient including worrisome signs and symptoms and strict return precautions, and when to return to the emergency department. They verbalized understanding and feel safe for discharge at this time. Medications Administered Discontinued Medications Generic Name Dose Route Start Last Admin Trade Name Freq PRN Reason Stop Dose Admin Albuterol Sulfate 2.5 mg/ 0 mg 10/03/24 12:18 10/03/24 12:22 Albuterol/Ipratropium 3 ml INHALE 10/03/24 12:19 1 dose ONCE ONE Administration Medical Decision Making Medical Decision Making MDM Narrative: 49-year-old female with a past medical history of asthma, migraines, obesity s/p sleeve gastrectomy, diabetes, HTN, HLD, presenting to the ED complaining of dry cough, chest discomfort/back pain with cough, SOB, chills x 1 week. On exam vital signs stable, NAD, nontoxic appearing dry cough appreciated, lungs CTA, no pedal edema/calf tenderness. Concern for viral illness vs asthma exacerbation vs bronchitis vs pneumonia. Lower suspicion for acute ACS/PE or DVT Plan: EKG, labs, CXR, viral testing, ED bronch protocol. Will avoid prednisone/steroid use due to recent bariatric surgery Please refer to course for remaining clinical decision making, interpretation of labs/imaging results, and discussions with consultants and/or family members. Differential Diagnosis Differential Diagnoses: The differential diagnosis associated with the presentation includes As above Admission/Observation Consideration of admission/observation: Escalation of care including admission/observation considered Lab Data [facility] Lab Attestation statement: I reviewed the patient's lab results. 10/03/24 08:03 10/03/24 08:03 Labs: Lab Results 10/03/24 10/03/24 Range/Units 08:03 11:42 WBC 7.4 (4.8-10.8) X10*3/uL RBC 4.25 (4.20-5.50) X10*6/uL Hgb 12.9 (12.0-16.0) g/dl Hct 37.7 (37.0-47.0) % MCV 88.7 (80.0-98.0) fL MCH 30.4 (27.0-33.0) pg MCHC 34.2 (31.0-35.0) g/dl RDW 13.1 (11.0-16.0) % Plt Count 279 (160-400) X10*3/uL MPV 9.9 (9.4-12.3) fL Immature Gran % (Auto) 0.3 (0.0-0.4) % Neut % (Auto) 57.0 (45-73) % Lymph % (Auto) 30.6 (20-40) % [place] % (Auto) 8.3 (2-11) % Eos % (Auto) 3.1 (0-4) % Baso % (Auto) 0.7 (0-2) % Lymph # (Auto) 2.3 (1.2-4.9) X10*3/uL [place] # (Auto) 0.6 (0.1-1.2) X10*3/uL Eos # (Auto) 0.2 (0.0-0.4) X10*3/uL Baso # (Auto) 0.1 (0.0-0.2) X10*3/uL Abs Immat Gran (auto) 0.02 (0.00-0.03) X10*3/uL Absolute Neuts (auto) 4.2 (2.0-8.3) x10*3/uL Absolute Nucleated RBC 0.000 (0.0-0.012) X10*3/uL Nucleated RBC % (auto) 0.0 (0.0-0.2) /100WBC Sodium 139 (135-145) mmol/L Potassium 4.6 (3.3-5.1) mmol/L Chloride 110 H (96-108) mmol/L Carbon Dioxide 23 (22-29) mmol/L Anion Gap 11 L (12-20) BUN 17 H (9-16) mg/dL Creatinine 0.84 (0.5-1.4) mg/dL Estim Creat Clear Calc 77.3 Estimated GFR > 60 Random Glucose 88 (60-115) mg/dL Calcium 8.8 D (8.4-10.2) mg/dL Total Bilirubin 1.4 H (0.0-1.0) mg/dL AST 17 (5-31) U/L ALT 28 (0-31) U/L Alkaline Phosphatase 79 (39-117) U/L Troponin I High Sens < 2.7 (<3.5-17.0) ng/L Total Protein 6.7 (6.5-8.0) g/dL Albumin 3.8 (3.5-5.0) g/dL Influenza Type A (PCR) NEGATIVE (Negative) Influenza Type B (PCR) NEGATIVE (Negative) RSV RNA Qual (PCR) NEGATIVE (Negative) SARS-CoV-2 RNA (RT-PCR) NEGATIVE (Negative) Independent Interpretation I performed an independent interpretation of an: EKG and Plain X-Ray Radiology Impression Discussion of test interpretation with radiology: I have reviewed the radiologist's reading. External Record Review External record reviewed: Inpatient record, Office record, Outpatient record, Prior outpatient labs, Prior outpatient radiology, Primary care record and Outside ED record Tests considered The following testing was considered but not selected: As above Chronic Conditions Patient?s care impacted by: Other Social Determinants Patient?s care significantly limited by Social Determinants of Health including: Other Social Determinant of Health Discharge Plan Discharge Clinical Impression: Asthma, Bronchitis Additional Instructions: XR chest 2V IMPRESSION: Questionable lymphadenopathy inferior right pulmonary hilum. Please have follow up with her primary doctor in regards to the lymphadenopathy seen on your x-ray Prescriptions: No Action (DME) blood sugar diagnostic Strip See Rx Instructions Not Applicable BID Qty: 10 11RF Rx Instructions: As directed (DME) blood-glucose meter [FreeStyle Lite Meter] Kit See Rx Instructions .Route Qty: 1 0RF Rx Instructions: As directed (DME) blood pressure monitor Kit See Rx Instructions .Route Qty: 1 0RF Rx Instructions: As directed fluticasone propionate 110 mcg/actuation HFA aerosol inhaler 2 puff inhalation BID Qty: 36 0RF amoxicillin 500 mg tablet 500 mg PO Q12H 7 Days Qty: 14 0RF levothyroxine 25 mcg tablet 25 mcg PO DAILY@0600 90 Days Qty: 90 1RF rosuvastatin 5 mg tablet 5 mg PO BEDTIME 90 Days Qty: 90 0RF Anoro Ellipta 62.5-25 mcg/actuation blister with device 1 inh inhalation DAILY 60 Days Qty: 60 6RF albuterol sulfate 90 mcg/actuation HFA aerosol inhaler 1 inh inhalation QID PRN (Reason: shortness of breath or wheezing) Qty: 8.5 0RF albuterol sulfate 2.5 mg /3 mL (0.083 %) Solution For Nebulization 2.5 mg INHALATION Q6H PRN (Reason: SOB/Wheezing) azithromycin 200 mg/5 mL suspension for reconstitution See Rx Instructions .ROUTE .COMPLEX Qty: 40 0RF Rx Instructions: take 12.5 mL (500 mg) by mouth today (day 1), then 6.25 mL (250 mg) daily for 4 days (days 2-5) trazodone 100 mg tablet 100 mg PO BEDTIME PRN (Reason: Sleep) escitalopram oxalate 20 mg tablet 20 mg PO DAILY PRN (Reason: DEPRESSION) buspirone 5 mg tablet 5 mg PO DAILY PRN (Reason: Anxiety) (DME) lancets [FreeStyle Lancets] 28 gauge misc See Rx Instructions .ROUTE .MEDSUPPLY Qty: 100 Rx Instructions: As directed (DME) nebulizers [Aeroneb Go Nebulizer] Misc See Rx Instructions .Route Qty: 1 0RF Rx Instructions: As directed sennosides [senna] 8.6 mg tablet 8.6 mg PO BEDTIME PRN (Reason: constipation) 90 Days Qty: 90 0RF polyethylene glycol 3350 [Miralax] 17 gram/dose powder 17 g PO DAILY Qty: 238 2RF bisacodyl [Dulcolax (bisacodyl)] 10 mg suppository 10 mg MT DAILY PRN (Reason: constipation) Qty: 12 0RF Print Language: Kinyarwanda
[2024-10-03 12:00] VITALS: BP 112/62; PULSE 65; RESP 16; TEMP 37.1; O2SAT 100
[2024-10-03] MEDS: Albuterol Sulfate 2.5 MG, Albuterol/Iprat 2.5/0.5MG 3 ML 3 ML INHALE (12:22)
[2024-10-03 12:23] VITALS: PULSE 80; RESP 18; O2SAT 99
[2024-10-03 12:25] LABS: Troponin-I High Sensitivity < 2.7 ng/L (<3.5-17.0)
[2024-10-03 12:35] LABS: Influenza A PCR NEGATIVE (Negative); Influenza B PCR NEGATIVE (Negative); Resp Syncy Virus RNA Qual PCR NEGATIVE (Negative); SARS COV2 PCR INHOUSE NEGATIVE (Negative)
[2024-10-03] MEDS: Benzonatate 100 MG CAPSULE PO (13:05)
[2024-10-03 13:06] VITALS: BP 00/00; PULSE 80; RESP 18; TEMP -17.7; TEMP 0; O2SAT 95
== END 2024-10-03 13:06 | disposition home or self-care (01) ==
PROVIDERS: Physician Assistant Medical; Emergency Provider Emergency Medicine; PCP Internal Medicine
DX: J40 Bronchitis, not specified as acute or chronic (principal); R07.89 Other chest pain; J02.9 Acute pharyngitis, unspecified; R05.9 Cough, unspecified; M54.50 Low back pain, unspecified; R06.02 Shortness of breath; Z03.818 Encounter for observation for suspected exposure to other biological agents ruled out; Z98.84 Bariatric surgery status; Z79.899 Other long term (current) drug therapy; Z87.891 Personal history of nicotine dependence
CPT/HCPCS: 0241U; 36415; 71046; 80053; 84484; 85025; 93005; 94640; 99284

== ENCOUNTER → 2024-10-03 07:25 | Outpatient (BNV) | payer OTHER, SELFPAY | PROVIDERS: PCP Internal Medicine; Visit Provider Internal Medicine Cardiovascular Disease | DX: R07.9 Chest pain, unspecified (principal); R05.9 Cough, unspecified | CPT/HCPCS: 93010 ==

== ENCOUNTER → 2024-10-03 08:23 | Outpatient (BNV) | payer OTHER, SELFPAY | PROVIDERS: PCP Internal Medicine; Visit Provider Radiology Diagnostic Radiology | DX: R05.9 Cough, unspecified (principal) | CPT/HCPCS: 71046 ==

== ENCOUNTER 2024-10-06 10:25 | Outpatient (AMB) | payer OTHER, SELFPAY ==
--- NOTE | 2024-10-06 10:40 | A.OFFPC_ITS ---
Vital Signs 10/06/24 10:41 Height 5 ft 1 in Weight 171 lb 4 oz BMI 32.4 BP 110/62 Blood Pressure Location Lt brachial Position Sitting Pulse 57 Pulse Source Pulse Oximeter Temp 97.1 F Temp Source Temporal Artery Scan Pulse Oximetry (%) 99 Oxygen Delivery Method Room Air Intake Visit Reasons: [facility] [place] 3/4 Chest pain, sore throat Director Writing Required: Yes Director Writing Language: Vehicle Controls Engineer Name: Hermelinda Melchor [id number], Information Interpreted: non-clinical & clinical (Rosio Davidson PA-C) Accompanied by: Self / Same As Patient Allergies morphine [MORPHINE] Allergy (Severe, Verified 10/06/24 11:15) facial droop, numbness, lip deviation Medication List - Last Reconciled 10/06/24 by Rosio Davidson PA-C albuterol sulfate 5 mg inhalation Q4H PRN albuterol sulfate 90 mcg/actuation 1 inh inhalation QID PRN azithromycin For 250 mg dose pack: take 500 mg today (day 1), then 250 mg for 4 days (days 2-5) PO benzonatate 100 mg PO TID PRN bisacodyl (Dulcolax (bisacodyl)) 10 mg [place] DAILY PRN blood pressure monitor As directed blood sugar diagnostic As directed blood-glucose meter (FreeStyle Lite Meter kit) As directed buspirone 5 mg PO DAILY PRN escitalopram oxalate 20 mg PO DAILY PRN fluticasone propionate 110 mcg/actuation 2 puffs inhalation BID lancets (FreeStyle Lancets) As directed levothyroxine 25 mcg PO DAILY@0600 90 days nebulizers (Aeroneb Go Nebulizer) As directed rosuvastatin 5 mg PO BEDTIME 90 days trazodone 100 mg PO BEDTIME PRN umeclidinium-vilanterol 62.5-25 mcg/actuation (Anoro Ellipta) 1 inh inhalation DAILY 60 days Tobacco use date assessed: 10/06/24 Dental Screening Dental Screen Date: 10/06/24 Did you have a dental visit in the last 12 months?: No Did you have a dental problem in the last 6 months where you did not have access to dental care?: No PFSH Medical History Abnormal chest xray Physical exam Pre-op evaluation H. pylori infection Sacroiliac dysfunction Trigger finger, right little finger Otitis externa Asthma Migraines Lower back pain Bronchitis Hyperkalemia Morbid obesity with BMI of 40.0-44.9, adult Mild recurrent major depression Left sided sciatica Essential hypertension Hypertriglyceridemia Insomnia Depression with anxiety Diabetes mellitus Hypothyroidism Surgical History S/P laparoscopic sleeve gastrectomy History of foot surgery History of section Family History Father Emphysema lung Mother Myocardial infarction Sister Chronic mental illness Family/Other FH: mental illness Sister Diabetes Sister Cancer, Onset Age: 57 Diabetes Sister Diabetes Sister Diabetes Son No problems noted. Unknown Cancer, Onset Age: 24 Social History Household Members: None Housing: Apartment Are you a primary critical care clinical nurse specialist to a significant other at home: No Do you presently have visiting nurse or other home services: No Alcohol intake: current Alcohol intake frequency: holidays/special occasions only Alcohol type: hard liquor Patient Tobacco Use Status: Former Tobacco user Tobacco use type: Cigarette e-Cigarette/Vaping Use: Never Used Second Hand Smoke Exposure: No service: No Current occupational status: employed Current occupational exposures/hazards: No Cognitive needs: No Hearing needs: No Vision needs: Yes Female Reproductive History Menstrual Age of Menarche: 13 Questionnaire PHQ-9 Over the last 2 weeks, how often have you been bothered by any of the following problems? 1. Little interest or pleasure in doing things: not at all 2. Feeling down, depressed, or hopeless: not at all 3. Trouble falling or staying asleep, or sleeping too much: not at all 4. Feeling tired or having little energy: not at all 5. Poor appetite or overeating: not at all 6. Feeling bad about yourself - or that you are a failure or have let yourself or your family down: not at all 7. Trouble concentrating on things, such as reading the newspaper or watching television: not at all 8. Moving or speaking so slowly that other people could have noticed. Or the opposite - being so fidgety or restless that you have been moving around a lot more than usual: not at all 9. Thoughts that you would be better off or of hurting yourself in some way: not at all Total score: 0 Depression Screening Interpretation: Negative Depression Screening Done: Yes 22990 - PHQ-9 Billing: Yes Source: Developed by Drs. Atul Robert, Arianna Ventura, Dirk Cruz and colleagues, with an educational nam from [employer]. Thrive Questionnaire Date Thrive assessed: 10/06/24 I am a: Patient What is your living situation today?: I have a steady place to live Within the past 12 months, did the food you bought not last and you didn't have the money to get more?: Never true Within the past 12 months, did you worry whether your food would run out before you got money to buy more?: Never true Do you have trouble paying for medicines?: No Do you have trouble getting transportation to medical appointments?: No Do you have trouble paying your heating and electricity bill?: No Do you have trouble taking care of your child, family member or friend?: No Do you have trouble with day-to-day activities such as bathing, preparing meals, shopping, managing finances, etc.?: No Are you currently unemployed and looking for a job?: No Are you interested in more education?: No Please select the resources that you would like help with: None Currently or been in a relationship where the following occur: No concerns reported THRIVE Score: 0 AUDIT C Alcohol Use Questionnaire (AUDIT-C) 1. How often do you have a drink containing alcohol?: Never Total Score: 0 Score Reviewed/Action Taken: No (score reviewed ) MELIZA-7 AMB Questionnaire MELIZA-7 Date MELIZA - 7 assessed: 10/06/24 Feeling nervous, anxious, or on edge: 0 = Not at all Not being able to stop or control worryin = Not at all Worrying too much about different things: 0 = Not at all Trouble relaxin = Not at all Being so restless that it is hard to sit still: 0 = Not at all Becoming easily annoyed or irritable: 0 = Not at all Feeling afraid as if something awful might happen: 0 = Not at all Total MELIZA-7 score (0-4 normal; 5-9 mild; 10-14 moderate; 15-21 severe): 0 Source: Developed by Drs. Atul Robert, Arianna Ventura, Dirk Cruz and colleagues, with an educational nam from [employer]. MELIZA-7 Assessment Billing MELIZA-7 Assessment Tool: MELIZA-7 Assessment 62458 Physical exam (Primary Care) Vital Signs: Last Vital Signs Temp 97.1 F 10/06/24 10:41 Pulse 57 10/06/24 10:41 BP 110/62 10/06/24 10:41 Pulse Ox 99 10/06/24 10:41 Oxygen Delivery Method Room Air 10/06/24 10:41 Care Plan Goal for BP management: <130/80 at goal BMI result Body Mass Index 32.4 BMI Assessment/Plan discussion: High BMI High, discussed plan: lifestyle, weight reduction, dietary, physical activity and alcohol moderation Tobacco/Smoking Status: Tobacco use Status Tobacco use date assessed 10/06/24 10/06/24 10:55 Patient Tobacco Use Status Former Tobacco user 10/06/24 10:55 Tobacco use type Cigarette 10/06/24 10:55 e-Cigarette/Vaping Use Never Used 10/06/24 10:55 PHQ-9: PHQ-9 Score PHQ-9: Total score 0 10/06/24 10:58 Depression Screening Interpretation: Negative Thrive Assessment: Date of Thrive Assessment Date Thrive assessed 10/06/24 10/06/24 10:55 Currently or been in a relationship where the following occur: No concerns reported Coding Level of Care Code Est Pt Level 4 (84474) Complex EM visit Add On G2211 Diagnoses Abnormal chest xray R93.89 Mild persistent asthma J45.30 Additional Codes MELIZA-7 Assessment Billing - MELIZA-7 Assessment Tool: MELIZA-7 Assessment 61571 ([id number]) PHQ-9 - 63770 - PHQ-9 Billing: Yes ([id number]) Assessment & Plan Assessment & Plan (1) Abnormal chest xray: Code(s): R93.89 - Abnormal findings on diagnostic imaging of other specified body structures Category: Medical Plan: Patient most likely bronchitis will send home with Z-Sebastien. CT scan of chest ordered. Patient to return to follow-up with Dr. Mckeon later this month. Will continue to monitor (2) Mild persistent asthma: Code(s): J45.30 - Mild persistent asthma, uncomplicated Category: Medical Plan: Will refill the patient's albuterol inhaler, albuterol for her nebulizer and continue to take her previously prescribed other inhalers as previously prescribed. Condition is chronic and stable continue to monitor. Plan Plan Patient was informed and verbally consented to the use of an ambient scribe for clinic note documentation during this visit. 1. Questionable lymphadenopathy inferior right pulmonary hilum. Monitoring and follow-up imaging have been scheduled. Antibiotics were prescribed as a precautionary step. 2. Family History Of Lymphoma Risk factors discussed, with emphasis on monitoring due to family history. Further imaging such as a CT scan was planned to rule out any malignant conditions. Reassurance was provided to minimize anxiety related to family history. 3. Asthma The patient was advised to maintain her current inhaler regimen, with emphasis on using Anoro. The efficacy of the inhalers will be assessed in follow-up visits. Orders: Orders CT chest wo IV con Today R93.89 - Abnormal findings on diagnostic imaging of other specified body structures Medications: New azithromycin For 250 mg dose pack: take 500 mg today (day 1), then 250 mg for 4 days (days 2-5) PO 6 tabs 0RF albuterol sulfate 90 mcg/actuation 1 inh inhalation QID PRN 6.7 grams 0RF shortness of breath or wheezing Refilled albuterol sulfate 5 mg inhalation Q4H PRN 30 ea 3RF shortness of breath or wheezing Patient Instructions: Patient Instructions - Take antibiotics as prescribed. - Use Albuterol inhaler as directed and monitor for any changes in respiratory symptoms. - Await scheduling of CT scan and be attentive to communication from our office regarding results. - Keep a vigilant eye on any new or worsened symptoms and seek out care if concerns arise, especially with significant weight changes or increased fatigue. - Continue with lifestyle and dietary changes while maintaining follow-up appointments for asthma and other health evaluations. Scribe Plan - Not visible on output: History of Present Illness 49-year-old female with a past medical history of asthma, hyperlipidemia, major depression, hypertension, hyperlipidemia, diabetes mellitus, hypothyroidism who is presenting to the primary care clinic for follow-up after she was seen in the emergency department on 10/03/2024 for URI symptoms. She had a chest x-ray which revealed Questionable lymphadenopathy inferior right pulmonary hilum. Therefor e the emergency department referred her here for further evaluation and treatment. Patient is requesting a CT scan or an MRI due to she reports her family has a history of lymphoma and she is concerned this may be lymphoma. She reports she is still coughing and having some shortness of breath/wheezing. She is using Tessalon Perles for her cough. She was not giving any antibiotics. She ran out of her albuterol inhaler and the albuterol for the nebulizer requesting refill. She denies any chest pain, leg swelling or any other symptoms complaints or concerns at this time. Reports she has a follow-up later this month with her PCP Dr. Genie Mckoen. Social History - Family history includes sister and niece with lymphoma. - Report of dietary changes contributing to weight management. Review of Systems - Respiratory: Reports cough, slight dyspnea, bronchitic symptoms. - Constitutional: Reports mild weight loss, fatigue. - Gastrointestinal: Denies any significant changes. Physical Exam Appearance: Alert. Oriented X3. No acute distress. Head: Normal external exam. Normocephalic. Atraumatic. Eyes: Pupils are equal, round, and reactive to light. Extraocular movements intact. Conjunctiva and sclera normal. Eyelids normal. Throat: Pharynx normal. Uvula midline. Moist mucous membranes. Neck: Normal inspection. Neck supple. Full range of motion. No adenopathy. Thyroid Normal. No meningeal signs. No neck mass noted. Cardiovascular: Normal heart rate and rhythm. Heart sound normal. No murmurs noted. Pulses normal throughout. Respiratory: No respiratory distress. Painless inspiration. Breath sounds normal. No wheezes/rales/rhonchi noted. Chest nontender. No accessory muscle usage noted or decreased air movement noted. Back: Full range of motion noted. Skin: Skin warm and dry. Normal skin color. Normal skin turgor. No rashes/lesions/lacerations noted. Extremities: No lower extremity edema. Extremities exhibit normal range of motion. Extremities nontender. Neuro: Oriented X 3. No motor deficit. No sensory deficit. Reflexes normal. Results - Imaging: Chest X-ray showed right pulmonary inflammation. - Labs: Normal laboratory results, specific values not disclosed during this visit. Plan Patient was informed and verbally consented to the use of an ambient scribe for clinic note documentation during this visit. 1. Questionable lymphadenopathy inferior right pulmonary hilum. Monitoring and follow-up imaging have been scheduled. Antibiotics were prescribed as a precautionary step. 2. Family History Of Lymphoma Risk factors discussed, with emphasis on monitoring due to family history. Further imaging such as a CT scan was planned to rule out any malignant conditions. Reassurance was provided to minimize anxiety related to family history. 3. Asthma The patient was advised to maintain her current inhaler regimen, with emphasis on using Anoro. The efficacy of the inhalers will be assessed in follow-up visits. Discussion Notes During our discussion, I reviewed the potential causes of the pulmonary inflammation discovered on the X-ray and addressed the patient's anxiety due to familial history of lymphoma. I emphasized that while inflammation could be related to the recent respiratory infection, we will keep a vigilant watch for any changes. I elaborated on the stepwise plan involving repeat imaging and prescribed antibiotics to prevent further complications. Follow-up for ongoing asthma control and further imaging were scheduled to ensure comprehensive care. Patient Instructions - Take antibiotics as prescribed. - Use Albuterol inhaler as directed and monitor for any changes in respiratory symptoms. - Await scheduling of CT scan and be attentive to communication from our office regarding results. - Keep a vigilant eye on any new or worsened symptoms and seek out care if concerns arise, especially with significant weight changes or increased fatigue. - Continue with lifestyle and dietary changes while maintaining follow-up appointments for asthma and other health evaluations.
[2024-10-06 10:41] VITALS: BP 110/62; PULSE 57; TEMP 36.2; O2SAT 99; BMI 32.4
--- OUTSIDE RECORDS SUMMARY | 2024-10-06 11:42 | XMS_ITS | Encounter Summary ---
Author Organization [facility] Address [address] [place] [address] [address] [place] [address] Care Team Providers Care Naval Architect Specialist Name Role Phone Unavailable Primary Care Provider [...]
--- OUTSIDE RECORDS SUMMARY | 2024-10-06 11:42 | XMS_ITS | Clinical Summary ---
Author Organization [facility] Address [address] [place] [address] [address] [place] [address] Care Team Providers Care Arbitrator Name Role Phone Unavailable Primary Care Provider [...] patient's age to complete this topic Insurance [facility] STANDARD
== END 2024-10-06 11:53 | disposition home or self-care (01) ==
PROVIDERS: PCP Internal Medicine; Visit Provider Physician Assistant Medical
DX: R93.89 Abnormal findings on diagnostic imaging of other specified body structures (principal); J45.30 Mild persistent asthma, uncomplicated

== ENCOUNTER → 2024-10-06 10:25 | Outpatient (BNVA) | payer OTHER, SELFPAY | PROVIDERS: PCP Internal Medicine; Visit Provider Physician Assistant Medical | DX: R93.89 Abnormal findings on diagnostic imaging of other specified body structures (principal); J45.30 Mild persistent asthma, uncomplicated | CPT/HCPCS: 96127; 99212 ==

== ENCOUNTER 2024-10-17 06:29 | Outpatient (REF) | payer OTHER, SELFPAY ==
[2024-10-17 07:49] LABS: Alanine Aminotransferase 21 U/L (0-31); Alkaline Phosphatase 76 U/L (39-117); Anion Gap 11 (12-20); Aspartate Amino Transferase 20 U/L (5-31); Bilirubin Total 1.3 mg/dL (0.0-1.0); Blood Urea Nitrogen 16 mg/dL (9-16); Calcium 9.3 mg/dL (8.4-10.2); Carbon Dioxide 27 mmol/L (22-29); Chloride 108 mmol/L (96-108); Cholesterol 155 mg/dL (<200); Estimated Glomerular Filt Rate > 60; Glucose Fasting 88 mg/dL (60-99); HDL Cholesterol 61 mg/dL (>40); LDL Cholesterol Calculated 74 mg/dL (<100); Potassium 4.5 mmol/L (3.3-5.1); Sodium 141 mmol/L (135-145); Total Protein 6.9 g/dL (6.5-8.0); Triglycerides 104 mg/dL (<150)
[2024-10-17 07:53] LABS: Creatinine Urine 101.91 mg/dL; Microalbum/Creatinine Ratio Ur 246.2 ug/mg cr (<30)
[2024-10-17 08:09] LABS: Thyroid Stimulating Hormone 2.13 uIU/mL (0.32-4.0); Vitamin D 25-OH Total 43.3 ng/mL (>30)
== END 2024-10-17 06:30 | disposition home or self-care (01) ==
LOC: HO.LAB 06:29
PROVIDERS: PCP Internal Medicine; Visit Provider Internal Medicine
DX: E11.9 Type 2 diabetes mellitus without complications (principal); E55.9 Vitamin D deficiency, unspecified; E03.9 Hypothyroidism, unspecified; E78.5 Hyperlipidemia, unspecified
CPT/HCPCS: 36415; 80053; 80061; 82043; 82306; 82570; 84443

== ENCOUNTER 2024-10-23 08:38 | Outpatient (AMB) | payer OTHER, SELFPAY ==
[2024-10-23 08:55] VITALS: BP 120/78; BMI 32.3
--- NOTE | 2024-10-23 08:55 | MHC.PC.OV ---
Vital Signs 10/23/24 08:55 Height 5 ft 1 in Weight 171 lb BMI 32.3 BP 120/78 Blood Pressure Location Lt brachial Position Sitting Intake Visit Reasons: DM Intake Note: Patient here for a follow up DM Machine Heel Seat Laster Required: No Accompanied by: Self / Same As Patient Allergies morphine [MORPHINE] Allergy (Severe, Verified 10/23/24 09:23) facial droop, numbness, lip deviation Medication List - Last Reconciled 10/23/24 by Rupal Cox MD albuterol sulfate 5 mg inhalation Q4H PRN albuterol sulfate 90 mcg/actuation 1 inh inhalation QID PRN bisacodyl (Dulcolax (bisacodyl)) 10 mg [place] DAILY PRN blood pressure monitor As directed blood sugar diagnostic As directed blood-glucose meter ([employer]Style Lite Meter kit) As directed buspirone 5 mg PO DAILY PRN escitalopram oxalate 20 mg PO DAILY PRN fluticasone propionate 110 mcg/actuation 2 puffs inhalation BID lancets ([employer]Style Lancets) As directed levothyroxine 25 mcg PO DAILY@0600 90 days nebulizers (Aeroneb Go Nebulizer) As directed rosuvastatin 5 mg PO BEDTIME 90 days trazodone 100 mg PO BEDTIME PRN umeclidinium-vilanterol 62.5-25 mcg/actuation (Anoro Ellipta) 1 inh inhalation DAILY 60 days Tobacco use date assessed: 10/06/24 Dental Screening Dental Screen Date: 10/06/24 HPI HPI Comments History of Present Illness Details The patient is a 49-year-old female presenting for a follow-up regarding management of her multiple chronic conditions. Her diabetes is stable with an A1c level of 5.9. Hyperlipidemia is controlled with LDL at 74 mg/dL. Depressive symptoms are well-managed with escitalopram. She also has hypothyroidism and her last TSH was normal. Lately, she experienced increased asthma symptoms leading to an ED visit, during which questionable lymphadenopathy in the lung was detected. The patient remains concerned due to familial cancer history. Additionally, she has developed thoracic spine pain related to arthritis. Urinary microalbumin was found, prompting evaluation by a boat camp operator, although renal function tests are normal. Weight stability is noted, with current lifestyle interventions stagnating weight loss. Her smoking history is acknowledged but she has since quit. [facility] Medical History Abnormal chest xray Physical exam Pre-op evaluation H. pylori infection Sacroiliac dysfunction Trigger finger, right little finger Otitis externa Asthma Migraines Lower back pain Bronchitis Hyperkalemia Morbid obesity with BMI of 40.0-44.9, adult Mild recurrent major depression Left sided sciatica Essential hypertension Hypertriglyceridemia Insomnia Depression with anxiety Diabetes mellitus Hypothyroidism Surgical History S/P laparoscopic sleeve gastrectomy History of foot surgery History of section Family History Father Emphysema lung Mother Myocardial infarction Sister Chronic mental illness Family/Other FH: mental illness Sister Diabetes Sister Cancer, Onset Age: 57 Diabetes Sister Diabetes Sister Diabetes Son No problems noted. Unknown Cancer, Onset Age: 24 Social History Household Members: None Housing: Apartment Are you a primary career services coordinator to a significant other at home: No Do you presently have visiting nurse or other home services: No Alcohol intake: current Alcohol intake frequency: holidays/special occasions only Alcohol type: hard liquor Patient Tobacco Use Status: Former Tobacco user Tobacco use type: Cigarette e-Cigarette/Vaping Use: Never Used Second Hand Smoke Exposure: No service: No Current occupational status: employed Current occupational exposures/hazards: No Cognitive needs: No Hearing needs: No Vision needs: Yes Female Reproductive History Menstrual Age of Menarche: 13 Questionnaire Thrive Questionnaire Date Thrive assessed: 10/06/24 MELIZA-7 AMB Questionnaire MELIZA-7 Date MELIZA - 7 assessed: 10/06/24 Source: Developed by Drs. Atul Robert, Arianna Ventura, Dirk Cruz and colleagues, with an educational nam from [employer]. Review of Systems Const All systems reviewed & are unremarkable except as noted in HPI and below Card Denies chest pain at rest, Denies chest pain with activity, Denies edema, Denies irregular heart rhythm, Denies claudication, Denies dyspnea, Denies dyspnea on exertion, Denies orthopnea, Denies paroxysmal nocturnal dyspnea and Denies slow heart rate Resp Denies cough, Denies dyspnea and Denies dyspnea on exertion Physical exam (Primary Care) Vital Signs: Last Vital Signs BP 120/78 10/23/24 08:55 BMI result Body Mass Index 32.3 BMI Assessment/Plan discussion: High BMI High, discussed plan: lifestyle, weight reduction, dietary and physical activity Tobacco/Smoking Status: Tobacco use Status Tobacco use date assessed 10/06/24 10/23/24 09:02 Patient Tobacco Use Status Former Tobacco user 10/23/24 09:02 Tobacco use type Cigarette 10/23/24 09:02 e-Cigarette/Vaping Use Never Used 10/23/24 09:02 Thrive Assessment: Date of Thrive Assessment Date Thrive assessed 10/06/24 10/23/24 09:02 Resp Effort & Inspection: normal respiratory effort Auscultation: clear to auscultation bilaterally Cardio Jugular venous distension: no JVD Rate: regular rate Rhythm: regular rhythm Heart sounds: S1 normal heart sound present and S2 normal heart sound present Extrem General: Yes full ROM Results AMB Hemoglobin A1c AMB Hemoglobin A1c 5.9 % Last Edit by NINFA Guzmán on 10/23/24 09:07 Results Reviewed Results Reviewed: Laboratory Last Values Hgb A1c (Clinic) 5.9 % (4.0-6.0) 10/23/24 08:54 Coding Level of Care Code Est Pt Level 4 (97418) Complex EM visit Add On G2211 Diagnoses Type 2 diabetes mellitus without complication, without long-term current use of insulin E11.9 Diabetes mellitus type: type 2 Diabetes mellitus terminal carman insulin use: without detention use Diabetes mellitus complication status: without complication Hypothyroidism, unspecified type E03.9 Hypothyroidism type: unspecified Mild recurrent major depression F33.0 Hyperlipidemia LDL goal <70 E78.5 Essential hypertension I10 Microalbuminuria R80.9 Abnormal chest xray R93.89 Time Spent (min) 22 Assessment & Plan Assessment & Plan (1) Diabetes mellitus: Comment: dx~age 38-prior Rx for metformin, since d/c due to weight loss-glucose usually~90-100 Code(s): E11.9 - Type 2 diabetes mellitus without complications Category: Medical Qualifiers: Diabetes mellitus type: type 2 Diabetes mellitus terminal carman insulin use: without detention use Diabetes mellitus complication status: without complication Qualified Code(s): E11.9 - Type 2 diabetes mellitus without complications (2) Hypothyroidism: Code(s): E03.9 - Hypothyroidism, unspecified Category: Medical Qualifiers: Hypothyroidism type: unspecified Qualified Code(s): E03.9 - Hypothyroidism, unspecified (3) Mild recurrent major depression: Comment: She follows with psychiatry Code(s): F33.0 - Major depressive disorder, recurrent, mild Category: Medical (4) Hyperlipidemia LDL goal <70: Code(s): E78.5 - Hyperlipidemia, unspecified Category: Medical (5) Essential hypertension: Code(s): I10 - Essential (primary) hypertension Category: Medical (6) Microalbuminuria: Code(s): R80.9 - Proteinuria, unspecified Category: Medical (7) Abnormal chest xray: Code(s): R93.89 - Abnormal findings on diagnostic imaging of other specified body structures Category: Medical Plan The patient's diabetes and hyperlipidemia management remain effective, with no changes at this time. Depression is stable on current medications. Asthma management does not require immediate alteration despite changes in medication. The lung lymphadenopathy detected requires follow-up imaging. The thoracic spine arthritis is managed through symptomatic relief measures. Microalbuminuria prompts nephrology referral for further assessment. The persistent cough will be managed with a short course of Mucinex while noting any aggravating symptoms. Weight management efforts are ongoing, stressing continued dietary adherence. Patient was informed and verbally consented to the use of an ambient scribe for clinic note documentation during this visit. I thoroughly discussed with the patient her current health status and management strategies for chronic conditions like diabetes, hyperlipidemia, depression, and asthma. We talked about the recent finding of lymphadenopathy and its significance, including the need for further imaging follow-up. I addressed the presence of proteinuria and the steps involving nephrology consultation. Regarding her cough, Mucinex was recommended. We also emphasized the importance of maintaining weight management efforts. It was clarified that the CT scan would be conducted should subsequent imaging reveal persistence of the lymphadenopathy. Orders: Orders AMB Hemoglobin A1c Today E11.9 - Type 2 diabetes mellitus without complications Vitamin D 25-OH Total 4 Months E55.9 - Vitamin D deficiency, unspecified Comprehensive [place]. Panel Fast 4 Months E78.49 - Other hyperlipidemia Thyroid Stimulating Hormone 4 Months E03.9 - Hypothyroidism, unspecified XR chest 2V Today R93.89 - Abnormal findings on diagnostic imaging of other specified body structures Lipid Panel 4 Months E78.5 - Hyperlipidemia, unspecified Microalbumin, Random (w Creat) 4 Months R80.9 - Proteinuria, unspecified Referrals Nephrology Referral R80.9 - Proteinuria, unspecified Medications: New guaifenesin ER (Mucinex) 600 mg PO Q12H PRN 10 tabs 0RF congestion 5 days Patient Instructions: - Continue current medications as prescribed for diabetes, depression, hyperlipidemia, and hypothyroidism. - Engage in regular exercise and adhere to a protein-rich diet for weight management. - Use Mucinex as directed for cough management. - Schedule follow-up imaging for lung lymphadenopathy next week. - Await nephrology consultation for proteinuria. - Return to clinic for regular follow-up in 4 months or sooner if symptoms change. - Monitor and report any new respiratory symptoms or difficulty breathing immediately.
== END 2024-10-23 09:35 | disposition home or self-care (01) ==
LOC: HO.HMCH 08:39
PROVIDERS: PCP Internal Medicine; Visit Provider Internal Medicine
DX: E11.9 Type 2 diabetes mellitus without complications (principal); E03.9 Hypothyroidism, unspecified; F33.0 Major depressive disorder, recurrent, mild; E78.5 Hyperlipidemia, unspecified; I10 Essential (primary) hypertension; R80.9 Proteinuria, unspecified; R93.89 Abnormal findings on diagnostic imaging of other specified body structures

== ENCOUNTER → 2024-10-23 08:38 | Outpatient (BNVA) | payer OTHER, SELFPAY | PROVIDERS: PCP Internal Medicine; Visit Provider Internal Medicine | DX: E11.9 Type 2 diabetes mellitus without complications (principal); E03.9 Hypothyroidism, unspecified; F33.0 Major depressive disorder, recurrent, mild; E78.5 Hyperlipidemia, unspecified; R80.9 Proteinuria, unspecified; I10 Essential (primary) hypertension; R93.89 Abnormal findings on diagnostic imaging of other specified body structures | CPT/HCPCS: 83036; 99212 ==

== ENCOUNTER 2024-10-24 13:27 | Outpatient (AMB) | payer OTHER, SELFPAY ==
--- NOTE | 2024-10-24 13:58 | MHC.OFFVISWM ---
VS Expanded 10/24/24 14:01 BP 126/78 Blood Pressure Location Lt brachial Blood Pressure Position Sitting Pulse 69 Pulse Oximetry 99 Height 5 ft Weight 169 lb 3.2 oz BMI 33.0 Body Fat % 30.1 Body Fat Mass 51.0 Fat Free Mass 118.2 Visceral Fat Rating 7.0 Body Water % 49.8 Body Water Mass 84.2 Muscle Mass/Score 112.2 Basal Metabolic Rate/Score 1,582 Intake Visit Reasons: (OV) PO LSG 03/29/24 Floor Grinder Required: Yes Floor Grinder Services: Floor Grinder Present Floor Grinder Name: hospital cmi Allergies morphine [MORPHINE] Allergy (Severe, Verified 10/24/24 14:00) facial droop, numbness, lip deviation Medication List - Last Reconciled 10/24/24 by ANTONY Montes albuterol sulfate 5 mg inhalation Q4H PRN albuterol sulfate 90 mcg/actuation 1 inh inhalation QID PRN bisacodyl (Dulcolax (bisacodyl)) 10 mg [place] DAILY PRN blood pressure monitor As directed blood sugar diagnostic As directed blood-glucose meter (FreeStyle Lite Meter kit) As directed buspirone 5 mg PO DAILY PRN escitalopram oxalate 20 mg PO DAILY PRN fluticasone propionate 110 mcg/actuation 2 puffs inhalation BID guaifenesin ER (Mucinex) 600 mg PO Q12H PRN 5 days lancets (FreeStyle Lancets) As directed levothyroxine 25 mcg PO DAILY@0600 90 days nebulizers (Aeroneb Go Nebulizer) As directed rosuvastatin 5 mg PO BEDTIME 90 days trazodone 100 mg PO BEDTIME PRN umeclidinium-vilanterol 62.5-25 mcg/actuation (Anoro Ellipta) 1 inh inhalation DAILY 60 days HPI Comments Details: This?a?49?yo female who is s/p LSG without hiatal hernia repair on?03/29/2024. Presents for 7 month post op visit. Weight today is 168.4 pounds, with a BMI of 32.9 There has been a 62 pound weight loss,(initial weight 230.4 pounds) since starting the program on 07/13/23 reflecting a 26.9 % total body weight loss and a weight loss of 40.1 pounds since surgery (operative weight 208.5 pounds) reflecting a 19.2 % TBWL since surgery. No complaints of nausea, emesis, abdominal pain or reflux. Reports difficulty with constipation, stools are hard. Bowel movements every 3 days. Taking mvi Wants to change to Premier protein Present meal plan includes: Premier protein ready to drink shake, 8-10 Half cartons mixed with 6 oz of unsweetened almond milk, 12-2 Continue her meal with 4 forks of protein and 4 forks of vegetables drinking 64 oz water daily Exercise routine includes: treadmill at home 3 days per week, 450 calorie Any post op complications: none RUBY: never DM: resolved HTN: resolved Hyperlipidemia: improved GERD:?0-5 scale ??0 = no symptoms ??1 = symptoms noticeable but not bothersome 2 =symptoms bothersome but not daily ? 3 = symptoms bothersome and daily 4 = symptoms affect daily activities 5 = symptoms are incapacitating, unable to do daily activities ? How bad is the heartburn: 0 ? Heartburn while lying down: 0 ? Heartburn when standing up: 0 ? Heartburn after meals: 0 ? Does heartburn change your diet: 0 ? Does heartburn wake you up from sleep: 0 ? Do you have difficulty swallowin ? Do you have pain with swallowin ? If you take medicine for your reflux, does this affect your daily life: 0 Satisfaction with present condition - satisfied or not satisfied: dissatisfied [facility] Medical History Abnormal chest xray Physical exam Pre-op evaluation H. pylori infection Sacroiliac dysfunction Trigger finger, right little finger Otitis externa Asthma Migraines Lower back pain Bronchitis Hyperkalemia Morbid obesity with BMI of 40.0-44.9, adult Mild recurrent major depression Left sided sciatica Essential hypertension Hypertriglyceridemia Insomnia Depression with anxiety Diabetes mellitus Hypothyroidism Surgical History S/P laparoscopic sleeve gastrectomy History of foot surgery History of section Family History Father Emphysema lung Mother Myocardial infarction Sister Chronic mental illness Family/Other FH: mental illness Sister Diabetes Sister Cancer, Onset Age: 57 Diabetes Sister Diabetes Sister Diabetes Son No problems noted. Unknown Cancer, Onset Age: 24 Social History Household Members: None Housing: Apartment Are you a primary adult day care worker to a significant other at home: No Do you presently have visiting nurse or other home services: No Alcohol intake: current Alcohol intake frequency: holidays/special occasions only Alcohol type: hard liquor Patient Tobacco Use Status: Former Tobacco user Tobacco use type: Cigarette e-Cigarette/Vaping Use: Never Used Second Hand Smoke Exposure: No service: No Current occupational status: employed Current occupational exposures/hazards: No Cognitive needs: No Hearing needs: No Vision needs: Yes Female Reproductive History Menstrual Age of Menarche: 13 Physical Exam Vital Signs: Last Vital Signs Pulse 69 10/24/24 14:01 BP 126/78 10/24/24 14:01 Pulse Ox 99 10/24/24 14:01 BMI result Body Mass Index 33.0 Const General: cooperative and no acute distress Orientation/consciousness: patient oriented x3 Resp Effort & Inspection: normal respiratory effort Auscultation: clear to auscultation bilaterally Cardio Rate: regular rate Rhythm: regular rhythm GI Inspection: Yes normal to inspection and Yes incision (well healed) Palpation (GI): Soft to palpation and no masses Neuro General: patient oriented x3 Assessment & Plan Assessment & Plan (1) S/P laparoscopic sleeve gastrectomy: Code(s): Z98.84 - Bariatric surgery status Category: Surgical Plan: Patient states she is following the meal plan. She does state however she has not exercised in months. She did have influenza an asthma exacerbation. She was also found to have right hilar lymphadenopathy. This likely represented reactionary lymphadenopathy from her recent pulmonary infection however she will follow up with her primary care physician regarding this. Discussed the importance of exercise now that she has recovered. Discussed exercise regularly with a goal of burning 300 calories per day. She states she will follow through. We will check six-month postop labs. Return to clinic 4 weeks Orders: Orders IRON PROFILE Today E11.9 - Type 2 diabetes mellitus without complications, E78.5 - Hyperlipidemia, unspecified, I10 - Essential (primary) hypertension, K76.0 - Fatty (change of) liver, not elsewhere classified, Z98.84 - Bariatric surgery status Comprehensive Met. Panel Today E11.9 - Type 2 diabetes mellitus without complications, E78.5 - Hyperlipidemia, unspecified, I10 - Essential (primary) hypertension, K76.0 - Fatty (change of) liver, not elsewhere classified, Z98.84 - Bariatric surgery status C Reactive Protein Today E11.9 - Type 2 diabetes mellitus without complications, E78.5 - Hyperlipidemia, unspecified, I10 - Essential (primary) hypertension, K76.0 - Fatty (change of) liver, not elsewhere classified, Z98.84 - Bariatric surgery status Vitamin A Today E11.9 - Type 2 diabetes mellitus without complications, E78.5 - Hyperlipidemia, unspecified, I10 - Essential (primary) hypertension, K76.0 - Fatty (change of) liver, not elsewhere classified, Z98.84 - Bariatric surgery status Insulin Today E11.9 - Type 2 diabetes mellitus without complications, E78.5 - Hyperlipidemia, unspecified, I10 - Essential (primary) hypertension, K76.0 - Fatty (change of) liver, not elsewhere classified, Z98.84 - Bariatric surgery status Hemoglobin A1c Today E11.9 - Type 2 diabetes mellitus without complications, E78.5 - Hyperlipidemia, unspecified, I10 - Essential (primary) hypertension, K76.0 - Fatty (change of) liver, not elsewhere classified, Z98.84 - Bariatric surgery status Complete Blood Count Auto Diff Today E11.9 - Type 2 diabetes mellitus without complications, E78.5 - Hyperlipidemia, unspecified, I10 - Essential (primary) hypertension, K76.0 - Fatty (change of) liver, not elsewhere classified, Z98.84 - Bariatric surgery status Lipid Panel Today E11.9 - Type 2 diabetes mellitus without complications, E78.5 - Hyperlipidemia, unspecified, I10 - Essential (primary) hypertension, K76.0 - Fatty (change of) liver, not elsewhere classified, Z98.84 - Bariatric surgery status Vitamin B12 and Folate Today E11.9 - Type 2 diabetes mellitus without complications, E78.5 - Hyperlipidemia, unspecified, I10 - Essential (primary) hypertension, K76.0 - Fatty (change of) liver, not elsewhere classified, Z98.84 - Bariatric surgery status Zinc Today E11.9 - Type 2 diabetes mellitus without complications, E78.5 - Hyperlipidemia, unspecified, I10 - Essential (primary) hypertension, K76.0 - Fatty (change of) liver, not elsewhere classified, Z98.84 - Bariatric surgery status Vitamin B1 Today E11.9 - Type 2 diabetes mellitus without complications, E78.5 - Hyperlipidemia, unspecified, I10 - Essential (primary) hypertension, K76.0 - Fatty (change of) liver, not elsewhere classified, Z98.84 - Bariatric surgery status TSH reflex Free T4 Today E11.9 - Type 2 diabetes mellitus without complications, E78.5 - Hyperlipidemia, unspecified, I10 - Essential (primary) hypertension, K76.0 - Fatty (change of) liver, not elsewhere classified, Z98.84 - Bariatric surgery status Ferritin Today E11.9 - Type 2 diabetes mellitus without complications, E78.5 - Hyperlipidemia, unspecified, I10 - Essential (primary) hypertension, K76.0 - Fatty (change of) liver, not elsewhere classified, Z98.84 - Bariatric surgery status Vitamin D 25-OH Total Today E11.9 - Type 2 diabetes mellitus without complications, E78.5 - Hyperlipidemia, unspecified, I10 - Essential (primary) hypertension, K76.0 - Fatty (change of) liver, not elsewhere classified, Z98.84 - Bariatric surgery status
[2024-10-24 14:01] VITALS: BP 126/78; PULSE 69; O2SAT 99; BMI 33.0
--- OUTSIDE RECORDS SUMMARY | 2024-10-24 16:26 | XMS_ITS | Encounter Summary ---
Author Organization [employer] [facility] Address [address] [place] [address] [address] [place] [address] Care Team Providers Care Machine Etcher Name Role Phone Unavailable Primary Care Provider [...]
--- OUTSIDE RECORDS SUMMARY | 2024-10-24 16:26 | XMS_ITS | Clinical Summary ---
Author Organization [employer] [facility] Address [address] [place] [address] [address] [place] [address] Care Team Providers Care Clinical Laboratory Service Teacher Name Role Phone Unavailable Primary Care Provider [...] patient's age to complete this topic Insurance [facility] ST[facility]
== END 2024-10-24 15:03 | disposition home or self-care (01) ==
LOC: HO.HBS 13:27
PROVIDERS: PCP Internal Medicine; Visit Provider Physician Assistant Surgical
DX: E66.811 Obesity, class 1 (principal); Z68.33 Body mass index [BMI] 33.0-33.9, adult; Z90.3 Acquired absence of stomach [part of]; Z98.84 Bariatric surgery status
CPT/HCPCS: 99214

== ENCOUNTER → 2024-10-24 13:27 | Outpatient (BNVA) | payer OTHER, SELFPAY | PROVIDERS: PCP Internal Medicine; Visit Provider Physician Assistant Surgical | DX: E11.9 Type 2 diabetes mellitus without complications (principal); E78.5 Hyperlipidemia, unspecified; I10 Essential (primary) hypertension; K76.0 Fatty (change of) liver, not elsewhere classified; E66.9 Obesity, unspecified; Z68.33 Body mass index [BMI] 33.0-33.9, adult; Z98.84 Bariatric surgery status | CPT/HCPCS: 99212 ==

== ENCOUNTER 2024-10-27 07:31 | Outpatient (REF) | payer OTHER, SELFPAY | END 2024-10-27 07:32 | disposition home or self-care (01) | LOC: HO.MAMMO 07:31 | PROVIDERS: PCP Internal Medicine; Visit Provider Internal Medicine | DX: Z12.31 Encounter for screening mammogram for malignant neoplasm of breast (principal) | CPT/HCPCS: 77063; 77067 ==

== ENCOUNTER → 2024-10-27 08:00 | Outpatient (BNV) | payer OTHER, SELFPAY | PROVIDERS: PCP Internal Medicine; Visit Provider Internal Medicine | DX: Z12.31 Encounter for screening mammogram for malignant neoplasm of breast (principal) | CPT/HCPCS: 77063; 77067 ==

== ENCOUNTER 2024-10-30 07:13 | Outpatient (REF) | payer OTHER, SELFPAY ==
--- NOTE | ~2024-10-30 | XR_ITS ---
EXAMINATION: XR CHEST CLINICAL INFORMATION: R93.89 - Abnormal findings on diagnostic imaging of other specified body... COMPARISON: October 03, 2024. TECHNIQUE: 2 views of the chest were obtained. FINDINGS: No consolidation, pleural effusion or pneumothorax. Cardiomediastinal silhouette size is normal. Multilevel thoracic spondylosis. Dextroconvex curvature of the lower thoracic spine and likely levoconvex curvature of the lumbar spine. Vascular clips in the epigastric left upper quadrant abdomen. XR/XR chest 2V IMPRESSION: No acute airspace disease. Electronically signed by: Santana Mcintosh MD 10/30/2024 07:56 AM EDT
[2024-10-30 07:36] LABS: MANUAL DIFF FLAG NO
[2024-10-30 08:05] LABS: Basophils Absolute Auto 0.1 X10*3/uL (0.0-0.2); Basophils Percent Auto 0.7 % (0-2); Eosinophils Absolute Auto 0.2 X10*3/uL (0.0-0.4); Eosinophils Percent Auto 3.4 % (0-4); Hematocrit 40.3 % (37.0-47.0); Hemoglobin 13.3 g/dl (12.0-16.0); Imm Gran Abs Auto 0.05 X10*3/uL (0.00-0.03); Imm Gran Pct Auto 0.7 % (0.0-0.4); Lymphocytes Absolute Auto 2.2 X10*3/uL (1.2-4.9); Lymphocytes Percent Auto 30.8 % (20-40); Mean Corpuscular Volume 90.8 fL (80.0-98.0); Mean Platelet Volume 10.3 fL (9.4-12.3); Monocytes Absolute Auto 0.7 X10*3/uL (0.1-1.2); Neutrophils Absolute Auto 3.9 x10*3/uL (2.0-8.3); Neutrophils Percent Auto 54.4 % (45-73); Platelet Count 266 X10*3/uL (160-400); Red Blood Count 4.44 X10*6/uL (4.20-5.50); Red Cell Distribution Width 12.8 % (11.0-16.0); White Blood Count 7.1 X10*3/uL (4.8-10.8)
[2024-10-30 08:21] LABS: Estimated Average Glucose 117 mg/dL; Hemoglobin A1c % 5.7 % (<6.0)
[2024-10-30 08:58] LABS: Alanine Aminotransferase 22 U/L (0-31); Albumin Level 3.9 g/dL (3.5-5.0); Alkaline Phosphatase 67 U/L (39-117); Anion Gap 11 (12-20); Aspartate Amino Transferase 22 U/L (5-31); Bilirubin Total 1.4 mg/dL (0.0-1.0); Blood Urea Nitrogen 16 mg/dL (9-16); C Reactive Protein < 0.10 mg/dL (< or = 0.50); Calcium 9.2 mg/dL (8.4-10.2); Carbon Dioxide 26 mmol/L (22-29); Chloride 112 mmol/L (96-108); Cholesterol 146 mg/dL (<200); Estimated Glomerular Filt Rate > 60; Glucose Random 97 mg/dL (60-115); HDL Cholesterol 53 mg/dL (>40); Iron 82 mcg/dL (30-160); LDL Cholesterol Calculated 74 mg/dL (<100); Percent Iron Saturation 25 % (15-50); Potassium 4.7 mmol/L (3.3-5.1); Sodium 144 mmol/L (135-145); Total Iron Binding Capacity 333 mcg/dL (228-428); Total Protein 6.5 g/dL (6.5-8.0); Triglycerides 96 mg/dL (<150); Unsaturated Iron Binding 251 ug/dL
[2024-10-30 09:20] LABS: Vitamin B12 696 pg/mL (200-900)
[2024-10-30 09:23] LABS: Ferritin 9 ng/mL (10-250); Insulin 7 uU/mL (2-29); TSH reflex Free T4 1.72 uIU/mL (0.32-4.0); Vitamin D 25-OH Total 44.3 ng/mL (>30)
[2024-11-02 20:39] LABS: Zinc 79 mcg/dL (60-130)
[2024-11-03 15:29] LABS: Vitamin A 43 mcg/dL (38-98)
[2024-11-07 00:54] LABS: Vitamin B1 17 nmol/L (8-30)
== END 2024-10-30 07:14 | disposition home or self-care (01) ==
LOC: HO.XRAY 07:13
PROVIDERS: Absent Provider Physician Assistant Surgical; PCP Internal Medicine; Visit Provider Internal Medicine
DX: K76.0 Fatty (change of) liver, not elsewhere classified (principal); R93.89 Abnormal findings on diagnostic imaging of other specified body structures; E11.9 Type 2 diabetes mellitus without complications; I10 Essential (primary) hypertension; E78.5 Hyperlipidemia, unspecified; Z98.84 Bariatric surgery status
CPT/HCPCS: 36415; 71046; 80053; 80061; 82306; 82607; 82728; 82746; 83036; 83525; 83540; 84425; 84443; 84590; 84630; 85025; 86140

== ENCOUNTER → 2024-10-30 07:36 | Outpatient (BNV) | payer OTHER, SELFPAY | PROVIDERS: Absent Provider Physician Assistant Surgical; PCP Internal Medicine; Visit Provider Radiology Diagnostic Radiology | DX: R93.89 Abnormal findings on diagnostic imaging of other specified body structures (principal) | CPT/HCPCS: 71046 ==

== ENCOUNTER 2024-11-01 13:30 | Outpatient (AMB) | payer OTHER, SELFPAY ==
--- NOTE | 2024-11-01 13:59 | HO.NEPHOV ---
Vital Signs 11/01/24 14:02 Height 5 ft Weight 172 lb 2 oz BMI 33.6 BP 100/60 Blood Pressure Location Rt brachial Position Sitting Pulse 60 Pulse Source Pulse Oximeter Pulse Oximetry (%) 97 Oxygen Delivery Method Room Air Intake Visit Reasons: INP: Proteinuria-Conf Technical Service Engineer Required: No Accompanied by: Self / Same As Patient Allergies morphine [MORPHINE] Allergy (Severe, Verified 11/01/24 14:01) facial droop, numbness, lip deviation HPI Comments Details: 49-year-old female who had high blood sugar and diabetes as well as BMI and dyslipidemia is currently status post bariatric surgery in 2023. Her diabetes is stable with an A1c level of 5.9. Hyperlipidemia is controlled with LDL at 74 mg/dL. She also has hypothyroidism and her last TSH was normal. She is not on any blood sugar lowering medications or antihypertensives. She does not have any edema, hematuria, froth or foam in the urine. She denies any renal calculi, epistaxis, photosensitivity, joint swellings, flank pain, new bone or back pain. She does not take any excessive nonsteroidal anti-inflammatories. Her renal functions are normal. She is found to have protein in the urine. Nephrology has been consulted to assist in her ongoing clinical management. [facility] Medical History Abnormal chest xray Physical exam Pre-op evaluation H. pylori infection Sacroiliac dysfunction Trigger finger, right little finger Otitis externa Asthma Migraines Lower back pain Bronchitis Hyperkalemia Morbid obesity with BMI of 40.0-44.9, adult Mild recurrent major depression Left sided sciatica Essential hypertension Hypertriglyceridemia Insomnia Depression with anxiety Diabetes mellitus Hypothyroidism Surgical History S/P laparoscopic sleeve gastrectomy History of foot surgery History of section Family History Father Emphysema lung Mother Myocardial infarction Sister Chronic mental illness Family/Other FH: mental illness Sister Diabetes Sister Cancer, Onset Age: 57 Diabetes Sister Diabetes Sister Diabetes Son No problems noted. Unknown Cancer, Onset Age: 24 Social History Household Members: None Housing: Apartment Are you a primary care management coordinator to a significant other at home: No Do you presently have visiting nurse or other home services: No Alcohol intake: current Alcohol intake frequency: holidays/special occasions only Alcohol type: hard liquor Patient Tobacco Use Status: Former Tobacco user Tobacco use type: Cigarette e-Cigarette/Vaping Use: Never Used Second Hand Smoke Exposure: No service: No Current occupational status: employed Current occupational exposures/hazards: No Cognitive needs: No Hearing needs: No Vision needs: Yes Female Reproductive History Menstrual Age of Menarche: 13 Physical Exam Vital Signs: Last Vital Signs Pulse 60 11/01/24 14:02 BP 100/60 11/01/24 14:02 Pulse Ox 97 11/01/24 14:02 Oxygen Delivery Method Room Air 11/01/24 14:02 BMI result Body Mass Index 33.6 Const General: comfortable and no acute distress Orientation/consciousness: patient oriented x3 HEENT Head: Yes normocephalic Mouth: Normal oral and palatal mucosa present Eyes EOM: EOMs intact bilaterally Neck Neck: Yes supple Resp Auscultation: clear to auscultation bilaterally Cardio Jugular venous distension: no JVD Rate: regular rate GI Palpation (GI): Soft to palpation Auscultation: normal bowel sounds General: Yes no CVA tenderness Back/Spine/Pelvis Back: no CVA tenderness Skin General skin exam: no rashes or lesions noted Neuro General: patient oriented x3 and moves all extremities Extrem General: Yes no pedal edema Results Reviewed Nephrology Results: Hgb 13.3 g/dl (12.0-16.0) 10/30/24 WBC 7.1 X10*3/uL (4.8-10.8) 10/30/24 Plt Count 266 X10*3/uL (160-400) 10/30/24 Sodium 144 mmol/L (135-145) 10/30/24 Potassium 4.7 mmol/L (3.3-5.1) 10/30/24 Chloride 112 mmol/L (96-108) H 10/30/24 Carbon Dioxide 26 mmol/L (22-29) 10/30/24 BUN 16 mg/dL (9-16) 10/30/24 Creatinine 0.81 mg/dL (0.5-1.4) 10/30/24 Calcium 9.2 mg/dL (8.4-10.2) 10/30/24 Urine Creatinine 101.91 mg/dL 10/17/24 Assessment & Plan Assessment & Plan (1) Microalbuminuria: Code(s): R80.9 - Proteinuria, unspecified Category: Medical Plan Kalpana has protein in the urine most likely due to her high BMI as well as history of diabetes and hypertension. She is currently status post bariatric surgery and is off blood pressure and blood sugar lowering medications. She has lost quite a bit of weight. She avoids nonsteroidal anti-inflammatories. She maintains good hydration. I ordered extensive work I restarted her on enalapril 1.25 mg for her to be taken at night. I explained all the side effects and common drug interactions. Follow-up blood work ordered. Answered all questions. Further management is pending evolving data. Orders: Orders Anti DNA DS Antibody 4 Weeks R80.9 - Proteinuria, unspecified Proteinase 3 PR3 Antibodies 4 Weeks R80.9 - Proteinuria, unspecified Complement C3 4 Weeks R80.9 - Proteinuria, unspecified Phospholipase A2 Receptor Pnl 4 Weeks R80.9 - Proteinuria, unspecified Hepatitis B Core Antibody 4 Weeks R80.9 - Proteinuria, unspecified Hepatitis B Surface Antigen 4 Weeks R80.9 - Proteinuria, unspecified Blood Urea Nitrogen 4 Weeks R80.9 - Proteinuria, unspecified Myeloperoxidase Antibody 4 Weeks R80.9 - Proteinuria, unspecified Anti Glomerular Basement Memb 4 Weeks R80.9 - Proteinuria, unspecified Complement C4 4 Weeks R80.9 - Proteinuria, unspecified Immunofixation Pnl, Serum 4 Weeks R80.9 - Proteinuria, unspecified Electrolytes 4 Weeks R80.9 - Proteinuria, unspecified Creatinine 4 Weeks R80.9 - Proteinuria, unspecified Protein Creatinine Ratio, Ur 4 Weeks R80.9 - Proteinuria, unspecified Medications: New enalapril maleate 1.25 mg (1/2 x 2.5 mg) PO DAILY 15 tabs 4RF 30 days Coding Level of Care Code New Pt Level 4 (74588) Diagnoses Microalbuminuria R80.9
[2024-11-01 14:02] VITALS: BP 100/60; PULSE 60; O2SAT 97; BMI 33.6
--- OUTSIDE RECORDS SUMMARY | 2024-11-01 16:12 | XMS_ITS | Clinical Summary ---
Author Organization [facility] Address [address] [place] [address] [address] [place] [address] Care Team Providers Care It Project Coordinator Name Role Phone Unavailable Primary Care Provider [...] patient's age to complete this topic Insurance [facility] STANDARD
--- OUTSIDE RECORDS SUMMARY | 2024-11-01 16:12 | XMS_ITS | Encounter Summary ---
Author Organization [facility] Address [address] [place] [address] [address] [place] [address] Care Team Providers Care Manager Retirement Name Role Phone Unavailable Primary Care Provider [...]
== END 2024-11-01 14:22 | disposition home or self-care (01) ==
LOC: HO.HKA 13:31
PROVIDERS: PCP Internal Medicine; Referring Provider Internal Medicine; Visit Provider Internal Medicine Nephrology
DX: R80.9 Proteinuria, unspecified (principal)
CPT/HCPCS: 99204

== ENCOUNTER → 2024-11-01 13:30 | Outpatient (BNVA) | payer OTHER, SELFPAY | PROVIDERS: PCP Internal Medicine; Referring Provider Internal Medicine; Visit Provider Internal Medicine Nephrology | DX: R80.9 Proteinuria, unspecified (principal); E11.9 Type 2 diabetes mellitus without complications; E78.5 Hyperlipidemia, unspecified; E03.9 Hypothyroidism, unspecified | CPT/HCPCS: 99202 ==

== ENCOUNTER 2024-11-10 08:43 | Emergency (ER) | payer OTHER, SELFPAY ==
--- NOTE | ~2024-11-10 | XR_ITS ---
EXAMINATION: XR KNEE, LEFT CLINICAL INFORMATION: knee injury 11/09 COMPARISON: None available. TECHNIQUE: Four views of the left knee. FINDINGS: No fracture or joint effusion. Alignment is anatomic. Joint spaces are maintained. No abnormal soft tissue calcification. XR/XR knee LT 2V IMPRESSION: Normal left knee. Electronically signed by: Gino Felton MD 11/10/2024 09:08 AM EDT
[2024-11-10 08:55] VITALS: BP 119/78; PULSE 68; RESP 20; TEMP 37; O2SAT 100; BMI 28.9
[2024-11-10 11:14] VITALS: BP 117/65; PULSE 52; RESP 16; TEMP 36.6; O2SAT 100
--- NOTE | 2024-11-10 11:44 | ED.LOWEXIN ---
HPI - Extremity Injury (Lower) General Chief Complaint: Extremity Injury, Lower Stated Complaint: l leg inj at work Time Seen by Provider: 11/10/24 11:40 Source: patient Mode of arrival: ambulatory Limitations: language barrier History of Present Illness ED Provider: Dr. Benji Da Silva HPI Narrative: 49-year-old female history diabetes mellitus, hypertension, hyperlipidemia, asthma, depression, anxiety, hypothyroidism, left sciatica who presents emergency department for evaluation left lower back pain and left knee injury that occurred at work. Patient states she works at a [employer]. 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 She states that when she fell she also twisted her back. She states that since the injury she has had cuffed tube cup of throbbing pain in her left knee. The pain is 8/10 at its worst. She is also complaining of pain in her left lower back which is radiating to her buttocks and lateral aspect of her left leg to her knee. Related Data Home Medications ?Medication ?Instructions ?Recorded ?Confirmed buspirone 5 mg tablet 5 mg PO DAILY PRN Anxiety 05/27/20 10/24/24 escitalopram oxalate 20 mg tablet 20 mg PO DAILY PRN DEPRESSION 05/27/20 10/24/24 lancets 28 gauge (FreeStyle #100 ea 05/27/20 10/24/24 Lancets) trazodone 100 mg tablet 100 mg PO BEDTIME PRN Sleep 05/27/20 10/24/24 Previous Rx's ?Medication ?Instructions ?Recorded blood sugar diagnostic #10 ea 10/14/20 nebulizers (Aeroneb Go Nebulizer) #1 ea 05/11/22 blood pressure monitor #1 ea 02/08/23 blood-glucose meter (FreeStyle #1 ea 02/08/23 Lite Meter kit) fluticasone propionate 110 2 puff inhalation BID #36 grams 04/11/24 mcg/actuation HFA aerosol inhaler levothyroxine 25 mcg tablet 25 mcg PO DAILY@0600 90 days #90 06/12/24 tabs umeclidinium 62.5 mcg-vilanterol 1 inh inhalation DAILY 60 days #60 09/06/24 25 mcg/actuation powdr for ea inhalation (Anoro Ellipta) albuterol sulfate 2.5 mg/0.5 mL 5 mg inhalation Q4H PRN shortness 10/06/24 solution for nebulization of breath or wheezing #30 ea enalapril maleate 2.5 mg tablet 1.25 mg (1/2 x 2.5 mg) PO DAILY 30 11/01/24 days #15 tabs albuterol sulfate 90 mcg/actuation 1 puff PO QID PRN for wheezing #18 11/03/24 aerosol inhaler (Ventolin HFA) ea rosuvastatin 5 mg tablet 5 mg PO BEDTIME 90 days #90 tabs 11/08/24 acetaminophen 500 mg tablet 1,000 mg (2 x 500 mg) PO Q6H PRN 11/10/24 (Acetaminophen Pain Relief) pain #30 tabs cyclobenzaprine 10 mg tablet 10 mg PO TID PRN pain, muscle 11/10/24 spasm #15 tabs ibuprofen 400 mg tablet 400 mg PO TID PRN fever or pain 11/10/24 #30 tabs Allergies Allergy/AdvReac Type Severity Reaction Status Date / Time morphine [MORPHINE] Allergy Severe facial Verified 11/10/24 08:58 droop, numbness, lip deviation PMFSH Past Medical History Medical History Abnormal chest xray Physical exam Pre-op evaluation H. pylori infection Sacroiliac dysfunction Trigger finger, right little finger Otitis externa Asthma Migraines Lower back pain Bronchitis Hyperkalemia Morbid obesity with BMI of 40.0-44.9, adult Mild recurrent major depression Left sided sciatica Essential hypertension Hypertriglyceridemia Insomnia Depression with anxiety Diabetes mellitus Hypothyroidism Surgical History S/P laparoscopic sleeve gastrectomy History of foot surgery History of section Family History Family History Father Emphysema lung Mother Myocardial infarction Sister Chronic mental illness Family/Other FH: mental illness Sister Diabetes Sister Cancer, Onset Age: 57 Diabetes Sister Diabetes Sister Diabetes Son No problems noted. Unknown Cancer, Onset Age: 24 Social History Social History Household Members: None Housing: Apartment Are you a primary childcare aide to a significant other at home: No Do you presently have visiting nurse or other home services: No Alcohol intake: current Alcohol intake frequency: holidays/special occasions only Alcohol type: hard liquor Patient Tobacco Use Status: Former Tobacco user Tobacco use type: Cigarette Smoked in Last 30 Days: No e-Cigarette/Vaping Use: Never Used Second Hand Smoke Exposure: No Use of substances other than those prescribed or required for medical reasons: No Advance Directives: No Advance Directives Information Provided: Yes service: No Current occupational status: employed Current occupational exposures/hazards: No Cognitive needs: No Hearing needs: No Vision needs: Yes Physical Exam Vital Signs: Vital Signs: Last Vital Signs Temp 98.1 F 11/10/24 13:10 Pulse 53 11/10/24 13:10 Resp 16 11/10/24 13:10 BP 136/66 11/10/24 13:10 Pulse Ox 100 11/10/24 13:10 O2 Del Method Room Air 11/10/24 13:10 BMI result Body Mass Index 28.9 Vital signs were normal Exam: General: Awake, alert in no distress Head: Normocephalic, atraumatic EENT: PERRL, Lids normal, sclera normal, conjunctiva normal, nose normal , ears normal, throat without erythema or exudates Neck: Supple, no adenopathy Lung: breath sounds symmetric, no wheezing, rales or rhonchi Chest: symmetric movement, nontender Heart: regular rate and rhythm, normal S1, S2 no murmurs or rubs Abdomen: soft, non-tender, nondistended, normal bowel sounds Back: no point vertebral tenderness, no CVAT, positive straight leg raise on the left but a negative straight leg raise on the right, tenderness and spasm the paraspinal muscles in the lumbar sacral area Extremities: no deformities, tenderness palpation of her left knee with no obvious joint effusion, ecchymosis or soft tissue swelling, increased pain with flexion extension Neuro: Awake, alert, oriented, normal speech, cranial nerves intact, moves all extremities symmetrically Psych: Pleasant, cooperative Medications Administered Discontinued Medications Generic Name Dose Route Start Last Admin Trade Name Freq PRN Reason Stop Dose Admin Ketorolac Tromethamine 60 mg 11/10/24 12:03 11/10/24 12:14 Ketorolac Tromethamine 60 Mg/2 Ml Vial IM 11/10/24 12:04 60 mg ONCE ONE Administration Medical Decision Making Medical Decision Making [facility] Narrative: 49-year-old female history diabetes mellitus, hypertension, hyperlipidemia, asthma, depression, anxiety, hypothyroidism, left sciatica who presents emergency department for evaluation left lower back pain and left knee injury that occurred at work. 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 She states that when she fell she also twisted her back. She states that since the injury she has had cuffed tube cup of throbbing pain in her left knee. The pain is 8/10 at its worst. She is also complaining of pain in her left lower back which is radiating to her buttocks andlateral aspect of her left leg to her knee. Vital signs were normal. Patient did have tenderness and spasm of her paraspinal muscles in lumbar sacral area. Patient had a positive straight leg raise on the left but negative straight leg raise in the right. Her neurologic exam was nonfocal. Patient did have tenderness with palpation of her left knee. Differential diagnosis: Includes but is not limited to lower back musculoskeletal injury/spasm, lumbar radiculopathy, sciatic injury, disc injury, left knee contusion/fracture, sprain Course: The patient's x-rays of the left knee or negative for fracture, patient most likely has a contusion to her knee is the cause of her pain.. Patient also had tenderness and spasm paraspinal muscles in the left lumbar area of her back. Patient had a positive straight leg raise on the left negative straight leg raise on the right which is more consistent with lumbar radiculopathy most likely from a twisting injury from her fall at work. The patient was treated with Toradol 60 mg IM with improvement her pain. She was discharged home with prescription for ibuprofen 400 mg q.6 hours as needed for pain, Tylenol 500 mg 2 pills every 6 hours as needed for pain and cyclobenzaprine 10 mg every 6-8 hours as needed for pain and spasm. She was advised to apply ice for 15 minutes 4 to 6 times a day for the next 2-3 days. I did tell her that she will need to discuss follow-up with occupational clinic with her player and see if she can use the occupational health clinic at [facility] [place] Independent Interpretation I performed an independent interpretation of an: Plain X-Ray Interpretation: My independent interpretation of the patient's two view knee x-ray is as follows: No acute fracture seen Radiology Impression Discussion of test interpretation with radiology: I have reviewed the radiologist's reading. Radiologist Impression: XR knee LT 2V IMPRESSION: Normal left knee. Electronically signed by: Gino Felton MD 11/10/2024 09:08 AM EDT Discharge Plan Discharge Clinical Impression: Acute lumbosacral myofascial strain, Contusion of knee, left, Fall, Occupational injury, Acute left lumbar radiculopathy Patient Disposition: Home, Self-Care Instructions: Contusion in Adults (ED), Lumbar Radiculopathy (ED) Additional Instructions: Your left knee x-ray revealed no broken bones which is reassuring. Your exam is consistent with a bruise to your knee, a strain of your lower back in inflammation of the lower back muscles which is causing the pain in your buttocks left leg and knee. Take ibuprofen 400 mg pills, 1 pills every 6 hours as needed for pain or fever. Take Tylenol (acetaminophen) 500 mg pills, 2 pills every 6 hours as needed for pain or fever. Take Flexeril (cyclobenzaprine) 10 mg pills, 1 pill every 6-8 hours as needed for pain or spasm. ?This medication will make you sleepy. ?Do not drive or work while taking this medication. Apply ice to your left knee and lower back for 15 minutes 4 to 6 times a day for the next 2-3 days. This will reduce the inflammation and pain in these areas. You need to follow-up with an occupational health clinic. 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 Call the occupational health clinic and make an appointment in 3-4 days for re-evaluation. You can not return to work until your medically cleared by the occupational health clinic. Follow-up with [employer] [facility] or your employer occupational health clinic in 3-4 days Please return to the emergency department if your symptoms get worse or if you develop any symptoms that are concerning to you. Prescriptions: New cyclobenzaprine 10 mg tablet 10 mg PO TID PRN (Reason: pain, muscle spasm) Qty: 15 0RF ibuprofen 400 mg tablet 400 mg PO TID PRN (Reason: fever or pain) Qty: 30 0RF acetaminophen [Acetaminophen Pain Relief] 500 mg tablet 1,000 mg PO Q6H PRN (Reason: pain) Qty: 30 0RF No Action (DME) blood sugar diagnostic Strip See Rx Instructions Not Applicable BID Qty: 10 11RF Rx Instructions: As directed (DME) blood-glucose meter [FreeStyle Lite Meter] Kit See Rx Instructions .Route Qty: 1 0RF Rx Instructions: As directed (DME) blood pressure monitor Kit See Rx Instructions .Route Qty: 1 0RF Rx Instructions: As directed fluticasone propionate 110 mcg/actuation HFA aerosol inhaler 2 puff inhalation BID Qty: 36 0RF levothyroxine 25 mcg tablet 25 mcg PO DAILY@0600 90 Days Qty: 90 1RF Anoro Ellipta 62.5-25 mcg/actuation blister with device 1 inh inhalation DAILY 60 Days Qty: 60 6RF albuterol sulfate [Ventolin HFA] 90 mcg/actuation HFA aerosol inhaler 1 puff PO QID PRN (Reason: for wheezing) Qty: 18 1RF rosuvastatin 5 mg tablet 5 mg PO BEDTIME 90 Days Qty: 90 0RF trazodone 100 mg tablet 100 mg PO BEDTIME PRN (Reason: Sleep) escitalopram oxalate 20 mg tablet 20 mg PO DAILY PRN (Reason: DEPRESSION) buspirone 5 mg tablet 5 mg PO DAILY PRN (Reason: Anxiety) (DME) lancets [FreeStyle Lancets] 28 gauge misc See Rx Instructions .ROUTE .MEDSUPPLY Qty: 100 Rx Instructions: As directed (DME) nebulizers [Aeroneb Go Nebulizer] Misc See Rx Instructions .Route Qty: 1 0RF Rx Instructions: As directed albuterol sulfate 2.5 mg/0.5 mL solution for nebulization 5 mg inhalation Q4H PRN (Reason: shortness of breath or wheezing) Qty: 30 3RF enalapril maleate 2.5 mg tablet 1.25 mg PO DAILY 30 Days Qty: 15 4RF Referrals: [facility] [Provider Group] - 5 days (A trip and fall at work injury to left knee and lower back with radiculopathy) Stand Alone Forms: Work/School Release Interventions: ED Discharge Assessment Last Done: 11/10/24 13:10 Discharge Date/Time: 11/10/24 13:10 Print Language: Upper Sorbian
[2024-11-10] MEDS: Ketorolac Tromethamine 60 MG/2 ML VIAL IM (12:14)
[2024-11-10 12:23] VITALS: BP 136/66; PULSE 53; RESP 16; TEMP 36.7; O2SAT 100
--- OUTSIDE RECORDS SUMMARY | 2024-11-10 12:45 | XMS_ITS | Clinical Summary ---
Author Organization [facility] Address [address] [place] [address] [address] [place] [address] Care Team Providers Care Emission Technician Name Role Phone Unavailable Primary Care Provider [...] patient's age to complete this topic Insurance [facility] STANDARD
--- OUTSIDE RECORDS SUMMARY | 2024-11-10 12:45 | XMS_ITS | Encounter Summary ---
Author Organization [facility] Address [address] [place] [address] [address] [place] [address] Care Team Providers Care Outside Solar Sales Consultant Name Role Phone Unavailable Primary Care Provider [...]
[2024-11-10 13:10] VITALS: BP 136/66; PULSE 53; RESP 16; TEMP 36.7; O2SAT 100
== END 2024-11-10 13:10 | disposition home or self-care (01) ==
PROVIDERS: Emergency Provider Emergency Medicine Emergency Medical Services; PCP Internal Medicine
DX: S80.02XA Contusion of left knee, initial encounter (principal); S39.012A Strain of muscle, fascia and tendon of lower back, initial encounter; M54.16 Radiculopathy, lumbar region; M25.562 Pain in left knee; W01.10XA Fall on same level from slipping, tripping and stumbling with subsequent striking against unspecified object, initial encounter; Y93.9 Activity, unspecified; Y92.9 Unspecified place or not applicable; Y99.0 Civilian activity done for income or pay
CPT/HCPCS: 73560; 96372; 99284; J1885

== ENCOUNTER → 2024-11-10 09:00 | Outpatient (BNV) | payer OTHER, SELFPAY | PROVIDERS: PCP Internal Medicine; Visit Provider Radiology Diagnostic Radiology | DX: S80.912A Unspecified superficial injury of left knee, initial encounter (principal) | CPT/HCPCS: 73560 ==

== ENCOUNTER 2024-11-23 08:25 | Outpatient (REF) | payer OTHER, SELFPAY ==
--- OUTSIDE RECORDS SUMMARY | 2024-11-23 08:48 | XMS_ITS | Clinical Summary ---
Author Organization [employer] Address [address] [facility] [address] [place] [address] Care Team Providers Care Driftman Name Role Phone Unavailable Primary Care Provider Unavailabl e Allergies Active Allergy Reactions Criticality Noted Date Comments Morphine Rash Low 06/08/2019 Medications Acetaminophen Extra Strength 500 MG tablet Take 2 tablets by mouth every 6 (six) hours if needed for pain. 11/11/19 25 Active Ventolin HFA 108 (90 Base) MCG/ACT inhaler INHALE 1 PUFF BY MOUTH 4 TIMES A DAY NEEDED FOR SHORTNESS OF BREATH OR WHEEZING Active amoxicillin (Amoxil) 500 MG tablet Take 1 tablet by mouth 2 times daily. 06/01/20 24 Active azithromycin (Zithromax) 200 MG/5ML suspension TAKE 12.5 ML BY MOUTH TODAY DAY 1, THEN 6.25 ML DAILY FOR 4 DAYS (DAYS 2-5). DISCARD REMAINDER 06/21/20 24 Active azithromycin (Zithromax) 250 MG tablet TAKE 2 TABLETS BY MOUTH TODAY, THEN TAKE 1 TABLET DAILY FOR 4 DAYS DIRECTED 10/07/19 25 Active benzonatate (Tessalon) 100 MG capsule Take 1 capsule by mouth every 8 (eight) hours if needed for cough. 10/04/19 25 Active bisacodyl (Dulcolax) 10 MG suppository INSERT 1 SUPPOSITORY RECTALLY DAILY NEEDED FOR CONSTIPATION 07/13/20 24 Active busPIRone (Buspar) 5 MG tablet 10/25/19 25 Active cyclobenzaprin e (Flexeril) 10 MG tablet take 1 tablet by mouth three times a day as needed for muscle spasm 11/11/19 25 Active enalapril (Vasotec) 2.5 MG tablet TAKE 1/2 TABLET ORALLY DAILY FOR 30 DAYS 11/02/19 25 Active escitalopram (Lexapro) 20 MG tablet 10/25/19 25 Active fluticasone (Flovent HFA) 110 MCG/ACT inhaler Inhale 1 puff every 12 (twelve) hours. Active levothyroxine (Synthroid, Levoxyl) 25 MCG tablet 09/04/19 25 Active levothyroxine (Tirosint) 25 MCG capsule Take 1 capsule by mouth at bed time. Active SUMAtriptan (Imitrex) 25 MG tablet TAKE 1 TABLET ORALLY EVERY 2 TO 4 HOURS NEEDED FOR MIGRAINE FOR 30 DAYS. MAX 8 DOSES PER 24 HRS 05/09/20 24 Active traZODone (Desyrel) 100 MG tablet 10/25/19 25 Active Anoro Ellipta 62.5-25 MCG/ACT aerosol powder inhale 1 puff by mouth daily 10/27/19 25 Active ibuprofen 400 MG tablet TAKE 1 TABLET ORALLY 3 TIMES A DAY NEEDED FOR FEVER OR PAIN 11/11/19 25 025 Discontinued amoxicillin (Amoxil) 500 MG capsule Take 1 capsule (500 mg) by mouth every 8 (eight) hours for 7 days. 21 capsule 11/14/19 25 025 chlorhexidine (Peridex) 0.12 % solution Use 15 mL in the mouth or throat if needed in the morning, at noon, and at bedtime (PROPHYLAXIS) for up to 5 days. 110 mL 11/14/19 25 025 Encounters Date Type Department Care Team Description 11/13/2024 11:30 AM EDT Office Visit [facility] [address] [place] [address] Dhaval Alvarez DMD 11/13/2024 Travel from Last 3 Months Social History Tobacco Use Types Packs/Day Years Used Date Smoking Tobacco: Never Smokeless Tobacco: Never Tobacco Cessation:Counseling Given: Not Answered Comments Unknown Sex and Gender Information Value Date Recorded Sex Assigned at Female 06/01/2022 10:35 AM EDT Legal Sex Female 10:35 AM EDT Gender Identity Female 06/01/2022 10:35 AM EDT Sexual Orientation Straight 06/01/2022 10 :35 AM EDT Last Filed Vital Signs Vital Sign Reading Time Taken Comments Blood Pressure 130/80 11/13/2024 11:09 AM EDT Pulse 72 11/13/2024 11:09 AM EDT Temperature - - Respiratory Rate - - Oxygen Saturation - - Inhaled Oxygen Concentration - - Weight - - Height - - Body Mass Index - - Plan of Treatment Upcoming Encounters Date Type Department Care Team (Late st Contact Info) Description 12/04/2024 8:30 AM EDT [facility] [address] [place] [address] Health Maintenance Due Date Last Done Comments CT Colonography 1977 Colonoscopy 1977 Colorectal Cancer Screening 1977 Depression Screening 1977 FIT DNA/Cologuard 1977 FIT 1977 FOBT 1977 HIV Screening 1977 SDOH Screening 1977 Sigmoidoscopy 1977 Alcohol/Substance Use Screening 1989 Family Planning (PISQ) 1992 Hepatitis C Screening 1995 Hepatitis B Vaccines (1 of 3 - 19+ 3-dose series) 1996 Pap Smear 1998 Cervical Cancer Screening 2007 HPV/Cotest 2007 Mammogram 2017 Dental Oral Exam 07/09/2019 01/06/2019 Dental Prophylaxis 12/08/2019 06/08/2019 Dental X-Ray: Full Mouth 01/07/2022 01/06/2019 COVID-19 Vaccine ( season) 2024 09/16/2021, 10/09/2020, 09/18/2020 Tobacco Screening 11/13/2025 11/13/2024 Dental X-Ray: Bitewings 11/14/2025 11/13/2024, 01/06 Zoster Vaccines (1 of 2) 2027 DTaP/Tdap/Td Vaccines (2 - Td or Tdap) 07/24/2032 07/24/2022 RSV Patients and Patients Aged 60 years or older (1 - 1-dose 75+ series) 2052 Pneumococcal Vaccine: Pediatrics (0 to 5 Years) and At-Risk Patients (6 to 49) Years) Aged Out 07/01/2017 No longer eligible based on patient's age to complete this topic Influenza Vaccine Completed 05/18/2024, , 05/05/2021, Additional history exists HIB Vaccines Aged Out No longer eligi [...] on patient's age to complete this topic Procedures Procedure Name Priority Date/Time Associated Diagnosis Comments CASE PRESENTATION, DETAILED AND EXTENSIVE TREATMENT PLANNING Routine 11/13/2024 11:30 AM EDT BITEWING - SINGLE RADIOGRAPHIC IMAGE Routine 11/13/2024 11:30 AM EDT INTRAORAL - PERIAPICAL FIRST RADIOGRAPHIC IMAGE Routine 11/13/2024 11:30 AM EDT PALLIATIVE (EMERGENCY) TREATMENT OF DENTAL PAIN - MINOR PROCEDURE Routine 11/13/2024 11:30 AM EDT PROPHYLAXIS - ADULT Routine 06/08/2019 1 2:00 AM EST INTRAORAL - COMPLETE SERIES OF RADIOGRAPHIC IMAGES Routine 01/06/2019 12:00 AM EDT COMPREHENSIVE ORAL EVALUATION - NEW OR ESTABLISHED PATIENT Routine 01/06/2019 12:00 AM EDT from Last 3 Months or Most Recently Relevant to Health Maintenance Insurance [employer] D[facility]-[employer] STAND ADULT
--- OUTSIDE RECORDS SUMMARY | 2024-11-23 08:48 | XMS_ITS | Encounter Summary ---
Author Organization [employer] Address [address] [place] [address] Care Team Providers Care Assistant Professor Of Anthropology Name Role Phone Unavailable Primary Care Provider Unavailabl e Encounter Details Date Type Department Care Team (Latest Contact Info) Description 06/08/2019 Abstract [facility] CONVERSIONS Dental, Provider, DDS Social History Tobacco Use Types Packs/Day Years Used Date Smoking Tobacco: Never Assessed Comments Unknown Sex and Gender Information Value Date Recorded Sex Assigned at Female 06/01/2022 10:35 AM EDT Legal Sex Female 10:35 AM EDT Gender Identity Female 06/01/2022 10:35 AM EDT Sexual Orientation Straight 06/01/2022 10 :35 AM EDT documented as of this encounter Plan of Treatment Upcoming Encounters Date Type Department Care Team (Late st Contact Info) Description 12/04/2024 8:30 AM EDT Office Visit [facility] ADULT D[facility]AL [address] [place] [address] documented as of this encounter Visit Diagnoses Not on filedocumented in this encounter
[2024-11-23 10:12] LABS: Anion Gap 14 (12-20); Blood Urea Nitrogen 17 mg/dL (9-16); Carbon Dioxide 26 mmol/L (22-29); Chloride 106 mmol/L (96-108); Creatinine Urine 120.14 mg/dL; Estimated Glomerular Filt Rate > 60; Potassium 4.1 mmol/L (3.3-5.1); Sodium 142 mmol/L (135-145); Total Protein Urine Random < 7 mg/dL (<12)
[2024-11-23 10:31] LABS: HBc Num1 0.18 S/CO (0.00-0.79); HBsAGNum1 0.27 S/CO (0.00-0.99); Hepatitis B Core Antibody Nonreactive (Nonreactive); Hepatitis B Surface Antigen Negative (Negative)
[2024-11-24 14:53] LABS: IgA 273 mg/dL (47-310); IgG 861 mg/dL (600-1640); IgM 118 mg/dL (50-300)
[2024-11-24 14:59] LABS: Anti DNA DS Antibody <1 IU/mL; Anti Glomerular Basement Memb <1.0 AI; Myeloperoxidase Antibody <1.0 AI; Proteinase 3 PR3 Antibodies <1.0 AI
[2024-11-25 17:08] LABS: Complement C3 99 mg/dL (83-193)
[2024-11-30 01:54] LABS: Phospholipase A2 IgG ELISA <4 RU/mL; Phospholipase A2 IgG IFA NEGATIVE (NEGATIVE)
== END 2024-11-23 08:26 | disposition home or self-care (01) ==
LOC: HO.LAB 08:25
PROVIDERS: PCP Internal Medicine; Visit Provider Internal Medicine Nephrology
DX: R80.9 Proteinuria, unspecified (principal)
CPT/HCPCS: 36415; 80051; 82565; 82570; 82784; 83520; 84156; 84520; 86021; 86160; 86225; 86255; 86334; 86704; 87340

== ENCOUNTER 2024-12-01 09:38 | Outpatient (AMB) | payer OTHER, SELFPAY ==
--- NOTE | 2024-12-01 09:52 | HO.NEPHOV_ITS ---
Vital Signs 12/01/24 09:53 Height 5 ft 4 in Weight 168 lb 6 oz BMI 28.9 BP 117/68 Blood Pressure Location Lt brachial Position Sitting Pulse 61 Pulse Source Pulse Oximeter Pulse Oximetry (%) 98 Oxygen Delivery Method Room Air Intake Visit Reasons: 1 MO FU-Conf Refrigerator Tester Required: Yes Refrigerator Tester Language: Commodity Buyer Services: Refrigerator Tester Offered & Declined [place] [place] Accompanied by: Self / Same As Patient Allergies morphine [MORPHINE] Allergy (Severe, Verified 12/01/24 09:55) facial droop, numbness, lip deviation Do you need a note to return to daycare/school/sports/work: No HPI Comments Details: 49-year-old female who had high blood sugar and diabetes as well as BMI and dyslipidemia is currently status post bariatric surgery in 2023. Her diabetes is stable with an A1c level of 5.9. Hyperlipidemia is controlled with LDL at 74 mg/dL. She also has hypothyroidism and her last TSH was normal. She is not on any blood sugar lowering medications or antihypertensives. She does not have any edema, hematuria, froth or foam in the urine. She denies any renal calculi, epistaxis, photosensitivity, joint swellings, flank pain, new bone or back pain. She does not take any excessive nonsteroidal anti-inflammatories. Her renal functions are normal. She is found to have protein in the urine earlier. [facility] Medical History Abnormal chest xray Physical exam Pre-op evaluation H. pylori infection Sacroiliac dysfunction Trigger finger, right little finger Otitis externa Asthma Migraines Lower back pain Bronchitis Hyperkalemia Morbid obesity with BMI of 40.0-44.9, adult Mild recurrent major depression Left sided sciatica Essential hypertension Hypertriglyceridemia Insomnia Depression with anxiety Diabetes mellitus Hypothyroidism Surgical History S/P laparoscopic sleeve gastrectomy History of foot surgery History of section Family History Father Emphysema lung Mother Myocardial infarction Sister Chronic mental illness Family/Other FH: mental illness Sister Diabetes Sister Cancer, Onset Age: 57 Diabetes Sister Diabetes Sister Diabetes Son No problems noted. Unknown Cancer, Onset Age: 24 Social History Household Members: None Housing: Apartment Are you a primary palliative care nurse to a significant other at home: No Do you presently have visiting nurse or other home services: No Alcohol intake: current Alcohol intake frequency: holidays/special occasions only Alcohol type: hard liquor Patient Tobacco Use Status: Former Tobacco user Tobacco use type: Cigarette e-Cigarette/Vaping Use: Never Used Second Hand Smoke Exposure: No service: No Current occupational status: employed Current occupational exposures/hazards: No Cognitive needs: No Hearing needs: No Vision needs: Yes Female Reproductive History Menstrual Age of Menarche: 13 Review of Systems Const All systems reviewed & are unremarkable except as noted in HPI and below Physical Exam Vital Signs: Last Vital Signs Pulse 61 12/01/24 09:53 BP 117/68 12/01/24 09:53 Pulse Ox 98 12/01/24 09:53 Oxygen Delivery Method Room Air 12/01/24 09:53 BMI result Body Mass Index 28.9 Const General: comfortable and no acute distress Orientation/consciousness: patient oriented x3 HEENT Head: Yes normocephalic Mouth: Normal oral and palatal mucosa present Eyes EOM: EOMs intact bilaterally Neck Neck: Yes supple Resp Auscultation: clear to auscultation bilaterally Cardio Jugular venous distension: no JVD Rate: regular rate GI Palpation (GI): Soft to palpation Auscultation: normal bowel sounds General: Yes no CVA tenderness Back/Spine/Pelvis Back: no CVA tenderness Skin General skin exam: no rashes or lesions noted Neuro General: patient oriented x3 and moves all extremities Extrem General: Yes no pedal edema Results Reviewed Nephrology Results: Hgb 13.3 g/dl (12.0-16.0) 10/30/24 WBC 7.1 X10*3/uL (4.8-10.8) 10/30/24 Plt Count 266 X10*3/uL (160-400) 10/30/24 Sodium 142 mmol/L (135-145) 11/23/24 Potassium 4.1 mmol/L (3.3-5.1) 11/23/24 Chloride 106 mmol/L (96-108) 11/23/24 Carbon Dioxide 26 mmol/L (22-29) 11/23/24 BUN 17 mg/dL (9-16) H 11/23/24 Creatinine 0.81 mg/dL (0.5-1.4) 11/23/24 Calcium 9.2 mg/dL (8.4-10.2) 10/30/24 Urine Creatinine 120.14 mg/dL 11/23/24 Protein/Creatinin Ratio TNP 11/23/24 Assessment & Plan Assessment & Plan (1) Microalbuminuria: Code(s): R80.9 - Proteinuria, unspecified Category: Medical Plan Kalpana had protein in the urine most likely due to her high BMI as well as history of diabetes and hypertension. She is currently status post bariatric surgery and is off blood pressure and blood sugar lowering medications. She has lost quite a bit of weight. She avoids nonsteroidal anti-inflammatories. She maintains good hydration. Extensive work up has been negative. She is on enalapril 1.25 mg for her to be taken at night. Follow-up blood work ordered. Answered all questions. Orders: Orders Protein Creatinine Ratio, Ur 4 Months R80.9 - Proteinuria, unspecified Creatinine 4 Months R80.9 - Proteinuria, unspecified Blood Urea Nitrogen 4 Months R80.9 - Proteinuria, unspecified Electrolytes 4 Months R80.9 - Proteinuria, unspecified Coding Level of Care Code Est Pt Level 4 (07825) Diagnoses Microalbuminuria R80.9
[2024-12-01 09:53] VITALS: BP 117/68; PULSE 61; O2SAT 98; BMI 28.9
== END 2024-12-01 10:05 | disposition home or self-care (01) ==
LOC: HO.HKA 09:39
PROVIDERS: PCP Internal Medicine; Visit Provider Internal Medicine Nephrology
DX: R80.9 Proteinuria, unspecified (principal)
CPT/HCPCS: 99214

== ENCOUNTER → 2024-12-01 09:38 | Outpatient (BNVA) | payer OTHER, SELFPAY | PROVIDERS: PCP Internal Medicine; Visit Provider Internal Medicine Nephrology | DX: E11.9 Type 2 diabetes mellitus without complications (principal); E78.5 Hyperlipidemia, unspecified; R80.9 Proteinuria, unspecified | CPT/HCPCS: 99212 ==

== ENCOUNTER 2024-12-06 08:28 | Outpatient (AMB) | payer OTHER, SELFPAY ==
--- NOTE | 2024-12-06 08:54 | MHC.NURWM ---
Intake Intake Visit Reasons: (OV) PO LSG 03/29/24 Allergies morphine [MORPHINE] Allergy (Severe, Verified 12/01/24 09:55) facial droop, numbness, lip deviation Coding
--- NOTE | 2024-12-06 09:02 | A.OFFVIS_ITS ---
VS Expanded 12/06/24 09:05 BP 137/61 Blood Pressure Location Rt brachial Blood Pressure Position Sitting Pulse 62 Pulse Source Pulse Oximeter Temp 96.6 F L Temperature Source Temporal Artery Scan Pulse Oximetry 100 Oxygen Delivery Method Room Air Height 5 ft Weight 165 lb 3.2 oz BMI 32.3 Body Fat % 26.3 Body Fat Mass 43.4 Fat Free Mass 121.6 Visceral Fat Rating 5.0 Body Water % 52.5 Body Water Mass 86.6 Muscle Mass/Score 115.6 Basal Metabolic Rate/Score 1,613 Intake Visit Reasons: (OV) PO LSG 03/29/24 Nursing Staff Development Coordinator Required: Yes Nursing Staff Development Coordinator Services: Nursing Staff Development Coordinator Present Nursing Staff Development Coordinator Name: hospital cmi Allergies morphine [MORPHINE] Allergy (Severe, Verified 12/06/24 09:00) facial droop, numbness, lip deviation Medication List - Last Reconciled 12/06/24 by ANTONY Montes acetaminophen (Acetaminophen Pain Relief) 1,000 mg (2 x 500 mg) PO Q6H PRN albuterol sulfate 5 mg inhalation Q4H PRN albuterol sulfate 90 mcg/actuation (Ventolin HFA) 1 puff PO QID PRN blood pressure monitor As directed blood sugar diagnostic As directed blood-glucose meter (FreeStyle Lite Meter kit) As directed buspirone 5 mg PO DAILY PRN cyclobenzaprine 10 mg PO TID PRN enalapril maleate 1.25 mg (1/2 x 2.5 mg) PO DAILY 30 days escitalopram oxalate 20 mg PO DAILY PRN fluticasone propionate 110 mcg/actuation 2 puffs inhalation BID ibuprofen 400 mg PO TID PRN lancets (FreeStyle Lancets) As directed levothyroxine 25 mcg PO DAILY@0600 90 days nebulizers (Aeroneb Go Nebulizer) As directed rosuvastatin 5 mg PO BEDTIME 90 days trazodone 100 mg PO BEDTIME PRN umeclidinium-vilanterol 62.5-25 mcg/actuation (Anoro Ellipta) 1 inh inhalation DAILY 60 days HPI Comments Details: This?a?49?yo female who is s/p LSG without hiatal hernia repair on?03/29/2024. Presents for 8 month post op visit. Weight today is 165.2 pounds, with a BMI of 28.4 There has been a 65.2 pound weight loss,(initial weight 230.4 pounds) since starting the program on 07/13/23 reflecting a 28.2 % total body weight loss and a weight loss of 43.3 pounds since surgery (operative weight 208.5 pounds) reflecting a 20.7 % TBWL since surgery. No complaints of nausea, emesis, abdominal pain or reflux. Reports difficulty with constipation, stools are hard. Bowel movements every 3 days. Taking mvi Wants to change to Premier protein Present meal plan includes: Premier protein ready to drink shake, 8-10 Half cartons mixed with 6 oz of unsweetened almond milk, 12-2 Continue her meal with 4 forks of protein and 4 forks of vegetables drinking 64 oz water daily Exercise routine includes: states she had an accident and now can return to work. treadmill at home 2 days per week, 450 calorie [facility] Medical History Abnormal chest xray Physical exam Pre-op evaluation H. pylori infection Sacroiliac dysfunction Trigger finger, right little finger Otitis externa Asthma Migraines Lower back pain Bronchitis Hyperkalemia Morbid obesity with BMI of 40.0-44.9, adult Mild recurrent major depression Left sided sciatica Essential hypertension Hypertriglyceridemia Insomnia Depression with anxiety Diabetes mellitus Hypothyroidism Surgical History S/P laparoscopic sleeve gastrectomy History of foot surgery History of section Family History Father Emphysema lung Mother Myocardial infarction Sister Chronic mental illness Family/Other FH: mental illness Sister Diabetes Sister Cancer, Onset Age: 57 Diabetes Sister Diabetes Sister Diabetes Son No problems noted. Unknown Cancer, Onset Age: 24 Social History Household Members: None Housing: Apartment Are you a primary lawn care technician to a significant other at home: No Do you presently have visiting nurse or other home services: No Alcohol intake: current Alcohol intake frequency: holidays/special occasions only Alcohol type: hard liquor Patient Tobacco Use Status: Former Tobacco user Tobacco use type: Cigarette e-Cigarette/Vaping Use: Never Used Second Hand Smoke Exposure: No service: No Current occupational status: employed Current occupational exposures/hazards: No Cognitive needs: No Hearing needs: No Vision needs: Yes Female Reproductive History Menstrual Age of Menarche: 13 Physical Exam Vital Signs: Last Vital Signs Temp 96.6 F L 12/06/24 09:05 Pulse 62 12/06/24 09:05 BP 137/61 12/06/24 09:05 Pulse Ox 100 12/06/24 09:05 Oxygen Delivery Method Room Air 12/06/24 09:05 BMI result Body Mass Index 32.3 Const General: healthy appearing and no acute distress Resp Effort & Inspection: normal respiratory effort Auscultation: clear to auscultation bilaterally Cardio Rate: regular rate Rhythm: regular rhythm GI Auscultation: normal bowel sounds Extrem General: Yes normal to inspection Assessment & Plan Assessment & Plan (1) S/P laparoscopic sleeve gastrectomy: Code(s): Z98.84 - Bariatric surgery status Category: Surgical Plan: Overall, patient is doing well. She has now recovered from an accident where she had back pain, and can now resume exercise. She will maintain her meal plan and increase exercise with a goal of burning 300 calories daily. She was encouraged to continue to text weights weekly and with any questions or concerns. Return to clinic for 1 year follow-up
[2024-12-06 09:05] VITALS: BP 137/61; PULSE 62; TEMP 35.9; O2SAT 100; BMI 32.3
== END 2024-12-06 09:24 | disposition home or self-care (01) ==
LOC: HO.HBS 08:28
PROVIDERS: PCP Internal Medicine; Visit Provider Physician Assistant Surgical
DX: E66.9 Obesity, unspecified (principal); E66.811 Obesity, class 1; Z68.32 Body mass index [BMI] 32.0-32.9, adult; Z98.84 Bariatric surgery status
CPT/HCPCS: 99213; G2211

== ENCOUNTER → 2024-12-06 08:28 | Outpatient (BNVA) | payer OTHER, SELFPAY | PROVIDERS: PCP Internal Medicine; Visit Provider Physician Assistant Surgical | DX: Z98.84 Bariatric surgery status (principal) | CPT/HCPCS: 99212 ==

== ENCOUNTER 2024-12-07 19:38 | Emergency (ER) | payer OTHER, SELFPAY ==
--- NOTE | ~2024-12-07 | US_ITS ---
CLINICAL HISTORY: RUQ tenderness --- Additional Notes or Special Instructions: GB CBD ONLY Limited abdominal ultrasound Comparison: US/GA/SR - US ABDOMEN COMP W ELASTOGRAPHY - 08/19/23 08:41 EST Findings: The common bile duct is normal in diameter, measuring 0.2 cm. No cholelithiasis. No wall thickening or pericholecystic fluid. Negative sonographic Wu sign. Impression: Negative for acute cholecystitis. This document has been electronically signed by: Daya Gage MD on 12/07/2024 21:02:50
--- NOTE | ~2024-12-07 | CT_ITS ---
CLINICAL HISTORY: upper abd pain, lipase 200, bariatric surgery tova CT abdomen and pelvis with contrast Comparison: US - US ABDOMEN LIMITED - 12/07/24 20:04 EDT Findings: The lung bases are clear. The gallbladder and solid organs are within normal limits. No renal stones. Postsurgical changes in the stomach. No bowel obstruction, pneumatosis or pneumoperitoneum. Pelvic contents unremarkable. Normal appendix. No acute fracture. Degenerative changes of the spine. IMPRESSION: 1. No acute intraabdominal or pelvic pathology. Pancreas is within normal limits. This document has been electronically signed by: Marcelo Wilkerson MD on 12/07/2024 22:16:18
[2024-12-07 19:40] VITALS: BP 130/67; PULSE 73; RESP 20; TEMP 36.8; O2SAT 100; BMI 32.2
--- NOTE | 2024-12-07 19:41 | ED_ITS ---
HPI - General Adult General Chief complaint: Abdominal Pain Stated complaint: abd pain Time Seen by Provider: 12/07/24 20:43 Source: patient, family and old records reviewed Mode of arrival: ambulatory Limitations: no limitations History of Present Illness ED Provider: KIMBERLEY DEJESUS narrative: 49 yo female with PMH of HLD, asthma, migraines, DM, HTN, depression and anxiety, hypothyroidism, s/p gastric sleeve 03/2024 who has done really well since procedure she notes last night she had upper abdominal pain radiating to the back. She has had nausea but no vomiting. Last BM yesterday, + flatus today. No fevers, no dysuria. She has not had pain like this before. Pain worse with movements, no change in diet. She does not drink ETOH MD complaint: abdominal pain Onset (ago): day(s) (yesterday) Location: abdomen Radiation: back Severity: moderate Quality: aching Pain Consistency: constant Relieving factors: none Exacerbating factors: movement Associated symptoms: loss of appetite and nausea/vomiting Treatments prior to arrival: none Related Data Home Medications ?Medication ?Instructions ?Recorded ?Confirmed buspirone 5 mg tablet 5 mg PO DAILY PRN Anxiety 05/27/20 12/06/24 escitalopram oxalate 20 mg tablet 20 mg PO DAILY PRN DEPRESSION 05/27/20 12/06/24 lancets 28 gauge (FreeStyle #100 ea 05/27/20 12/06/24 Lancets) trazodone 100 mg tablet 100 mg PO BEDTIME PRN Sleep 05/27/20 12/06/24 Previous Rx's ?Medication ?Instructions ?Recorded blood sugar diagnostic #10 ea 10/14/20 nebulizers (Aeroneb Go Nebulizer) #1 ea 05/11/22 blood pressure monitor #1 ea 02/08/23 blood-glucose meter (FreeStyle #1 ea 02/08/23 Lite Meter kit) fluticasone propionate 110 2 puff inhalation BID #36 grams 04/11/24 mcg/actuation HFA aerosol inhaler umeclidinium 62.5 mcg-vilanterol 1 inh inhalation DAILY 60 days #60 09/06/24 25 mcg/actuation powdr for ea inhalation (Anoro Ellipta) albuterol sulfate 2.5 mg/0.5 mL 5 mg inhalation Q4H PRN shortness 10/06/24 solution for nebulization of breath or wheezing #30 ea enalapril maleate 2.5 mg tablet 1.25 mg (1/2 x 2.5 mg) PO DAILY 30 11/01/24 days #15 tabs albuterol sulfate 90 mcg/actuation 1 puff PO QID PRN for wheezing #18 11/03/24 aerosol inhaler (Ventolin HFA) ea rosuvastatin 5 mg tablet 5 mg PO BEDTIME 90 days #90 tabs 11/08/24 acetaminophen 500 mg tablet 1,000 mg (2 x 500 mg) PO Q6H PRN 11/10/24 (Acetaminophen Pain Relief) pain #30 tabs cyclobenzaprine 10 mg tablet 10 mg PO TID PRN pain, muscle 11/10/24 spasm #15 tabs ibuprofen 400 mg tablet 400 mg PO TID PRN fever or pain 11/10/24 #30 tabs levothyroxine 25 mcg tablet 25 mcg PO DAILY@0600 90 days #90 11/24/24 tabs ondansetron 4 mg disintegrating 4 mg PO Q8H PRN nausea and 12/07/24 tablet vomiting #20 tabs sucralfate 100 mg/mL oral 10 ml PO BID 7 days #140 mL 12/07/24 suspension (Carafate) Allergies Allergy/AdvReac Type Severity Reaction Status Date / Time morphine [MORPHINE] Allergy Severe facial Verified 12/07/24 19:42 droop, numbness, lip deviation Review of Systems 2 Review of Systems: Constitutional : No Weight loss, No Fever, No Chills ENT/Mouth : No sore throat, No Rhinorrhea Eyes: No Swelling, No Redness Cardiovascular : No Chest Pain, No SOB, NoEdema Respiratory : No Cough, No Sputum, No Wheezing Gastrointestinal : Positive Nausea, no Vomiting, no Diarrhea, positive abdominal Pain, No Hematochezia, No Melena Genitourinary : No Dysuria, No Urinary Frequency, No Hematuria, No Urgency Musculoskeletal : No joint pain, No Myalgias, No Joint Swelling Skin : No Skin Lesions, No rash Neuro : No Weakness, No Numbness, No Dizziness, No Headache Psych : No Anxiety/Panic, No Depression All other systems reviewed and are negative. [facility] Past Medical History Attestation statement: The following information was validated with the patient. Source: old records reviewed Medical History Abnormal chest xray Physical exam Pre-op evaluation H. pylori infection Sacroiliac dysfunction Trigger finger, right little finger Otitis externa Asthma Migraines Lower back pain Bronchitis Hyperkalemia Morbid obesity with BMI of 40.0-44.9, adult Mild recurrent major depression Left sided sciatica Essential hypertension Hypertriglyceridemia Insomnia Depression with anxiety Diabetes mellitus Hypothyroidism Surgical History S/P laparoscopic sleeve gastrectomy History of foot surgery History of section Family History Family History Father Emphysema lung Mother Myocardial infarction Sister Chronic mental illness Family/Other FH: mental illness Sister Diabetes Sister Cancer, Onset Age: 57 Diabetes Sister Diabetes Sister Diabetes Son No problems noted. Unknown Cancer, Onset Age: 24 Social History Social History Household Members: None Housing: Apartment Are you a primary personal care home administrator to a significant other at home: No Do you presently have visiting nurse or other home services: No Alcohol intake: current Alcohol intake frequency: holidays/special occasions only Alcohol type: hard liquor Patient Tobacco Use Status: Former Tobacco user Tobacco use type: Cigarette e-Cigarette/Vaping Use: Never Used Second Hand Smoke Exposure: No Advance Directives: Yes Advance Directives Information Provided: Yes Advance Directives on File: No service: No Current occupational status: employed Current occupational exposures/hazards: No Cognitive needs: No Hearing needs: No Vision needs: Yes Physical Exam ED Vital Signs: Vital Signs - 24 hr 12/07/24 19:40 12/07/24 21:34 12/07/24 23:29 Temperature 98.2 F 98 F 97.0 F Pulse Rate 73 71 76 Respiratory Rate 20 16 16 Blood Pressure 130/67 105/55 L 111/60 Pulse Oximetry 100 97 99 Oxygen Delivery Method Room Air Room Air Room Air BMI result Body Mass Index 32.2 Appearance: Alert. Oriented X3. No acute distress. Eyes: Pupils equal, round and reactive to light. ENT: Pharynx normal. Neck: Normal inspection. Neck supple. CVS: Normal heart rate and rhythm. Pulses normal. Respiratory: No respiratory distress. Breath sounds normal. Abdomen: Soft and moderate ttp in RUQ and epigastric area Skin: Skin warm and dry. Normal skin color. Normal skin turgor. Extremities: No lower extremity edema. No calf ttp Neuro: Oriented X 3. No motor deficit. No sensory deficit. CN2-12 intact Course Course Course Narrative: This is a rapid medical exam performed by Aliya Allen MEAT LOINER: Additional HPI, ROS, PE not included below will be deferred to primary provider. 49 yo female with PMHx of T2DM, HTN, HLD, hypothyroidism, presents to ED due to abdominal pain. Patient states she [place] [facility] [place] States yesterday began experiencing upper abdominal pain that is radiating to the right side ribs and back. She reports nausea without vomiting. Denies sick contacts, fever, diarrhea, PE: A&O x3, in no acute distress, non-toxic appearing, RUQ TTP Plan: Medications Administered Discontinued Medications Generic Name Dose Route Start Last Admin Trade Name Freq PRN Reason Stop Dose Admin Lactated Ringer's 1,000 mls @ 999 mls/hr 12/07/24 20:54 12/07/24 21:01 Lr IV 12/07/24 21:54 999 mls/hr .Q1H1M ONE Administration Acetaminophen 1,000 mg in 100 mls @ 400 mls/hr 12/07/24 20:54 12/07/24 21:20 Ofirmev IV 12/07/24 21:08 Infused ONCE ONE Infusion Iohexol 85 ml 12/07/24 21:24 12/07/24 21:24 Iohexol 350 Mg/Ml 100 Ml Infus..Btl IV 12/07/24 21:25 85 ml ONCE ONE Administration Prochlorperazine Edisylate 10 mg 12/07/24 20:54 12/07/24 21:01 Prochlorperazine Edisylate 10 Mg/2 Ml Vial IVPUSH 12/07/24 20:55 10 mg ONCE ONE Administration Medical Decision Making Medical Decision Making MDM Narrative: 49 yo female with PMH of HLD, asthma, migraines, DM, HTN, depression and anxiety, hypothyroidism, s/p gastric sleeve 03/2024 here wtih nausea and upper abdominal pain but no fevers, no urinary symptoms. Had BM yesterday and passed gas - at this time labs, US for cholecystitis but also CT scan for pancreatitis, SBO, stomach inflammation. IV tylenol for pain. Differential Diagnosis Differential Diagnoses: The differential diagnosis associated with the presentation includes gastritis, PUD, pancreatitis, biliary colic, SBO Admission/Observation Consideration of admission/observation: Escalation of care including admission/observation considered pain resolved, she feels much better, no vomiting, repeat lipase normal CT scan and US normal will ask her to call her bariatric team in AM lipase decreasing and normal pancreas on CT scan Lab Data MDM Lab Attestation statement: I reviewed the patient's lab results. 12/07/24 19:55 12/07/24 19:55 Labs: Lab Results 12/07/24 12/07/24 12/07/24 Range/Units 19:55 21:33 22:59 WBC 9.9 (4.8-10.8) X10*3/uL RBC 4.11 L (4.20-5.50) X10*6/uL Hgb 12.5 (12.0-16.0) g/dl Hct 36.2 L (37.0-47.0) % MCV 88.1 (80.0-98.0) fL MCH 30.4 (27.0-33.0) pg MCHC 34.5 (31.0-35.0) g/dl RDW 12.5 (11.0-16.0) % Plt Count 252 (160-400) X10*3/uL MPV 10.2 (9.4-12.3) fL Immature Gran % (Auto) 0.3 (0.0-0.4) % Neut % (Auto) 59.1 (45-73) % Lymph % (Auto) 30.7 (20-40) % [place] % (Auto) 7.9 (2-11) % Eos % (Auto) 1.7 (0-4) % Baso % (Auto) 0.3 (0-2) % Lymph # (Auto) 3.0 (1.2-4.9) X10*3/uL [place] # (Auto) 0.8 (0.1-1.2) X10*3/uL Eos # (Auto) 0.2 (0.0-0.4) X10*3/uL Baso # (Auto) 0.0 (0.0-0.2) X10*3/uL Abs Immat Gran (auto) 0.03 (0.00-0.03) X10*3/uL Absolute Neuts (auto) 5.8 (2.0-8.3) x10*3/uL Absolute Nucleated RBC 0.000 (0.0-0.012) X10*3/uL Nucleated RBC % (auto) 0.0 (0.0-0.2) /100WBC Sodium 139 (135-145) mmol/L Potassium 3.9 (3.3-5.1) mmol/L Chloride 107 (96-108) mmol/L Carbon Dioxide 25 (22-29) mmol/L Anion Gap 11 L (12-20) BUN 16 (9-16) mg/dL Creatinine 0.81 (0.5-1.4) mg/dL Estim Creat Clear Calc 77.5 Estimated GFR > 60 Random Glucose 104 (60-115) mg/dL Calcium 9.3 (8.4-10.2) mg/dL Magnesium 2.1 (1.6-2.6) mg/dL Total Bilirubin 1.6 H (0.0-1.0) mg/dL AST 17 (5-31) U/L ALT 26 (0-31) U/L Alkaline Phosphatase 69 (39-117) U/L Total Protein 6.6 (6.5-8.0) g/dL Albumin 4.0 (3.5-5.0) g/dL Triglycerides 126 (<150) mg/dL Lipase 210 H 151 H (8-78) U/L Urine Color Yellow Urine Appearance Clear Urine pH 6.0 (5.0-9.0) Ur Specific Carlton 1.010 (1.005-1.025) Urine Protein Negative (Neg-Trace) mg/dL Urine Glucose (UA) Negative (Negative) mg/dL Urine Ketones Negative (Negative) mg/dL Urine Blood Negative (Negative) Urine Nitrite Negative (Negative) Ur Leukocyte Esterase Negative (Negative) Independent Interpretation I performed an independent interpretation of an: EKG, Ultrasound (normal ) and CT Scan (normal ) Interpretation: Rate: 65 Rhythm: NSR Lamoni: normal Normal P waves. Normal FREDERIC. Normal QRS complex. ST T wave : normal no YEYO qTC: 384 prior studies: no acute ischemia The study has been interpreted contemporaneously by me. . Radiology Impression Discussion of test interpretation with radiology: I have reviewed the radiologist's reading. Independent Historian Clinical information obtained from an independent historian. History obtained from or confirmed by: Other (family) External Record Review External record reviewed: Inpatient record and Outpatient record Prescription Management I considered prescription management with: Other Discharge Plan Discharge Clinical Impression: Abdominal pain Qualifiers: Abdominal location: epigastric Qualified Code(s): R10.13 - Epigastric pain Gastritis Qualifiers: Gastritis type: unspecified gastritis Chronicity: acute Gastritis bleeding: w ithout bleeding Qualified Code(s): K29.00 - Acute gastritis without bleeding Patient Disposition: Home, Self-Care Instructions: Gastritis (ED), Abdominal Pain (ED) Additional Instructions: labs reassuring CT scan no acute findings ultrasound normal return for any worsening symptoms or concerns please call your bariatric surgeon tomorrow to let them know you were here Prescriptions: New ondansetron 4 mg tablet,disintegrating 4 mg PO Q8H PRN (Reason: nausea and vomiting) Qty: 20 0RF sucralfate [Carafate] 100 mg/mL suspension 10 ml PO BID 7 Days Qty: 140 0RF No Action (DME) blood sugar diagnostic Strip See Rx Instructions Not Applicable BID Qty: 10 11RF Rx Instructions: As directed (DME) blood-glucose meter [FreeStyle Lite Meter] Kit See Rx Instructions .Route Qty: 1 0RF Rx Instructions: As directed (DME) blood pressure monitor Kit See Rx Instructions .Route Qty: 1 0RF Rx Instructions: As directed fluticasone propionate 110 mcg/actuation HFA aerosol inhaler 2 puff inhalation BID Qty: 36 0RF Anoro Ellipta 62.5-25 mcg/actuation blister with device 1 inh inhalation DAILY 60 Days Qty: 60 6RF albuterol sulfate [Ventolin HFA] 90 mcg/actuation HFA aerosol inhaler 1 puff PO QID PRN (Reason: for wheezing) Qty: 18 1RF rosuvastatin 5 mg tablet 5 mg PO BEDTIME 90 Days Qty: 90 0RF levothyroxine 25 mcg tablet 25 mcg PO DAILY@0600 90 Days Qty: 90 0RF cyclobenzaprine 10 mg tablet 10 mg PO TID PRN (Reason: pain, muscle spasm) Qty: 15 0RF ibuprofen 400 mg tablet 400 mg PO TID PRN (Reason: fever or pain) Qty: 30 0RF acetaminophen [Acetaminophen Pain Relief] 500 mg tablet 1,000 mg PO Q6H PRN (Reason: pain) Qty: 30 0RF trazodone 100 mg tablet 100 mg PO BEDTIME PRN (Reason: Sleep) escitalopram oxalate 20 mg tablet 20 mg PO DAILY PRN (Reason: DEPRESSION) buspirone 5 mg tablet 5 mg PO DAILY PRN (Reason: Anxiety) (DME) lancets [FreeStyle Lancets] 28 gauge misc See Rx Instructions .ROUTE .MEDSUPPLY Qty: 100 Rx Instructions: As directed (DME) nebulizers [Aeroneb Go Nebulizer] Misc See Rx Instructions .Route Qty: 1 0RF Rx Instructions: As directed albuterol sulfate 2.5 mg/0.5 mL solution for nebulization 5 mg inhalation Q4H PRN (Reason: shortness of breath or wheezing) Qty: 30 3RF enalapril maleate 2.5 mg tablet 1.25 mg PO DAILY 30 Days Qty: 15 4RF Print Language: Japanese
--- NOTE | 2024-12-07 19:45 | ECG_ITS ---
Test Reason : abd pain Blood Pressure : */* mmHG Vent. Rate : 65 BPM Atrial Rate : 65 BPM P-R Int : 156 ms QRS Dur : 80 ms QT Int : 370 ms P-R-T Axes : 23 7 25 degrees QTcB Int : 384 ms Normal sinus rhythm Normal ECG When compared with ECG of 03-Oct-2024 07:29, No significant change was found Referred By: Berenice Allen Electronically Signed By: GREG GILBERT
[2024-12-07 20:02] LABS: MANUAL DIFF FLAG NO
[2024-12-07 20:19] LABS: Basophils Percent Auto 0.3 % (0-2); Eosinophils Absolute Auto 0.2 X10*3/uL (0.0-0.4); Eosinophils Percent Auto 1.7 % (0-4); Hematocrit 36.2 % (37.0-47.0); Hemoglobin 12.5 g/dl (12.0-16.0); Imm Gran Abs Auto 0.03 X10*3/uL (0.00-0.03); Imm Gran Pct Auto 0.3 % (0.0-0.4); Lymphocytes Percent Auto 30.7 % (20-40); Mean Corpuscular HGB Conc 34.5 g/dl (31.0-35.0); Mean Corpuscular Hemoglobin 30.4 pg (27.0-33.0); Mean Corpuscular Volume 88.1 fL (80.0-98.0); Mean Platelet Volume 10.2 fL (9.4-12.3); Monocytes Absolute Auto 0.8 X10*3/uL (0.1-1.2); Monocytes Percent Auto 7.9 % (2-11); Neutrophils Absolute Auto 5.8 x10*3/uL (2.0-8.3); Neutrophils Percent Auto 59.1 % (45-73); Platelet Count 252 X10*3/uL (160-400); Red Blood Count 4.11 X10*6/uL (4.20-5.50); Red Cell Distribution Width 12.5 % (11.0-16.0); White Blood Count 9.9 X10*3/uL (4.8-10.8)
[2024-12-07 20:20] LABS: Alanine Aminotransferase 26 U/L (0-31); Alkaline Phosphatase 69 U/L (39-117); Anion Gap 11 (12-20); Aspartate Amino Transferase 17 U/L (5-31); Bilirubin Total 1.6 mg/dL (0.0-1.0); Blood Urea Nitrogen 16 mg/dL (9-16); Calcium 9.3 mg/dL (8.4-10.2); Carbon Dioxide 25 mmol/L (22-29); Chloride 107 mmol/L (96-108); Creatinine Clr Calc Pharmacy 77.5; Estimated Glomerular Filt Rate > 60; Glucose Random 104 mg/dL (60-115); Lipase 210 U/L (8-78); Magnesium 2.1 mg/dL (1.6-2.6); Potassium 3.9 mmol/L (3.3-5.1); Sodium 139 mmol/L (135-145); Total Protein 6.6 g/dL (6.5-8.0)
[2024-12-07] MEDS: Acetaminophen 1,000 MG/100 ML PIGGYBACK 400 MG IV (21:00)
[2024-12-07] MEDS: Prochlorperazine Edisylate 10 MG/2 ML VIAL IVPUSH (21:01)
[2024-12-07] MEDS: Lactated Ringers 1,000 ML 999 ML IV (21:01)
[2024-12-07] MEDS: iohexoL 350 MG/ML 100 ML INFUS..BTL 85 ML IV (21:24)
[2024-12-07 21:34] VITALS: BP 105/55; PULSE 71; RESP 16; TEMP 36.6; O2SAT 97
[2024-12-07 21:46] LABS: Triglycerides 126 mg/dL (<150)
[2024-12-07 21:55] LABS: Appearance Urine Clear; Color Urine Yellow; Glucose Urine UA Negative (Negative); Leukocyte Esterase Urine Negative (Negative); Nitrite Urine Negative (Negative); Urine Blood Negative (Negative); Urine Ketones Negative (Negative); Urine Protein Negative (Neg-Trace)
[2024-12-07 23:16] LABS: Lipase 151 U/L (8-78)
[2024-12-07 23:29] VITALS: BP 111/60; PULSE 76; RESP 16; TEMP 36.1; O2SAT 99
[2024-12-08 00:28] VITALS: BP 111/60; PULSE 76; RESP 16; TEMP 36.1; O2SAT 99
== END 2024-12-08 00:28 | disposition home or self-care (01) ==
PROVIDERS: Registered Nurse Emergency; Emergency Provider Emergency Medicine; PCP Internal Medicine
DX: K29.00 Acute gastritis without bleeding (principal); R10.13 Epigastric pain; E11.9 Type 2 diabetes mellitus without complications; I10 Essential (primary) hypertension; Z79.899 Other long term (current) drug therapy
CPT/HCPCS: 36415; 74177; 76705; 80053; 81003; 83690; 83735; 84478; 85025; 93005; 96365; 96375; 99284; J0131; J0737; J7120; Q9967

== ENCOUNTER → 2024-12-07 19:45 | Outpatient (BNV) | payer OTHER, SELFPAY | PROVIDERS: Emergency Provider Emergency Medicine; PCP Internal Medicine; Visit Provider Internal Medicine | DX: R10.9 Unspecified abdominal pain (principal) | CPT/HCPCS: 93010 ==

== ENCOUNTER → 2024-12-07 19:45 | Outpatient (BNV) | payer OTHER, SELFPAY | PROVIDERS: Emergency Provider Emergency Medicine; PCP Internal Medicine; Visit Provider Radiology Diagnostic Radiology | DX: R10.11 Right upper quadrant pain (principal) | CPT/HCPCS: 76705 ==

== ENCOUNTER 2024-12-12 12:25 | Outpatient (AMB) | payer OTHER, SELFPAY ==
--- NOTE | 2024-12-12 12:39 | A.OFFVIS_ITS ---
VS Expanded 12/12/24 12:57 BP 145/62 H Blood Pressure Location Rt brachial Blood Pressure Position Sitting Pulse 58 Pulse Source Pulse Oximeter Temp 97.9 F Temperature Source Temporal Artery Scan Pulse Oximetry 100 Oxygen Delivery Method Room Air Height 5 ft Weight 166 lb 12.8 oz BMI 32.6 Body Fat % 31.3 Body Fat Mass 52.2 Fat Free Mass 114.4 Visceral Fat Rating 7.0 Body Water % 48.9 Body Water Mass 81.6 Muscle Mass/Score 108.6 Basal Metabolic Rate/Score 1,539 Intake Visit Reasons: O/V PO LSG 03/29/2024 Home Health Attendant Required: Yes Home Health Attendant Services: Home Health Attendant Present Home Health Attendant Name: hospital cmi Allergies morphine [MORPHINE] Allergy (Severe, Verified 12/12/24 12:52) facial droop, numbness, lip deviation Medication List - Last Reconciled 12/12/24 by ANTONY Montes acetaminophen (Acetaminophen Pain Relief) 1,000 mg (2 x 500 mg) PO Q6H PRN albuterol sulfate 5 mg inhalation Q4H PRN albuterol sulfate 90 mcg/actuation (Ventolin HFA) 1 puff PO QID PRN blood pressure monitor As directed blood sugar diagnostic As directed blood-glucose meter (FreeStyle Lite Meter kit) As directed buspirone 5 mg PO DAILY PRN fluticasone propionate 110 mcg/actuation 2 puffs inhalation BID lancets (FreeStyle Lancets) As directed levothyroxine 25 mcg PO DAILY@0600 90 days nebulizers (Aeroneb Go Nebulizer) As directed ondansetron 4 mg PO Q8H PRN rosuvastatin 5 mg PO BEDTIME 90 days sucralfate (Carafate) 10 mL PO BID 7 days umeclidinium-vilanterol 62.5-25 mcg/actuation (Anoro Ellipta) 1 inh inhalation DAILY 60 days HPI Comments Details: This?a?49?yo female who is s/p LSG without hiatal hernia repair on?03/29/2024. Presents for 8 month post op visit. Weight today is 166.8 pounds, with a BMI of 32.6 There has been a 65.2 pound weight loss,(initial weight 230.4 pounds) since starting the program on 07/13/23 reflecting a 28.2 % total body weight loss and a weight loss of 43.3 pounds since surgery (operative weight 208.5 pounds) reflecting a 20.7 % TBWL since surgery. Patient was seen in the office proximally 6 days ago and was doing well. The following day, she went to the emergency room for complaints of abdominal pain. CT scan and abdominal ultrasound were negative. She showed slow improvement and was able to go to work yesterday. I had her come into the office today to follow-up. She reports right-sided rib pain, worse with deep inspiration. She additionally reports constipation, last bowel movement 6 days ago. She can tolerate fluids like protein shakes and water however food does not sit well with her. Wants to change to Premier protein Present meal plan includes: Premier protein ready to drink shake, 8-10 Half cartons mixed with 6 oz of unsweetened almond milk, 12-2 Continue her meal with 4 forks of protein and 4 forks of vegetables drinking 64 oz water daily Exercise routine includes: states she had an accident and now can return to work. treadmill at home 2 days per week, 450 calorie PFSH Medical History Abnormal chest xray Physical exam Pre-op evaluation H. pylori infection Sacroiliac dysfunction Trigger finger, right little finger Otitis externa Asthma Migraines Lower back pain Bronchitis Hyperkalemia Morbid obesity with BMI of 40.0-44.9, adult Mild recurrent major depression Left sided sciatica Essential hypertension Hypertriglyceridemia Insomnia Depression with anxiety Diabetes mellitus Hypothyroidism Surgical History S/P laparoscopic sleeve gastrectomy History of foot surgery History of section Family History Father Emphysema lung Mother Myocardial infarction Sister Chronic mental illness Family/Other FH: mental illness Sister Diabetes Sister Cancer, Onset Age: 57 Diabetes Sister Diabetes Sister Diabetes Son No problems noted. Unknown Cancer, Onset Age: 24 Social History (Updated 12/12/24 @ 12:53 by Deepa Crespo CMA) Household Members: None Housing: Apartment Are you a primary adult live in caregiver to a significant other at home: No Do you presently have visiting nurse or other home services: No Alcohol intake: former Patient Tobacco Use Status: Former Tobacco user Tobacco use type: Cigarette e-Cigarette/Vaping Use: Never Used Second Hand Smoke Exposure: No service: No Current occupational status: employed Current occupational exposures/hazards: No Cognitive needs: No Hearing needs: No Vision needs: Yes Female Reproductive History Menstrual Age of Menarche: 13 Physical Exam Resp Effort & Inspection: normal respiratory effort Auscultation: clear to auscultation bilaterally GI Palpation (GI): Soft to palpation and nontender Auscultation: normal bowel sounds General: Yes CVA tenderness (Mild right) Back/Spine/Pelvis Back: CVA tenderness (Mild right) Thoracic/Lumbar Spine: other (Right lower thoracic rib pain with AP compression with deep inspiration) Assessment & Plan Assessment & Plan (1) Rib pain on right side: Code(s): R07.81 - Pleurodynia Category: Medical Plan: Patient with what appears to be costochondritis. I have advised her to take Tylenol, 3 tsp, 3 times a day. She will remain on shakes for 1 week. I will have her return to the office in approximately 1 week. (2) Constipation: Code(s): K59.00 - Constipation, unspecified Category: Medical Plan: Add Dulcolax suppository MT x1 and repeat if necessary. Add senna 2 tabs nightly until moving bowels regularly. Encouraged to drink fluids and increase water intake. Cat scan shows significant stool burden, specifically right- sided. Medications: New sennosides (senna) 17.2 mg (2 x 8.6 mg) PO BEDTIME 90 days 180 tabs 0RF constipation bisacodyl (Dulcolax (bisacodyl)) 10 mg MT DAILY PRN 12 ea 0RF constipation
[2024-12-12 12:57] VITALS: BP 145/62; PULSE 58; TEMP 36.6; O2SAT 100; BMI 32.6
== END 2024-12-12 13:33 | disposition home or self-care (01) ==
LOC: HO.HBS 12:25
PROVIDERS: PCP Internal Medicine; Visit Provider Physician Assistant Surgical
DX: R07.81 Pleurodynia (principal); K59.00 Constipation, unspecified
CPT/HCPCS: 99213

== ENCOUNTER → 2024-12-12 12:25 | Outpatient (BNVA) | payer OTHER, SELFPAY | PROVIDERS: PCP Internal Medicine; Visit Provider Physician Assistant Surgical | DX: R07.81 Pleurodynia (principal); Z98.84 Bariatric surgery status | CPT/HCPCS: 99212 ==

== ENCOUNTER 2024-12-20 08:10 | Outpatient (REF) | payer OTHER, SELFPAY ==
--- NOTE | ~2024-12-20 | CT_ITS ---
CLINICAL HISTORY: R93.89 - Abnormal findings on diagnostic imaging of other specified body... CT chest with contrast Comparison: None Findings: The heart size is normal. The visualized thyroid and mediastinum are unremarkable. No consolidation or effusion. There are postoperative changes related to the stomach. The bones are intact. IMPRESSION: 1. Unremarkable chest CT. This document has been electronically signed by: Petar Gongora MD on 12/21/2024 11:34:41
[2024-12-20] MEDS: iohexoL 350 MG/ML 100 ML INFUS..BTL IV (09:03)
== END 2024-12-20 08:11 | disposition home or self-care (01) ==
LOC: HO.CT 08:10
PROVIDERS: PCP Internal Medicine; Visit Provider Internal Medicine
DX: R93.89 Abnormal findings on diagnostic imaging of other specified body structures (principal)
CPT/HCPCS: 71260; Q9967

== ENCOUNTER → 2024-12-20 08:13 | Outpatient (BNV) | payer OTHER, SELFPAY | PROVIDERS: PCP Internal Medicine; Visit Provider Radiology Diagnostic Radiology | DX: R93.89 Abnormal findings on diagnostic imaging of other specified body structures (principal) | CPT/HCPCS: 71260 ==

== ENCOUNTER 2025-03-01 06:14 | Outpatient (REF) | payer OTHER, SELFPAY ==
[2025-03-01 07:18] LABS: Alanine Aminotransferase 24 U/L (0-31); Albumin Level 4.2 g/dL (3.5-5.0); Alkaline Phosphatase 80 U/L (39-117); Anion Gap 12 (12-20); Aspartate Amino Transferase 20 U/L (5-31); Blood Urea Nitrogen 16 mg/dL (9-16); Calcium 8.9 mg/dL (8.4-10.2); Carbon Dioxide 25 mmol/L (22-29); Chloride 109 mmol/L (96-108); Cholesterol 163 mg/dL (<200); Estimated Glomerular Filt Rate > 60; HDL Cholesterol 57 mg/dL (>40); Potassium 4.6 mmol/L (3.3-5.1); Sodium 141 mmol/L (135-145); Total Protein 6.5 g/dL (6.5-8.0); Triglycerides 89 mg/dL (<150)
[2025-03-01 07:38] LABS: Thyroid Stimulating Hormone 2.30 uIU/mL (0.32-4.0)
== END 2025-03-01 06:15 | disposition home or self-care (01) ==
LOC: HO.LAB 06:14
PROVIDERS: PCP Internal Medicine; Visit Provider Internal Medicine
DX: E78.49 Other hyperlipidemia (principal); E03.9 Hypothyroidism, unspecified; R80.9 Proteinuria, unspecified; E55.9 Vitamin D deficiency, unspecified
CPT/HCPCS: 36415; 80053; 80061; 82043; 82306; 82570; 84443

== ENCOUNTER 2025-03-05 07:53 | Outpatient (AMB) | payer OTHER, SELFPAY ==
--- OUTSIDE RECORDS SUMMARY | 2025-03-05 07:54 | XMS_ITS | Encounter Summary ---
Author Organization [employer] Address [address] [place] [address] Care Team Providers Care Yarn Rewinder Name Role Phone Unavailable Primary Care Provider Unavailabl e Encounter Details Date Type Department Care Team (Latest Contact Info) Description 06/08/2019 Abstract [facility] CONVERSIONS Dental, Provider, DDS Social History Tobacco [...]
--- NOTE | 2025-03-05 08:03 | A.OFFPC_ITS ---
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 Required: No Accompanied by: Self / Same As Patient Allergies morphine (MORPHINE) Allergy (Severe, Verified 03/05/25 08:23) facial droop, numbness, lip deviation Medication List - Last Reconciled 03/05/25 by Rupal Cox MD acetaminophen (Acetaminophen Pain Relief) 1,000 mg (2 x 500 mg) PO Q6H PRN albuterol sulfate 5 mg inhalation Q4H PRN albuterol sulfate 90 mcg/actuation (Ventolin HFA) 1 puff PO QID PRN bisacodyl (Dulcolax (bisacodyl)) 10 mg CO DAILY PRN blood pressure monitor As directed blood sugar diagnostic As directed blood-glucose meter (FreeStyle Lite Meter kit) As directed buspirone 5 mg PO DAILY PRN enalapril maleate 1.25 mg (1/2 x 2.5 mg) PO DAILY escitalopram oxalate 20 mg PO DAILY fluticasone propionate 110 mcg/actuation 2 puffs inhalation BID lancets (FreeStyle Lancets) As directed levothyroxine 25 mcg PO DAILY@0600 90 days nebulizers (Aeroneb Go Nebulizer) As directed ondansetron 4 mg PO Q8H PRN rosuvastatin 5 mg PO BEDTIME 90 days sennosides (senna) 17.2 mg (2 x 8.6 mg) PO BEDTIME 90 days sucralfate (Carafate) 10 mL PO BID 7 days trazodone 200 mg PO BEDTIME PRN umeclidinium-vilanterol 62.5-25 mcg/actuation (Anoro Ellipta) 1 inh inhalation DAILY 60 days Tobacco use date assessed: 10/06/24 Dental Screening Dental Screen Date: 03/05/25 Did you have a dental visit in the last 12 months?: No Did you have a dental problem in the last 6 months where you did not have access to dental care?: No Was dental information given to patient?: Patient has dentist HPI HPI Comments History of Present Illness Details The patient is a 49-year-old female presenting with management of hyperlipidemia, depression, hypothyroidism, asthma, and sciatica. The patient's hyperlipidemia is currently being managed with rosuvastatin, which was recently increased from 5 mg to 10 mg due to LDL levels being slightly above the target of 70 mg/dL. The patient reports that her blood sugar is stable at 87 mg/dL, and her HbA1c is 5.7%. The patient has a history of mild recurrent major depression, for which she is taking escitalopram 20 mg daily. She has a PHQ-9 score of 8, indicating mild depression, and she is currently under the care of a psychiatrist. The patient is also managing hypothyroidism with levothyroxine 25 mcg, and recent thyroid function tests have been within normal limits. Asthma is being treated with Anoro, and the patient uses a rescue inhaler as needed. The patient reports experiencing sciatica, with pain radiating from the lumbar region to the left leg, accompanied by numbness. A nerve conduction study was last performed in 2019, and a repeat study is planned along with imaging of the neck and lower back. [facility] Medical History (Updated 03/05/25 @ 08:52 by Rupal Cox MD) Abnormal chest xray Physical exam Pre-op evaluation H. pylori infection Sacroiliac dysfunction Trigger finger, right little finger Otitis externa Asthma Migraines Lower back pain Bronchitis Hyperkalemia Morbid obesity with BMI of 40.0-44.9, adult Mild recurrent major depression Left sided sciatica Essential hypertension Hypertriglyceridemia Insomnia Depression with anxiety Diabetes mellitus Hypothyroidism Surgical History S/P laparoscopic sleeve gastrectomy History of foot surgery History of section Family History Father Emphysema lung Mother Myocardial infarction Sister Chronic mental illness Family/Other FH: mental illness Sister Diabetes Sister Cancer, Onset Age: 57 Diabetes Sister Diabetes Sister Diabetes Son No problems noted. Unknown Cancer, Onset Age: 24 Social History Household Members: None Housing: Apartment Are you a primary director of career resources to a significant other at home: No Do you presently have visiting nurse or other home services: No Alcohol intake: former Patient Tobacco Use Status: Former Tobacco user Tobacco use type: Cigarette e-Cigarette/Vaping Use: Never Used Second Hand Smoke Exposure: No service: No Current occupational status: employed Current occupational exposures/hazards: No Cognitive needs: No Hearing needs: No Vision needs: Yes Female Reproductive History Menstrual Age of Menarche: 13 Questionnaire PHQ-9 Over the last 2 weeks, how often have you been bothered by any of the following problems? 1. Little interest or pleasure in doing things: several days 2. Feeling down, depressed, or hopeless: several days 3. Trouble falling or staying asleep, or sleeping too much: several days 4. Feeling tired or having little energy: several days 5. Poor appetite or overeating: several days 6. Feeling bad about yourself - or that you are a failure or have let yourself or your family down: several days 7. Trouble concentrating on things, such as reading the newspaper or watching television: several days 8. Moving or speaking so slowly that other people could have noticed. Or the opposite - being so fidgety or restless that you have been moving around a lot more than usual: several days 9. Thoughts that you would be better off or of hurting yourself in some way: not at all Total score: 8 Depression Screening Interpretation: Positive Depression Screening Follow-up: Existing condition, In treatment, Community Mental Health Worker F/U and Follow- up Visit Requested Depression Screening Done: Yes 11808 - PHQ-9 Billing: Yes Source: Developed by Drs. Atul Robert, Arianna Ventura, Dirk rCuz and colleagues, with an educational nam from [employer]. Thrive Questionnaire Date Thrive assessed: 10/06/24 I am a: Patient What is your living situation today?: I have a steady place to live Within the past 12 months, did the food you bought not last and you didn't have the money to get more?: I choose not to answer this question Within the past 12 months, did you worry whether your food would run out before you got money to buy more?: I choose not to answer this question Do you have trouble paying for medicines?: No Do you have trouble getting transportation to medical appointments?: No Do you have trouble paying your heating and electricity bill?: Yes Do you have trouble taking care of your child, family member or friend?: No Do you have trouble with day-to-day activities such as bathing, preparing meals, shopping, managing finances, etc.?: No Are you currently unemployed and looking for a job?: No Are you interested in more education?: No Please select the resources that you would like help with: Utilities Currently or been in a relationship where the following occur: I choose not to answer THRIVE Score: 1 AUDIT C Alcohol Use Questionnaire (AUDIT-C) 1. How often do you have a drink containing alcohol?: Never Total Score: 0 Score Reviewed/Action Taken: No MELIZA-7 AMB Questionnaire MELIZA-7 Date MELIZA - 7 assessed: 03/05/25 Feeling nervous, anxious, or on edge: 1 = Several days Not being able to stop or control worryin = Several days Worrying too much about different things: 1 = Several days Trouble relaxin = Several days Being so restless that it is hard to sit still: 0 = Not at all Becoming easily annoyed or irritable: 1 = Several days Feeling afraid as if something awful might happen: 1 = Several days Total MELIZA-7 score (0-4 normal; 5-9 mild; 10-14 moderate; 15-21 severe): 6 Source: Developed by Drs. Atul Robert, Arianna Ventura, Dirk Cruz and colleagues, with an educational nam from [employer]. MELIZA-7 Assessment Billing MELIZA-7 Assessment Tool: MELIZA-7 Assessment 04498 Review of Systems Const All systems reviewed & are unremarkable except as noted in HPI and below Card Denies chest pain at rest, Denies chest pain with activity, Denies edema, Denies irregular heart rhythm, Denies claudication, Denies dyspnea, Denies dyspnea on exertion, Denies orthopnea, Denies paroxysmal nocturnal dyspnea and Denies slow heart rate Resp Denies cough, Denies dyspnea and Denies dyspnea on exertion GI Denies abdominal pain, Denies change in bowel habits, Denies excessive flatus, Denies nausea and Denies vomiting Denies urinary incontinence, Denies urinary hesitancy and Denies urinary urgency Musc Denies atrophy, Denies deformity and Denies limited range of motion Physical exam (Primary Care) Vital Signs: Last Vital Signs BP 112/70 03/05/25 08:04 BMI result Body Mass Index 33.8 BMI Assessment/Plan discussion: High BMI High, discussed plan: lifestyle, weight reduction, dietary and physical activity Tobacco/Smoking Status: Tobacco use Status Tobacco use date assessed 10/06/24 03/05/25 08:04 Patient Tobacco Use Status Former Tobacco user 03/05/25 08:04 Tobacco use type Cigarette 03/05/25 08:04 e-Cigarette/Vaping Use Never Used 03/05/25 08:04 PHQ-9: PHQ-9 Score PHQ-9: Total score 8 03/05/25 08:18 Depression Screening Interpretation: Positive Depression Screening Follow-up: Existing condition, In treatment, Community Mental Health Worker F/U and Follow- up Visit Requested Thrive Assessment: Date of Thrive Assessment Date Thrive assessed 10/06/24 03/05/25 08:04 Currently or been in a relationship where the following occur: I choose not to answer Resp Effort & Inspection: normal respiratory effort Auscultation: clear to auscultation bilaterally Cardio Jugular venous distension: no JVD Rate: regular rate Rhythm: regular rhythm Heart sounds: S1 normal heart sound present and S2 normal heart sound present Extrem General: Yes full ROM Results AMB Hemoglobin A1c 2 AMB Hemoglobin A1c 5.7 % Last Edit by NINFA Guzmán on 03/05/25 08:2 5 Coding Level of Care Code Est Pt Level 4 (00968) Complex EM visit Add On G2211 Diagnoses Type 2 diabetes mellitus without complication, without long-term current use of insulin E11.9 Diabetes mellitus type: type 2 Diabetes mellitus ferry terminal supervisor insulin use: without care home use Diabetes mellitus complication status: without complication Mild recurrent major depression F33.0 Hyperlipidemia LDL goal <70 E78.5 Hypothyroidism, unspecified type E03.9 Hypothyroidism type: unspecified Neck pain M54.2 Left sided sciatica M54.32 Hand paresthesia R20.2 Additional Codes PHQ-9 - 65919 - PHQ-9 Billing: Yes ([id number]) MELIZA-7 Assessment Billing - MELIZA-7 Assessment Tool: MELIZA-7 Assessment [id number] ([id number]) Time Spent (min) 24 Assessment & Plan Assessment & Plan (1) Diabetes mellitus: Comment: dx~age 38-prior Rx for metformin, since d/c due to weight loss-glucose usually~90-100 Code(s): E11.9 - Type 2 diabetes mellitus without complications Category: Medical Qualifiers: Diabetes mellitus type: type 2 Diabetes mellitus ferry terminal supervisor insulin use: without ferry terminal supervisor use Diabetes mellitus complication status: without complic ation Qualified Code(s): E11.9 - Type 2 diabetes mellitus without complications (2) Mild recurrent major depression: Comment: She follows with psychiatry Code(s): F33.0 - Major depressive disorder, recurrent, mild Category: Medical (3) Hyperlipidemia LDL goal <70: Code(s): E78.5 - Hyperlipidemia, unspecified Category: Medical (4) Hypothyroidism: Code(s): E03.9 - Hypothyroidism, unspecified Category: Medical Qualifiers: Hypothyroidism type: unspecified Qualified Code(s): E03.9 - Hypothyroidism, unspecified (5) Neck pain: Code(s): M54.2 - Cervicalgia Category: Medical (6) Left sided sciatica: Code(s): M54.32 - Sciatica, left side Category: Medical (7) Hand paresthesia: Code(s): R20.2 - Paresthesia of skin Category: Medical Plan The plan for managing hyperlipidemia includes increasing the rosuvastatin dosage from 5 mg to 10 mg due to LDL levels being slightly above the target of 70 mg/dL. The patient's blood sugar and HbA1c levels are stable, and no changes are needed in this regard. For depression, the patient will continue with escitalopram 20 mg daily, and she is advised to maintain regular follow-ups with her psychiatrist. Hypothyroidism management with levothyroxine 25 mcg will continue as recent thyroid function tests are normal. Asthma management includes the continued use of Anoro and a rescue inhaler as needed. For sciatica, a repeat nerve conduction study and imaging of the neck and lower back are planned to assess the current status and guide further management. Patient was informed and verbally consented to the use of an ambient scribe for clinic note documentation during this visit. Orders: Orders XR cervical spine 2V Today M54.2 - Cervicalgia NE electromyogram (EMG) Today R20.2 - Paresthesia of skin NE nerve conduction velocity Today R20.2 - Paresthesia of skin Microalbumin, Random (w Creat) Today R80.9 - Proteinuria, unspecified AMB Hemoglobin A1c Today E11.9 - Type 2 diabetes mellitus without complications XR lumbar spine 2-3V Today M54.32 - Sciatica, left side PT Evaluation and Treatment Today M54.32 - Sciatica, left side Lipid Panel Today E78.5 - Hyperlipidemia, unspecified Comprehensive [place]. Panel Fast Today E11.9 - Type 2 diabetes mellitus without complications Thyroid Stimulating Hormone 2 Months E03.9 - Hypothyroidism, unspecified Medications: New rosuvastatin 10 mg PO BEDTIME 90 tabs 1RF 90 days Discontinued rosuvastatin Discontinued Reason: Patient Completed Course 5 mg PO BEDTIME 90 days 90 tabs 0RF
[2025-03-05 08:04] VITALS: BP 112/70; BMI 33.8
== END 2025-03-05 08:32 | disposition home or self-care (01) ==
LOC: HO.HMCH 07:54
PROVIDERS: PCP Internal Medicine; Visit Provider Internal Medicine
DX: E11.9 Type 2 diabetes mellitus without complications (principal); F33.0 Major depressive disorder, recurrent, mild; E78.5 Hyperlipidemia, unspecified; E03.9 Hypothyroidism, unspecified; M54.2 Cervicalgia; M54.32 Sciatica, left side; R20.2 Paresthesia of skin

== ENCOUNTER → 2025-03-05 07:53 | Outpatient (BNVA) | payer OTHER, SELFPAY | PROVIDERS: PCP Internal Medicine; Visit Provider Internal Medicine | DX: E11.9 Type 2 diabetes mellitus without complications (principal); E78.5 Hyperlipidemia, unspecified; J45.909 Unspecified asthma, uncomplicated; M54.32 Sciatica, left side; F33.0 Major depressive disorder, recurrent, mild; E03.9 Hypothyroidism, unspecified; M54.2 Cervicalgia; R20.2 Paresthesia of skin; Z79.899 Other long term (current) drug therapy | CPT/HCPCS: 83036; 96127; 99212 ==

== ENCOUNTER 2025-03-12 07:24 | Outpatient (REF) | payer OTHER, SELFPAY ==
--- NOTE | ~2025-03-12 | XR_ITS ---
CLINICAL HISTORY: M54.2 - Cervicalgia 3 views cervical spine Comparison: None provided Findings: Normal alignment. No acute fractures or dislocation. Degenerative disc changes at C5-C6 and C6-C7. Prevertebral soft tissues within normal limits. IMPRESSION: No acute findings. This document has been electronically signed by: Chase Maldonado MD on 03/12/2025 08:11:09
--- NOTE | ~2025-03-12 | XR_ITS ---
CLINICAL HISTORY: M54.32 - Sciatica, left side 3 views lumbar spine Comparison: None provided Findings: There is scoliotic curvature. No acute fractures or dislocation. There is multiple level degenerative disc and facet change IMPRESSION: No acute findings. This document has been electronically signed by: Chase Maldonado MD on 03/12/2025 08:11:23
--- OUTSIDE RECORDS SUMMARY | 2025-03-12 07:25 | XMS_ITS | Encounter Summary ---
Author Organization [employer] Address [address] [place] [address] Care Team Providers Care Market Maker Name Role Phone Unavailable Primary Care Provider Unavailabl e Encounter Details Date Type Department Care Team (Latest Contact Info) Description 06/08/2019 Abstract [facility] CONVERSIONS Dental, Provider, DDS Social History [...]
== END 2025-03-12 07:25 | disposition home or self-care (01) ==
LOC: HO.LAB 07:24
PROVIDERS: PCP Internal Medicine; Visit Provider Internal Medicine
DX: M54.32 Sciatica, left side (principal); M54.2 Cervicalgia
CPT/HCPCS: 72040; 72100

== ENCOUNTER → 2025-03-12 07:27 | Outpatient (BNV) | payer OTHER, SELFPAY | PROVIDERS: PCP Internal Medicine; Visit Provider Specialist | DX: M54.32 Sciatica, left side (principal); M54.2 Cervicalgia | CPT/HCPCS: 72040; 72100 ==

== ENCOUNTER 2025-04-09 14:17 | Outpatient (REF) | payer OTHER, SELFPAY ==
[2025-04-09 16:33] LABS: Anion Gap 11 (12-20); Blood Urea Nitrogen 23 mg/dL (9-16); Carbon Dioxide 23 mmol/L (22-29); Chloride 111 mmol/L (96-108); Estimated Glomerular Filt Rate > 60; Potassium 4.3 mmol/L (3.3-5.1); Sodium 141 mmol/L (135-145)
--- OUTSIDE RECORDS SUMMARY | 2025-04-09 16:40 | XMS_ITS | Clinical Summary ---
Author Organization [employer] Address [address] [place] [address] Care Team Providers Care Flower Maker Name Role Phone Unavailable Primary Care Provider Unavailabl e Allergies Active Allergy Reactions Criticality Noted Date Comments Morphine Rash Low 06/08/2019 Medications Acetaminophen Extra Strength 500 MG tablet Take 2 tablets by mouth every 6 (six) hours if needed for pain. 5 Active Ventolin HFA 108 (90 Base) MCG/ACT inhaler INHALE 1 PUFF BY MOUTH 4 TIMES A DAY NEEDED FOR SHORTNESS OF BREATH OR WHEEZING Active amoxicillin (Amoxil) 500 MG tablet Take 1 tablet by mouth 2 times daily. 4 Active azithromycin (Zithromax) 200 MG/5ML suspension TAKE 12.5 ML BY MOUTH TODAY DAY 1, THEN 6.25 ML DAILY FOR 4 DAYS (DAYS 2-5). DISCARD REMAINDER 4 Active azithromycin (Zithromax) 250 MG tablet TAKE 2 TABLETS BY MOUTH TODAY, THEN TAKE 1 TABLET DAILY FOR 4 DAYS DIRECTED 5 Active benzonatate (Tessalon) 100 MG capsule Take 1 capsule by mouth every 8 (eight) hours if needed for cough. 5 Active bisacodyl (Dulcolax) 10 MG suppository INSERT 1 SUPPOSITORY RECTALLY DAILY NEEDED FOR CONSTIPATION 4 Active busPIRone (Buspar) 5 MG tablet 5 Active cyclobenzaprine (Flexeril) 10 MG tablet take 1 tablet by mouth three times a day as needed for muscle spasm 5 Active enalapril (Vasotec) 2.5 MG tablet TAKE 1/2 TABLET ORALLY DAILY FOR 30 DAYS 5 Active escitalopram (Lexapro) 20 MG tablet 5 Active fluticasone (Flovent HFA) 110 MCG/ACT inhaler Inhale 1 puff every 12 (twelve) hours. Active levothyroxine (Synthroid, Levoxyl) 25 MCG tablet 5 Active levothyroxine (Tirosint) 25 MCG capsule Take 1 capsule by mouth at bed time. Active SUMAtriptan (Imitrex) 25 MG tablet TAKE 1 TABLET ORALLY EVERY 2 TO 4 HOURS NEEDED FOR MIGRAINE FOR 30 DAYS. MAX 8 DOSES PER 24 HRS 4 Active traZODone (Desyrel) 100 MG tablet 5 Active Anoro Ellipta 62.5-25 MCG/ACT aerosol powder inhale 1 puff by mouth daily 5 Active Active Problems No known active problems Social History Tobacco Use Types Packs/Day Years [...] Sign Reading Time Taken Comments Blood Pressure 118/78 12/18/2024 8:06 AM EDT Pulse 72 11/13/2024 11:09 AM EDT Temperature - - Respiratory Rate - - Oxygen Saturation - - Inhaled Oxygen Concentration - - Weight - - Height - - Body Mass Index - - Plan of Treatment Health Maintenance Due Date Last Done Comments CT Colonography 1977 Colonoscopy 1977 Colorectal Cancer Screening 1977 Depression Screening 1977 FIT DNA/Cologuard 1977 FIT 1977 FOBT 1977 HIV Screening 1977 SDOH Screening 1977 Sigmoidoscopy 1977 Disability Screening 1977 Alcohol/Substance Use Screening 1989 Family Planning (PISQ) 1992 Hepatitis C Screening 1995 Hepatitis B Vaccines (1 of 3 - 19+ 3-dose series) 1996 Pap Smear 1998 Cervical Cancer Screening 2007 HPV/Cotest 2007 Mammogram 2017 Dental Oral Exam 07/09/2019 01/06/2019 Dental Prophylaxis 12/08/2019 06/08/2019 Dental X-Ray: Full Mouth 01/07/2022 01/06/2019 COVID-19 Vaccine ( season) 2025 09/16/2021, 10/09/2020, 09/18/2020 Influenza Vaccine (#1) 2025 4, 05/13/2023, 05/05/2021, Additional history exists Dental X-Ray: Bitewings 11/14/2025 11/13/2024, 01/06 Tobacco Screening 12/18/2025 12/18/2024 Zoster Vaccines (1 of 2) 2027 DTaP/Tdap/Td Vaccines (2 - Td or Tdap) 07/24/2032 07/24/2022 RSV Patients and Patients Aged 60 years or older (1 - 1-dose 75+ series) 2052 Pneumococcal Vaccine: Pediatrics (0 to 5 Years) and At-Risk Patients (6 to 49) Years Aged Out 07/01/2017 No longer eligible based [...] patient's age to complete this topic Meningococcal B Vaccine Aged Out No l onger eligible based on patient's age to complete [...] Procedure Name Priority Date/Time Associated Diagnosis Comments BITEWING - SINGLE RADIOGRAPHIC IMAGE Routine 11/13/2024 11:30 AM EDT PROPHYLAXIS - ADULT Routine 06/08/2019 1 2:00 AM EST INTRAORAL - COMPLETE SERIES OF RADIOGRAPHIC IMAGES Routine 01/06/2019 12:00 AM EDT COMPREHENSIVE ORAL EVALUATION - NEW OR ESTABLISHED PATIENT Routine 01/06/2019 12:00 AM EDT from Last 3 Months or Most Recently Relevant to Health Maintenance Insurance [facility] STANDARD DENTAL-[facility] MED[facility] STAND ADULT
--- OUTSIDE RECORDS SUMMARY | 2025-04-09 16:40 | XMS_ITS | Encounter Summary ---
Author Organization [employer] Address [address] [place] [address] Care Team Providers Care Race And Sports Book Writer Name Role Phone Unavailable Primary Care Provider Unavailabl e Encounter Details Date Type Department Care Team (Latest Contact Info) Description 06/08/2019 Abstract [facility] CONVERSIONS Dental, Provider, DDS Social History Tobacco [...]
[2025-04-09 16:42] LABS: Total Protein Urine Random < 7 mg/dL (<12)
== END 2025-04-09 14:18 | disposition home or self-care (01) ==
LOC: HO.HHCL 14:17
PROVIDERS: PCP Internal Medicine; Visit Provider Internal Medicine Nephrology
DX: R80.9 Proteinuria, unspecified (principal)
CPT/HCPCS: 36415; 80051; 82565; 82570; 84156; 84520

== ENCOUNTER 2025-04-11 09:27 | Outpatient (AMB) | payer OTHER, SELFPAY ==
--- NOTE | 2025-04-11 09:43 | HO.NEPHOV ---
Vital Signs 04/11/25 09:49 Height 5 ft Weight 173 lb 6 oz BMI 33.9 BP 110/68 Blood Pressure Location Rt brachial Position Sitting Pulse 59 Pulse Source Pulse Oximeter Pulse Oximetry (%) 97 Oxygen Delivery Method Room Air Intake Visit Reasons: R/S 04/04/25-Conf Marketing And Public Relations Manager Required: Yes Marketing And Public Relations Manager Language: Senior Paralegal Services: Marketing And Public Relations Manager Offered & Declined ([facility] [place] Marketing And Public Relations Manager services refused ) Accompanied by: Self / Same As Patient Allergies morphine (MORPHINE) Allergy (Severe, Verified 04/11/25 09:48) facial droop, numbness, lip deviation HPI Comments Details: 49-year-old female who had high blood sugar and diabetes as well as BMI and dyslipidemia is currently status post bariatric surgery in 2023. Her diabetes is stable with an A1c level of 5.9. Hyperlipidemia is controlled with LDL at 74 mg/dL. She also has hypothyroidism and her last TSH was normal. She is not on any blood sugar lowering medications or antihypertensives. She does not have any edema, hematuria, froth or foam in the urine. She denies any renal calculi, epistaxis, photosensitivity, joint swellings, flank pain, new bone or back pain. She does not take any excessive nonsteroidal anti-inflammatories. Her renal functions are normal. She is found to have protein in the urine earlier. [facility] Medical History Abnormal chest xray Physical exam Pre-op evaluation H. pylori infection Sacroiliac dysfunction Trigger finger, right little finger Otitis externa Asthma Migraines Lower back pain Bronchitis Hyperkalemia Morbid obesity with BMI of 40.0-44.9, adult Mild recurrent major depression Left sided sciatica Essential hypertension Hypertriglyceridemia Insomnia Depression with anxiety Diabetes mellitus Hypothyroidism Surgical History S/P laparoscopic sleeve gastrectomy History of foot surgery History of section Family History Father Emphysema lung Mother Myocardial infarction Sister Chronic mental illness Family/Other FH: mental illness Sister Diabetes Sister Cancer, Onset Age: 57 Diabetes Sister Diabetes Sister Diabetes Son No problems noted. Unknown Cancer, Onset Age: 24 Social History Household Members: None Housing: Apartment Are you a primary wild animal caretaker to a significant other at home: No Do you presently have visiting nurse or other home services: No Alcohol intake: former Patient Tobacco Use Status: Former Tobacco user Tobacco use type: Cigarette e-Cigarette/Vaping Use: Never Used Second Hand Smoke Exposure: No service: No Current occupational status: employed Current occupational exposures/hazards: No Cognitive needs: No Hearing needs: No Vision needs: Yes Female Reproductive History Menstrual Age of Menarche: 13 Review of Systems Const All systems reviewed & are unremarkable except as noted in HPI and below Physical Exam Const General: comfortable and no acute distress Orientation/consciousness: patient oriented x3 HEENT Head: Yes normocephalic Mouth: Normal oral and palatal mucosa present Eyes EOM: EOMs intact bilaterally Neck Neck: Yes supple Resp Auscultation: clear to auscultation bilaterally Cardio Jugular venous distension: no JVD Rate: regular rate GI Palpation (GI): Soft to palpation Auscultation: normal bowel sounds General: Yes no CVA tenderness Back/Spine/Pelvis Back: no CVA tenderness Skin General skin exam: no rashes or lesions noted Neuro General: patient oriented x3 and moves all extremities Extrem General: Yes no pedal edema Results Reviewed Nephrology Results: Sodium, (135-145) 141 mmol/L 04/09/25 Potassium, (3.3-5.1) 4.3 mmol/L 04/09/25 Chloride, (96-108) 111 mmol/L H 04/09/25 Carbon Dioxide, (22-29) 23 mmol/L 04/09/25 BUN, (9-16) 23 mg/dL H 04/09/25 Creatinine, (0.5-1.4) 0.98 mg/dL 04/09/25 Calcium, (8.4-10.2) 8.9 mg/dL 03/01/25 Urine Creatinine 184.72 mg/dL 04/09/25 Protein/Creatinin Ratio TNP 04/09/25 Assessment & Plan Assessment & Plan (1) Essential hypertension: Code(s): I10 - Essential (primary) hypertension Category: Medical (2) Microalbuminuria: Code(s): R80.9 - Proteinuria, unspecified Category: Medical Plan Kalpana had protein in the urine most likely due to her high BMI as well as history of diabetes and hypertension. She is currently status post bariatric surgery and is off blood sugar lowering medications. She has lost quite a bit of weight. She avoids nonsteroidal anti-inflammatories. She maintains good hydration. Extensive work up has been negative. She should continue on enalapril 1.25 mg for her to be taken at night. Follow-up blood work ordered. Answered all questions. Orders: Orders Creatinine 7 Months I10 - Essential (primary) hypertension, R80.9 - Proteinuria, unspecified Blood Urea Nitrogen 7 Months I10 - Essential (primary) hypertension, R80.9 - Proteinuria, unspecified Electrolytes 7 Months I10 - Essential (primary) hypertension, R80.9 - Proteinuria, unspecified Medications: Changed From enalapril maleate 1.25 mg (1/2 x 2.5 mg) PO DAILY 45 tabs 1RF To enalapril maleate 1.25 mg (1/2 x 2.5 mg) PO DAILY 45 tabs 4RF 90 days Coding Level of Care Code Est Pt Level 4 (04523) Diagnoses Essential hypertension I10 Microalbuminuria R80.9
[2025-04-11 09:49] VITALS: BP 110/68; PULSE 59; O2SAT 97; BMI 33.9
== END 2025-04-11 10:00 | disposition home or self-care (01) ==
LOC: HO.HKA 09:29
PROVIDERS: PCP Internal Medicine; Visit Provider Internal Medicine Nephrology
DX: I10 Essential (primary) hypertension (principal); R80.9 Proteinuria, unspecified
CPT/HCPCS: 99214

== ENCOUNTER → 2025-04-11 09:27 | Outpatient (BNVA) | payer OTHER, SELFPAY | PROVIDERS: PCP Internal Medicine; Visit Provider Internal Medicine Nephrology | DX: I10 Essential (primary) hypertension (principal); R80.9 Proteinuria, unspecified | CPT/HCPCS: 99212 ==

== ENCOUNTER 2025-04-17 08:42 | Outpatient (REF) | payer OTHER, SELFPAY ==
--- NOTE | 2025-04-17 08:44 | EMG_ITS ---
Chief complaint: Bilateral hand paraesthesias Reason for referral: Evaluate for radiculopathy, peripheral neuropathy, CTS Referred by: Rupal Cox MD Procedure done:Bilateral upper extremity NCS and EMG Bilateral median and ulnar motor and sensory studies were performed bilateral radial sensory studies were performed and bilateral EMG needle examination was performed. Right median motor distal latency was significantly delayed. Bilateral median mixed sensory distal latencies were significantly delayed with significant reduction and conduction velocity. Left median motor conduction velocity was slightly delayed. Right ulnar motor unit potential latency and amplitude was normal while conduction velocity was significantly reduce across elbow. Impression: 1. [id number] bilateral median neuropathy across carpal tunnel 2. Mild right ulnar neuropathy across cubital tunnel MTDD
--- OUTSIDE RECORDS SUMMARY | 2025-04-17 10:28 | XMS_ITS | Clinical Summary ---
Author Organization [facility] [employer] Address [address] [facility] 7[address] [place] [address] Care Team Providers Care Electromechanical Assembly Technician Name Role Phone Unavailable Primary Care [...] Active Active Problems No known active problems Encounters Date Type Department Care Team Description 03/22/2025 2:00 PM EDT Office Visit [facility] OPTOMETRY [address] [place] [id number] Amrik, Aarti, OD Presbyopia (Primary Dx) from Last 3 Months Social History Tobacco [...] 09/16/2021, 10/09/2020, 09/18/2020 Influenza Vaccine (#1) 2025 , 05/13/2023, 05/05/2021, Additional history exists Dental X-Ray: [...] Most Recently Relevant to Health Maintenance Insurance [facility] STANDARD DENTAL-[facility] MEDICAID STAND ADULT
--- OUTSIDE RECORDS SUMMARY | 2025-04-17 10:28 | XMS_ITS | Encounter Summary ---
Author Organization [employer] Address [address] [facility] 7t [place] [address] Care Team Providers Care Salvage Engineer Name Role Phone Unavailable Primary Care Provider Unavailabl e Encounter Details Date Type Department Care Team (Latest Contact Info) Description 06/08/2019 Abstract [facility] CONVERSIONS Dental, Provider, DDS Social History Tobacco [...]
== END 2025-04-17 08:43 | disposition home or self-care (01) ==
LOC: HO.NEURO 08:42
PROVIDERS: PCP Internal Medicine; Visit Provider Internal Medicine
DX: G56.13 Other lesions of median nerve, bilateral upper limbs (principal); G56.21 Lesion of ulnar nerve, right upper limb; R20.2 Paresthesia of skin
CPT/HCPCS: 95886; 95911

== ENCOUNTER → 2025-04-17 08:44 | Outpatient (BNV) | payer OTHER, SELFPAY | PROVIDERS: PCP Internal Medicine; Visit Provider Psychiatry & Neurology Neurology | DX: G56.03 Carpal tunnel syndrome, bilateral upper limbs (principal) | CPT/HCPCS: 95886; 95911 ==

== ENCOUNTER 2025-05-15 06:03 | Outpatient (REF) | payer OTHER, SELFPAY ==
--- OUTSIDE RECORDS SUMMARY | 2025-05-15 06:05 | XMS_ITS | Encounter Summary ---
Author Organization [employer] Address [address] [facility] [address] [place] [address] Care Team Providers Care Blade Sharpener Name Role Phone Unavailable Primary Care Provider Unavailabl e Encounter Details Date Type Department Care Team (Latest Contact Info) Description 06/08/2019 Abstract [facility] CONVERSIONS Dental, Provider, DDS Social History [...]
--- OUTSIDE RECORDS SUMMARY | 2025-05-15 06:05 | XMS_ITS | Clinical Summary ---
Author Organization [employer] Address [address] [facility] 7t [place] [address] Care Team Providers Care Educational Interpreter Name Role Phone Unavailable Primary Care Provider [...] Description 03/22/2025 2:00 PM EDT Office Visit [facility] OPTOMETRY [address] [place] [id number] Amrik, Aarti, OD Presbyopia (Primary Dx) from [...] Most Recently Relevant to Health Maintenance Insurance [facility] STANDARD DENTAL-[facility] MEDICAID STAND ADULT
[2025-05-15 08:24] LABS: Thyroid Stimulating Hormone 2.41 uIU/mL (0.32-4.0)
== END 2025-05-15 06:04 | disposition home or self-care (01) ==
LOC: HO.LAB 06:03
PROVIDERS: PCP Internal Medicine; Visit Provider Internal Medicine
DX: E03.9 Hypothyroidism, unspecified (principal)
CPT/HCPCS: 36415; 84443

== ENCOUNTER 2025-05-22 09:50 | Outpatient (AMB) | payer OTHER, SELFPAY ==
[2025-05-22 10:15] VITALS: BP 110/78; PULSE 88; TEMP 36.3; O2SAT 98; BMI 34.2
--- NOTE | 2025-05-22 10:15 | MHC.PC.OV ---
Vital Signs 05/22/25 10:15 Height 5 ft Weight 175 lb 4 oz BMI 34.2 BP 110/78 Blood Pressure Location Lt brachial Position Sitting Pulse 88 Pulse Source Pulse Oximeter Temp 97.3 F Temp Source Temporal Artery Scan Pulse Oximetry (%) 98 Oxygen Delivery Method Room Air Intake Visit Reasons: Annual Exam Remote Control Mirror Installer Required: No Accompanied by: Self / Same As Patient Allergies morphine (MORPHINE) Allergy (Severe, Verified 05/22/25 10:37) facial droop, numbness, lip deviation Medication List - Last Reconciled 05/22/25 by Rupal Cox MD acetaminophen (Acetaminophen Pain Relief) 1,000 mg (2 x 500 mg) PO Q6H PRN albuterol sulfate 5 mg inhalation Q4H PRN albuterol sulfate 90 mcg/actuation (Ventolin HFA) 1 puff PO QID PRN bisacodyl (Dulcolax (bisacodyl)) 10 mg WA DAILY PRN bisacodyl (Dulcolax (bisacodyl)) 20 mg (4 x 5 mg) PO ONCE 1 day blood pressure monitor As directed blood sugar diagnostic As directed blood-glucose meter (Stolen Couch GamesStyle Lite Meter kit) As directed buspirone 5 mg PO DAILY PRN enalapril maleate 1.25 mg (1/2 x 2.5 mg) PO DAILY 90 days escitalopram oxalate 20 mg PO DAILY fluticasone propionate 110 mcg/actuation 2 puffs inhalation BID lancets (FreeStyle Lancets) As directed levothyroxine 25 mcg PO DAILY@0600 90 days nebulizers (Aeroneb Go Nebulizer) As directed polyethylene glycol 3350 (Miralax) 238 grams PO ONCE 1 day rosuvastatin 10 mg PO BEDTIME 90 days sennosides (senna) 17.2 mg (2 x 8.6 mg) PO BEDTIME 90 days trazodone 200 mg PO BEDTIME PRN umeclidinium-vilanterol 62.5-25 mcg/actuation (Anoro Ellipta) 1 inh inhalation DAILY PRN Tobacco use date assessed: 05/22/25 Dental Screening Dental Screen Date: 05/22/25 Did you have a dental visit in the last 12 months?: Yes Did you have a dental problem in the last 6 months where you did not have access to dental care?: No Was dental information given to patient?: Patient has dentist HPI HPI Comments History of Present Illness Details The patient is a 49-year-old female presenting with an annual physical examination and management of chronic conditions. She has a history of allergic reaction to morphine, characterized by facial droop. The patient reports anxiety and depression with anxiety, for which she is currently taking citalopram. She was prescribed buspirone for anxiety in October. She has a diagnosis of hypothyroidism, managed with levothyroxine 25 mcg, with recent laboratory results indicating stable thyroid function. The patient is on rosuvastatin 10 mg for hyperlipidemia. She experiences constipation, for which she takes senna, and insomnia, managed with trazodone. Her asthma is controlled with Anoro inhaler. The patient reports significant back pain radiating to the left leg, persisting for two months, which impairs her ability to stand or walk for extended periods. She has undergone a gastrectomy, section, and right foot surgery in the past. Her father at 74 from emphysema, and her mother at 42 from a heart attack. [facility] History Abnormal chest xray Physical exam Pre-op evaluation H. pylori infection Sacroiliac dysfunction Trigger finger, right little finger Otitis externa Asthma Migraines Lower back pain Bronchitis Hyperkalemia Morbid obesity with BMI of 40.0-44.9, adult Mild recurrent major depression Left sided sciatica Essential hypertension Hypertriglyceridemia Insomnia Depression with anxiety Diabetes mellitus Hypothyroidism Surgical History S/P laparoscopic sleeve gastrectomy History of foot surgery History of section Family History Father Emphysema lung Mother Myocardial infarction Sister Chronic mental illness Family/Other FH: mental illness Sister Diabetes Sister Cancer, Onset Age: 57 Diabetes Sister Diabetes Sister Diabetes Son No problems noted. Unknown Cancer, Onset Age: 24 Social History Household Members: None Housing: Apartment Are you a primary healthcare administrative assistant to a significant other at home: No Do you presently have visiting nurse or other home services: No Alcohol intake: former Patient Tobacco Use Status: Former Tobacco user Tobacco use type: Cigarette e-Cigarette/Vaping Use: Never Used Second Hand Smoke Exposure: No service: No Current occupational status: employed Current occupational exposures/hazards: No Cognitive needs: No Hearing needs: No Vision needs: Yes Female Reproductive History Menstrual Age of Menarche: 13 Questionnaire PHQ-9 Over the last 2 weeks, how often have you been bothered by any of the following problems? 1. Little interest or pleasure in doing things: several days 2. Feeling down, depressed, or hopeless: several days 3. Trouble falling or staying asleep, or sleeping too much: several days 4. Feeling tired or having little energy: several days 5. Poor appetite or overeating: several days 6. Feeling bad about yourself - or that you are a failure or have let yourself or your family down: several days 7. Trouble concentrating on things, such as reading the newspaper or watching television: several days 8. Moving or speaking so slowly that other people could have noticed. Or the opposite - being so fidgety or restless that you have been moving around a lot more than usual: several days 9. Thoughts that you would be better off or of hurting yourself in some way: not at all Total score: 8 Depression Screening Interpretation: Positive Depression Screening Follow-up: Existing condition, In treatment, Community Mental Health Worker F/U and Follow-up Visit Requested Depression Screening Done: Yes 69792 - PHQ-9 Billing: Yes Source: Developed by Drs. Atul Robert, Arianna Ventura, Dirk Cruz and colleagues, with an educational nam from [employer]. Thrive Questionnaire Date Thrive assessed: 02/27/25 I am a: Patient What is your living situation today?: I have a steady place to live Within the past 12 months, did the food you bought not last and you didn't have the money to get more?: I choose not to answer this question Within the past 12 months, did you worry whether your food would run out before you got money to buy more?: I choose not to answer this question Do you have trouble paying for medicines?: No Do you have trouble getting transportation to medical appointments?: No Do you have trouble paying your heating and electricity bill?: Yes Do you have trouble taking care of your child, family member or friend?: No Do you have trouble with day-to-day activities such as bathing, preparing meals, shopping, managing finances, etc.?: No Are you currently unemployed and looking for a job?: No Are you interested in more education?: No Please select the resources that you would like help with: Utilities Currently or been in a relationship where the following occur: I choose not to answer THRIVE Score: 1 AUDIT C Alcohol Use Questionnaire (AUDIT-C) 1. How often do you have a drink containing alcohol?: Never Total Score: 0 Score Reviewed/Action Taken: No MELIZA-7 AMB Questionnaire MELIZA-7 Date MELIZA - 7 assessed: 05/22/25 Feeling nervous, anxious, or on edge: 1 = Several days Not being able to stop or control worryin = Several days Worrying too much about different things: 1 = Several days Trouble relaxin = Several days Being so restless that it is hard to sit still: 0 = Not at all Becoming easily annoyed or irritable: 1 = Several days Feeling afraid as if something awful might happen: 1 = Several days Total MELIZA-7 score (0-4 normal; 5-9 mild; 10-14 moderate; 15-21 severe): 6 Source: Developed by Drs. Atul Robert, Arianna Ventura, Dirk Cruz and colleagues, with an educational nam from [employer]. MELIZA-7 Assessment Billing MELIZA-7 Assessment Tool: MELIZA-7 Assessment 23456 Review of Systems Const All systems reviewed & are unremarkable except as noted in HPI and below Card Denies chest pain at rest, Denies chest pain with activity, Denies edema, Denies irregular heart rhythm, Denies claudication, Denies dyspnea, Denies dyspnea on exertion, Denies orthopnea, Denies paroxysmal nocturnal dyspnea and Denies slow heart rate Resp Denies cough, Denies dyspnea and Denies dyspnea on exertion GI Denies abdominal pain, Denies change in bowel habits, Denies excessive flatus, Denies nausea and Denies vomiting Denies urinary incontinence, Denies urinary hesitancy and Denies urinary urgency Musc Denies atrophy, Denies deformity and Denies limited range of motion Physical exam (Primary Care) Vital Signs: Last Vital Signs Temp 97.3 F 05/22/25 10:15 Pulse 88 05/22/25 10:15 BP 110/78 05/22/25 10:15 Pulse Ox 98 05/22/25 10:15 Oxygen Delivery Method Room Air 05/22/25 10:15 BMI result Body Mass Index 34.2 BMI Assessment/Plan discussion: High BMI High, discussed plan: lifestyle, weight reduction, dietary and physical activity Tobacco/Smoking Status: Tobacco use Status Tobacco use date assessed 05/22/25 05/22/25 10:22 Patient Tobacco Use Status Former Tobacco user 05/22/25 10:17 Tobacco use type Cigarette 05/22/25 10:17 e-Cigarette/Vaping Use Never Used 05/22/25 10:17 PHQ-9: PHQ-9 Score PHQ-9: Total score 8 05/22/25 10:57 Depression Screening Interpretation: Positive Depression Screening Follow-up: Existing condition, In treatment, Community Mental Health Worker F/U and Follow-up Visit Requested Thrive Assessment: Date of Thrive Assessment Date Thrive assessed 02/27/25 05/22/25 10:17 Currently or been in a relationship where the following occur: I choose not to answer HENNM Head: Yes normal to inspection, Yes normocephalic and Yes atraumatic Ears: external ears normal Eyes General: appearance normal, both eyes and all related structures Eyelids: Yes eyelids normal Conjunctivae: conjunctivae normal Neck Neck: Yes normal visual inspection and Yes supple Resp Effort & Inspection: normal respiratory effort Auscultation: clear to auscultation bilaterally Cardio Jugular venous distension: no JVD Rate: regular rate Rhythm: regular rhythm Heart sounds: S1 normal heart sound present and S2 normal heart sound present GI Inspection: Yes normal to inspection Palpation (GI): Soft to palpation and nontender Auscultation: normal bowel sounds Skin General skin exam: no rashes or lesions noted Neuro General: no focal motor deficits Extrem General: Yes full ROM Psych Appearance: grossly normal Office Procedures Flu Questionnaire Does the patient have a severe egg allergy?: No Does the patient have severe life threatening allergies?: No Does the patient have a fever or illness today?: No Has the patient ever had Guillain-[place] Syndrome?: No Has the patient ever had any past reaction to a flu shot?: No Immunizations Fluarix [id number] (PF) 45 mcg (15 mcg x 3)/0.5 mL IM syringe Performing Provider: Rupal Cox MD [facility] Administered by: NINFA Ruff on 05/22/25 10:57 Dose Route Admin Location Dispensed Lot Number Expiration Date NDC Law Reporter 0.5 mL IM Left Deltoid 0.5 mL [id number] 01/29/26 22382-553-50 [employer] VIS Given Date VIS Provided VIS Publication Date 05/22/25 Single Vaccine 24 Eligibility Eligibility Date Funding Source Not [facility] Eligible 05/22/25 Private Coding Level of Care Code Est Pt Level 3 (06010) Est Pt Prev Care 40-64y(39403) Diagnoses Physical exam Z00.00 Mild recurrent major depression F33.0 Type 2 diabetes mellitus without complication, without long-term current use of insulin E11.9 Diabetes mellitus type: type 2 Diabetes mellitus group home insulin use: without group home use Diabetes mellitus complication status: without complication Left sided sciatica M54.32 Additional Codes MELIZA-7 Assessment Billing - MELIZA-7 Assessment Tool: MELIZA-7 Assessment 36907 ([id number]) PHQ-9 - 60816 - PHQ-9 Billing: Yes ([id number]) Time Spent (min) 35 Assessment & Plan Assessment & Plan (1) Physical exam: Code(s): Z00.00 - Encounter for general adult medical examination without abnormal findings Category: Medical (2) Mild recurrent major depression: Comment: She follows with psychiatry Code(s): F33.0 - Major depressive disorder, recurrent, mild Category: Medical (3) Diabetes mellitus: Comment: dx~age 38-prior Rx for metformin, since d/c due to weight loss-glucose usually~90-100 Code(s): E11.9 - Type 2 diabetes mellitus without complications Category: Medical Qualifiers: Diabetes mellitus type: type 2 Diabetes mellitus watcher automat long goods insulin use: without watcher automat long goods use Diabetes mellitus complication status: without complication Qualified Code(s): E11.9 - Type 2 diabetes mellitus without complications (4) Left sided sciatica: Code(s): M54.32 - Sciatica, left side Category: Medical Plan Plan 1. Encounter for general adult medical examination without abnormal findings Z00.00 The patient has completed a mammogram earlier this year and a Pap smear in 2021. She received a tetanus vaccine in 2022, with the next dose due in 2031. 2. Radiculopathy, site unspecified M54.10 The patient reports significant back pain radiating to the left leg, persisting for two months, which impairs her ability to stand or walk for extended periods. A referral to pain management is planned to address the severity of the symptoms. Orders: Orders Lipid Panel 4 Months E78.5 - Hyperlipidemia, unspecified Vitamin D 25-OH Total 4 Months E55.9 - Vitamin D deficiency, unspecified Comprehensive [place]. Panel Fast 4 Months E11.9 - Type 2 diabetes mellitus without complications Influenza [id number] Immunization Today Z23 - Encounter for immunization Microalbumin, Random (w Creat) 4 Months R80.9 - Proteinuria, unspecified Thyroid Stimulating Hormone 4 Months E03.9 - Hypothyroidism, unspecified Referrals Pain Management Referral M54.32 - Sciatica, left side
--- OUTSIDE RECORDS SUMMARY | 2025-05-22 11:17 | XMS_ITS | Clinical Summary ---
Author Organization [employer] Address [address] [facility] 7t [place] [address] Care Team Providers Care Non Acoustic Operator Name Role Phone Unavailable Primary Care Provider [...] Description 03/22/2025 2:00 PM EDT Office Visit [facility] OPTOMETRY [address] [place] [id number] Amrik, Aarti, OD Presbyopia (Primary Dx) from [...]
--- OUTSIDE RECORDS SUMMARY | 2025-05-22 11:17 | XMS_ITS | Encounter Summary ---
Author Organization [employer] Address [address] [facility] [address] [place] [address] Care Team Providers Care Farmworker Field Crop Name Role Phone Unavailable Primary Care Provider Unavailabl e Encounter Details Date Type Department Care Team (Latest Contact Info) Description 06/08/[address] [facility] CONVERSIONS Dental, Provider, DDS Social [...]
== END 2025-05-22 10:55 | disposition home or self-care (01) ==
LOC: HO.HMCH 09:51
PROVIDERS: PCP Internal Medicine; Visit Provider Internal Medicine
DX: Z00.00 Encounter for general adult medical examination without abnormal findings (principal); F33.0 Major depressive disorder, recurrent, mild; E11.9 Type 2 diabetes mellitus without complications; M54.32 Sciatica, left side; Z23 Encounter for immunization

== ENCOUNTER → 2025-05-22 09:50 | Outpatient (BNVA) | payer OTHER, SELFPAY | PROVIDERS: PCP Internal Medicine; Visit Provider Internal Medicine | DX: Z00.00 Encounter for general adult medical examination without abnormal findings (principal); F41.9 Anxiety disorder, unspecified; E78.5 Hyperlipidemia, unspecified; G47.00 Insomnia, unspecified; F33.0 Major depressive disorder, recurrent, mild; E11.9 Type 2 diabetes mellitus without complications; M54.32 Sciatica, left side; Z23 Encounter for immunization; Z79.899 Other long term (current) drug therapy | CPT/HCPCS: 90471; 90656; 96127; 99396 ==

== ENCOUNTER 2025-05-23 06:49 | Emergency (ER) | payer OTHER, SELFPAY ==
[2025-05-23 07:06] VITALS: BP 130/63; PULSE 68; RESP 16; TEMP 36.6; O2SAT 98; BMI 28.8
--- NOTE | 2025-05-23 07:21 | ED_ITS ---
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 (all interactions with this patient were facilitated with an [facility] staff field engineer ([place]uba)) Mode of arrival: ambulatory Limitations: language barrier (all interactions with this patient were facilitated with an [facility] staff field engineer (Ruba)) History of Present Illness ED Provider: Nidia Garcia PA-C HPI narrative: Patient is a 49 year old assigned female at with a history of carpal tunnel, liver fibrosis, migraines, HLD, MDD, depression, DM, hypothyroidism, and left sided sciatica presenting to the emergency department today with left sided low back pain. Patient states that over the last 1.5 weeks she has had left sided low back pain. Patient states that this intermittently happens and is consistent with her sciatica. Patient states that she has an appointment with a pain management clinic on June 15 but has no medication at this time other than OTC Ibuprofen. Patient denies any other complaints at this time. Related Data Home Medications ?Medication ?Instructions ?Recorded ?Confirmed buspirone 5 mg tablet 5 mg PO DAILY PRN Anxiety 05/22/25 lancets 28 gauge (FreeStyle #100 ea 05/27/20 05/22/25 Lancets) escitalopram oxalate 20 mg tablet 20 mg PO DAILY 03/0505/22/25 trazodone 100 mg tablet 200 mg PO BEDTIME PRN 05/22/25 umeclidinium 62.5 mcg-vilanterol 1 inh inhalation DEEPA Y PRN 04/11/25 05/22/25 25 mcg/actuation powdr for inhalation (Anoro Ellipta) Previous Rx's ?Medication ?Instructions ?Recorded blood sugar diagnostic #10 ea 10/14/20 nebulizers (Aeroneb Go Nebulizer) #1 ea 05/11/22 blood pressure monitor #1 ea 02/08/23 blood-glucose meter (FreeStyle #1 ea 02/08/23 Lite Meter kit) fluticasone propionate 110 2 puff inhalation BID #36 g nic 04/11/24 mcg/actuation HFA aerosol inhaler albuterol sulfate 2.5 mg/0.5 mL 5 mg inhalation Q4H WI N shortness 10/06/24 solution for nebulization of breath or wheezing #30 ea albuterol sulfate 90 mcg/actuation 1 puff PO QID PRN f or wheezing #18 11/03/24 aerosol inhaler (Ventolin HFA) ea acetaminophen 500 mg tablet 1,000 mg (2 x 500 mg) PO Q 6H PRN 11/10/24 (Acetaminophen Pain Relief) pain #30 tabs bisacodyl 10 mg rectal suppository 10 mg WI DAILY PRN constipation 12/12/24 (Dulcolax (bisacodyl)) #12 ea rosuvastatin 10 mg tablet 10 mg PO BEDTIME 90 days #90 tabs 03/05/25 sennosides 8.6 mg tablet (senna) 17.2 mg (2 x 8.6 mg) PO BEDTIME 03/09/25 constipation 90 days #180 tabs enalapril maleate 2.5 mg tablet 1.25 mg (1/2 x 2.5 mg) PO DAILY 90 04/11/25 days #45 tabs bisacodyl 5 mg tablet,delayed 20 mg (4 x 5 mg) PO ONCE 05/12/25 release (Dulcolax (bisacodyl)) colonoscopy prep 1 day #4 tabs polyethylene glycol 3350 17 238 g PO ONCE colonoscopy prep 1 05/12/25 gram/dose oral powder (Miralax) day #238 grams levothyroxine 25 mcg tablet 25 mcg PO DAILY@0600 90 da ys #90 05/15/25 tabs cyclobenzaprine 5 mg tablet 5 mg PO TID PRN left lower back 05/23/25 spasm 7 days #21 tabs prednisone 20 mg tablet 40 mg (2 x 20 mg) PO DAILY C OPD 05/23/25 exacerbation 5 days #10 tabs Allergies Allergy/AdvReac Type Severity Reaction Status Date / Time morphine (MORPHINE) Allergy Severe facial Verified 05/23/25 07:09 droop, numbness, lip deviation Review of Systems Constitutional: Constitutional: Reports as per HPI Eyes: Eyes: Reports as per HPI ENT: Reports as per HPI Cardiovascular: Cardiovascular: Reports as per HPI Respiratory: Respiratory: Reports as per HPI Gastrointestinal: Gastrointestinal: Reports as per HPI Genitourinary: Genitourinary: Reports as per HPI Musculoskeletal: Musculoskeletal: Reports as per HPI Integumentary/Breasts: Skin/Breast: Reports as per HPI Neurologic: Reports as per HPI Psychiatric: Psychiatric: Reports as per HPI Endocrine: Endocrine: Reports as per HPI Hematologic/Lymphatic: Hematologic/Lymphatic: Reports as per HPI Allergic/Immunologic: Allergic/Immunologic: Reports as per HPI [facility] Past Medical History Attestation statement: The following information was validated with the patient. Source: old records reviewed and nursing notes reviewed Medical History Abnormal chest xray Physical exam Pre-op evaluation H. pylori infection Sacroiliac dysfunction Trigger finger, right little finger Otitis externa Asthma Migraines Lower back pain Bronchitis Hyperkalemia Morbid obesity with BMI of 40.0-44.9, adult Mild recurrent major depression Left sided sciatica Essential hypertension Hypertriglyceridemia Insomnia Depression with anxiety Diabetes mellitus Hypothyroidism Surgical History S/P laparoscopic sleeve gastrectomy History of foot surgery History of section Family History Family History Father Emphysema lung Mother Myocardial infarction Sister Chronic mental illness Family/Other FH: mental illness Sister Diabetes Sister Cancer, Onset Age: 57 Diabetes Sister Diabetes Sister Diabetes Son No problems noted. Unknown Cancer, Onset Age: 24 Social History Social History Household Members: None Housing: Apartment Are you a primary urgent care physician to a significant other at home: No Do you presently have visiting nurse or other home services: No Alcohol intake: former Patient Tobacco Use Status: Former Tobacco user Tobacco use type: Cigarette e-Cigarette/Vaping Use: Never Used Second Hand Smoke Exposure: No Advance Directives: No Advance Directives Information Provided: Yes service: No Current occupational status: employed Current occupational exposures/hazards: No Cognitive needs: No Hearing needs: No Vision needs: Yes Physical Exam ED Vital Signs: Vital Signs - 24 hr 05/23/25 07:06 Temperature 98 F Pulse Rate 68 Respiratory Rate 16 Blood Pressure 130/63 Pulse Oximetry 98 Oxygen Delivery Method Room Air BMI result Body Mass Index 28.8 Const General: cooperative, no acute distress, alert and awake Nutritional Appearance: well nourished Orientation/consciousness: patient oriented x3 HENMT Head: Yes normal to inspection and Yes atraumatic Ears: hearing grossly normal bilaterally and external ears normal General nose exam: Normal external nose present, no nasal discharge noted and no epistaxis Face and sinus: Yes normal facial exam, No abrasion and No laceration Mouth: Normal oral and palatal mucosa present, no drooling and no muffled voice Eyes General: appearance normal, both eyes and all related structures Periorbital: periorbital findings normal Eyelids: Yes eyelids normal Conjunctivae: conjunctivae normal Pupils: Equal, round and reactive pupils present EOM: EOMs intact bilaterally Neck Neck: Yes normal visual inspection and Yes full ROM Resp Effort & Inspection: normal respiratory effort and able to speak in complete sentences Neuro General: patient oriented x3, moves all extremities and CN's II-XI intact bilaterally Cranial nerves: Yes Equal, round and reactive pupils present Cognition (Neuro): normal cognition Extrem General: Yes normal to inspection, Yes full ROM and Yes capillary refill normal Psych Appearance: grossly normal Mental Status: mental status grossly normal Affect: normal affect Attitude: cooperative Thought process: Normal thought process present Thought content: Normal thought content present Insight: Good insight present (Psych) Medical Decision Making Medical Decision Making MDM Narrative: Patient is a 49 year old assigned female at with a history of carpal tunnel, liver fibrosis, migraines, HLD, MDD, depression, DM, hypothyroidism, and left sided sciatica presenting to the emergency department today with left sided low back pain. Patient's physical exam was as noted in the physical exam portion of this note and unremarkable. I explained my physical exam findings as well as all test results to the patient. I answered all questions asked by the patient. Patient was given PO Flexeril, IM Solu-medrol, and IM toradol while in the department. Patient's clinical presentation is most consistent with acute on chronic left sided sciatica. I stressed the importance of the patient taking her medication as directed (either prescribed or as the over the counter packaging recommends). I stressed the importance of the patient following up with her primary care provider. I stressed the importance of the patient returning to the emergency department immediately if her symptoms were to worsen or if she were to develop any dizziness, shortness of breath, difficulty breathing, chest pain, blurry vision, loss of vision, nausea, vomiting, abdominal pain, fever, chills, back pain, or any other complaints. Patient verbalized agreement and understanding with this treatment plan and discharge. Note: patient declined any history of diabetes to me however, there is documentation in her chart suggesting otherwise. I explained to the patient that corticosteroids can increase her blood sugar levels and she needs to monitor this closely. Differential Diagnosis Differential Diagnoses: The differential diagnosis associated with the presentation includes Sciatica Low back pain Acute on chronic low back pain Admission/Observation Consideration of admission/observation: Escalation of care including admission/observation considered Patient would have been admitted to the hospital had her clinical presentation warranted hospital admission. Prescription Management I considered prescription management with: Pain Medication (patient prescribed pain medication) Chronic Conditions Patient?s care impacted by: Diabetes Discharge Plan Discharge Clinical Impression: Left sided sciatica Patient Disposition: Home, Self-Care Instructions: Sciatica (ED), Acute Low Back Pain (ED), Lower Back Exercises (ED) Additional Instructions: Take your medication as prescribed and follow up with your pain specialist on the 15 of June as scheduled. Rodney rosales medicaci?n seg?n lo prescrito y iraj un seguimiento con rosales especialista en dolor el seg?n lo programado. Please be aware that some of the medication you were given will raise your blood sugars. You said you are not a diabetic but you have a documented history of it so I must make you aware of this so you can adjust your medication appropriately. Tenga en cuenta que algunos de los medicamentos que le recetaron pueden elevar rosales nivel de az?car en la arely. Dijo que no es diab?ajay, sweetie tiene antecedentes documentados, por lo que rimma informarle para que pueda ajustar rosales medicaci?n seg?n corresponda. IF you are prescribed home medications and/or you are taking over the counter medications at home - it is very important you continue to do so as prescribed / directed unless told otherwise. SI le recetan medicamentos y/o est? tomando medicamentos de venta tanner, es muy importante que contin?e haci?ndolo seg?n lo recetado/indicado a menos que le indiquen lo contrario. Follow up with your primary care provider. Return to the emergency department immediately if your symptoms worsen or if you develop any dizziness, shortness of breath, difficulty breathing, chest pain, blurry vision, loss of vision, nausea, vomiting, abdominal pain, fever, chills, back pain, or any other complaints. Iraj?seguimiento?con rosales m?dico de atenci?n primaria. Acuda inmediatamente al servicio de urgencias si terrell s?ntomas empeoran o si presenta falta de aliento, dificultad para respirar, dolor tor?cico, mareos, aturdimiento, dolor de espalda, dolor abdominal, fiebre, escalofr?os o cualquier otro s?ntoma. If you do not have a primary care provider - call any of the below numbers to establish and follow up with a primary care provider. Si no tiene un proveedor de atenci?n primaria, llame a cualquiera de los n?meros que aparecen a continuaci?n para establecer y hacer seguimiento con un proveedor de atenci?n primaria. [facility] ([place]) [phone] [address] [facility], [address] [facility] ([address] [place]) [phone] [place] [address], [address] [facility], [address] [facility] ([address] [place]) [phone] [place] [address], [address] [facility], [address] [facility] ([place]) [phone] [place] [address], [facility] [address] [facility], [address] [facility] Family Medicine [phone] [address] [facility], [address] Please see the information below about our Patient Portal. If you are not yet enrolled in the [facility] Patient Portal, you will receive an enrollment email invitation following your visit to any [facility] care setting. You may also self-enroll in the Patient Portal by visiting our website: [email or web address] The following information is required to access the Patient Portal: - Your [facility] Medical Record Number - Your personal home email address (must match what is in your electronic medical record, Registration staff can assist with this) - Name - Date of Capabilities of the Patient Portal: - Message some providers - View upcoming appointments - Access your health summary, medical history, and visit history - View current conditions and allergies - View procedure and lab results - View your medications, including guidelines, side effects, and precautions - Complete pre-appointment questionnaires requested by your provider - Ready summary reports of your office visits and procedures To access the Patient Portal Mobile Anai, follow these directions: - Search [employer] in the Anai Store or [employer] Store - Download the Anai - Search for [facility] - Enter your login/password Portal del paciente Si usted no esta inscrito en el portal de pacientes de [facility], recibira ania invitacion de inscripcion despues de rosales visita al [facility] o al [facility] via correo electronico. Tambien puede inscribirse voluntariamente en el portal de pacientes visitando nuestra pagina web: [email or web address] La siguiente informacion sera requerida para acceder al portal: - Rosales abdiel de historia medica de [facility] - Rosales direccion de correo electronico personal - Nombre - Fecha de nacimiento Capacidades: Las siguientes capacidades estan disponibles en el portal de pacientes: - Enviar mensajes a algunos doctores - Verificar proximas citas - Acceso a rosales historial de reyes, registro medico e historial de visitas - Shayy las condiciones actuales y alergias shayy procedimientos y resultados del laboratorio - Shayy terrell medicamentos, incluyendo las pautas - Efectos secundarios y precauciones - Completar o llenar formularios / cuestionarios de - Citas solicitadas por rosales doctor - Leer los resumenes de reportes medicos de terrell visitas y procedimientos [place] acceder a la aplicacion movil: - Jaye [employer] en la Anai Store o Daily[employer] Store - Descargue la aplicacion - [facility] - Ingrese rosales nombre de usuario / Contrasena Prescriptions: New prednisone 20 mg tablet 40 mg PO DAILY 5 Days Qty: 10 0RF cyclobenzaprine 5 mg tablet 5 mg PO TID PRN (Reason: left lower back spasm) 7 Days Qty: 21 0RF No Action (DME) blood sugar diagnostic Strip See Rx Instructions Not Applicable BID Qty: 10 11RF Rx Instructions: As directed (DME) blood-glucose meter [FreeStyle Lite Meter] Kit See Rx Instructions .Route Qty: 1 0RF Rx Instructions: As directed (DME) blood pressure monitor Kit See Rx Instructions .Route Qty: 1 0RF Rx Instructions: As directed fluticasone propionate 110 mcg/actuation HFA aerosol inhaler 2 puff inhalation BID Qty: 36 0RF albuterol sulfate [Ventolin HFA] 90 mcg/actuation HFA aerosol inhaler 1 puff PO QID PRN (Reason: for wheezing) Qty: 18 1RF sennosides [senna] 8.6 mg tablet 17.2 mg PO BEDTIME 90 Days Qty: 180 0RF bisacodyl [Dulcolax (bisacodyl)] 5 mg tablet,delayed release (DR/EC) 20 mg PO ONCE 1 Days Qty: 4 0RF Rx Instructions: the day before colonoscopy take 2 pills at 12pm and 2 pills at 5pm with plenty of water polyethylene glycol 3350 [Miralax] 17 gram/dose powder 238 g PO ONCE 1 Days Qty: 238 0RF Rx Instructions: THE DAY BEFORE your procedure mix entire bottle with 64 ounces of Gatorade- no red, blue or purple. AT 5PM Start drinking 1 cup every 15minutes until half is gone. Continue drinking plenty of clear liquids. AT 10PM Finish drinking remaining prep. levothyroxine 25 mcg tablet 25 mcg PO DAILY@0600 90 Days Qty: 90 0RF acetaminophen [Acetaminophen Pain Relief] 500 mg tablet 1,000 mg PO Q6H PRN (Reason: pain) Qty: 30 0RF buspirone 5 mg tablet 5 mg PO DAILY PRN (Reason: Anxiety) (DME) lancets [FreeStyle Lancets] 28 gauge misc See Rx Instructions .ROUTE .MEDSUPPLY Qty: 100 Rx Instructions: As directed (DME) nebulizers [Aeroneb Go Nebulizer] Misc See Rx Instructions .Route Qty: 1 0RF Rx Instructions: As directed albuterol sulfate 2.5 mg/0.5 mL solution for nebulization 5 mg inhalation Q4H PRN (Reason: shortness of breath or wheezing) Qty: 30 3RF trazodone 100 mg tablet 200 mg PO BEDTIME PRN escitalopram oxalate 20 mg tablet 20 mg PO DAILY rosuvastatin 10 mg tablet 10 mg PO BEDTIME 90 Days Qty: 90 1RF bisacodyl [Dulcolax (bisacodyl)] 10 mg suppository 10 mg WI DAILY PRN (Reason: constipation) Qty: 12 0RF Anoro Ellipta 62.5-25 mcg/actuation blister with device 1 inh inhalation DAILY PRN enalapril maleate 2.5 mg tablet 1.25 mg PO DAILY 90 Days Qty: 45 4RF Referrals: Rupal Duke MD [Primary Care Provider, Internal Medicine] Stand Alone Forms: Work/School Release Print Language: [place] African
--- OUTSIDE RECORDS SUMMARY | 2025-05-23 07:24 | XMS_ITS | Encounter Summary ---
Author Organization [employer] Address [address] [facility] [address] [place] [address] Care Team Providers Care Unit Tender Name Role Phone Unavailable Primary Care Provider Unavailabl e Encounter Details Date Type Department Care Team (Latest Contact Info) Description 06/08/2019 Abstract [facility] CONVERSIONS Dental, Provider, DDS Social History Tobacco [...]
--- OUTSIDE RECORDS SUMMARY | 2025-05-23 07:24 | XMS_ITS | Clinical Summary ---
Author Organization [employer] Address [address] [facility] [address] [place] [address] Care Team Providers Care Medical Administrative Assistant Name Role Phone Unavailable Primary Care Provider [...] Description 03/22/2025 2:00 PM EDT Office Visit [facility] [address] [place] [id number] Amrik, Aarti, OD Presbyopia (Primary Dx) from [...] to Health Maintenance Insurance [facility] STANDARD DENTAL-[facility] MEDICAID STAND ADULT
[2025-05-23 08:20] VITALS: BP 130/63; PULSE 68; RESP 16; TEMP 36.6; O2SAT 98
== END 2025-05-23 08:21 | disposition home or self-care (01) ==
PROVIDERS: Emergency Provider Emergency Medicine; PCP Internal Medicine
DX: M54.42 Lumbago with sciatica, left side (principal); I10 Essential (primary) hypertension; E11.9 Type 2 diabetes mellitus without complications; Z79.899 Other long term (current) drug therapy
CPT/HCPCS: 96372; 99283; 99284; J1885; J2919

== ENCOUNTER 2025-06-13 14:18 | Outpatient (AMB) | payer OTHER, SELFPAY ==
--- NOTE | 2025-06-13 14:27 | MHC.OFFVIS ---
Vital Signs 06/13/25 14:28 Height 5 ft 4 in Weight 168 lb BMI 28.8 Intake Visit Reasons: NewProb:Bilateral hand pain/ EMG done 04/17/25 Intake Note: Shikha is a 25 year old right hand dominant female who presents today for a New Problem Visit complaining of Bilateral Hand Pain, Numbness, & Tingling. Patient complains of right 1st, 2nd, 3rd, 4th, and 5th digit numbness and tingling with/without associated sleep disturbance. 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 Denies finger locking. She has not tried braces, steroid injections, or OT. Reports right hand laceration about 3 years ago that resulted in locking and catching of the right index finger. She was given a trigger injection at the time. Patient denies any surgeries to the hands. Patient works at a [employer] at a [employer]. Impression 04/17/25: 1. Bjjw-ju-mqrrwoww bilateral median neuropathy across carpal tunnel 2. Mild right ulnar neuropathy across cubital tunnel Banker Mason Required: Yes Banker Mason Language: Oil Winterizer Name: [id number] Mandaen Allergies morphine (MORPHINE) Allergy (Severe, Verified 06/13/25 14:32) facial droop, numbness, lip deviation HPI HPI NewProb:Bilateral hand pain/ EMG done 04/17/25: Details: Shikha is a 25 year old right hand dominant female who presents today for a New Problem Visit complaining of Bilateral Hand Pain, Numbness, & Tingling. Patient complains of right 1st, 2nd, 3rd, 4th, and 5th digit numbness and tingling with associated sleep disturbance. 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 Denies finger locking. She has not tried braces, steroid injections, or OT. Reports right hand laceration about 3 years ago that resulted in locking and catching of the right index finger. She was given a trigger injection at the time. Patient denies any surgeries to the hands. Patient works at a [employer] at a [employer], and needs to be able to lift 25 lb to be able to work Impression 04/17/25: 1. Taxa-qp-[id number] bilateral median neuropathy across carpal tunnel 2. Mild right ulnar neuropathy across cubital tunnel PFSH Medical History Abnormal chest xray Physical exam Pre-op evaluation H. pylori infection Sacroiliac dysfunction Trigger finger, right little finger Otitis externa Asthma Migraines Lower back pain Bronchitis Hyperkalemia Morbid obesity with BMI of 40.0-44.9, adult Mild recurrent major depression Left sided sciatica Essential hypertension Hypertriglyceridemia Insomnia Depression with anxiety Diabetes mellitus Hypothyroidism Surgical History S/P laparoscopic sleeve gastrectomy History of foot surgery History of section Family History Father Emphysema lung Mother Myocardial infarction Sister Chronic mental illness Family/Other FH: mental illness Sister Diabetes Sister Cancer, Onset Age: 57 Diabetes Sister Diabetes Sister Diabetes Son No problems noted. 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 Good APB muscle firing and good finger cross. Vascular: Capillary refill brisk. ROM: Patient can make a fist and extend all their digits. Skin: No lacerations or abrasions noted. General: No ecchymosis. No erythema or evidence of infection. Assessment & Plan Assessment & Plan (1) Bilateral carpal tunnel syndrome: Code(s): G56.03 - Carpal tunnel syndrome, bilateral upper limbs Category: Medical (2) Cubital tunnel syndrome on right: Code(s): G56.21 - Lesion of ulnar nerve, right upper limb Category: Medical Plan 1. Bilateral carpal tunnel syndrome 2. Right cubital tunnel syndrome Symptoms intermittent, not always daily, worse at night I educated the patient about the condition. I discussed both operative and nonoperative treatment options. The risks and benefits of operative treatment were discussed with the patient . These risks include, but are not limited to, risk of damage to blood vessels, nerves, tendons, infection, recurrence, incomplete relief of preoperative symptoms, persistent pain, possible need for further surgery, and the risks associated with regional blocks and/or anesthesia. However, the patient would like to have some time to think about potential surgical intervention and discuss with her job and family to see if this is something that has feasible for her at this time. Therefore, the patient will follow-up after she has made a decision with regards to surgery, may call our office any time to schedule an appointment. Coding Level of Care Code New Pt Level 4 (35558) Diagnoses Bilateral carpal tunnel syndrome G56.03 Cubital tunnel syndrome on right G56.21
[2025-06-13 14:28] VITALS: BMI 28.8
--- OUTSIDE RECORDS SUMMARY | 2025-06-13 17:44 | XMS_ITS | Clinical Summary ---
Author Organization [employer] Address [address] [facility] [address] [place] [address] Care Team Providers Care Electrical Controls Engineer Name Role Phone Unavailable Primary Care [...] Description 03/22/2025 2:00 PM EDT Office Visit [facility] [address] [place] [id number] Amrik, Aarti, OD Presbyopia (Primary Dx) from [...] Most Recently Relevant to Health Maintenance Insurance [facility] STANDARD DENTAL-[facility] MEDICAID STAND ADULT
--- OUTSIDE RECORDS SUMMARY | 2025-06-13 17:44 | XMS_ITS | Encounter Summary ---
Author Organization [employer] Address [address] [facility] 7[address] [place] [address] Care Team Providers Care Green Belt Name Role Phone Unavailable Primary Care Provider Unavailabl e Encounter Details Date Type Department Care Team (Latest Contact Info) Description 06/08/2019 Abstract [facility] CONVERSIONS Dental, Provider, DDS Social History Tobacco [...]
== END 2025-06-13 14:58 | disposition home or self-care (01) ==
LOC: HO.HOS 14:19
PROVIDERS: PCP Internal Medicine
DX: G56.03 Carpal tunnel syndrome, bilateral upper limbs (principal); G56.21 Lesion of ulnar nerve, right upper limb
CPT/HCPCS: 99214

== ENCOUNTER → 2025-06-13 14:18 | Outpatient (BNVA) | payer OTHER, SELFPAY | PROVIDERS: PCP Internal Medicine | DX: G56.03 Carpal tunnel syndrome, bilateral upper limbs (principal); G56.21 Lesion of ulnar nerve, right upper limb | CPT/HCPCS: 99212 ==

== ENCOUNTER 2025-06-15 08:32 | Outpatient (AMB) | payer OTHER, SELFPAY ==
--- OUTSIDE RECORDS SUMMARY | 2025-06-15 08:45 | XMS_ITS | Clinical Summary ---
Author Organization [employer] Address [address] [facility] [address] [place] [address] Care Team Providers Care Fur Blower Name Role Phone Unavailable Primary Care Provider [...] Description 03/22/2025 2:00 PM EDT Office Visit [facility] [address] [place] [id number] Amrik, Aarti, OD Presbyopia (Primary Dx) from [...] Most Recently Relevant to Health Maintenance Insurance [facility] STANDARD DENTAL-[facility] MEDICAID STAND ADULT
--- OUTSIDE RECORDS SUMMARY | 2025-06-15 08:45 | XMS_ITS | Encounter Summary ---
Author Organization [employer] Address [address] [facility] 7[address] [place] [address] Care Team Providers Care Sewage Disposal Worker Name Role Phone Unavailable Primary Care Provider Unavailabl e Encounter Details Date Type Department Care Team (Latest Contact Info) Description 06/08/[address] [facility] CONVERSIONS Dental, Provider, DDS Social [...]
--- NOTE | 2025-06-15 08:55 | MHC.OFFVIS ---
Vital Signs 06/15/25 08:57 Height 5 ft 4 in Weight 179 lb BMI 30.7 BP 143/67 H Blood Pressure Location Lt brachial Position Sitting Respiration 16 Pulse 64 Pulse Source Pulse Oximeter Pulse Oximetry (%) 100 Oxygen Delivery Method Room Air Intake Visit Reasons: Sciatica, left side Chancellor Required: Yes Chancellor Name: Katlin [id number] Accompanied by: Self / Same As Patient Allergies morphine (MORPHINE) Allergy (Severe, Verified 06/15/25 08:58) facial droop, numbness, lip deviation HPI Comments Details: The patient is a 50-year-old female presenting with left lower back pain radiating down the left leg. The patient reports experiencing pain in the left side of her back that extends down her leg, which has been persistent for approximately six months. The pain worsens when lying down, standing for extended periods, and ascending stairs. The pain radiates down the entire leg to the toes, accompanied by numbness, weakness, and tingling. The patient also experiences pain when bending forward, which causes her to feel stuck, and reports that bending exacerbates the pain. She has been using naproxen and a muscle relaxer prescribed by her primary care physician, which provide minimal relief. Physical therapy was ordered by her doctor over the summer, but she did not receive a call to schedule the sessions. - Onset: Pain has been present for approximately six months. - Quality: Pain radiates down the entire leg to the toes, with numbness, weakness, and tingling. - Location: Left side of the back, extending down the leg. - Exacerbating factors: Lying down, standing for extended periods, ascending stairs, and bending forward. - Relieving factors: Minimal relief with naproxen and muscle relaxer. - Affect: Pain impacts daily activities and causes discomfort when lying down, standing, and bending. - Analgesia: Currently using naproxen and a muscle relaxer with minimal relief. - Adverse Effects: None reported from current medications. - Activities of Daily Living: Pain interferes with lying down, standing for long periods, and bending. - Aberrant Drug Related Behaviors: None reported. Prior: Shikha is a pleasant 47 year old female who presents to the office today for evaluation and management of her chronic left lower back pain. Patient was referred here from her pcp office. Patient states she has been dealing with this pain for the last 2 years, denies inciting injury. She states she completed physical therapy when it first started hurting but it made the pain worse . Patient will take naproxen for the pain with some relief. She has not had any imaging; has not tried heat, ice, muscle relaxers, acupuncture, chiropractor or massage for the pain. 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 Pain improves with rest and if she sits in the recliner with her feet elevated. Patient reports the pain radiates into her buttock and thigh, around to her groin and down her left leg. Pain today is a 7/10. Patient denies red flag symptoms including loss of bowel, bladder or saddle anesthesia. In terms of muscle damage condition is described as pulsing, throbbing, pounding, flashing, shooting, pinching, cramping, question, tugging, pulling, tingling, stinging, dull, sore, hurting, aching, heavy, spreading and radiating. Patient reports the pain impacts her ability to sleep normally, performed activities of daily living and makes working more difficult. Pain is worse with standing and movement. She has not found anything that alleviates her pain. Patient denies implantable devices, pacemaker, defibrillator. Past medical history significant for Depression, anxiety, Diabetes mellitus,Essential hypertension,Hypertriglyceridemia,Hypothyroidism,Insomnia and obesity. Most recent A1c 7.6 on December 2022. Patient denies current alcohol, tobacco or illicit drug use. COUNT INCLUDES THE [facility] Medical History Abnormal chest xray Physical exam Pre-op evaluation H. pylori infection Sacroiliac dysfunction Trigger finger, right little finger Otitis externa Asthma Migraines Lower back pain Bronchitis Hyperkalemia Morbid obesity with BMI of 40.0-44.9, adult Mild recurrent major depression Left sided sciatica Essential hypertension Hypertriglyceridemia Insomnia Depression with anxiety Diabetes mellitus Hypothyroidism Surgical History S/P laparoscopic sleeve gastrectomy History of foot surgery History of section Family History Father Emphysema lung Mother Myocardial infarction Sister Chronic mental illness Family/Other FH: mental illness Sister Diabetes Sister Cancer, Onset Age: 57 Diabetes Sister Diabetes Sister Diabetes Son No problems noted. 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 Physical Exam Exam Exam: General: awake, alert, oriented. Answers questions appropriately. Fully engaged in examination. Skin: warm, dry, intact HEENT: Normocephalic. Hearing intact. Cardiac: External chest normal in appearance. Respiratory: No cough, audible wheezing or stridor. Abdomen: without gross distension. MS: No obvious swelling or deformities. Able to stand on bilateral tiptoes and bilateral heels.? Able to transition from sit to stand unassisted. Ambulates with bilaterally normal heel strike and toe off SLR neg on left Left SIJ: Gaenslen positive, SI compression positive, thigh thrust positive. Tenderness over left PSIS Neurological: Oriented to person, place, time and situation. Thought process intact. No gait abnormalities appreciated. Psychiatric: Appropriate mood and affect. Good judgment and insight. Vital Signs: Last Vital Signs Pulse 64 06/15/25 08:57 Resp 16 06/15/25 08:57 BP 143/67 H 06/15/25 08:57 Pulse Ox 100 06/15/25 08:57 Oxygen Delivery Method Room Air 06/15/25 08:57 BMI result Body Mass Index 30.7 Results Reviewed Results Reviewed: 03/12/25 XR LS Findings: There is scoliotic curvature. No acute fractures or dislocation. There is multiple level degenerative disc and facet change IMPRESSION: No acute findings. Assessment & Plan Assessment & Plan (1) Sacroiliac joint dysfunction of left side: Code(s): M53.3 - Sacrococcygeal disorders, not elsewhere classified Category: Medical Plan The patient will be referred for physical therapy, as previously ordered, to address the sacroiliac joint dysfunction. If the patient does not receive a call to schedule physical therapy, she will be provided with a contact card to initiate the appointment herself. Following a few weeks of physical therapy, the patient is advised to return for a follow-up appointment to assess progress. Should there be no improvement, the possibility of proceeding with injections will be considered. If no improvement with PT plan for Fluoroscopy guided left diagnostic SIJ injection with local anesthetic. Patient was informed and verbally consented to the use of an ambient scribe for clinic note documentation during this visit. Orders: Orders PT Evaluation and Treatment Today M53.3 - Sacrococcygeal disorders, not elsewhere classified Patient Instructions: - Contact the physical therapy office if they do not call within a week to schedule an appointment. - Attend physical therapy sessions as scheduled. - Return for a follow-up appointment after a few weeks of therapy. - Consider discussing further treatment options, such as injections, if there is no improvement. Coding Level of Care Code Est Pt Level 3 (09935) Complex EM visit Add On G2211 Diagnoses Sacroiliac joint dysfunction of left side M53.3
[2025-06-15 08:57] VITALS: BP 143/67; PULSE 64; RESP 16; O2SAT 100; BMI 30.7
== END 2025-06-15 09:16 | disposition home or self-care (01) ==
LOC: HO.PMC 08:33
PROVIDERS: PCP Internal Medicine; Visit Provider Registered Nurse Emergency
DX: M53.3 Sacrococcygeal disorders, not elsewhere classified (principal)
CPT/HCPCS: 99213

== ENCOUNTER → 2025-06-15 08:32 | Outpatient (BNVA) | payer OTHER, SELFPAY | PROVIDERS: PCP Internal Medicine; Visit Provider Registered Nurse Emergency | DX: M53.3 Sacrococcygeal disorders, not elsewhere classified (principal) | CPT/HCPCS: 99212 ==

== ENCOUNTER 2025-06-24 07:46 | Emergency (ER) | payer OTHER, SELFPAY ==
[2025-06-24 07:49] VITALS: BP 118/60; PULSE 74; RESP 16; TEMP 36.1; O2SAT 100; BMI 32.8
--- OUTSIDE RECORDS SUMMARY | 2025-06-24 08:13 | XMS_ITS | Clinical Summary ---
Author Organization [employer] Address [address] [facility] [address] [place] [address] Care Team Providers Care Slide Forming Machine Tender Name Role Phone Unavailable Primary Care [...] Most Recently Relevant to Health Maintenance Insurance [facility] STANDARD DENTAL-[facility] MEDICAID STAND ADULT
--- OUTSIDE RECORDS SUMMARY | 2025-06-24 08:13 | XMS_ITS | Encounter Summary ---
Author Organization [employer] Address [address] [facility] [address] [place] [address] Care Team Providers Care Manager Human Capital Name Role Phone Unavailable Primary Care Provider Unavailabl e Encounter Details Date Type Department Care Team (Latest Contact Info) Description 06/08/2019 Abstract [facility] CONVERSIONS Dental, Provider, DDS Social [...]
--- NOTE | 2025-06-24 08:52 | ED_ITS ---
HPI - General Adult General Chief complaint: Extremity Injury, Lower Stated complaint: Knee Leg Pain Time Seen by Provider: 06/24/25 07:55 Source: patient, RN notes reviewed, old records reviewed and enrollment processor Mode of arrival: ambulatory Limitations: language barrier History of Present Illness ED Provider: Alejandro HPI narrative: Patient is a 50-year-old Slovenian-speaking female with history of left-sided SI joint dysfunction, obesity, sciatica, status post lap sleeve gastrectomy, asthma, HLD, migraines, HTN, DM, hypothyroidism presenting in the emergency department with complaint of right lower back pain radiating to mid right thigh since yesterday. States that she took a Flexeril at home without any relief. Denies any fall or other traumatic injury. States pain feels the same as prior episode of sciatica. Denies saddle anesthesia, bowel or bladder incontinence, fevers, history of IVDU. MD complaint: back pain Onset (ago): day(s) Related Data Home Medications ?Medication ?Instructions ?Recorded ?Confirmed buspirone 5 mg tablet 5 mg PO DAILY PRN Anxiety 05/22/25 lancets 28 gauge (FreeStyle #100 ea 05/27/20 05/22/25 Lancets) escitalopram oxalate 20 mg tablet 20 mg PO DAILY 03/0505/22/25 trazodone 100 mg tablet 200 mg PO BEDTIME PRN 05/22/25 umeclidinium 62.5 mcg-vilanterol 1 inh inhalation DEEPA Y PRN 04/11/25 05/22/25 25 mcg/actuation powdr for inhalation (Anoro Ellipta) Previous Rx's ?Medication ?Instructions ?Recorded blood sugar diagnostic #10 ea 10/14/20 nebulizers (Aeroneb Go Nebulizer) #1 ea 05/11/22 blood pressure monitor #1 ea 02/08/23 blood-glucose meter (FreeStyle #1 ea 02/08/23 Lite Meter kit) fluticasone propionate 110 2 puff inhalation BID #36 g nic 04/11/24 mcg/actuation HFA aerosol inhaler albuterol sulfate 2.5 mg/0.5 mL 5 mg inhalation Q4H [place] N shortness 10/06/24 solution for nebulization of breath or wheezing #30 ea albuterol sulfate 90 mcg/actuation 1 puff PO QID PRN f or wheezing #18 11/03/24 aerosol inhaler (Ventolin HFA) ea acetaminophen 500 mg tablet 1,000 mg (2 x 500 mg) PO Q 6H PRN 11/10/24 (Acetaminophen Pain Relief) pain #30 tabs bisacodyl 10 mg rectal suppository 10 mg [place] DAILY PRN constipation 12/12/24 (Dulcolax (bisacodyl)) #12 ea rosuvastatin 10 mg tablet 10 mg PO BEDTIME 90 days #90 tabs 03/05/25 sennosides 8.6 mg tablet (senna) 17.2 mg (2 x 8.6 mg) PO BEDTIME 03/09/25 constipation 90 days #180 tabs enalapril maleate 2.5 mg tablet 1.25 mg (1/2 x 2.5 mg) PO DAILY 90 04/11/25 days #45 tabs bisacodyl 5 mg tablet,delayed 20 mg (4 x 5 mg) PO ONCE 05/12/25 release (Dulcolax (bisacodyl)) colonoscopy prep 1 day #4 tabs polyethylene glycol 3350 17 238 g PO ONCE colonoscopy prep 1 05/12/25 gram/dose oral powder (Miralax) day #238 grams levothyroxine 25 mcg tablet 25 mcg PO DAILY@0600 90 da ys #90 05/15/25 tabs cyclobenzaprine 5 mg tablet 5 mg PO TID PRN left lower back 05/23/25 spasm 7 days #21 tabs gabapentin 100 mg capsule 100 mg PO TID 7 days #21 cap s 06/24/25 lidocaine 5 % topical patch 1 patch topical DAILY #15 ea 06/24/25 Allergies Allergy/AdvReac Type Severity Reaction Status Date / Time morphine (MORPHINE) Allergy Severe facial Verified 06/24/25 07:52 droop, numbness, lip deviation Review of Systems Review of Systems: As per HPI Yes all other systems are reviewed and are negative Constitutional: Constitutional: Reports as per HPI [facility] Past Medical History Medical History Abnormal chest xray Physical exam Pre-op evaluation H. pylori infection Sacroiliac dysfunction Trigger finger, right little finger Otitis externa Asthma Migraines Lower back pain Bronchitis Hyperkalemia Morbid obesity with BMI of 40.0-44.9, adult Mild recurrent major depression Left sided sciatica Essential hypertension Hypertriglyceridemia Insomnia Depression with anxiety Diabetes mellitus Hypothyroidism Surgical History S/P laparoscopic sleeve gastrectomy History of foot surgery History of section Family History Family History Father Emphysema lung Mother Myocardial infarction Sister Chronic mental illness Family/Other FH: mental illness Sister Diabetes Sister Cancer, Onset Age: 57 Diabetes Sister Diabetes Sister Diabetes Son No problems noted. Unknown Cancer, Onset Age: 24 Social History Social History (Updated 06/13/25 @ 14:33 by NINFA Whitley) Household Members: None Housing: Apartment Are you a primary managed care liaison to a significant other at home: No Do you presently have visiting nurse or other home services: No Alcohol intake: former Patient Tobacco Use Status: Former Tobacco user Tobacco use type: Cigarette e-Cigarette/Vaping Use: Never Used Second Hand Smoke Exposure: No Advance Directives: No Advance Directives Information Provided: Yes service: No Current occupational status: employed Current occupation: rt handed, [employer] at [employer] Current occupational exposures/hazards: No Cognitive needs: No Hearing needs: No Vision needs: Yes Physical Exam ED Vital Signs: Vital Signs - 24 hr 06/24/25 07:49 Temperature 97.0 F Pulse Rate 74 Respiratory Rate 16 Blood Pressure 118/60 Pulse Oximetry 100 Oxygen Delivery Method Room Air BMI result Body Mass Index 32.8 Vital signs have been reviewed and appear to be correct. Blood pressure normal. Heart rate normal. Respiratory rate normal. Temperature normal. Oxygen saturation normal. Const General: cooperative, healthy appearing and no acute distress Orientation/consciousness: oriented to person, oriented to place, oriented to time and patient oriented x3 Limitations: no limitations HENMT Head: Yes normocephalic and Yes atraumatic Ears: external ears normal General nose exam: Normal external nose present Face and sinus: Yes face symmetric Mouth: oropharynx normal and moist mucous membranes Throat: Yes uvula midline Eyes Pupils: Equal, round and reactive pupils present Neck Neck: Yes normal visual inspection, Yes no meningeal signs and Yes supple Resp Effort & Inspection: normal respiratory effort and able to speak in complete sentences Auscultation: clear to auscultation bilaterally Cardio Rate: regular rate Rhythm: regular rhythm Heart sounds: S1 normal heart sound present and S2 normal heart sound present GI Palpation (GI): Soft to palpation and nontender Auscultation: normoactive bowel sounds General: Yes no CVA tenderness Back/Spine/Pelvis Back: no CVA tenderness Thoracic/Lumbar Spine: thoracic and lumbar spine normal to inspection, thoraco- lumbar ROM normal, straight leg raise negative bilaterally, pain with thoraco- lumbar ROM, No paraspinal muscle tenderness, No thoracic spinal tenderness and No lumbar spinal tenderness Pelvis: no pain with anterior-posterior compression and no pain with lateral compression Skin General skin exam: elasticity normal and turgor normal Neuro General: oriented to person, oriented to place, oriented to time, patient oriented x3, gait normal, tone normal, moves all extremities, Normal light touch and pain sensation, no meningeal signs, no focal motor deficits, CN's II-XI intact bilaterally and deep tendon reflexes 2+ bilaterally Cranial nerves: Yes Equal, round and reactive pupils present Cognition (Neuro): normal cognition Motor exam (neuro): 5/5 motor strength present throughout, Normal motor muscle tone present throughout and Motor abnormalities not present Extrem General: Yes full ROM, Yes no pedal edema and Yes no calf tenderness Psych Mental Status: mental status grossly normal Affect: normal affect Thought process: Normal thought process present Medications Administered Discontinued Medications Generic Name Dose Route Start Last Admin Trade Name Freq PRN Reason Stop Dose Admin Acetaminophen 975 mg 06/24/25 09:35 06/24/25 10:07 Acetaminophen 325 Mg Tablet PO 06/24/25 09:36 975 mg ONCE ONE Administration Ibuprofen 600 mg 06/24/25 09:35 06/24/25 10:07 Ibuprofen 600 Mg Tablet PO 06/24/25 09:36 600 mg ONCE ONE Administration Prednisone 50 mg 06/24/25 09:35 06/24/25 10:07 Prednisone 10 Mg Tablet PO 06/24/25 09:36 50 mg ONCE ONE Administration Medical Decision Making Medical Decision Making MDM Narrative: Patient is a 50-year-old [place]ian-speaking female with history of left-sided SI joint dysfunction, obesity, sciatica, status post lap sleeve gastrectomy, asthma, HLD, migraines, HTN, DM, hypothyroidism presenting in the emergency department with complaint of right lower back pain radiating to mid right thigh since yesterday. On exam patient is awake, A+Ox3, VS WNL, afebrile, normal neurological exam without focal deficits, physical exam findings as above. Given reported symptoms and physical exam findings, initial differential includes but is not limited to initial differential includes lumbar strain, hieu mbar radiculopathy, degenerative disc disease, disc herniation, spinal stenosis, spondylosis. Less likely vertebral fracture. Do not suspect malignancy/mass, SEA, cauda equina/cord compression based on HPI and physical exam findings. Imaging not indicated as pain is atraumatic. Will medicate for pain in the ED and discharge home on course of gabapentin as patient unable to take prolonged course of steroids or NSAIDs due to gastrectomy. Advised close follow up with PCP. Return precautions discussed. Patient verbalized understanding of and agreement with plan. In-person membership counselor was utilized for all interactions, assessments, and discussions. Differential Diagnosis Differential Diagnoses: The differential diagnosis associated with the presentation includes as per [facility] Admission/Observation Consideration of admission/observation: Escalation of care including admission/observation considered Patient would have been admitted to the hospital and transferred to appropriate facility had their clinical presentation warranted hospital admission. Lab Data [facility] Lab Attestation statement: I reviewed the patient's lab results. as per [facility] Labs: Lab Results 06/24/25 Range/Units 09:26 POC Glucose 72 (60-115) mg/dL External Record Review External record reviewed: Inpatient record, Office record and Outpatient record Prescription Management I considered prescription management with: Pain Medication Discharge Plan Discharge Clinical Impression: Acute lumbar radiculopathy Patient Disposition: Home, Self-Care Instructions: Lumbar Radiculopathy (ED) Additional Instructions: You were evaluated in the emergency department today for lower back pain. This is likely due to an inflammation of the sciatic nerve with runs from the lower back down both legs. You are being prescribed a course of gabapentin for pain. You have been prescribed 5% topical lidocaine patches which you can wear for up to 12 hours in a 24 hour period. Do not apply heat directly over the patches. Use all medications as prescribed. Please schedule an appointment for follow-up with your primary care physician this week for further evaluation and management of your symptoms. Return to the emergency department if you experience worsening back pain, difficulty walking, fevers, numbness, tingling, incontinence, groin numbness or tingling, or any other concerning symptoms. Prescriptions: New gabapentin 100 mg capsule 100 mg PO TID 7 Days Qty: 21 0RF lidocaine 5 % adhesive patch,medicated 1 patch topical DAILY Qty: 15 0RF Rx Instructions: leave on most painful area for up to 12 hrs No Action (DME) blood sugar diagnostic Strip See Rx Instructions Not Applicable BID Qty: 10 11RF Rx Instructions: As directed (DME) blood-glucose meter [FreeStyle Lite Meter] Kit See Rx Instructions .Route Qty: 1 0RF Rx Instructions: As directed (DME) blood pressure monitor Kit See Rx Instructions .Route Qty: 1 0RF Rx Instructions: As directed fluticasone propionate 110 mcg/actuation HFA aerosol inhaler 2 puff inhalation BID Qty: 36 0RF albuterol sulfate [Ventolin HFA] 90 mcg/actuation HFA aerosol inhaler 1 puff PO QID PRN (Reason: for wheezing) Qty: 18 1RF sennosides [senna] 8.6 mg tablet 17.2 mg PO BEDTIME 90 Days Qty: 180 0RF bisacodyl [Dulcolax (bisacodyl)] 5 mg tablet,delayed release (DR/EC) 20 mg PO ONCE 1 Days Qty: 4 0RF Rx Instructions: the day before colonoscopy take 2 pills at 12pm and 2 pills at 5pm with plenty of water polyethylene glycol 3350 [Miralax] 17 gram/dose powder 238 g PO ONCE 1 Days Qty: 238 0RF Rx Instructions: THE DAY BEFORE your procedure mix entire bottle with 64 ounces of Gatorade- no red, blue or purple. AT 5PM Start drinking 1 cup every 15minutes until half is gone. Continue drinking plenty of clear liquids. AT 10PM Finish drinking remaining prep. levothyroxine 25 mcg tablet 25 mcg PO DAILY@0600 90 Days Qty: 90 0RF acetaminophen [Acetaminophen Pain Relief] 500 mg tablet 1,000 mg PO Q6H PRN (Reason: pain) Qty: 30 0RF cyclobenzaprine 5 mg tablet 5 mg PO TID PRN (Reason: left lower back spasm) 7 Days Qty: 21 0RF buspirone 5 mg tablet 5 mg PO DAILY PRN (Reason: Anxiety) (DME) lancets [FreeStyle Lancets] 28 gauge misc See Rx Instructions .ROUTE .MEDSUPPLY Qty: 100 Rx Instructions: As directed (DME) nebulizers [Aeroneb Go Nebulizer] Misc See Rx Instructions .Route Qty: 1 0RF Rx Instructions: As directed albuterol sulfate 2.5 mg/0.5 mL solution for nebulization 5 mg inhalation Q4H PRN (Reason: shortness of breath or wheezing) Qty: 30 3RF trazodone 100 mg tablet 200 mg PO BEDTIME PRN escitalopram oxalate 20 mg tablet 20 mg PO DAILY rosuvastatin 10 mg tablet 10 mg PO BEDTIME 90 Days Qty: 90 1RF bisacodyl [Dulcolax (bisacodyl)] 10 mg suppository 10 mg [place] DAILY PRN (Reason: constipation) Qty: 12 0RF Anoro Ellipta 62.5-25 mcg/actuation blister with device 1 inh inhalation DAILY PRN enalapril maleate 2.5 mg tablet 1.25 mg PO DAILY 90 Days Qty: 45 4RF Print Language: Slovenian
[2025-06-24 09:29] LABS: Glucose, Whole Blood 72 mg/dL (60-115)
[2025-06-24 11:10] VITALS: BP 118/60; PULSE 74; RESP 16; TEMP 36.1; O2SAT 100
== END 2025-06-24 11:11 | disposition home or self-care (01) ==
PROVIDERS: Emergency Provider Emergency Medicine Emergency Medical Services; PCP Internal Medicine
DX: M54.16 Radiculopathy, lumbar region (principal); I10 Essential (primary) hypertension; M79.604 Pain in right leg; E11.9 Type 2 diabetes mellitus without complications; Z79.899 Other long term (current) drug therapy; Z98.84 Bariatric surgery status; Z87.891 Personal history of nicotine dependence
CPT/HCPCS: 82947; 99283